=== PATIENT | male | born 1955 | race Hispanic/Latino ===

== ENCOUNTER 2016-06-11 06:50 | Emergency (ER) | payer OTHER ==
[2016-06-11] MEDS ORDERED: MORPHINE IV ONE (07:41)
[2016-06-11] MEDS ORDERED: NACL 0.9% 500 ML 500 ML IV ONE (07:41)
[2016-06-11 07:44] LABS: Basophils % (Auto) 0.5 % (0.0-1.8); Eosinophils % (Auto) 5.2 % (0.0-4.3); Hematocrit 36.3 % (35.5-45.6); Hemoglobin 12.3 gm/dl (11.8-15.2); Mean Corpuscular HGB Conc 34 % (32-34); Mean Corpuscular Hemoglobin 33 pg (28-32); Mean Corpuscular Volume 99 fl (84-94); Platelet Count 154 K/mm3 (140-440); Red Blood Count 3.69 M/mm3 (3.65-5.03); Red Cell Distribution Width 13.5 % (13.2-15.2); White Blood Count 6.9 K/mm3 (4.5-11.0)
--- NOTE | 2016-06-11 07:46 | Emergency Department Report ---
- General Chief Complaint: Upper Respiratory Infection Stated Complaint: FLU SX Time Seen by Provider: 06/11/16 07:36 Source: patient Mode of arrival: Ambulatory Limitations: No Limitations - History of Present Illness Initial Comments: 60-year-old male presents to the emergency department via EMS with multiple complaints. Patient reports headache, dizziness, sore throat, fever, cough, chest pain, nausea, and vomiting beginning yesterday. Cough has been productive of green sputum. Fever has been subjective. Review of the triage note shows that the patient has been complaining of these symptoms for 4 days. There are no other complaints. MD Complaint: fever, cough, sore throat -: Gradual, days(s) (2) Severity: moderate Quality: aching Consistency: constant Improves With: nothing Worsens With: nothing Associated Symptoms: fever, headache, sore throat, cough, chest pain, nausea, vomiting Treatments Prior to Arrival: none - Related Data Home Medications Medication Instructions Recorded Confirmed Last Taken ALBUTEROL Inhaler [ProAir HFA 2.5 mg IH PRN PRN 06/11/16 06/11/16 Unknown Inhaler] Amitriptyline [Elavil] 75 mg PO DAILY 06/11/16 06/11/16 Unknown Aspirin [Adult Low Dose Aspirin EC] 81 mg PO DAILY 06/11/16 06/11/16 Unknown AtorvaSTATin [Lipitor] 20 mg PO QHS 06/11/16 06/11/16 Unknown Cyanocobalamin (Vitamin B-12) 500 mg PO DAILY 06/11/16 06/11/16 Unknown [B-12] DULoxetine 60 mg PO DAILY 06/11/16 06/11/16 Unknown Gabapentin [Neurontin] 300 mg PO TID 06/11/16 06/11/16 Unknown Lisinopril [Zestril TAB] 10 mg PO DAILY 06/11/16 06/11/16 Unknown Metoprolol [Lopressor TAB] 50 mg PO DAILY 06/11/16 06/11/16 Unknown Multivitamin Tab [Multiple Vitamin 1 tab PO DAILY 06/11/16 06/11/16 Unknown TAB (Theragran)] Naproxen [Naproxen TAB] 500 mg PO BID 06/11/16 06/11/16 Unknown Pantoprazole [Protonix TAB] 40 mg PO DAILY 06/11/16 06/11/16 Unknown Pantoprazole [Protonix TAB] 40 mg PO DAILY 06/11/16 06/11/16 Unknown Propranolol [Inderal] 10 mg PO TID 06/11/16 06/11/16 Unknown Ranitidine HCl [Zantac 150 MG TAB] 150 mg PO BID 06/11/16 06/11/16 Unknown Tizanidine HCl [tiZANidine] 4 mg PO PRN 06/11/16 06/11/16 Unknown guaiFENesin [Tab Tussin] 400 mg PO DAILY 06/11/16 06/11/16 Unknown methOCARBAMOL 500 mg PO TID 06/11/16 06/11/16 Unknown traMADol [Ultram 50 MG tab] 50 mg PO Q6H 06/11/16 06/11/16 Unknown traZODone [Desyrel] 100 mg PO QHS 06/11/16 06/11/16 Unknown Previous Rx's Medication Instructions Recorded Last Taken Type Benzonatate [Tessalon Perles] 100 mg PO Q8HR PRN #20 capsule 06/11/16 Unknown Rx Allergies Allergy/AdvReac Type Severity Reaction Status Date / Time No Known Allergies Allergy Unverified 06/11/16 07:19 ED Review of Systems ROS: Stated complaint: FLU SX Other details as noted in HPI Comment: All other systems reviewed and negative Constitutional: fever ENT: throat pain Respiratory: cough Cardiovascular: chest pain, syncope (lightheadedness, no loss of consciousness) Gastrointestinal: nausea, vomiting ED Past Medical Hx - Past Medical History Previous Medical History?: Yes Hx Hypertension: Yes Hx Heart Attack/AMI: Yes Additional medical history: Degenerative disc disease - Surgical History Past Surgical History?: Yes Additional Surgical History: Multiple back surgeries secondary to degenerative disc disease - Family History Family history: no significant - Social History Smoking Status: Current Every Day Smoker (1/2 PPD) Substance Use Type: None - Medications Home Medications: Home Medications Medication Instructions Recorded Confirmed Last Taken Type ALBUTEROL Inhaler [ProAir HFA 2.5 mg IH PRN PRN 06/11/16 06/11/16 Unknown History Inhaler] Amitriptyline [Elavil] 75 mg PO DAILY 06/11/16 06/11/16 Unknown History Aspirin [Adult Low Dose Aspirin EC] 81 mg PO DAILY 06/11/16 06/11/16 Unknown History AtorvaSTATin [Lipitor] 20 mg PO QHS 06/11/16 06/11/16 Unknown History Benzonatate [Tessalon Perles] 100 mg PO Q8HR PRN #20 capsule 06/11/16 Unknown Rx Cyanocobalamin (Vitamin B-12) 500 mg PO DAILY 06/11/16 06/11/16 Unknown History [B-12] DULoxetine 60 mg PO DAILY 06/11/16 06/11/16 Unknown History Gabapentin [Neurontin] 300 mg PO TID 06/11/16 06/11/16 Unknown History Lisinopril [Zestril TAB] 10 mg PO DAILY 06/11/16 06/11/16 Unknown History Metoprolol [Lopressor TAB] 50 mg PO DAILY 06/11/16 06/11/16 Unknown History Multivitamin Tab [Multiple Vitamin 1 tab PO DAILY 06/11/16 06/11/16 Unknown History TAB (Theragran)] Naproxen [Naproxen TAB] 500 mg PO BID 06/11/16 06/11/16 Unknown History Pantoprazole [Protonix TAB] 40 mg PO DAILY 06/11/16 06/11/16 Unknown History Pantoprazole [Protonix TAB] 40 mg PO DAILY 06/11/16 06/11/16 Unknown History Propranolol [Inderal] 10 mg PO TID 06/11/16 06/11/16 Unknown History Ranitidine HCl [Zantac 150 MG TAB] 150 mg PO BID 06/11/16 06/11/16 Unknown History Tizanidine HCl [tiZANidine] 4 mg PO PRN 06/11/16 06/11/16 Unknown History guaiFENesin [Tab Tussin] 400 mg PO DAILY 06/11/16 06/11/16 Unknown History methOCARBAMOL 500 mg PO TID 06/11/16 06/11/16 Unknown History traMADol [Ultram 50 MG tab] 50 mg PO Q6H 06/11/16 06/11/16 Unknown History traZODone [Desyrel] 100 mg PO QHS 06/11/16 06/11/16 Unknown History ED Physical Exam - General Limitations: No Limitations General appearance: alert, in no apparent distress - Head Head exam: Present: atraumatic, normocephalic - Eye Eye exam: Present: normal appearance, PERRL, EOMI - ENT ENT exam: Present: normal exam, normal orophraynx, mucous membranes moist - Neck Neck exam: Present: normal inspection, full ROM. Absent: tenderness - Respiratory Respiratory exam: Present: normal lung sounds bilaterally. Absent: respiratory distress - Cardiovascular Cardiovascular Exam: Present: normal rhythm, bradycardia, normal heart sounds - GI/Abdominal GI/Abdominal exam: Present: soft, normal bowel sounds. Absent: distended, tenderness - Extremities Exam Extremities exam: Present: normal inspection, full ROM. Absent: tenderness - Back Exam Back exam: Present: normal inspection, full ROM. Absent: tenderness - Neurological Exam Neurological exam: Present: alert, oriented X3. Absent: motor sensory deficit - Skin Skin exam: Present: warm, dry, intact ED Course Vital Signs 06/11/16 06/11/16 06/11/16 07:19 08:00 08:15 Temperature 98.0 F 98.5 F Pulse Rate 53 L 63 Respiratory 20 20 Rate Blood Pressure 91/58 Blood Pressure 102/69 [Left] O2 Sat by Pulse 96 99 99 Oximetry 06/11/16 06/11/16 09:04 10:05 Temperature 98.3 F 98.2 F Pulse Rate 75 84 Respiratory 22 20 Rate Blood Pressure Blood Pressure 109/73 127/80 [Left] O2 Sat by Pulse 98 97 Oximetry ED Medical Decision Making - Lab Data Result diagrams: 06/11/16 07:32 06/11/16 07:32 - EKG Data -: EKG Interpreted by Me EKG shows normal: sinus rhythm, axis, intervals, QRS complexes, ST-T waves Rate: normal - EKG Data When compared to previous EKG there are: previous EKG unavailable Interpretation: normal EKG - Radiology Data Radiology results: image reviewed interpreted by me: Chest x-ray reveals no acute cardiopulmonary abnormalities. Spinal hardware is noted. - Medical Decision Making Lab and imaging results reviewed and discussed with the patient. Patient will be discharged home at this time to follow up with his primary care physician. - Differential Diagnosis URI, pneumonia, influenza Critical care attestation.: If time is entered above; I have spent that time in minutes in the direct care of this critically ill patient, excluding procedure time. ED Disposition Clinical Impression: Upper respiratory infection Qualifiers: URI type: unspecified viral URI Qualified Code(s): J06.9 - Acute upper respiratory infection, unspecified; B97.89 - Other viral agents as the cause of diseases classified elsewhere Disposition: DISCHARGED TO HOME OR SELFCARE Is pt being admited?: No Condition: Stable Instructions: Upper Respiratory Infection (ED) Prescriptions: Benzonatate [Tessalon Perles] 100 mg PO Q8HR PRN #20 capsule PRN Reason: Cough Referrals: PRIMARY CARE, [Primary Care Provider] - 3-5 Days Time of Disposition: 10:16
[2016-06-11 08:04] LABS: Anion Gap 18 mmol/L; Blood Urea Nitrogen 22 mg/dL (9-20); Calcium 8.3 mg/dL (8.4-10.2); Carbon Dioxide 23 mmol/L (22-30); Chloride 102.6 mmol/L (98-107); Glucose 94 mg/dL (75-100); Potassium 4.9 mmol/L (3.6-5.0); Sodium 139 mmol/L (137-145)
--- NOTE | 2016-06-11 08:41 | XRay Report ---
Portable chest: The aorta is somewhat tortuous. The heart is probably normal in size. There is no vascular congestion the lungs are clear. No significant change is identified compared to November 2008 other than the interval presence of stabilizing thoracolumbar hardware. Impression: No acute cardiopulmonary findings.
[2016-06-11 10:07] VITALS: BP 127/80
== END 2016-06-11 11:36 | disposition home or self-care (01) ==
LOC: ED 06:50
DX: J06.9 Acute upper respiratory infection, unspecified (principal); B97.89 Other viral agents as the cause of diseases classified elsewhere; R55 Syncope and collapse; R11.2 Nausea with vomiting, unspecified; I10 Essential (primary) hypertension; I25.2 Old myocardial infarction; F17.200 Nicotine dependence, unspecified, uncomplicated; Z79.82 Long term (current) use of aspirin
CPT/HCPCS: 36415; 71010; 80048; 85025; 87400; 93005; 93010; 96374; 99284; J2270; J7040

== ENCOUNTER 2016-06-13 07:26 | Emergency (ER) | payer OTHER ==
[2016-06-13 07:50] VITALS: BP 123/86
[2016-06-13 09:01] LABS: Basophils % (Auto) 0.4 % (0.0-1.8); Eosinophils % (Auto) 5.4 % (0.0-4.3); Hematocrit 39.5 % (35.5-45.6); Hemoglobin 13.1 gm/dl (11.8-15.2); Mean Corpuscular HGB Conc 33 % (32-34); Mean Corpuscular Hemoglobin 33 pg (28-32); Mean Corpuscular Volume 100 fl (84-94); Platelet Count 147 K/mm3 (140-440); Red Blood Count 3.94 M/mm3 (3.65-5.03); Red Cell Distribution Width 13.5 % (13.2-15.2); White Blood Count 5.9 K/mm3 (4.5-11.0)
[2016-06-13 09:18] LABS: Blood Urea Nitrogen 14 mg/dL (9-20); Calcium 8.9 mg/dL (8.4-10.2); Carbon Dioxide 25 mmol/L (22-30); Glucose 88 mg/dL (75-100)
[2016-06-13 09:19] LABS: Anion Gap 19 mmol/L; Chloride 100.5 mmol/L (98-107); Sodium 139 mmol/L (137-145)
--- NOTE | 2016-06-13 09:21 | XRay Report ---
ROUTINE CHEST, TWO VIEWS: PA and lateral views demonstrate the heart and mediastinal contour to be of normal size and shape. The lungs are clear and fully expanded and the soft tissues and bony structures are normal. No change compared to June 11, 2016. Of note are thoracolumbar pedicle screws. IMPRESSION: No cardiopulmonary abnormalities.
[2016-06-13] MEDS ORDERED: TORADOL IV ONE (21:41)
[2016-06-13] MEDS ORDERED: MAGNESIUM SULFATE 2GM/50ML 50 ML IV ONE (21:41)
[2016-06-13] MEDS ORDERED: PROVENTIL IH ONE (21:41)
[2016-06-13] MEDS ORDERED: ATROVENT IH ONE (21:41)
--- NOTE | 2016-06-13 21:42 | Emergency Department Report ---
ED General Adult HPI - General Chief complaint: Chest Pain Stated complaint: CHEST PAIN /COUGH 2X DAYS Time Seen by Provider: 06/13/16 21:31 Source: patient Mode of arrival: Ambulatory Limitations: No Limitations - History of Present Illness Initial comments: this is a 60 y/o male previously unknown to me.pmd is at the [facility] pmh: htn, djd, ?copd, "heart attack." patient comes to the ER complaining of cough, congestion headache, facial pain, facial fullness, body aches, cough, green mucous production. symptoms present for 3-4 days. they have no exacerbating or relieving factors. he was soon in the ER a few days ago for similar symptoms, and presumptively diagnosed with bronchitis/viral syndrome. he was d/c-ed with rashard mulligan. as per discussion with emergency medicine department staff at the [facility], patient had been admitted to [facility] for tachycardia arrhythmia, was found to have SVT, had a troponin leak, had an echocardiogram that demonstrated an EF of 61%. Patient's reports his symptoms have no exacerbating or relieving factors. The chest pain as central, does not ready to the back, arms or neck. There is no vomiting, there is no diaphoresis. There is no leg pain. There is no leg swelling. No recent trips greater than 4 hours. No recent hospital admissions. As per verbal report from the [facility], patient had 3 CT imaging of the chest in the past year, negative for pulmonary animals, positive for findings consistent with COPD. -: Gradual Location: head, face, chest, left, right, upper extremity, lower extremity Quality: aching Consistency: intermittent Improves with: rest Worsens with: movement Associated Symptoms: chest pain, cough, loss of appetite, shortness of breath Treatments Prior to Arrival: cold therapy - Related Data Home Medications Medication Instructions Recorded Confirmed Last Taken ALBUTEROL Inhaler [ProAir HFA 2.5 mg IH PRN PRN 06/11/16 06/11/16 Unknown Inhaler] Amitriptyline [Elavil] 75 mg PO DAILY 06/11/16 06/11/16 Unknown Aspirin [Adult Low Dose Aspirin EC] 81 mg PO DAILY 06/11/16 06/11/16 Unknown AtorvaSTATin [Lipitor] 20 mg PO QHS 06/11/16 06/11/16 Unknown Cyanocobalamin (Vitamin B-12) 500 mg PO DAILY 06/11/16 06/11/16 Unknown [B-12] DULoxetine 60 mg PO DAILY 06/11/16 06/11/16 Unknown Gabapentin [Neurontin] 300 mg PO TID 06/11/16 06/11/16 Unknown Lisinopril [Zestril TAB] 10 mg PO DAILY 06/11/16 06/11/16 Unknown Metoprolol [Lopressor TAB] 50 mg PO DAILY 06/11/16 06/11/16 Unknown Multivitamin Tab [Multiple Vitamin 1 tab PO DAILY 06/11/16 06/11/16 Unknown TAB (Theragran)] Naproxen [Naproxen TAB] 500 mg PO BID 06/11/16 06/11/16 Unknown Pantoprazole [Protonix TAB] 40 mg PO DAILY 06/11/16 06/11/16 Unknown Pantoprazole [Protonix TAB] 40 mg PO DAILY 06/11/16 06/11/16 Unknown Propranolol [Inderal] 10 mg PO TID 06/11/16 06/11/16 Unknown Ranitidine HCl [Zantac 150 MG TAB] 150 mg PO BID 06/11/16 06/11/16 Unknown Tizanidine HCl [tiZANidine] 4 mg PO PRN 06/11/16 06/11/16 Unknown guaiFENesin [Tab Tussin] 400 mg PO DAILY 06/11/16 06/11/16 Unknown methOCARBAMOL 500 mg PO TID 06/11/16 06/11/16 Unknown traMADol [Ultram 50 MG tab] 50 mg PO Q6H 06/11/16 06/11/16 Unknown traZODone [Desyrel] 100 mg PO QHS 06/11/16 06/11/16 Unknown Previous Rx's Medication Instructions Recorded Last Taken Type Benzonatate [Tessalon Perles] 100 mg PO Q8HR PRN #20 capsule 06/11/16 Unknown Rx Albuterol Sulfate [Proair 90 mcg IH Q4HR PRN #2 aer.pow.ba 06/13/16 Unknown Rx Respiclick] Benzonatate [Tessalon Perles] 100 mg PO Q8HR PRN #30 capsule 06/13/16 Unknown Rx Fluticasone [Flonase] 1 spray NS QDAY #1 bottle 06/13/16 Unknown Rx Ipratropium [Atrovent NEB] 0.5 mg IH Q4HR #2 ml 06/13/16 Unknown Rx Ketorolac [Toradol] 10 mg PO Q6H PRN #20 tablet 06/13/16 Unknown Rx predniSONE [Deltasone] 40 mg PO QDAY #8 tab 06/13/16 Unknown Rx Allergies Allergy/AdvReac Type Severity Reaction Status Date / Time No Known Allergies Allergy Unverified 06/11/16 07:19 ED Review of Systems ROS: Stated complaint: CHEST PAIN /COUGH 2X DAYS Other details as noted in HPI Constitutional: malaise Eyes: denies: vision change ENT: denies: epistaxis Respiratory: cough, shortness of breath, wheezing Cardiovascular: chest pain Gastrointestinal: denies: vomiting Genitourinary: as per HPI Musculoskeletal: arthralgia, myalgia Skin: denies: lesions Neurological: weakness ED Past Medical Hx - Past Medical History Hx Hypertension: Yes Hx Heart Attack/AMI: Yes Additional medical history: Degenerative disc disease - Surgical History Additional Surgical History: Multiple back surgeries secondary to degenerative disc disease - Social History Smoking Status: Current Every Day Smoker Substance Use Type: Alcohol - Medications Home Medications: Home Medications Medication Instructions Recorded Confirmed Last Taken Type ALBUTEROL Inhaler [ProAir HFA 2.5 mg IH PRN PRN 06/11/16 06/11/16 Unknown History Inhaler] Amitriptyline [Elavil] 75 mg PO DAILY 06/11/16 06/11/16 Unknown History Aspirin [Adult Low Dose Aspirin EC] 81 mg PO DAILY 06/11/16 06/11/16 Unknown History AtorvaSTATin [Lipitor] 20 mg PO QHS 06/11/16 06/11/16 Unknown History Benzonatate [Tessalon Perles] 100 mg PO Q8HR PRN #20 capsule 06/11/16 Unknown Rx Cyanocobalamin (Vitamin B-12) 500 mg PO DAILY 06/11/16 06/11/16 Unknown History [B-12] DULoxetine 60 mg PO DAILY 06/11/16 06/11/16 Unknown History Gabapentin [Neurontin] 300 mg PO TID 06/11/16 06/11/16 Unknown History Lisinopril [Zestril TAB] 10 mg PO DAILY 06/11/16 06/11/16 Unknown History Metoprolol [Lopressor TAB] 50 mg PO DAILY 06/11/16 06/11/16 Unknown History Multivitamin Tab [Multiple Vitamin 1 tab PO DAILY 06/11/16 06/11/16 Unknown History TAB (Theragran)] Naproxen [Naproxen TAB] 500 mg PO BID 06/11/16 06/11/16 Unknown History Pantoprazole [Protonix TAB] 40 mg PO DAILY 06/11/16 06/11/16 Unknown History Pantoprazole [Protonix TAB] 40 mg PO DAILY 06/11/16 06/11/16 Unknown History Propranolol [Inderal] 10 mg PO TID 06/11/16 06/11/16 Unknown History Ranitidine HCl [Zantac 150 MG TAB] 150 mg PO BID 06/11/16 06/11/16 Unknown History Tizanidine HCl [tiZANidine] 4 mg PO PRN 06/11/16 06/11/16 Unknown History guaiFENesin [Tab Tussin] 400 mg PO DAILY 06/11/16 06/11/16 Unknown History methOCARBAMOL 500 mg PO TID 06/11/16 06/11/16 Unknown History traMADol [Ultram 50 MG tab] 50 mg PO Q6H 06/11/16 06/11/16 Unknown History traZODone [Desyrel] 100 mg PO QHS 06/11/16 06/11/16 Unknown History Albuterol Sulfate [Proair 90 mcg IH Q4HR PRN #2 aer.[email or web address] 06/13/16 Unknown Rx Respiclick] Benzonatate [Tessalon Perles] 100 mg PO Q8HR PRN #30 capsule 06/13/16 Unknown Rx Fluticasone [Flonase] 1 spray NS QDAY #1 bottle 06/13/16 Unknown Rx Ipratropium [Atrovent NEB] 0.5 mg IH Q4HR #2 ml 06/13/16 Unknown Rx Ketorolac [Toradol] 10 mg PO Q6H PRN #20 tablet 06/13/16 Unknown Rx predniSONE [Deltasone] 40 mg PO QDAY #8 tab 06/13/16 Unknown Rx ED Physical Exam - General Limitations: No Limitations General appearance: alert, in no apparent distress - Head Head exam: Present: atraumatic, normocephalic - Eye Eye exam: Present: normal appearance - ENT ENT exam: Present: normal exam, normal orophraynx, mucous membranes moist - Neck Neck exam: Present: normal inspection - Respiratory Respiratory exam: Present: wheezes, rhonchi, chest wall tenderness. Absent: respiratory distress - Cardiovascular Cardiovascular Exam: Present: regular rate, normal rhythm, normal heart sounds. Absent: bradycardia, tachycardia, irregular rhythm, systolic murmur, diastolic murmur, rubs, gallop - GI/Abdominal GI/Abdominal exam: Present: soft, normal bowel sounds. Absent: distended, tenderness, guarding, rebound, rigid, pulsatile mass - Rectal Rectal exam: Present: deferred - Extremities Exam Extremities exam: Present: normal inspection, full ROM, normal capillary refill. Absent: tenderness, pedal edema, joint swelling, calf tenderness - Back Exam Back exam: Present: normal inspection, full ROM. Absent: tenderness, CVA tenderness (R), CVA tenderness (L), muscle spasm, paraspinal tenderness, vertebral tenderness - Neurological Exam Neurological exam: Present: alert, oriented X3, normal gait, other (Extraocular movements intact. Tongue midline. No facial droop. Facial sensation intact to light touch in the V1, V2, V3 distribution bilaterally. 5 and 5 strength in 4 extremities.. Sensation is intact to light touch in 4 extremities.). Absent : motor sensory deficit - Psychiatric Psychiatric exam: Present: normal affect, normal mood - Skin Skin exam: Present: warm, dry, intact, normal color. Absent: rash ED Course Vital Signs 06/13/16 06/13/16 06/13/16 07:44 21:56 22:19 Temperature 98.6 F Pulse Rate 75 Pulse Rate [ 83 Anterior] Respiratory 20 20 Rate Respiratory 15 Rate [Anterior] Blood Pressure 123/86 O2 Sat by Pulse 100 Oximetry - Reevaluation(s) Reevaluation #1: 06/13/16 22:36 Differential diagnosis: Bronchitis, bronchiectasis, pneumonia, acute coronary syndrome Assessment and plan: 60-year-old male with a few days of body aches, facial fullness, facial discomfort, cough, wheezing, shortness of breath and mucus production. Troponin is negative multiple times. No pulmonary embolus or DVT risk factors, low risk by well's criteria, low risk by JAIMIE score, low risk by heart score. His EKG today is essentially unchanged from prior EKG. Contrary to what the patient has informed the triage nurse, he was not formally diagnosed with a heart attack, but rather a troponin leak secondary to SVT. He was given albuterol, Atrovent, steroids, magnesium, and Toradol. He felt improved. He is able to ambulate without desaturation. He will be discharged with albuterol, Atrovent, steroids, Tessalon Perles, Flonase, pain medication. He is instructed to follow up with outpatient primary care, pulmonology, and/or cardiology. Return precautions are extensively reviewed. Reevaluation #2: 06/15/16 05:07 Patient walked out of the emergency department without difficulty, got dressed without difficulty without desaturation. ED Medical Decision Making - Lab Data Result diagrams: 06/13/16 08:23 06/13/16 08:23 Vital Signs 06/13/16 06/13/16 06/13/16 07:44 21:56 22:19 Temperature 98.6 F Pulse Rate 75 Pulse Rate [ 83 Anterior] Respiratory 20 20 Rate Respiratory 15 Rate [Anterior] Blood Pressure 123/86 O2 Sat by Pulse 100 Oximetry Lab Results 06/13/16 06/13/16 06/13/16 Range/Units 08:23 08:23 10:50 WBC 5.9 (4.5-11.0) K/mm3 RBC 3.94 (3.65-5.03) M/mm3 Hgb 13.1 (11.8-15.2) gm/dl Hct 39.5 (35.5-45.6) % MCV 100 H (84-94) fl MCH 33 H (28-32) pg MCHC 33 (32-34) % RDW 13.5 (13.2-15.2) % Plt Count 147 (140-440) K/mm3 Lymph % (Auto) 11.8 L (13.4-35.0) % Hood % (Auto) 8.5 H (0.0-7.3) % Eos % (Auto) 5.4 H (0.0-4.3) % Baso % (Auto) 0.4 (0.0-1.8) % Lymph # 0.7 L (1.2-5.4) K/mm3 Hood # 0.5 (0.0-0.8) K/mm3 Eos # 0.3 (0.0-0.4) K/mm3 Baso # 0.0 (0.0-0.1) K/mm3 Seg Neutrophils % 73.9 H (40.0-70.0) % Seg Neutrophils # 4.4 (1.8-7.7) K/mm3 Sodium 139 (137-145) mmol/L Potassium 5.0 (3.6-5.0) mmol/L Chloride 100.5 (98-107) mmol/L Carbon Dioxide 25 (22-30) mmol/L Anion Gap 19 mmol/L BUN 14 (9-20) mg/dL Creatinine 0.8 (0.8-1.5) mg/dL Estimated GFR > 60 ml/min BUN/Creatinine Ratio 17.50 % Glucose 88 (75-100) mg/dL Calcium 8.9 (8.4-10.2) mg/dL Troponin T < 0.010 < 0.010 (0.00-0.029) ng/mL 06/13/16 Range/Units 14:21 WBC (4.5-11.0) K/mm3 RBC (3.65-5.03) M/mm3 Hgb (11.8-15.2) gm/dl Hct (35.5-45.6) % MCV (84-94) fl MCH (28-32) pg MCHC (32-34) % RDW (13.2-15.2) % Plt Count (140-440) K/mm3 Lymph % (Auto) (13.4-35.0) % Hood % (Auto) (0.0-7.3) % Eos % (Auto) (0.0-4.3) % Baso % (Auto) (0.0-1.8) % Lymph # (1.2-5.4) K/mm3 Hood # (0.0-0.8) K/mm3 Eos # (0.0-0.4) K/mm3 Baso # (0.0-0.1) K/mm3 Seg Neutrophils % (40.0-70.0) % Seg Neutrophils # (1.8-7.7) K/mm3 Sodium (137-145) mmol/L Potassium (3.6-5.0) mmol/L Chloride (98-107) mmol/L Carbon Dioxide (22-30) mmol/L Anion Gap mmol/L BUN (9-20) mg/dL Creatinine (0.8-1.5) mg/dL Estimated GFR ml/min BUN/Creatinine Ratio % Glucose (75-100) mg/dL Calcium (8.4-10.2) mg/dL Troponin T < 0.010 (0.00-0.029) ng/mL - EKG Data 06/13/16 22:38 Normal sinus, premature ventricular complexes, normal axis, prolonged QTC at 451 ms, not morphologically consistent with STEMI, essentially unchanged from prior EKG from 06/11/2016 - Radiology Data Radiology results: report reviewed, image reviewed Chest x-ray negative for acute disease/pathology. Critical care attestation.: If time is entered above; I have spent that time in minutes in the direct care of this critically ill patient, excluding procedure time. ED Disposition Clinical Impression: Upper respiratory infection Disposition: DISCHARGED TO HOME OR SELFCARE Is pt being admited?: No Does the pt Need Aspirin: No Condition: Good Instructions: Acute Bronchitis (ED) Additional Instructions: Laboratory studies, chest x-ray were unremarkable. Symptoms most likely coming from cough/cold/bronchitis, which is typically not dangerous or life- threatening. Symptoms may persist for weeks. Take the breathing medication as directed. Take the nasal medication and pain medication as directed. If you smoke, discontinue tobacco and smoking consumption. Follow-up with either primary care, cardiology or pulmonology within the next week. Dr. Sosa is a local primary care doctor. Dr. Valenzuela is a local pulmonology specialist. Dr. Blas is local e marketing specialist. For your clarification, it seems that you did not have a heart attack later on this year. He had an arrhythmia called supraventricular tachycardia, which causes a leak of nonspecific heart blood test enzyme. He should follow up with a social service manager for this as recommended. Return to the ER right away with new pain, worsened pain, migration of pain, fevers or chills, nausea or vomiting, inability to tolerate liquid feeds. Prescriptions: Ipratropium [Atrovent NEB] 0.5 mg IH Q4HR #2 ml predniSONE [Deltasone] 40 mg PO QDAY #8 tab Fluticasone [Flonase] 1 spray NS QDAY #1 bottle Albuterol Sulfate [Proair Respiclick] 90 mcg IH Q4HR PRN #2 aer.[email or web address] PRN Reason: Wheezing Benzonatate [Tessalon Perles] 100 mg PO Q8HR PRN #30 capsule PRN Reason: Cough Ketorolac [Toradol] 10 mg PO Q6H PRN #20 tablet PRN Reason: Pain Referrals: PRIMARY CARE, [Primary Care Provider] - 3-5 Days DESTINI SOSA MD [Staff Physician] - 3-5 Days ABEL BLAS MD [Staff Physician] - 3-5 Days BRANT WILL MD [Staff Physician] - 3-5 Days
[2016-06-13] MEDS ORDERED: TYLENOL ONE (22:54)
[2016-06-13] MEDS ORDERED: TYLENOL PO ONE (23:15)
== END 2016-06-13 23:15 | disposition home or self-care (01) ==
LOC: ED 07:26
DX: R06.9 Unspecified abnormalities of breathing (principal); I10 Essential (primary) hypertension; I25.2 Old myocardial infarction; F17.200 Nicotine dependence, unspecified, uncomplicated
CPT/HCPCS: 36415; 71020; 80048; 84484; 85025; 93005; 93010; 94640; 96365; 96375; 99285; J1885; J2930; J3475

== ENCOUNTER 2017-02-01 11:54 | Emergency (ER) | payer OTHER ==
[2017-02-01 12:33] VITALS: BP 133/94
== END 2017-02-01 15:08 | disposition left against medical advice (07) ==
LOC: ED 11:54
DX: K08.89 Other specified disorders of teeth and supporting structures (principal); I25.2 Old myocardial infarction; I10 Essential (primary) hypertension; F17.200 Nicotine dependence, unspecified, uncomplicated; Z88.8 Allergy status to other drugs, medicaments and biological substances; Z53.21 Procedure and treatment not carried out due to patient leaving prior to being seen by health care provider

== ENCOUNTER 2017-02-04 09:42 | Emergency (ER) | payer OTHER ==
[2017-02-04 09:53] VITALS: BP 146/92
--- NOTE | 2017-02-04 10:30 | Emergency Department Report ---
ED ENT HPI - General Chief complaint: Dental/Oral Stated complaint: TOOTHACHE Time Seen by Provider: 02/04/17 10:24 Source: patient Mode of arrival: Ambulatory Limitations: No Limitations - History of Present Illness Initial comments: PT states he has a toothache because his filling fell out on Saturday. PT rates his pain 01/17. PT states he took Motrin but he ran out. PT states he has also tried taking Tylenol for his pain. PT states he has no prescription pain medication. MD complaint: tooth pain -: Gradual, days(s) Severity: severe Severity scale (0 -10): 8 Quality: sharp Consistency: constant Improves with: NSAID, other medication Worsens with: eating Context- Dental: history of dental caries Associated Symptoms: gum swelling, toothache. denies: fever, pain with swallowing, sore throat - Related Data Home Medications Medication Instructions Recorded Confirmed Last Taken ALBUTEROL Inhaler [ProAir HFA 2.5 mg IH PRN PRN 06/11/16 06/11/16 Unknown Inhaler] Amitriptyline [Elavil] 75 mg PO DAILY 06/11/16 06/11/16 Unknown Aspirin [Adult Low Dose Aspirin EC] 81 mg PO DAILY 06/11/16 06/11/16 Unknown AtorvaSTATin [Lipitor] 20 mg PO QHS 06/11/16 06/11/16 Unknown Cyanocobalamin (Vitamin B-12) 500 mg PO DAILY 06/11/16 06/11/16 Unknown [B-12] DULoxetine 60 mg PO DAILY 06/11/16 06/11/16 Unknown Gabapentin [Neurontin] 300 mg PO TID 06/11/16 06/11/16 Unknown Lisinopril [Zestril TAB] 10 mg PO DAILY 06/11/16 06/11/16 Unknown Metoprolol [Lopressor TAB] 50 mg PO DAILY 06/11/16 06/11/16 Unknown Multivitamin Tab [Multiple Vitamin 1 tab PO DAILY 06/11/16 06/11/16 Unknown TAB (Theragran)] Pantoprazole [Protonix TAB] 40 mg PO DAILY 06/11/16 06/11/16 Unknown Pantoprazole [Protonix TAB] 40 mg PO DAILY 06/11/16 06/11/16 Unknown Propranolol [Inderal] 10 mg PO TID 06/11/16 06/11/16 Unknown Ranitidine HCl [Zantac 150 MG TAB] 150 mg PO BID 06/11/16 06/11/16 Unknown Tizanidine HCl [tiZANidine] 4 mg PO PRN 06/11/16 06/11/16 Unknown guaiFENesin [Tab Tussin] 400 mg PO DAILY 06/11/16 06/11/16 Unknown methOCARBAMOL 500 mg PO TID 06/11/16 06/11/16 Unknown traZODone [Desyrel] 100 mg PO QHS 06/11/16 06/11/16 Unknown Previous Rx's Medication Instructions Recorded Last Taken Type Benzonatate [Tessalon Perles] 100 mg PO Q8HR PRN #20 capsule 06/11/16 Unknown Rx Albuterol Sulfate [Proair 90 mcg IH Q4HR PRN #2 aer.pow.ba 06/13/16 Unknown Rx Respiclick] Benzonatate [Tessalon Perles] 100 mg PO Q8HR PRN #30 capsule 06/13/16 Unknown Rx Fluticasone [Flonase] 1 spray NS QDAY #1 bottle 06/13/16 Unknown Rx Ipratropium [Atrovent NEB] 0.5 mg IH Q4HR #2 ml 06/13/16 Unknown Rx Amoxicillin 500 mg PO BID #20 capsule 02/04/17 Unknown Rx Allergies Allergy/AdvReac Type Severity Reaction Status Date / Time ketorolac tromethamine Allergy Rash Verified 02/01/17 12:29 [From Toradol] ED Dental HPI - General Chief complaint: Dental/Oral Stated complaint: TOOTHACHE Time Seen by Provider: 02/04/17 10:24 Source: patient Mode of arrival: Ambulatory Limitations: No Limitations - Related Data Home Medications Medication Instructions Recorded Confirmed Last Taken ALBUTEROL Inhaler [ProAir HFA 2.5 mg IH PRN PRN 06/11/16 06/11/16 Unknown Inhaler] Amitriptyline [Elavil] 75 mg PO DAILY 06/11/16 06/11/16 Unknown Aspirin [Adult Low Dose Aspirin EC] 81 mg PO DAILY 06/11/16 06/11/16 Unknown AtorvaSTATin [Lipitor] 20 mg PO QHS 06/11/16 06/11/16 Unknown Cyanocobalamin (Vitamin B-12) 500 mg PO DAILY 06/11/16 06/11/16 Unknown [B-12] DULoxetine 60 mg PO DAILY 06/11/16 06/11/16 Unknown Gabapentin [Neurontin] 300 mg PO TID 06/11/16 06/11/16 Unknown Lisinopril [Zestril TAB] 10 mg PO DAILY 06/11/16 06/11/16 Unknown Metoprolol [Lopressor TAB] 50 mg PO DAILY 06/11/16 06/11/16 Unknown Multivitamin Tab [Multiple Vitamin 1 tab PO DAILY 06/11/16 06/11/16 Unknown TAB (Theragran)] Pantoprazole [Protonix TAB] 40 mg PO DAILY 06/11/16 06/11/16 Unknown Pantoprazole [Protonix TAB] 40 mg PO DAILY 06/11/16 06/11/16 Unknown Propranolol [Inderal] 10 mg PO TID 06/11/16 06/11/16 Unknown Ranitidine HCl [Zantac 150 MG TAB] 150 mg PO BID 06/11/16 06/11/16 Unknown Tizanidine HCl [tiZANidine] 4 mg PO PRN 06/11/16 06/11/16 Unknown guaiFENesin [Tab Tussin] 400 mg PO DAILY 06/11/16 06/11/16 Unknown methOCARBAMOL 500 mg PO TID 06/11/16 06/11/16 Unknown traZODone [Desyrel] 100 mg PO QHS 06/11/16 06/11/16 Unknown Previous Rx's Medication Instructions Recorded Last Taken Type Benzonatate [Tessalon Perles] 100 mg PO Q8HR PRN #20 capsule 06/11/16 Unknown Rx Albuterol Sulfate [Proair 90 mcg IH Q4HR PRN #2 aer.pow.ba 06/13/16 Unknown Rx Respiclick] Benzonatate [Tessalon Perles] 100 mg PO Q8HR PRN #30 capsule 06/13/16 Unknown Rx Fluticasone [Flonase] 1 spray NS QDAY #1 bottle 06/13/16 Unknown Rx Ipratropium [Atrovent NEB] 0.5 mg IH Q4HR #2 ml 06/13/16 Unknown Rx Amoxicillin 500 mg PO BID #20 capsule 02/04/17 Unknown Rx Allergies Allergy/AdvReac Type Severity Reaction Status Date / Time ketorolac tromethamine Allergy Rash Verified 02/01/17 12:29 [From Toradol] ED Review of Systems ROS: Stated complaint: TOOTHACHE Other details as noted in HPI Comment: All other systems reviewed and negative Constitutional: denies: chills, fever, malaise ENT: dental pain. denies: throat pain Gastrointestinal: nausea. denies: vomiting ED Past Medical Hx - Past Medical History Previous Medical History?: Yes Hx Hypertension: Yes Hx Heart Attack/AMI: Yes (palpitations) Additional medical history: Degenerative disc disease - Surgical History Past Surgical History?: Yes Additional Surgical History: Multiple back surgeries secondary to degenerative disc disease - Social History Smoking Status: Former Smoker Substance Use Type: Prescribed - Medications Home Medications: Home Medications Medication Instructions Recorded Confirmed Last Taken Type ALBUTEROL Inhaler [ProAir HFA 2.5 mg IH PRN PRN 06/11/16 06/11/16 Unknown History Inhaler] Amitriptyline [Elavil] 75 mg PO DAILY 06/11/16 06/11/16 Unknown History Aspirin [Adult Low Dose Aspirin EC] 81 mg PO DAILY 06/11/16 06/11/16 Unknown History AtorvaSTATin [Lipitor] 20 mg PO QHS 06/11/16 06/11/16 Unknown History Benzonatate [Tessalon Perles] 100 mg PO Q8HR PRN #20 capsule 06/11/16 Unknown Rx Cyanocobalamin (Vitamin B-12) 500 mg PO DAILY 06/11/16 06/11/16 Unknown History [B-12] DULoxetine 60 mg PO DAILY 06/11/16 06/11/16 Unknown History Gabapentin [Neurontin] 300 mg PO TID 06/11/16 06/11/16 Unknown History Lisinopril [Zestril TAB] 10 mg PO DAILY 06/11/16 06/11/16 Unknown History Metoprolol [Lopressor TAB] 50 mg PO DAILY 06/11/16 06/11/16 Unknown History Multivitamin Tab [Multiple Vitamin 1 tab PO DAILY 06/11/16 06/11/16 Unknown History TAB (Theragran)] Pantoprazole [Protonix TAB] 40 mg PO DAILY 06/11/16 06/11/16 Unknown History Pantoprazole [Protonix TAB] 40 mg PO DAILY 06/11/16 06/11/16 Unknown History Propranolol [Inderal] 10 mg PO TID 06/11/16 06/11/16 Unknown History Ranitidine HCl [Zantac 150 MG TAB] 150 mg PO BID 06/11/16 06/11/16 Unknown History Tizanidine HCl [tiZANidine] 4 mg PO PRN 06/11/16 06/11/16 Unknown History guaiFENesin [Tab Tussin] 400 mg PO DAILY 06/11/16 06/11/16 Unknown History methOCARBAMOL 500 mg PO TID 06/11/16 06/11/16 Unknown History traZODone [Desyrel] 100 mg PO QHS 06/11/16 06/11/16 Unknown History Albuterol Sulfate [Proair 90 mcg IH Q4HR PRN #2 aer.pow.ba 06/13/16 Unknown Rx Respiclick] Benzonatate [Tessalon Perles] 100 mg PO Q8HR PRN #30 capsule 06/13/16 Unknown Rx Fluticasone [Flonase] 1 spray NS QDAY #1 bottle 06/13/16 Unknown Rx Ipratropium [Atrovent NEB] 0.5 mg IH Q4HR #2 ml 06/13/16 Unknown Rx Amoxicillin 500 mg PO BID #20 capsule 02/04/17 Unknown Rx ED Physical Exam - General Limitations: No Limitations General appearance: alert, in no apparent distress - Head Head exam: Present: atraumatic, normocephalic, normal inspection - Eye Eye exam: Present: normal appearance, PERRL, EOMI - ENT ENT exam: Present: normal orophraynx, mucous membranes moist, normal external ear exam - Expanded ENT Exam Expanded Mouth exam: Present: normal external inspection. Absent: drooling, trismus, muffled voice Teeth exam: Present: dental caries, dental tenderness #. Absent: gingival enlargement 1 - Dental Tenderness (severe decay) Throat exam: Positive: normal inspection - Neck Neck exam: Present: normal inspection, full ROM. Absent: tenderness, lymphadenopathy - Respiratory Respiratory exam: Present: normal lung sounds bilaterally. Absent: respiratory distress - Cardiovascular Cardiovascular Exam: Present: regular rate, normal rhythm, normal heart sounds - GI/Abdominal GI/Abdominal exam: Present: soft, tenderness - Extremities Exam Extremities exam: Present: normal inspection, full ROM - Back Exam Back exam: Present: normal inspection, full ROM - Neurological Exam Neurological exam: Present: alert, oriented X3, normal gait - Psychiatric Psychiatric exam: Present: normal affect, normal mood - Skin Skin exam: Present: warm, dry, intact, normal color. Absent: rash ED Course Vital Signs 02/04/17 09:50 Temperature 97.7 F Pulse Rate 72 Respiratory 18 Rate Blood Pressure 146/92 O2 Sat by Pulse 99 Oximetry - Reevaluation(s) Reevaluation #1: 02/04/17 10:33 PT aware of dx and need for follow up with Dentist. PT verbalizes understanding. Reevaluation #2: 02/04/17 11:15 Reviewed pt in [facility] database. PT filled 20 tablets of Tylenol #3 on 02-01-17. PT was prescribed a 5 day course and he is already out. PT aware RX for narcotic pain medication will not be given. PT verbalizes understanding. Reevaluation #3: 02/04/17 Prior to DC pt was again asking for RX for narcotic pain medication. PT showing drug seeking behavior. - Pulse Oximetry Interpretation Digit-Finger Initial Pulse Oximetry Readin Actions Taken: none ED Medical Decision Making - Differential Diagnosis toothache, dental decay, abscess Critical Care Time: No Critical care attestation.: If time is entered above; I have spent that time in minutes in the direct care of this critically ill patient, excluding procedure time. ED Disposition Clinical Impression: Toothache, Dental decay, Drug-seeking behavior Disposition: DC-01 TO HOME OR SELFCARE Is pt being admited?: No Does the pt Need Aspirin: No Condition: Stable Instructions: Dental Caries (ED), Toothache (ED) Additional Instructions: Good oral hygiene Follow up with Dentist Follow up with PCP for pain medication Prescriptions: Amoxicillin 500 mg PO BID #20 capsule Referrals: JEN VILLA MD [Staff Physician] - 3-[address] [facility] [Outside] - 3-5 Days [facility] [Outside] - 3-5 Days [facility] [Outside] - 3-5 Days Time of Disposition: 11:41
[2017-02-04] MEDS ORDERED: NORCO 5/325 PO ONE (11:14)
[2017-02-04] MEDS ORDERED: TRIMOX PO ONE (11:14)
== END 2017-02-04 12:00 | disposition home or self-care (01) ==
LOC: ED 09:42
DX: K02.9 Dental caries, unspecified (principal); K08.89 Other specified disorders of teeth and supporting structures; Z76.5 Malingerer [conscious simulation]; I10 Essential (primary) hypertension; Z87.891 Personal history of nicotine dependence; Z79.82 Long term (current) use of aspirin; Z79.01 Long term (current) use of anticoagulants; Z88.8 Allergy status to other drugs, medicaments and biological substances
CPT/HCPCS: 99282

== ENCOUNTER 2019-05-21 19:18 | Emergency (ER) | payer MEDICAID, OTHER ==
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
[2019-05-21 20:27] LABS: Basophils % (Auto) 0.7 % (0.0-1.8); Eosinophils # (Auto) 0.3 K/mm3 (0.0-0.4); Eosinophils % (Auto) 4.6 % (0.0-4.3); Hematocrit 46.6 % (35.5-45.6); Hemoglobin 16.4 gm/dl (11.8-15.2); Lymphocytes # (Auto) 1.4 K/mm3 (1.2-5.4); Lymphocytes % (Auto) 22.7 % (13.4-35.0); Mean Corpuscular HGB Conc 35 % (32-34); Mean Corpuscular Volume 99 fl (84-94); Monocytes # (Auto) 0.4 K/mm3 (0.0-0.8); Monocytes % (Auto) 6.7 % (0.0-7.3); Platelet Count 192 K/mm3 (140-440); Red Cell Distribution Width 12.6 % (13.2-15.2)
[2019-05-21 20:46] LABS: BUN/Creatinine Ratio 18; Blood Urea Nitrogen 16 mg/dL (9-20); Calcium 9.2 mg/dL (8.4-10.2); Hemolysis Index 27
[2019-05-21] MEDS ORDERED: ACETAMINOPHEN 500 MG TAB PO ONE (20:57)
[2019-05-21 21:03] LABS: Bilirubin,Urine NEG (Negative); Blood,Urine SM (Negative); Color,Urine Straw (Yellow); Mucus,Urine FEW /HPF; Protein,Urine <15 mg/dL mg/dL (Negative); Urobilinogen,Urine < 2.0 mg/dL (<2.0); WBC,Urine < 1.0 /HPF (0.0-6.0)
[2019-05-21 21:15] LABS: Amphetamine Screen,Urine PRESUMPTIVE NEGATIVE; Benzodiazepines Screen,Urine PRESUMPTIVE NEGATIVE; Cannabinoid Screen,Urine PRESUMPTIVE NEGATIVE; Cocaine Screen,Urine PRESUMPTIVE NEGATIVE; Methadone Screen,Urine PRESUMPTIVE NEGATIVE; Opiate Screen,Urine PRESUMPTIVE NEGATIVE
[2019-05-22 07:36] VITALS: BP 106/74
== END 2019-05-22 12:25 | disposition other institution (70) ==
LOC: ED 19:18 → EEVIPCON 19:18 → ED 05-22 12:25
DX: F32.9 Major depressive disorder, single episode, unspecified (principal); R45.851 Suicidal ideations; I10 Essential (primary) hypertension; I21.9 Acute myocardial infarction, unspecified; M19.90 Unspecified osteoarthritis, unspecified site; Z98.890 Other specified postprocedural states; Z79.2 Long term (current) use of antibiotics; Z79.899 Other long term (current) drug therapy; Z88.8 Allergy status to other drugs, medicaments and biological substances
CPT/HCPCS: 36415; 80048; 80307; 80320; 81001; 84484; 85025; 93005; 93010; G0480

== ENCOUNTER 2019-05-22 09:48 | Inpatient (IN) | payer MEDICAID ==
[2019-05-22] MEDS ORDERED: ALBUTEROL 8.5 GM INHALATION IH PRN (10:42)
--- NOTE | 2019-05-22 10:53 | Consultation ---
History of Present Illness - Reason for Consult Consult date: 05/22/19 Reason for consult: Mental health management Requesting physician: STEPHANIE LIZ Medications and Allergies Allergies Allergy/AdvReac Type Severity Reaction Status Date / Time ketorolac tromethamine Allergy Rash Verified 02/01/17 12:29 [From Toradol] Home Medications Medication Instructions Recorded Confirmed Last Taken Type ALBUTEROL Inhaler (OR & NICU) 2.5 mg IH PRN PRN 06/11/16 05/22/19 Unknown History [ProAir HFA Inhaler] Amitriptyline [Elavil] 75 mg PO DAILY 06/11/16 05/22/19 Unknown History Aspirin [Adult Low Dose Aspirin EC] 81 mg PO DAILY 06/11/16 05/22/19 Unknown History AtorvaSTATin [Lipitor] 20 mg PO QHS 06/11/16 05/22/19 Unknown History Cyanocobalamin (Vitamin B-12) 500 mg PO DAILY 06/11/16 05/22/19 Unknown History [B-12] DULoxetine 60 mg PO DAILY 06/11/16 05/22/19 Unknown History Gabapentin 300 mg PO TID 06/11/16 05/22/19 Unknown History Lisinopril [Zestril TAB] 10 mg PO DAILY 06/11/16 05/22/19 Unknown History Metoprolol [Lopressor TAB] 50 mg PO DAILY 06/11/16 05/22/19 Unknown History Multivitamin Tab [Multiple Vitamin 1 tab PO DAILY 06/11/16 05/22/19 Unknown History TAB (Theragran)] Pantoprazole [Protonix TAB] 40 mg PO DAILY 06/11/16 05/22/19 Unknown History Propranolol [Inderal] 10 mg PO TID 06/11/16 05/22/19 Unknown History Tizanidine HCl [tiZANidine] 4 mg PO PRN 06/11/16 05/22/19 Unknown History methOCARBAMOL 500 mg PO TID 06/11/16 05/22/19 Unknown History raNITIdine HCl [Zantac] 150 mg PO BID 06/11/16 05/22/19 Unknown History traZODone [Desyrel] 100 mg PO QHS 06/11/16 05/22/19 Unknown History Fluticasone [Flonase] 1 spray NS QDAY #1 bottle 06/13/16 05/22/19 Unknown Rx Ipratropium [Atrovent NEB] 0.5 mg IH Q4HR #2 ml 06/13/16 05/22/19 Unknown Rx Amoxicillin 500 mg PO BID #20 capsule 02/04/17 05/22/19 Unknown Rx Active Meds: Active Medications Albuterol (Proair) puff IH PRN PRN PRN Reason: Wheezing Amoxicillin (Trimox) 500 mg PO BID CHLOÉ Atorvastatin Calcium (Lipitor) 20 mg PO QHS CHLOÉ Lisinopril (Zestril) 10 mg PO DAILY CHLOÉ Tizanidine HCl (Zanaflex) 4 mg PO PRN CHLOÉ Results All other labs normal.
[2019-05-22] MEDS ORDERED: tiZANidine TAB 4 MG TAB PO SCH (11:00)
[2019-05-22] MEDS ORDERED: METHOCARBAMOL 500 MG PO SCH (14:00)
[2019-05-22] MEDS ORDERED: ALBUTEROL 2.5 MG/3 ML NEBU IH PRN (14:07)
[2019-05-22 15:00] LABS: Alanine Aminotransferase 8 units/L (7-56); Albumin 4.6 g/dL (3.9-5); BUN/Creatinine Ratio 22; Blood Urea Nitrogen 20 mg/dL (9-20); Calcium 9.8 mg/dL (8.4-10.2); Chol/HDL Ratio 3.29 %; HDL Cholesterol 67 mg/dL (40-59); Hemolysis Index 70; LDL Cholesterol,Direct 136 mg/dL (50-130)
[2019-05-22] MEDS: GABAPENTIN 300 MG CAP PO SCH ×2 (15:06→21:42)
[2019-05-22] MEDS: PROPRANOLOL 10 MG TAB PO SCH ×2 (16:15→21:51)
[2019-05-22] MEDS ORDERED: chlordiazePOXIDE 25 MG CAP PO PRN (18:17)
[2019-05-22] MEDS: AMOXICILLIN 500 MG CAP PO SCH (21:43)
[2019-05-22] MEDS: traZODone 100 MG TAB PO SCH (21:44)
--- NOTE | 2019-05-23 07:56 | Progress Note ---
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 Nursing notes patient denies SI "at this time" and no HI. No AV/H. Complies with medication. In my interview with the patient this morning the patient is still in bed. He states he could not sleep last night and was up til 3 am. He says his mood is okay and he has a good appetite. He denies SI/HI and hallucinations of any kind. Review of Symptoms: Constitutional: Negative for weight loss ENT: Negative for stridor Respiratory: Negative for cough or hemoptysis All other systems reviewed and are negative MSE Appearance: Patient in bed, wearing appropriate clothing. Good hygiene Behavior: calm and cooperative. Mood: "okay" Affect: Congruent with stated mood Thought Process: Goal directed Speech: Normal rate. Thought Content Harmfulness Denies SI/HI Hallucinations: patient denies Delusions: none elicited Consciousness: alert Cognition/Memory: normal. Insight/Judgment: Limited. Treatment Plan Due to the psychiatric conditions and treatment listed in the Assessment and Plan - the patient requires continued hospitalization. Will continue inpatient treatment to allow for medication adjustment and monitoring. Will continue q15 min safety checks. Will encourage the use of environmental modifications and non-pharmacologic approaches for the management of behavioral and psychological symptoms. Medication adjustment made today: --- Will continue current psych medications Monitor for medication side effects. The patient will continue on medications for physical illnesses, and Hospitalist will closely monitor these Continue intensive physical and occupational therapies. Monitor patient's mood, sleep, appetite, and behavior closely. Encourage patient to participate in individual and group therapeutic sessions on the lassiter. Will provide a safe and therapeutic environment for patient. Estimated length of stay --- days Medications and Allergies Allergies Allergy/AdvReac Type Severity Reaction Status Date / Time ketorolac tromethamine Allergy Rash Verified 02/01/17 12:29 [From Toradol] Home Medications Medication Instructions Recorded Confirmed Last Taken Type ALBUTEROL Inhaler (OR & NICU) 2.5 mg IH PRN PRN 06/11/16 05/22/19 Unknown History [ProAir HFA Inhaler] Amitriptyline [Elavil] 75 mg PO DAILY 06/11/16 05/22/19 Unknown History Aspirin [Adult Low Dose Aspirin EC] 81 mg PO DAILY 06/11/16 05/22/19 Unknown History AtorvaSTATin [Lipitor] 20 mg PO QHS 06/11/16 05/22/19 Unknown History Cyanocobalamin (Vitamin B-12) 500 mg PO DAILY 06/11/16 05/22/19 Unknown History [B-12] DULoxetine 60 mg PO DAILY 06/11/16 05/22/19 Unknown History Gabapentin 300 mg PO TID 06/11/16 05/22/19 Unknown History Lisinopril [Zestril TAB] 10 mg PO DAILY 06/11/16 05/22/19 Unknown History Metoprolol [Lopressor TAB] 50 mg PO DAILY 06/11/16 05/22/19 Unknown History Multivitamin Tab [Multiple Vitamin 1 tab PO DAILY 06/11/16 05/22/19 Unknown History TAB (Theragran)] Pantoprazole [Protonix TAB] 40 mg PO DAILY 06/11/16 05/22/19 Unknown History Propranolol [Inderal] 10 mg PO TID 06/11/16 05/22/19 Unknown History Tizanidine HCl [tiZANidine] 4 mg PO PRN 06/11/16 05/22/19 Unknown History methOCARBAMOL 500 mg PO TID 06/11/16 05/22/19 Unknown History raNITIdine HCl [Zantac] 150 mg PO BID 06/11/16 05/22/19 Unknown History traZODone [Desyrel] 100 mg PO QHS 06/11/16 05/22/19 Unknown History Fluticasone [Flonase] 1 spray NS QDAY #1 bottle 06/13/16 05/22/19 Unknown Rx Ipratropium [Atrovent NEB] 0.5 mg IH Q4HR #2 ml 06/13/16 05/22/19 Unknown Rx Amoxicillin 500 mg PO BID #20 capsule 02/04/17 05/22/19 Unknown Rx Active Meds: Active Medications Albuterol (Proventil) 2.5 mg IH Q4HRT PRN PRN Reason: Shortness Of Breath Amitriptyline HCl (Elavil) 75 mg PO DAILY [place] Amoxicillin (Trimox) 500 mg PO BID [facility] Last Admin: 05/22/19 21:43 Dose: 500 mg Documented by: Aripiprazole (Aripiprazole) 5 mg PO QDAY [facility] Aspirin (Halfprin Ec) 81 mg PO DAILY [facility] Atorvastatin Calcium (Lipitor) 20 mg PO QHS [facility] Last Admin: 05/22/19 21:43 Dose: 20 mg Documented by: Chlordiazepoxide HCl (Librium) 50 mg PO Q1H PRN PRN Reason: CIWA-Ar 8-15 Chlordiazepoxide HCl (Librium) 100 mg PO Q1H PRN PRN Reason: CIWA-Ar 16-25 Cyanocobalamin (Vitamin B-12) 500 mcg PO QDAY [facility] Duloxetine HCl (Cymbalta) 60 mg PO QDAY [facility] Fluticasone Propionate (Flonase) 50 mcg NS QDAY [facility] Gabapentin (Gabapentin) 300 mg PO TID [facility] Last Admin: 05/22/19 21:42 Dose: 300 mg Documented by: Ipratropium [place] (Atrovent) 0.5 mg IH Q4HRT [facility] Lisinopril (Zestril) 10 mg PO DAILY [facility] Methocarbamol (Robaxin) 500 mg PO TID [facility] Last Admin: 05/22/19 21:43 Dose: 500 mg Documented by: Metoprolol Tartrate (Metoprolol) 50 mg PO DAILY [facility] Nicotine (Habitrol) 21 mg TD QDAY [facility] Pantoprazole Sodium (Protonix) 40 mg PO DAILY [facility] Propranolol HCl (Inderal) 10 mg PO TID [facility] Last Admin: 05/22/19 21:51 Dose: 10 mg Documented by: Tizanidine HCl (Zanaflex) 4 mg PO PRN [facility] Trazodone HCl (Desyrel) 100 mg PO QHS [facility] Last Admin: 05/22/19 21:44 Dose: 100 mg Documented by: Results - Results Labs/Vitals: Laboratory Last Values Sodium 135 mmol/L (137-145) L 05/22/19 14:08 Potassium 5.4 mmol/L (3.6-5.0) H D 05/22/19 14:08 Chloride 96.2 mmol/L (98-107) L 05/22/19 14:08 Carbon Dioxide 22 mmol/L (22-30) 05/22/19 14:08 Anion Gap 22 mmol/L 05/22/19 14:08 BUN 20 mg/dL (9-20) 05/22/19 14:08 Creatinine 0.9 mg/dL (0.8-1.5) 05/22/19 14:08 Estimated GFR > 60 ml/min 05/22/19 14:08 BUN/Creatinine Ratio 22 % 05/22/19 14:08 Glucose 116 mg/dL (75-100) H 05/22/19 14:08 POC Glucose 181 (70-105) H 05/22/19 19:38 Hemoglobin A1c 5.1 % (4-6) 05/22/19 14:08 Calcium 9.8 mg/dL (8.4-10.2) 05/22/19 14:08 Total Bilirubin 0.30 mg/dL (0.1-1.2) 05/22/19 14:08 AST 16 units/L (5-40) 05/22/19 14:08 ALT 8 units/L (7-56) 05/22/19 14:08 Alkaline Phosphatase 105 units/L (35-129) 05/22/19 14:08 Total Protein 8.4 g/dL (6.3-8.2) H 05/22/19 14:08 Albumin 4.6 g/dL (3.9-5) 05/22/19 14:08 Albumin/Globulin Ratio 1.2 % 05/22/19 14:08 Triglycerides 223 mg/dL (2-149) H 05/22/19 14:08 Cholesterol 221 mg/dL (50-199) H 05/22/19 14:08 LDL Cholesterol Direct 136 mg/dL (50-130) H 05/22/19 14:08 HDL Cholesterol 67 mg/dL (40-59) H 05/22/19 14:08 Cholesterol/HDL Ratio 3.29 % 05/22/19 14:08 TSH 1.340 mlU/mL (0.270-4.200) 05/22/19 14:08 Last Vital Signs Temp 98.2 F 05/22/19 22:00 Pulse 75 05/22/19 22:00 Resp 18 05/22/19 22:00 BP 111/76 05/22/19 22:00 Pulse Ox 96 05/22/19 22:00
[2019-05-23] MEDS: AMITRIPTYLINE 25 MG TAB PO SCH (09:30)
[2019-05-23] MEDS: ARIPiprazole 5 MG TAB PO SCH (09:30)
[2019-05-23] MEDS: CYANOCOBALAMIN (VIT B-12) 1000 MCG TAB PO SCH (09:30)
[2019-05-23] MEDS: GABAPENTIN 300 MG CAP PO SCH ×3 (09:31→21:37)
[2019-05-23] MEDS: PROPRANOLOL 10 MG TAB PO SCH ×3 (09:31→21:37)
[2019-05-23] MEDS ORDERED: DULOXETINE 60 MG PO SCH (10:00)
[2019-05-23] MEDS ORDERED: CYANOCOBALAMIN 500 MG PO SCH (10:00)
[2019-05-23] MEDS: ASPIRIN EC 81 MG TAB PO SCH (10:28)
[2019-05-23] MEDS: METOPROLOL TARTRATE 50 MG TAB PO SCH (10:28)
[2019-05-23] MEDS: DULoxetine 30 MG CAP PO SCH (10:28)
[2019-05-23] MEDS: PANTOPRAZOLE 40 MG TAB PO SCH (10:29)
[2019-05-23] MEDS: NICOTINE 21 MG/24 HR PATCH TD SCH (10:29)
[2019-05-23] MEDS: FLUTICASONE PROPIONATE NASAL SPRAY 16 GM NS SCH (10:29)
[2019-05-23] MEDS: LISINOPRIL 10 MG TAB PO SCH (10:29)
[2019-05-23] MEDS: IPRATROPIUM 0.02% NEBU 2.5 ML IH SCH ×6 (12:04→19:01)
[2019-05-23] MEDS: AMOXICILLIN 500 MG CAP PO SCH ×2 (12:39→21:36)
[2019-05-23] MEDS: chlordiazePOXIDE 25 MG CAP PO PRN (16:29)
--- NOTE | 2019-05-23 17:55 | Consultation ---
History of Present Illness - Reason for Consult Consult date: 05/23/19 Medical management Requesting physician: STEPHANIE LIZ - History of Present Illness 63-year-old male patient with significant past medical history of hypertension palpitation degenerative disc disease depression was admitted to inpatient psych Unit with depression and suicidal ideation. Hospitalist services were consultation for medical management. Patient has history of hypertension on multiple antihypertensives ,dyslipidemia, peripheral neuropathy was admitted through emergency room to psych facility With severe depression and suicidal ideation, she denies any chest pain or shortness of breath, denies headache or dizziness Denies nausea vomiting or abdominal pain At the time of my evaluation patient is alert and awake comfortable Past History Past Medical History: COPD, hypertension, hyperlipidemia, other (degenerative disc disease) Past Surgical History: Other (multiple back surgeries) Social history: lives with family (retirement), smoking, alcohol abuse. denies: prescription drug abuse Family history: hypertension Medications and Allergies Allergies Allergy/AdvReac Type Severity Reaction Status Date / Time ketorolac tromethamine Allergy Rash Verified 02/01/17 12:29 [From Toradol] Home Medications Medication Instructions Recorded Confirmed Last Taken Type ALBUTEROL Inhaler (OR & NICU) 2.5 mg IH PRN PRN 06/11/16 05/22/19 Unknown History [ProAir HFA Inhaler] Amitriptyline [Elavil] 75 mg PO DAILY 06/11/16 05/22/19 Unknown History Aspirin [Adult Low Dose Aspirin EC] 81 mg PO DAILY 06/11/16 05/22/19 Unknown History AtorvaSTATin [Lipitor] 20 mg PO QHS 06/11/16 05/22/19 Unknown History Cyanocobalamin (Vitamin B-12) 500 mg PO DAILY 06/11/16 05/22/19 Unknown History [B-12] DULoxetine 60 mg PO DAILY 06/11/16 05/22/19 Unknown History Gabapentin 300 mg PO TID 06/11/16 05/22/19 Unknown History Lisinopril [Zestril TAB] 10 mg PO DAILY 06/11/16 05/22/19 Unknown History Metoprolol [Lopressor TAB] 50 mg PO DAILY 06/11/16 05/22/19 Unknown History Multivitamin Tab [Multiple Vitamin 1 tab PO DAILY 06/11/16 05/22/19 Unknown History TAB (Theragran)] Pantoprazole [Protonix TAB] 40 mg PO DAILY 06/11/16 05/22/19 Unknown History Propranolol [Inderal] 10 mg PO TID 06/11/16 05/22/19 Unknown History Tizanidine HCl [tiZANidine] 4 mg PO PRN 06/11/16 05/22/19 Unknown History methOCARBAMOL 500 mg PO TID 06/11/16 05/22/19 Unknown History raNITIdine HCl [Zantac] 150 mg PO BID 06/11/16 05/22/19 Unknown History traZODone [Desyrel] 100 mg PO QHS 06/11/16 05/22/19 Unknown History Fluticasone [Flonase] 1 spray NS QDAY #1 bottle 06/13/16 05/22/19 Unknown Rx Ipratropium [Atrovent NEB] 0.5 mg IH Q4HR #2 ml 06/13/16 05/22/19 Unknown Rx Amoxicillin 500 mg PO BID #20 capsule 02/04/17 05/22/19 Unknown Rx Active Meds: Active Medications Albuterol (Proventil) 2.5 mg IH Q4HRT PRN PRN Reason: Shortness Of Breath Amitriptyline HCl (Elavil) 75 mg PO DAILY [facility] Last Admin: 05/23/19 09:30 Dose: 75 mg Documented by: Amoxicillin (Trimox) 500 mg PO BID [facility] Last Admin: 05/23/19 12:39 Dose: 500 mg Documented by: Aripiprazole (Aripiprazole) 5 mg PO QDAY [facility] Last Admin: 05/23/19 09:30 Dose: 5 mg Documented by: Aspirin (Halfprin Ec) 81 mg PO DAILY [facility] Last Admin: 05/23/19 10:28 Dose: 81 mg Documented by: Atorvastatin Calcium (Lipitor) 20 mg PO QHS [facility] Last Admin: 05/22/19 21:43 Dose: 20 mg Documented by: Chlordiazepoxide HCl (Librium) 50 mg PO Q1H PRN PRN Reason: CIWA-Ar 8-15 Last Admin: 05/23/19 16:29 Dose: 50 mg Documented by: Chlordiazepoxide HCl (Librium) 100 mg PO Q1H PRN PRN Reason: CIWA-Ar 16-25 Cyanocobalamin (Vitamin B-12) 500 mcg PO QDAY [facility] Last Admin: 05/23/19 09:30 Dose: 500 mcg Documented by: Duloxetine HCl (Cymbalta) 60 mg PO QDAY [facility] Last Admin: 05/23/19 10:28 Dose: 60 mg Documented by: Fluticasone Propionate (Flonase) 50 mcg NS QDAY [facility] Last Admin: 05/23/19 10:29 Dose: Not Given Documented by: Gabapentin (Gabapentin) 300 mg PO TID [facility] Last Admin: 05/23/19 14:13 Dose: 300 mg Documented by: Ipratropium [place] (Atrovent) 0.5 mg IH Q4HRT [facility] Last Admin: 05/23/19 16:06 Dose: Not Given Documented by: Lisinopril (Zestril) 10 mg PO DAILY [facility] Last Admin: 05/23/19 10:29 Dose: 10 mg Documented by: Methocarbamol (Robaxin) 500 mg PO TID [facility] Last Admin: 05/23/19 14:13 Dose: 500 mg Documented by: Metoprolol Tartrate (Metoprolol) 50 mg PO DAILY [facility] Last Admin: 05/23/19 10:28 Dose: 50 mg Documented by: Nicotine (Habitrol) 21 mg TD QDAY [facility] Last Admin: 05/23/19 10:29 Dose: 21 mg Documented by: Pantoprazole Sodium (Protonix) 40 mg PO DAILY [facility] Last Admin: 05/23/19 10:29 Dose: 40 mg Documented by: Propranolol HCl (Inderal) 10 mg PO TID [facility] Last Admin: 05/23/19 14:13 Dose: 10 mg Documented by: Tizanidine HCl (Zanaflex) 4 mg PO PRN [facility] Trazodone HCl (Desyrel) 100 mg PO QHS [facility] Last Admin: 05/22/19 21:44 Dose: 100 mg Documented by: Review of Systems Constitutional: no weight loss, no weight gain, no anorexia, no fatigue Ears, nose, mouth and throat: no nasal congestion, no nasal discharge Cardiovascular: no chest pain, no orthopnea Respiratory: no cough with sputum, no shortness of breath Gastrointestinal: no abdominal pain, no nausea, no vomiting Genitourinary Male: no dysuria, no hematuria Musculoskeletal: no myalgias, no arthritis Integumentary: no rash, no lesions Neurological: no seizures, no syncope Psychiatric: suicidal ideation, depression Endocrine: no cold intolerance, no heat intolerance Hematologic/Lymphatic: no easy bruising, no easy bleeding Allergic/Immunologic: no urticaria, no allergic rhinitis Exam - Constitutional Vitals: Temp Pulse Resp BP Pulse Ox 98.3 F 81 18 113/74 96 05/23/19 08:29 05/23/19 14:13 05/23/19 08:29 05/23/19 14:13 05/23/19 16:12 General appearance: Present: no acute distress, well-nourished - EENT Eyes: Present: PERRL, EOM intact - Neck Neck: Present: supple, normal ROM - Respiratory Respiratory effort: normal Respiratory: bilateral: diminished, negative: rales, rhonchi, wheezing - Cardiovascular Rhythm: regular Heart Sounds: Present: S1 & S2 - Extremities Extremities: no ischemia, No edema - Abdominal General gastrointestinal: Present: soft, non-tender, non-distended, normal bowel sounds - Integumentary Integumentary: Present: clear, warm - Musculoskeletal Musculoskeletal: strength equal bilaterally, generalized weakness - Psychiatric Psychiatric: cooperative, depressed - Neurologic Neurologic: moves all extremities Results - Labs CBC & Chem 7: 05/22/19 14:08 Labs: Abnormal lab results 05/22/19 Range/Units 19:38 POC Glucose 181 H (70-105) Assessment and Plan Depression with suicidal ideation; Suicidal watch, management per psych --Hypertension; moderate control Resume home antihypertensives and when necessary medications --Dyslipidemia; continue lipid lowering medication --Peripheral neuropathy; continue gabapentin --History of palpitations; on metoprolol --Degenerative disc disease; muscle relaxers Pain medications supportive care --Ongoing tobacco use; smoking cessation counseling Nicotine patch as needed --DVT prophylaxis; SCDs while resting --Full CODE STATUS Closely monitor and adjust the management as needed Thank you for this consultation We'll follow the patient along with you as needed
[2019-05-23] MEDS: traZODone 100 MG TAB PO SCH (21:38)
[2019-05-24] MEDS: chlordiazePOXIDE 25 MG CAP PO PRN (02:24)
--- NOTE | 2019-05-24 08:56 | Progress Note ---
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 Nursing notes patient c/o 7/10 headache and 8/10 anxiety. patient has hx of alcohol use 2 days ago. [facility] protocol- 13. In my interview with the patient this morning the patient is still in bed. He says his mood is "okay." The patient states he slept well last night, but still having some aggression and irritability. He says he doesn't know what's causing it. Mr. Ivy say he had suicidal ideations last night about going out in traff ic. He says it's "hard for him to talk about it." He says he fears going home because he's "afraid he might hurt himself." Mr. Ivy denies hallucinations of any kind. He says his appetite is well. Review of Symptoms: Constitutional: Negative for weight loss ENT: Negative for stridor Respiratory: Negative for cough or hemoptysis All other systems reviewed and are negative MSE Appearance: Patient in bed alseep. Easily arousable. Behavior: Slight irritable Mood: "okay" Affect: Congruent with stated mood Thought Process: Goal directed Speech: Normal rate. Thought Content Harmfulness SI last night, "fear of going home because he might harm himself" Hallucinations: patient denies Delusions: none elicited Consciousness: alert Cognition/Memory: normal. Insight/Judgment: Limited. Treatment Plan Due to the psychiatric conditions and treatment listed in the Assessment and Plan - the patient requires continued hospitalization. Will continue inpatient treatment to allow for medication adjustment and monitoring. Will continue q15 min safety checks. Will encourage the use of environmental modifications and non-pharmacologic approaches for the management of behavioral and psychological symptoms. Medication adjustment made today: Increased abilify to help with treatment- resistant depression Will continue current psych medications Monitor for medication side effects. The patient will continue on medications for physical illnesses, and Hospitalist will closely monitor these Continue intensive physical and occupational therapies. Monitor patient's mood, sleep, appetite, and behavior closely. Encourage patient to participate in individual and group therapeutic sessions on the lassiter. Will provide a safe and therapeutic environment for patient. Estimated length of stay 4 to 5 days Medications and Allergies Allergies Allergy/AdvReac Type Severity Reaction Status Date / Time ketorolac tromethamine Allergy Rash Verified 02/01/17 12:29 [From Toradol] Home Medications Medication Instructions Recorded Confirmed Last Taken Type ALBUTEROL Inhaler (OR & NICU) 2.5 mg IH PRN PRN 06/11/16 05/22/19 Unknown History [ProAir HFA Inhaler] Amitriptyline [Elavil] 75 mg PO DAILY 06/11/16 05/22/19 Unknown History Aspirin [Adult Low Dose Aspirin EC] 81 mg PO DAILY 06/11/16 05/22/19 Unknown History AtorvaSTATin [Lipitor] 20 mg PO QHS 06/11/16 05/22/19 Unknown History Cyanocobalamin (Vitamin B-12) 500 mg PO DAILY 06/11/16 05/22/19 Unknown History [B-12] DULoxetine 60 mg PO DAILY 06/11/16 05/22/19 Unknown History Gabapentin 300 mg PO TID 06/11/16 05/22/19 Unknown History Lisinopril [Zestril TAB] 10 mg PO DAILY 06/11/16 05/22/19 Unknown History Metoprolol [Lopressor TAB] 50 mg PO DAILY 06/11/16 05/22/19 Unknown History Multivitamin Tab [Multiple Vitamin 1 tab PO DAILY 06/11/16 05/22/19 Unknown History TAB (Theragran)] Pantoprazole [Protonix TAB] 40 mg PO DAILY 06/11/16 05/22/19 Unknown History Propranolol [Inderal] 10 mg PO TID 06/11/16 05/22/19 Unknown History Tizanidine HCl [tiZANidine] 4 mg PO PRN 06/11/16 05/22/19 Unknown History methOCARBAMOL 500 mg PO TID 06/11/16 05/22/19 Unknown History raNITIdine HCl [Zantac] 150 mg PO BID 06/11/16 05/22/19 Unknown History traZODone [Desyrel] 100 mg PO QHS 06/11/16 05/22/19 Unknown History Fluticasone [Flonase] 1 spray NS QDAY #1 bottle 06/13/16 05/22/19 Unknown Rx Ipratropium [Atrovent NEB] 0.5 mg IH Q4HR #2 ml 06/13/16 05/22/19 Unknown Rx Amoxicillin 500 mg PO BID #20 capsule 02/04/17 05/22/19 Unknown Rx Active Meds: Active Medications Albuterol (Proventil) 2.5 mg IH Q4HRT PRN PRN Reason: Shortness Of Breath Amitriptyline HCl (Elavil) 75 mg PO DAILY [facility] Last Admin: 05/23/19 09:30 Dose: 75 mg Documented by: Amoxicillin (Trimox) 500 mg PO BID [facility] Last Admin: 05/23/19 21:36 Dose: 500 mg Documented by: Aripiprazole (Aripiprazole) 5 mg PO QDAY [facility] Last Admin: 05/23/19 09:30 Dose: 5 mg Documented by: Aspirin (Halfprin Ec) 81 mg PO DAILY [facility] Last Admin: 05/23/19 10:28 Dose: 81 mg Documented by: Atorvastatin Calcium (Lipitor) 20 mg PO QHS [facility] Last Admin: 05/23/19 21:36 Dose: 20 mg Documented by: Chlordiazepoxide HCl (Librium) 50 mg PO Q1H PRN PRN Reason: CIWA-[place] 8-15 Last Admin: 05/24/19 02:24 Dose: 50 mg Documented by: Chlordiazepoxide HCl (Librium) 100 mg PO Q1H PRN PRN Reason: [place] 16-25 Cyanocobalamin (Vitamin B-12) 500 mcg PO QDAY [facility] Last Admin: 05/23/19 09:30 Dose: 500 mcg Documented by: Duloxetine HCl (Cymbalta) 60 mg PO QDAY [facility] Last Admin: 05/23/19 10:28 Dose: 60 mg Documented by: Fluticasone Propionate (Flonase) 50 mcg NS QDAY [facility] Last Admin: 05/23/19 10:29 Dose: Not Given Documented by: Gabapentin (Gabapentin) 300 mg PO TID [facility] Last Admin: 05/23/19 21:37 Dose: 300 mg Documented by: Lisinopril (Zestril) 10 mg PO DAILY [facility] Last Admin: 05/23/19 10:29 Dose: 10 mg Documented by: Methocarbamol (Robaxin) 500 mg PO TID [facility] Last Admin: 05/23/19 21:36 Dose: 500 mg Documented by: Metoprolol Tartrate (Metoprolol) 50 mg PO DAILY [facility] Last Admin: 05/23/19 10:28 Dose: 50 mg Documented by: Nicotine (Habitrol) 21 mg TD QDAY [facility] Last Admin: 05/23/19 10:29 Dose: 21 mg Documented by: Pantoprazole Sodium (Protonix) 40 mg PO DAILY [facility] Last Admin: 05/23/19 10:29 Dose: 40 mg Documented by: Propranolol HCl (Inderal) 10 mg PO TID [facility] Last Admin: 05/23/19 21:37 Dose: 10 mg Documented by: Tizanidine HCl (Zanaflex) 4 mg PO PRN [facility] Trazodone HCl (Desyrel) 100 mg PO QHS [facility] Last Admin: 05/23/19 21:38 Dose: 100 mg Documented by: Results - Results Labs/Vitals: Laboratory Last Values Sodium 135 mmol/L (137-145) L 05/22/19 14:08 Potassium 5.4 mmol/L (3.6-5.0) H D 05/22/19 14:08 Chloride 96.2 mmol/L (98-107) L 05/22/19 14:08 Carbon Dioxide 22 mmol/L (22-30) 05/22/19 14:08 Anion Gap 22 mmol/L 05/22/19 14:08 BUN 20 mg/dL (9-20) 05/22/19 14:08 Creatinine 0.9 mg/dL (0.8-1.5) 05/22/19 14:08 Estimated GFR > 60 ml/min 05/22/19 14:08 BUN/Creatinine Ratio 22 % 05/22/19 14:08 Glucose 116 mg/dL (75-100) H 05/22/19 14:08 POC Glucose 181 (70-105) H 05/22/19 19:38 Hemoglobin A1c 5.1 % (4-6) 05/22/19 14:08 Calcium 9.8 mg/dL (8.4-10.2) 05/22/19 14:08 Total Bilirubin 0.30 mg/dL (0.1-1.2) 05/22/19 14:08 AST 16 units/L (5-40) 05/22/19 14:08 ALT 8 units/L (7-56) 05/22/19 14:08 Alkaline Phosphatase 105 units/L (35-129) 05/22/19 14:08 Total Protein 8.4 g/dL (6.3-8.2) H 05/22/19 14:08 Albumin 4.6 g/dL (3.9-5) 05/22/19 14:08 Albumin/Globulin Ratio 1.2 % 05/22/19 14:08 Triglycerides 223 mg/dL (2-149) H 05/22/19 14:08 Cholesterol 221 mg/dL (50-199) H 05/22/19 14:08 LDL Cholesterol Direct 136 mg/dL (50-130) H 05/22/19 14:08 HDL Cholesterol 67 mg/dL (40-59) H 05/22/19 14:08 Cholesterol/HDL Ratio 3.29 % 05/22/19 14:08 TSH 1.340 mlU/mL (0.270-4.200) 05/22/19 14:08 Last Vital Signs Temp 98.0 F 05/23/19 19:28 Pulse 56 L 05/23/19 19:28 Resp 18 05/23/19 19:28 BP 100/64 05/23/19 19:28 Pulse Ox 97 05/23/19 19:28
--- NOTE | 2019-05-24 09:18 | History and Physical Report ---
<NOEL MORRISON - Last Filed: 05/24/19 09:45> GP History & Physical - History of Present Illness Date of admission: 05/22/19 Date of Examination: 05/22/19 Reason for Admission: Danger to self, Severe anxiety/depression Chief Complaint: [place] like he wanted to go into traffic History of Present Illness: - History of Present Illness NURSE NOTE: 1215 a 63 year caucacian male admitted to [facility], A/O X4, came on a w/c, but ambulatory, skin intact, old scar on his spine. Rt. great toe nail about to fall off and the left chapped. No contra band found on pt Pt. said he said felt suicidal and was going to go into traffic, that is why he came to hospital. He said he stills feel a little suicidal. In my interview with the patient this morning, the patient is complaining about not sleeping. He says his mood is not good right now. Mr. Rodriges says he doesn't feel like living much and wants to run into traffic. He says he fears going home and "wanders if he has a home to go to." He says he drinks a 6 pack a day, last drink being Saturday. Mr. Rodriges says he feels "slight withdrawals. I've had a slight headache and been shaky." He denies hallucinations of any kind. He says his appetite is good. PAST PSYCHIATRIC HISTORY: Diagnoses: Major Depression w/o psychotic features Suicide attempts or Self-harm behavior: Strong thoughts, but denies attempts Prior psychiatric hospitalizations: States hospitalized twice for SI Substance Abuse history: Smokes and ETOH abuse. States 6 pk a day. Previous psychiatric medications tried: states several Outpatient treatment: sees a psychiatrist MEDICAL HISTORY: HTN, Palpitations Allergies: Ketorolac Family Psychiatric History None reported or documented SOCIAL HISTORY Marital Status: Single Living Arrangements: "two roommates" Employment Status: Disabled Access to guns/weapons: None Education: Associates Tobacco: Yes Alcohol: 6 pack a day History of Abuse: ETOH, 6 pack daily Legal History: Denies REVIEW OF SYSTEMS Constitutional: Negative for weight loss ENT: Negative for stridor Respiratory: Negative for cough or hemoptysis All other systems reviewed and are negative Legal Status: Voluntary MSE Orientation: A/O x 3 Affect: Depressed Mood: congruent with affect Thought content: Patient c/o SI, states he wants to run in traffic 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 Patient will be enrolled in individual and group therapeutic sessions and encouraged to attend. Patient will be provided with a safe and structured environment. Patient's physical health needs will be addressed by the Hospitalist. Hospitalist Consulted Labs including CBC, CMP, Lipid profile and Hemoglobin A1C ordered Social Assessment will be completed and the Dough Panner will work with patient and family to ensure a suitable and safe disposition Medication adjustment will be made as clinically indicated The patient agreed on the treatment plan, understood the risk, benefit, alternative treatment, potential consequence of no treatment, and gave informed consent. Reaction to Hospitalization: States twice for psychiatric problems Legal Status: Voluntary Reaction to Hospitalization: Accepting Medications and Allergies Allergies Allergy/AdvReac Type Severity Reaction Status Date / Time ketorolac tromethamine Allergy Rash Verified 02/01/17 12:29 [From Toradol] Home Medications Medication Instructions Recorded Confirmed Last Taken Type ALBUTEROL Inhaler (OR & NICU) 2.5 mg IH PRN PRN 06/11/16 05/22/19 Unknown History [ProAir HFA Inhaler] Amitriptyline [Elavil] 75 mg PO DAILY 06/11/16 05/22/19 Unknown History Aspirin [Adult Low Dose Aspirin EC] 81 mg PO DAILY 06/11/16 05/22/19 Unknown History AtorvaSTATin [Lipitor] 20 mg PO QHS 06/11/16 05/22/19 Unknown History Cyanocobalamin (Vitamin B-12) 500 mg PO DAILY 06/11/16 05/22/19 Unknown History [B-12] DULoxetine 60 mg PO DAILY 06/11/16 05/22/19 Unknown History Gabapentin 300 mg PO TID 06/11/16 05/22/19 Unknown History Lisinopril [Zestril TAB] 10 mg PO DAILY 06/11/16 05/22/19 Unknown History Metoprolol [Lopressor TAB] 50 mg PO DAILY 06/11/16 05/22/19 Unknown History Multivitamin Tab [Multiple Vitamin 1 tab PO DAILY 06/11/16 05/22/19 Unknown History TAB (Theragran)] Pantoprazole [Protonix TAB] 40 mg PO DAILY 06/11/16 05/22/19 Unknown History Propranolol [Inderal] 10 mg PO TID 06/11/16 05/22/19 Unknown History Tizanidine HCl [tiZANidine] 4 mg PO PRN 06/11/16 05/22/19 Unknown History methOCARBAMOL 500 mg PO TID 06/11/16 05/22/19 Unknown History raNITIdine HCl [Zantac] 150 mg PO BID 06/11/16 05/22/19 Unknown History traZODone [Desyrel] 100 mg PO QHS 06/11/16 05/22/19 Unknown History Fluticasone [Flonase] 1 spray NS QDAY #1 bottle 06/13/16 05/22/19 Unknown Rx Ipratropium [Atrovent NEB] 0.5 mg IH Q4HR #2 ml 06/13/16 05/22/19 Unknown Rx Amoxicillin 500 mg PO BID #20 capsule 02/04/17 05/22/19 Unknown Rx Active Meds: Active Medications Albuterol (Proventil) 2.5 mg IH Q4HRT PRN PRN Reason: Shortness Of Breath Amitriptyline HCl (Elavil) 75 mg PO DAILY [facility] Last Admin: 05/23/19 09:30 Dose: 75 mg Documented by: Amoxicillin (Trimox) 500 mg PO BID [facility] Last Admin: 05/23/19 21:36 Dose: 500 mg Documented by: Aripiprazole (Aripiprazole) 10 mg PO QDAY [facility] Aspirin (Halfprin Ec) 81 mg PO DAILY [facility] Last Admin: 05/23/19 10:28 Dose: 81 mg Documented by: Atorvastatin Calcium (Lipitor) 20 mg PO QHS [facility] Last Admin: 05/23/19 21:36 Dose: 20 mg Documented by: Chlordiazepoxide HCl (Librium) 50 mg PO Q1H PRN PRN Reason: [facility]-Dayne 8-15 Last Admin: 05/24/19 02:24 Dose: 50 mg Documented by: Chlordiazepoxide HCl (Librium) 100 mg PO Q1H PRN PRN Reason: CIWA-Dayne 16-25 Cyanocobalamin (Vitamin B-12) 500 mcg PO QDAY [facility] Last Admin: 05/23/19 09:30 Dose: 500 mcg Documented by: Duloxetine HCl (Cymbalta) 60 mg PO QDAY [facility] Last Admin: 05/23/19 10:28 Dose: 60 mg Documented by: Fluticasone Propionate (Flonase) 50 mcg NS QDAY [facility] Last Admin: 05/23/19 10:29 Dose: Not Given Documented by: Gabapentin (Gabapentin) 300 mg PO TID [facility] Last Admin: 05/23/19 21:37 Dose: 300 mg Documented by: Lisinopril (Zestril) 10 mg PO DAILY [facility] Last Admin: 05/23/19 10:29 Dose: 10 mg Documented by: Methocarbamol (Robaxin) 500 mg PO TID [facility] Last Admin: 05/23/19 21:36 Dose: 500 mg Documented by: Metoprolol Tartrate (Metoprolol) 50 mg PO DAILY [facility] Last Admin: 05/23/19 10:28 Dose: 50 mg Documented by: Nicotine (Habitrol) 21 mg TD QDAY [facility] Last Admin: 05/23/19 10:29 Dose: 21 mg Documented by: Pantoprazole Sodium (Protonix) 40 mg PO DAILY [facility] Last Admin: 05/23/19 10:29 Dose: 40 mg Documented by: Propranolol HCl (Inderal) 10 mg PO TID [facility] Last Admin: 05/23/19 21:37 Dose: 10 mg Documented by: Tizanidine HCl (Zanaflex) 4 mg PO PRN [facility] Trazodone HCl (Desyrel) 100 mg PO QHS [facility] Last Admin: 05/23/19 21:38 Dose: 100 mg Documented by: Results - Results Labs/Vitals: Laboratory Last Values Sodium 135 mmol/L (137-145) L 05/22/19 14:08 Potassium 5.4 mmol/L (3.6-5.0) H D 05/22/19 14:08 Chloride 96.2 mmol/L (98-107) L 05/22/19 14:08 Carbon Dioxide 22 mmol/L (22-30) 05/22/19 14:08 Anion Gap 22 mmol/L 05/22/19 14:08 BUN 20 mg/dL (9-20) 05/22/19 14:08 Creatinine 0.9 mg/dL (0.8-1.5) 05/22/19 14:08 Estimated GFR > 60 ml/min 05/22/19 14:08 BUN/Creatinine Ratio 22 % 05/22/19 14:08 Glucose 116 mg/dL (75-100) H 05/22/19 14:08 POC Glucose 181 (70-105) H 05/22/19 19:38 Hemoglobin A1c 5.1 % (4-6) 05/22/19 14:08 Calcium 9.8 mg/dL (8.4-10.2) 05/22/19 14:08 Total Bilirubin 0.30 mg/dL (0.1-1.2) 05/22/19 14:08 AST 16 units/L (5-40) 05/22/19 14:08 ALT 8 units/L (7-56) 05/22/19 14:08 Alkaline Phosphatase 105 units/L (35-129) 05/22/19 14:08 Total Protein 8.4 g/dL (6.3-8.2) H 05/22/19 14:08 Albumin 4.6 g/dL (3.9-5) 05/22/19 14:08 Albumin/Globulin Ratio 1.2 % 05/22/19 14:08 Triglycerides 223 mg/dL (2-149) H 05/22/19 14:08 Cholesterol 221 mg/dL (50-199) H 05/22/19 14:08 LDL Cholesterol Direct 136 mg/dL (50-130) H 05/22/19 14:08 HDL Cholesterol 67 mg/dL (40-59) H 05/22/19 14:08 Cholesterol/HDL Ratio 3.29 % 05/22/19 14:08 TSH 1.340 mlU/mL (0.270-4.200) 05/22/19 14:08 Last Vital Signs Temp 98.0 F 05/23/19 19:28 Pulse 56 L 05/23/19 19:28 Resp 18 05/23/19 19:28 BP 100/64 05/23/19 19:28 Pulse Ox 97 05/23/19 19:28 Physical Examination - Constitutional Vitals: Vital Signs Temp Pulse Resp BP Pulse Ox 98.0 F 56 L 18 100/64 97 05/23/19 19:28 05/23/19 19:28 05/23/19 19:28 05/23/19 19:28 05/23/19 19:28 Temperature -Last 24 Hours Temperature 98.0 F Mental Status Exam - Vital signs Last Vital Signs Temp 98.0 F 05/23/19 19:28 Pulse 56 L 05/23/19 19:28 Resp 18 05/23/19 19:28 BP 100/64 05/23/19 19:28 Pulse Ox 97 05/23/19 19:28 Physician Certification - Certification Statement Physician Certification Statement: This is an acknowledgement statement that RISHI RODRIGES is a 63 year old M who requires inpatient psychiatric admission for treatment which could reasonably be expected to improve the patient's condition for Estimated period of time patient will need to remain in the hospital: [ ] Plan for post-hospital care: [ ] <STEPHANIE LIZ - Last Filed: 05/24/19 14:25> Medications and Allergies Active Meds: Active Medications Albuterol (Proventil) 2.5 mg IH Q4HRT PRN PRN Reason: Shortness Of Breath Amitriptyline HCl (Elavil) 75 mg PO DAILY [facility] Last Admin: 05/24/19 10:22 Dose: 75 mg Documented by: Amoxicillin (Trimox) 500 mg PO BID [facility] Last Admin: 05/24/19 10:22 Dose: 500 mg Documented by: Aripiprazole (Aripiprazole) 10 mg PO QDAY [facility] Last Admin: 05/24/19 11:20 Dose: 10 mg Documented by: Aspirin (Halfprin Ec) 81 mg PO DAILY [facility] Last Admin: 05/24/19 10:21 Dose: 81 mg Documented by: Atorvastatin Calcium (Lipitor) 20 mg PO QHS [facility] Last Admin: 05/23/19 21:36 Dose: 20 mg Documented by: Chlordiazepoxide HCl (Librium) 50 mg PO Q1H PRN PRN Reason: CIWA-Ar 8-15 Last Admin: 05/24/19 02:24 Dose: 50 mg Documented by: Chlordiazepoxide HCl (Librium) 100 mg PO Q1H PRN PRN Reason: CIWA-Ar 16-25 Cyanocobalamin (Vitamin B-12) 500 mcg PO QDAY [facility] Last Admin: 05/24/19 10:20 Dose: 500 mcg Documented by: Duloxetine HCl (Cymbalta) 60 mg PO QDAY [facility] Last Admin: 05/24/19 10:18 Dose: 60 mg Documented by: Fluticasone Propionate (Flonase) 50 mcg NS QDAY [facility] Last Admin: 05/24/19 11:21 Dose: Not Given Documented by: Gabapentin (Gabapentin) 300 mg PO TID [facility] Last Admin: 05/24/19 10:19 Dose: 300 mg Documented by: Lisinopril (Zestril) 10 mg PO DAILY [facility] Last Admin: 05/24/19 10:19 Dose: 10 mg Documented by: Methocarbamol (Robaxin) 500 mg PO TID [facility] Last Admin: 05/24/19 10:21 Dose: 500 mg Documented by: Metoprolol Tartrate (Metoprolol) 50 mg PO DAILY [facility] Last Admin: 05/24/19 10:20 Dose: 50 mg Documented by: Nicotine (Habitrol) 21 mg TD QDAY [facility] Last Admin: 05/24/19 10:19 Dose: 21 mg Documented by: Pantoprazole Sodium (Protonix) 40 mg PO DAILY [facility] Last Admin: 05/24/19 10:20 Dose: 40 mg Documented by: Propranolol HCl (Inderal) 10 mg PO TID [facility] Last Admin: 05/24/19 10:18 Dose: 10 mg Documented by: Tizanidine HCl (Zanaflex) 4 mg PO PRN [facility] Trazodone HCl (Desyrel) 100 mg PO QHS [facility] Last Admin: 05/23/19 21:38 Dose: 100 mg Documented by: Results - Results Labs/Vitals: Laboratory Last Values Sodium 135 mmol/L (137-145) L 05/22/19 14:08 Potassium 5.4 mmol/L (3.6-5.0) H D 05/22/19 14:08 Chloride 96.2 mmol/L (98-107) L 05/22/19 14:08 Carbon Dioxide 22 mmol/L (22-30) 05/22/19 14:08 Anion Gap 22 mmol/L 05/22/19 14:08 BUN 20 mg/dL (9-20) 05/22/19 14:08 Creatinine 0.9 mg/dL (0.8-1.5) 05/22/19 14:08 Estimated GFR > 60 ml/min 05/22/19 14:08 BUN/Creatinine Ratio 22 % 05/22/19 14:08 Glucose 116 mg/dL (75-100) H 05/22/19 14:08 POC Glucose 181 (70-105) H 05/22/19 19:38 Hemoglobin A1c 5.1 % (4-6) 05/22/19 14:08 Calcium 9.8 mg/dL (8.4-10.2) 05/22/19 14:08 Total Bilirubin 0.30 mg/dL (0.1-1.2) 05/22/19 14:08 AST 16 units/L (5-40) 05/22/19 14:08 ALT 8 units/L (7-56) 05/22/19 14:08 Alkaline Phosphatase 105 units/L (35-129) 05/22/19 14:08 Total Protein 8.4 g/dL (6.3-8.2) H 05/22/19 14:08 Albumin 4.6 g/dL (3.9-5) 05/22/19 14:08 Albumin/Globulin Ratio 1.2 % 05/22/19 14:08 Triglycerides 223 mg/dL (2-149) H 05/22/19 14:08 Cholesterol 221 mg/dL (50-199) H 05/22/19 14:08 LDL Cholesterol Direct 136 mg/dL (50-130) H 05/22/19 14:08 HDL Cholesterol 67 mg/dL (40-59) H 05/22/19 14:08 Cholesterol/HDL Ratio 3.29 % 05/22/19 14:08 TSH 1.340 mlU/mL (0.270-4.200) 05/22/19 14:08 Last Vital Signs Temp 98.0 F 05/23/19 19:28 Pulse 56 L 05/24/19 10:20 Resp 18 05/23/19 19:28 BP 113/74 05/24/19 10:20 Pulse Ox 95 05/24/19 09:08 Physical Examination - Constitutional Vitals: Vital Signs Temp Pulse Resp BP Pulse Ox 98.0 F 56 L 18 113/74 95 05/23/19 19:28 05/24/19 10:20 05/23/19 19:28 05/24/19 10:20 05/24/19 09:08 Temperature -Last 24 Hours Temperature 98.0 F Mental Status Exam - Vital signs Last Vital Signs Temp 98.0 F 05/23/19 19:28 Pulse 56 L 05/24/19 10:20 Resp 18 05/23/19 19:28 BP 113/74 05/24/19 10:20 Pulse Ox 95 05/24/19 09:08 Physician Certification - Certification Statement Physician Certification Statement: This is an acknowledgement statement that RISHI RODRIGES is a 63 year old M who requires inpatient psychiatric admission for treatment which could reasonably be expected to improve the patient's condition for Estimated period of time patient will need to remain in the hospital: [ ] Plan for post-hospital care: [ ]
[2019-05-24] MEDS: PROPRANOLOL 10 MG TAB PO SCH ×3 (10:18→22:22)
[2019-05-24] MEDS: DULoxetine 30 MG CAP PO SCH (10:18)
[2019-05-24] MEDS: GABAPENTIN 300 MG CAP PO SCH ×3 (10:19→21:22)
[2019-05-24] MEDS: NICOTINE 21 MG/24 HR PATCH TD SCH (10:19)
[2019-05-24] MEDS: LISINOPRIL 10 MG TAB PO SCH (10:19)
[2019-05-24] MEDS: CYANOCOBALAMIN (VIT B-12) 1000 MCG TAB PO SCH (10:20)
[2019-05-24] MEDS: PANTOPRAZOLE 40 MG TAB PO SCH (10:20)
[2019-05-24] MEDS: METOPROLOL TARTRATE 50 MG TAB PO SCH (10:20)
[2019-05-24] MEDS: ASPIRIN EC 81 MG TAB PO SCH (10:21)
[2019-05-24] MEDS: AMOXICILLIN 500 MG CAP PO SCH ×2 (10:22→21:22)
[2019-05-24] MEDS: AMITRIPTYLINE 25 MG TAB PO SCH (10:22)
[2019-05-24] MEDS: ARIPiprazole 5 MG TAB PO SCH (10:29)
[2019-05-24] MEDS: ARIPiprazole 10 MG TAB PO SCH (11:20)
[2019-05-24] MEDS: FLUTICASONE PROPIONATE NASAL SPRAY 16 GM NS SCH (11:21)
[2019-05-24] MEDS: traZODone 100 MG TAB PO SCH (21:22)
[2019-05-25] MEDS: CYANOCOBALAMIN (VIT B-12) 1000 MCG TAB PO SCH (10:01)
[2019-05-25] MEDS: AMOXICILLIN 500 MG CAP PO SCH ×2 (10:02→21:37)
[2019-05-25] MEDS: METOPROLOL TARTRATE 50 MG TAB PO SCH (10:02)
[2019-05-25] MEDS: AMITRIPTYLINE 25 MG TAB PO SCH (10:03)
[2019-05-25] MEDS: PROPRANOLOL 10 MG TAB PO SCH ×3 (10:03→19:53)
[2019-05-25] MEDS: ASPIRIN EC 81 MG TAB PO SCH (10:04)
[2019-05-25] MEDS: NICOTINE 21 MG/24 HR PATCH TD SCH (10:04)
[2019-05-25] MEDS: GABAPENTIN 300 MG CAP PO SCH ×3 (10:04→19:52)
[2019-05-25] MEDS: PANTOPRAZOLE 40 MG TAB PO SCH (10:05)
[2019-05-25] MEDS: ARIPiprazole 10 MG TAB PO SCH (10:05)
[2019-05-25] MEDS: DULoxetine 30 MG CAP PO SCH (10:05)
[2019-05-25] MEDS: LISINOPRIL 10 MG TAB PO SCH (10:05)
[2019-05-25] MEDS: FLUTICASONE PROPIONATE NASAL SPRAY 16 GM NS SCH (10:06)
--- NOTE | 2019-05-25 10:25 | Progress Note ---
Subjective Date of service: 05/25/19 Principal diagnosis: Major Depression severe w/o psychotic features Subjective Comment: .Subjective Date of service: 05/23/19 Principal diagnosis: Major Depression severe w/o psychotic features Subjective Comment: Medical records reviewed and patient's progress was discussed with unit staff. Nursing staff states patient is alert and oriented x 4. Patient is calm and cooperative In my interview with the patient this morning the patient is still in bed. He appears to be resting well. Arouses easily. He says his night was good and he slept well. Mr. Ivy says he had suicidal thoughts yesterday but not last night or today. He says he is irritable and anxious because he "doesn't know if he'll have a home to go to." He denies halluciantions of any kind. Review of Symptoms: Constitutional: Negative for weight loss ENT: Negative for stridor Respiratory: Negative for cough or hemoptysis All other systems reviewed and are negative MSE Appearance: Patient in bed alseep. Easily arousable. Behavior: cooperative Mood: "irritable and anxious" Affect: Congruent with stated mood Thought Process: Goal directed Speech: Normal rate. Thought Content Harmfulness Denies SI/HI, but states he's worried about not having a place to go Hallucinations: patient denies Delusions: none elicited Consciousness: alert Cognition/Memory: normal. Insight/Judgment: Limited. Treatment Plan Due to the psychiatric conditions and treatment listed in the Assessment and Plan - the patient requires continued hospitalization. Will continue inpatient treatment to allow for medication adjustment and monitoring. Will continue q15 min safety checks. Will encourage the use of environmental modifications and non-pharmacologic approaches for the management of behavioral and psychological symptoms. Medication adjustment made today: No changes to medication regiment Will continue current psych medications Monitor for medication side effects. The patient will continue on medications for physical illnesses, and Hospitalist will closely monitor these Continue intensive physical and occupational therapies. Monitor patient's mood, sleep, appetite, and behavior closely. Encourage patient to participate in individual and group therapeutic sessions on the lassiter. Will provide a safe and therapeutic environment for patient. Estimated length of stay 4 to 5 days Medications and Allergies Allergies Allergy/AdvReac Type Severity Reaction Status Date / Time ketorolac tromethamine Allergy Rash Verified 02/01/17 12:29 [From Toradol] Home Medications Medication Instructions Recorded Confirmed Last Taken Type ALBUTEROL Inhaler (OR & NICU) 2.5 mg IH PRN PRN 06/11/16 05/22/19 Unknown History [ProAir HFA Inhaler] Amitriptyline [Elavil] 75 mg PO DAILY 06/11/16 05/22/19 Unknown History Aspirin [Adult Low Dose Aspirin EC] 81 mg PO DAILY 06/11/16 05/22/19 Unknown History AtorvaSTATin [Lipitor] 20 mg PO QHS 06/11/16 05/22/19 Unknown History Cyanocobalamin (Vitamin B-12) 500 mg PO DAILY 06/11/16 05/22/19 Unknown History [B-12] DULoxetine 60 mg PO DAILY 06/11/16 05/22/19 Unknown History Gabapentin 300 mg PO TID 06/11/16 05/22/19 Unknown History Lisinopril [Zestril TAB] 10 mg PO DAILY 06/11/16 05/22/19 Unknown History Metoprolol [Lopressor TAB] 50 mg PO DAILY 06/11/16 05/22/19 Unknown History Multivitamin Tab [Multiple Vitamin 1 tab PO DAILY 06/11/16 05/22/19 Unknown History TAB (Theragran)] Pantoprazole [Protonix TAB] 40 mg PO DAILY 06/11/16 05/22/19 Unknown History Propranolol [Inderal] 10 mg PO TID 06/11/16 05/22/19 Unknown History Tizanidine HCl [tiZANidine] 4 mg PO PRN 06/11/16 05/22/19 Unknown History methOCARBAMOL 500 mg PO TID 06/11/16 05/22/19 Unknown History raNITIdine HCl [Zantac] 150 mg PO BID 06/11/16 05/22/19 Unknown History traZODone [Desyrel] 100 mg PO QHS 06/11/16 05/22/19 Unknown History Fluticasone [Flonase] 1 spray NS QDAY #1 bottle 06/13/16 05/22/19 Unknown Rx Ipratropium [Atrovent NEB] 0.5 mg IH Q4HR #2 ml 06/13/16 05/22/19 Unknown Rx Amoxicillin 500 mg PO BID #20 capsule 02/04/17 05/22/19 Unknown Rx Active Meds: Active Medications Albuterol (Proventil) 2.5 mg IH Q4HRT PRN PRN Reason: Shortness Of Breath Amitriptyline HCl (Elavil) 75 mg PO DAILY [facility] Last Admin: 05/25/19 10:03 Dose: 75 mg Documented by: Amoxicillin (Trimox) 500 mg PO BID [facility] Stop: 05/26/19 23:59 Last Admin: 05/25/19 10:02 Dose: 500 mg Documented by: Aripiprazole (Aripiprazole) 10 mg PO QDAY [facility] Last Admin: 05/25/19 10:05 Dose: 10 mg Documented by: Aspirin (Halfprin Ec) 81 mg PO DAILY [facility] Last Admin: 05/25/19 10:04 Dose: 81 mg Documented by: Atorvastatin Calcium (Lipitor) 20 mg PO QHS [facility] Last Admin: 05/24/19 21:22 Dose: 20 mg Documented by: Chlordiazepoxide HCl (Librium) 50 mg PO Q1H PRN PRN Reason: CINY-Tn 8-15 Last Admin: 05/24/19 02:24 Dose: 50 mg Documented by: Chlordiazepoxide HCl (Librium) 100 mg PO Q1H PRN PRN Reason: [facility] 16-25 Cyanocobalamin (Vitamin B-12) 500 mcg PO QDAY [facility] Last Admin: 05/25/19 10:01 Dose: 500 mcg Documented by: Duloxetine HCl (Cymbalta) 60 mg PO QDAY [facility] Last Admin: 05/25/19 10:05 Dose: 60 mg Documented by: Fluticasone Propionate (Flonase) 50 mcg NS QDAY [facility] Last Admin: 05/25/19 10:06 Dose: 50 mcg Documented by: Gabapentin (Gabapentin) 300 mg PO TID [facility] Last Admin: 05/25/19 10:04 Dose: 300 mg Documented by: Lisinopril (Zestril) 10 mg PO DAILY [facility] Last Admin: 05/25/19 10:05 Dose: Not Given Documented by: Methocarbamol (Robaxin) 500 mg PO TID [facility] Last Admin: 05/25/19 10:04 Dose: 500 mg Documented by: Metoprolol Tartrate (Metoprolol) 50 mg PO DAILY [facility] Last Admin: 05/25/19 10:02 Dose: Not Given Documented by: Nicotine (Habitrol) 21 mg TD QDAY [facility] Last Admin: 05/25/19 10:04 Dose: 21 mg Documented by: Pantoprazole Sodium (Protonix) 40 mg PO DAILY [facility] Last Admin: 05/25/19 10:05 Dose: 40 mg Documented by: Propranolol HCl (Inderal) 10 mg PO TID [facility] Last Admin: 05/25/19 10:03 Dose: 10 mg Documented by: Tizanidine HCl (Zanaflex) 4 mg PO PRN [facility] Trazodone HCl (Desyrel) 100 mg PO QHS [facility] Last Admin: 05/24/19 21:22 Dose: 100 mg Documented by: Results - Results Labs/Vitals: Laboratory Last Values Sodium 135 mmol/L (137-145) L 05/22/19 14:08 Potassium 5.4 mmol/L (3.6-5.0) H D 05/22/19 14:08 Chloride 96.2 mmol/L (98-107) L 05/22/19 14:08 Carbon Dioxide 22 mmol/L (22-30) 05/22/19 14:08 Anion Gap 22 mmol/L 05/22/19 14:08 BUN 20 mg/dL (9-20) 05/22/19 14:08 Creatinine 0.9 mg/dL (0.8-1.5) 05/22/19 14:08 Estimated GFR > 60 ml/min 05/22/19 14:08 BUN/Creatinine Ratio 22 % 05/22/19 14:08 Glucose 116 mg/dL (75-100) H 05/22/19 14:08 POC Glucose 181 (70-105) H 05/22/19 19:38 Hemoglobin A1c 5.1 % (4-6) 05/22/19 14:08 Calcium 9.8 mg/dL (8.4-10.2) 05/22/19 14:08 Total Bilirubin 0.30 mg/dL (0.1-1.2) 05/22/19 14:08 AST 16 units/L (5-40) 05/22/19 14:08 ALT 8 units/L (7-56) 05/22/19 14:08 Alkaline Phosphatase 105 units/L (35-129) 05/22/19 14:08 Total Protein 8.4 g/dL (6.3-8.2) H 05/22/19 14:08 Albumin 4.6 g/dL (3.9-5) 05/22/19 14:08 Albumin/Globulin Ratio 1.2 % 05/22/19 14:08 Triglycerides 223 mg/dL (2-149) H 05/22/19 14:08 Cholesterol 221 mg/dL (50-199) H 05/22/19 14:08 LDL Cholesterol Direct 136 mg/dL (50-130) H 05/22/19 14:08 HDL Cholesterol 67 mg/dL (40-59) H 05/22/19 14:08 Cholesterol/HDL Ratio 3.29 % 05/22/19 14:08 TSH 1.340 mlU/mL (0.270-4.200) 05/22/19 14:08 Last Vital Signs Temp 97.6 F 05/24/19 22:00 Pulse 67 05/25/19 10:05 Resp 18 05/24/19 22:00 BP 95/73 05/25/19 10:05 Pulse Ox 97 05/24/19 22:00
[2019-05-25 11:30] LABS: Creatine Kinase MB 1.1 ng/mL (0.0-4.0)
[2019-05-25] MEDS: chlordiazePOXIDE 25 MG CAP PO PRN (15:32)
[2019-05-25] MEDS: traZODone 100 MG TAB PO SCH (21:37)
[2019-05-26] MEDS: PROPRANOLOL 10 MG TAB PO SCH ×3 (08:50→21:20)
[2019-05-26] MEDS: GABAPENTIN 300 MG CAP PO SCH ×3 (08:51→21:18)
--- NOTE | 2019-05-26 08:54 | Progress Note ---
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 Nursing staff states patient was medication compliant this shift. He interacted little with others. Patient hesitates when asked if he has thoughts of self harm. He admits he still occasionally has thoughts. Patient is encouraged to take "one day at a time" while he is healing. He admits to worrying about his life and what he will do when he leaves the hospital. cooperative In my interview with the patient this morning the patient is still in bed. He is awake and expresses worry when asked how was he doing. "I don't know. I have a lot of problems." He says he is "depressed and anxious." The patient is still concerned that he might not have a place to go. "I might be homeless. I don't know if they'll take me back at the are home." He says people there have been steeling from him. Mr. Ivy says he doesn't think he's suicidal, but says "I think about and fear that I'll get back out there and start drinking and take my life." He denies hallucinations of any kind. He says his appetite is good. Review of Symptoms: Constitutional: Negative for weight loss ENT: Negative for stridor Respiratory: Negative for cough or hemoptysis All other systems reviewed and are negative MSE Appearance: Patient in in bed. Appears down. Behavior: cooperative Mood: "depressed and anxious" Affect: Congruent with stated mood Thought Process: Goal directed Speech: Normal rate. Thought Content Harmfulness: "I think about and fear that I'll get back out there and start drinking and take my life." Hallucinations: patient denies Delusions: none elicited Consciousness: alert Cognition/Memory: normal. Insight/Judgment: Limited. Assessment: Major Depression w/o Psychotic Features Treatment Plan Due to the psychiatric conditions and treatment listed in the Assessment and Plan - the patient requires continued hospitalization. Will continue inpatient treatment to allow for medication adjustment and monitoring. Will continue q15 min safety checks. Will encourage the use of environmental modifications and non-pharmacologic approaches for the management of behavioral and psychological symptoms. Medication adjustment made today: Increased Amitryptiline 100mg po daily for persistent depression Start Buspar 5mg po BID for anxiety control Start Vistaril 25mg po q 6 hours for acute anxiety Will continue current psych medications Monitor for medication side effects. The patient will continue on medications for physical illnesses, and Hospitalist will closely monitor these Continue intensive physical and occupational therapies. Monitor patient's mood, sleep, appetite, and behavior closely. Encourage patient to participate in individual and group therapeutic sessions on the lassiter. Will provide a safe and therapeutic environment for patient. Estimated length of stay 1 day (The patient will be discharged to personal intermediate tomorrow) Medications and Allergies Allergies Allergy/AdvReac Type Severity Reaction Status Date / Time ketorolac tromethamine Allergy Rash Verified 02/01/17 12:29 [From Toradol] Home Medications Medication Instructions Recorded Confirmed Last Taken Type ALBUTEROL Inhaler (OR & NICU) 2.5 mg IH PRN PRN 06/11/16 05/22/19 Unknown History [ProAir HFA Inhaler] Amitriptyline [Elavil] 75 mg PO DAILY 06/11/16 05/22/19 Unknown History Aspirin [Adult Low Dose Aspirin EC] 81 mg PO DAILY 06/11/16 05/22/19 Unknown History AtorvaSTATin [Lipitor] 20 mg PO QHS 06/11/16 05/22/19 Unknown History Cyanocobalamin (Vitamin B-12) 500 mg PO DAILY 06/11/16 05/22/19 Unknown History [B-12] DULoxetine 60 mg PO DAILY 06/11/16 05/22/19 Unknown History Gabapentin 300 mg PO TID 06/11/16 05/22/19 Unknown History Lisinopril [Zestril TAB] 10 mg PO DAILY 06/11/16 05/22/19 Unknown History Metoprolol [Lopressor TAB] 50 mg PO DAILY 06/11/16 05/22/19 Unknown History Multivitamin Tab [Multiple Vitamin 1 tab PO DAILY 06/11/16 05/22/19 Unknown History TAB (Theragran)] Pantoprazole [Protonix TAB] 40 mg PO DAILY 06/11/16 05/22/19 Unknown History Propranolol [Inderal] 10 mg PO TID 06/11/16 05/22/19 Unknown History Tizanidine HCl [tiZANidine] 4 mg PO PRN 06/11/16 05/22/19 Unknown History methOCARBAMOL 500 mg PO TID 06/11/16 05/22/19 Unknown History raNITIdine HCl [Zantac] 150 mg PO BID 06/11/16 05/22/19 Unknown History traZODone [Desyrel] 100 mg PO QHS 06/11/16 05/22/19 Unknown History Fluticasone [Flonase] 1 spray NS QDAY #1 bottle 06/13/16 05/22/19 Unknown Rx Ipratropium [Atrovent NEB] 0.5 mg IH Q4HR #2 ml 06/13/16 05/22/19 Unknown Rx Amoxicillin 500 mg PO BID #20 capsule 02/04/17 05/22/19 Unknown Rx Active Meds: Active Medications Albuterol (Proventil) 2.5 mg IH Q4HRT PRN PRN Reason: Shortness Of Breath Amitriptyline HCl (Elavil) 75 mg PO DAILY [facility] Last Admin: 05/25/19 10:03 Dose: 75 mg Documented by: Amoxicillin (Trimox) 500 mg PO BID [facility] Stop: 05/26/19 23:59 Last Admin: 05/25/19 21:37 Dose: 500 mg Documented by: Aripiprazole (Aripiprazole) 10 mg PO QDAY [facility] Last Admin: 05/25/19 10:05 Dose: 10 mg Documented by: Aspirin (Halfprin Ec) 81 mg PO DAILY [facility] Last Admin: 05/25/19 10:04 Dose: 81 mg Documented by: Atorvastatin Calcium (Lipitor) 20 mg PO QHS [facility] Last Admin: 05/25/19 21:37 Dose: 20 mg Documented by: Chlordiazepoxide HCl (Librium) 50 mg PO Q1H PRN PRN Reason: CIWA-Ar 8-15 Last Admin: 05/25/19 15:32 Dose: 50 mg Documented by: Chlordiazepoxide HCl (Librium) 100 mg PO Q1H PRN PRN Reason: MALINDAWA-Ar 16-25 Cyanocobalamin (Vitamin B-12) 500 mcg PO QDAY [facility] Last Admin: 05/25/19 10:01 Dose: 500 mcg Documented by: Duloxetine HCl (Cymbalta) 60 mg PO QDAY [facility] Last Admin: 05/25/19 10:05 Dose: 60 mg Documented by: Fluticasone Propionate (Flonase) 50 mcg NS QDAY [facility] Last Admin: 05/25/19 10:06 Dose: Not Given Documented by: Gabapentin (Gabapentin) 300 mg PO TID [facility] Last Admin: 05/26/19 08:51 Dose: 300 mg Documented by: Lisinopril (Zestril) 10 mg PO DAILY [facility] Last Admin: 05/25/19 10:05 Dose: Not Given Documented by: Methocarbamol (Robaxin) 500 mg PO TID [facility] Last Admin: 05/26/19 08:51 Dose: 500 mg Documented by: Metoprolol Tartrate (Metoprolol) 50 mg PO DAILY [facility] Last Admin: 05/25/19 10:02 Dose: Not Given Documented by: Nicotine (Habitrol) 21 mg TD QDAY [facility] Last Admin: 05/25/19 10:04 Dose: 21 mg Documented by: Pantoprazole Sodium (Protonix) 40 mg PO DAILY [facility] Last Admin: 05/25/19 10:05 Dose: 40 mg Documented by: Propranolol HCl (Inderal) 10 mg PO TID [facility] Last Admin: 05/26/19 08:50 Dose: 10 mg Documented by: Tizanidine HCl (Zanaflex) 4 mg PO PRN [facility] Trazodone HCl (Desyrel) 100 mg PO QHS [facility] Last Admin: 05/25/19 21:37 Dose: 100 mg Documented by: Results - Results Labs/Vitals: Laboratory Last Values Sodium 135 mmol/L (137-145) L 05/22/19 14:08 Potassium 5.4 mmol/L (3.6-5.0) H D 05/22/19 14:08 Chloride 96.2 mmol/L (98-107) L 05/22/19 14:08 Carbon Dioxide 22 mmol/L (22-30) 05/22/19 14:08 Anion Gap 22 mmol/L 05/22/19 14:08 BUN 20 mg/dL (9-20) 05/22/19 14:08 Creatinine 0.9 mg/dL (0.8-1.5) 05/22/19 14:08 Estimated GFR > 60 ml/min 05/22/19 14:08 BUN/Creatinine Ratio 22 % 05/22/19 14:08 Glucose 116 mg/dL (75-100) H 05/22/19 14:08 POC Glucose 181 (70-105) H 05/22/19 19:38 Hemoglobin A1c 5.1 % (4-6) 05/22/19 14:08 Calcium 9.8 mg/dL (8.4-10.2) 05/22/19 14:08 Total Bilirubin 0.30 mg/dL (0.1-1.2) 05/22/19 14:08 AST 16 units/L (5-40) 05/22/19 14:08 ALT 8 units/L (7-56) 05/22/19 14:08 Alkaline Phosphatase 105 units/L (35-129) 05/22/19 14:08 Total Creatine Kinase 28 units/L (55-170) L 05/25/19 10:59 CK-MB (CK-2) 1.1 ng/mL (0.0-4.0) 05/25/19 10:59 CK-MB (CK-2) Rel Index 3.9 (0-4) 05/25/19 10:59 Troponin T < 0.010 ng/mL (0.00-0.029) 05/25/19 10:59 Total Protein 8.4 g/dL (6.3-8.2) H 05/22/19 14:08 Albumin 4.6 g/dL (3.9-5) 05/22/19 14:08 Albumin/Globulin Ratio 1.2 % 05/22/19 14:08 Triglycerides 223 mg/dL (2-149) H 05/22/19 14:08 Cholesterol 221 mg/dL (50-199) H 05/22/19 14:08 LDL Cholesterol Direct 136 mg/dL (50-130) H 05/22/19 14:08 HDL Cholesterol 67 mg/dL (40-59) H 05/22/19 14:08 Cholesterol/HDL Ratio 3.29 % 05/22/19 14:08 TSH 1.340 mlU/mL (0.270-4.200) 05/22/19 14:08 Last Vital Signs Temp 98.2 F 05/25/19 23:13 Pulse 65 05/25/19 23:13 Resp 20 05/25/19 23:13 BP 113/75 05/26/19 08:50 Pulse Ox 96 05/25/19 23:13
[2019-05-26] MEDS: CYANOCOBALAMIN (VIT B-12) 1000 MCG TAB PO SCH (09:22)
[2019-05-26] MEDS: DULoxetine 30 MG CAP PO SCH (09:22)
[2019-05-26] MEDS: METOPROLOL TARTRATE 50 MG TAB PO SCH (09:22)
[2019-05-26] MEDS: ASPIRIN EC 81 MG TAB PO SCH (09:24)
[2019-05-26] MEDS: LISINOPRIL 10 MG TAB PO SCH (09:24)
[2019-05-26] MEDS: PANTOPRAZOLE 40 MG TAB PO SCH (09:24)
[2019-05-26] MEDS: ARIPiprazole 10 MG TAB PO SCH (09:24)
[2019-05-26] MEDS: NICOTINE 21 MG/24 HR PATCH TD SCH (09:24)
[2019-05-26] MEDS: AMOXICILLIN 500 MG CAP PO SCH ×2 (09:24→21:19)
[2019-05-26] MEDS: FLUTICASONE PROPIONATE NASAL SPRAY 16 GM NS SCH (09:25)
[2019-05-26] MEDS: AMITRIPTYLINE 25 MG TAB PO SCH ×2 (09:25→09:34)
[2019-05-26] MEDS ORDERED: busPIRone 10 MG TAB PO SCH (10:00)
[2019-05-26] MEDS: busPIRone 5 MG TAB PO SCH ×2 (12:01→21:21)
[2019-05-26] MEDS: hydrOXYzine PAMOATE 25 MG CAP PO PRN ×2 (16:40→23:26)
[2019-05-26] MEDS: traZODone 100 MG TAB PO SCH (21:19)
[2019-05-26 21:23] VITALS: BP 98/68
[2019-05-26] MEDS ORDERED: AMITRIPTYLINE 25 MG TAB PO SCH (22:00)
--- NOTE | 2019-05-27 09:05 | Discharge Summary ---
Providers - Providers Date of Admission: 05/22/19 13:43 Date of discharge: 05/27/19 Attending physician: STEPHANIE LIZ MD 05/22/19 10:26 Consult to Physician [CONS] Routine Comment: Consulting Provider: MARGOTH RAMIREZ Physician Instructions: Reason For Exam: Medical management 05/26/19 12:11 Consult to Dietitian/Nutrition [CONS] Routine Physician Instructions: Reason For Exam: Pt. still hungry after each meal. Reason for Consult: Diet education Primary care physician: SPECIAL ED ASSISTANT Hospitalization Reason for admission: Severe depression w/SI Admitting Diagnosis: F33.2 - MAJOR DEPRESSV DISORDER, RECURRENT SEVERE W/O PSYCH FEATURES Condition: Stable Hospital course: The patient was provided inpatient psychiatric treatment with safe and supportive environment, group/individual therapy, psychiatric medication, medication adjustment, adverse effect monitor, medical evaluation, medical treatment, social service assessment, social support meeting, placement assessment and psycho-education. The patients mood, cognition, behavior, motivation, compliance to treatment and appreciation on family/social support are improved and stabilized. At the time of discharge, the patient had no suicidal ideas, no homicidal ideas, no aggressive thoughts, no endangering behavior and no debilitating adverse effects. The patient agreed on the treatment plan, understood the risk, benefit, alternative treatment, potential consequence of no treatment, and gave informed consent. Disposition: DC-01 TO HOME OR SELFCARE Time spent for discharge: 40 minutes Allergies/Adverse Reactions: Allergies ketorolac tromethamine [From Toradol] Allergy (Verified 02/01/17 12:29) Rash Vital Signs: Last Vital Signs Temp 97.5 F L 05/26/19 19:36 Pulse 64 05/26/19 21:20 Resp 20 05/26/19 19:36 BP 98/68 05/26/19 21:20 Pulse Ox 95 05/26/19 19:36 Last Lab: Laboratory Last Values Sodium 135 mmol/L (137-145) L 05/22/19 14:08 Potassium 5.4 mmol/L (3.6-5.0) H D 05/22/19 14:08 Chloride 96.2 mmol/L (98-107) L 05/22/19 14:08 Carbon Dioxide 22 mmol/L (22-30) 05/22/19 14:08 Anion Gap 22 mmol/L 05/22/19 14:08 BUN 20 mg/dL (9-20) 05/22/19 14:08 Creatinine 0.9 mg/dL (0.8-1.5) 05/22/19 14:08 Estimated GFR > 60 ml/min 05/22/19 14:08 BUN/Creatinine Ratio 22 % 05/22/19 14:08 Glucose 116 mg/dL (75-100) H 05/22/19 14:08 POC Glucose 181 (70-105) H 05/22/19 19:38 Hemoglobin A1c 5.1 % (4-6) 05/22/19 14:08 Calcium 9.8 mg/dL (8.4-10.2) 05/22/19 14:08 Total Bilirubin 0.30 mg/dL (0.1-1.2) 05/22/19 14:08 AST 16 units/L (5-40) 05/22/19 14:08 ALT 8 units/L (7-56) 05/22/19 14:08 Alkaline Phosphatase 105 units/L (35-129) 05/22/19 14:08 Total Creatine Kinase 28 units/L (55-170) L 05/25/19 10:59 CK-MB (CK-2) 1.1 ng/mL (0.0-4.0) 05/25/19 10:59 CK-MB (CK-2) Rel Index 3.9 (0-4) 05/25/19 10:59 Troponin T < 0.010 ng/mL (0.00-0.029) 05/25/19 10:59 Total Protein 8.4 g/dL (6.3-8.2) H 05/22/19 14:08 Albumin 4.6 g/dL (3.9-5) 05/22/19 14:08 Albumin/Globulin Ratio 1.2 % 05/22/19 14:08 Triglycerides 223 mg/dL (2-149) H 05/22/19 14:08 Cholesterol 221 mg/dL (50-199) H 05/22/19 14:08 LDL Cholesterol Direct 136 mg/dL (50-130) H 05/22/19 14:08 HDL Cholesterol 67 mg/dL (40-59) H 05/22/19 14:08 Cholesterol/HDL Ratio 3.29 % 05/22/19 14:08 TSH 1.340 mlU/mL (0.270-4.200) 05/22/19 14:08 Core Measure Documentation - Palliative Care Palliative Care/ Comfort Measures: Not Applicable - Core Measures Any of the following diagnoses?: none Exam - Constitutional Vitals: Temp Pulse Resp BP Pulse Ox 97.5 F L 64 20 98/68 95 05/26/19 19:36 05/26/19 21:20 05/26/19 19:36 05/26/19 21:20 05/26/19 19:36 General appearance: Present: no acute distress, well-nourished - EENT Eyes: Present: PERRL, EOM intact ENT: hearing intact, clear oral mucosa - Neck Neck: Present: supple, normal ROM - Respiratory Respiratory effort: normal Plan Activity: advance as tolerated Weight Bearing Status: Weight Bear as Tolerated Care Plan Goals: Maintain good and stable mental health Plan of Treatment: The patient should be compliant with medications, not to use drugs and not to drink alcohol. The patient understands that if suicidal ideas, homicidal ideas, or any endangering thoughts arise, the patient should immediately seek for emergent assistance including but not limited to crisis hot line and emergency room. Follow up with outpatient Psychiatrist and PCP within 7 - 14 days of discharge. Health Concerns: HTN, Dyslipidemia, DJD, Depression Assessment: In my interview with patient this morning he is lying in bed awake. Calm and cooperative. Mr. Ivy says his night went well. He denies any delusions or hallucinations. He understands that he will be discharged today back to his personal half-way. He says he "wants to go home but hope he will not start back drinking." He verbalizes understanding of plan and medical regimen. Follow up with: PRIMARY CARE,MD [Primary Care Provider] - 7 Days Prescriptions: ARIPiprazole [Abilify TAB] 10 mg PO QDAY #30 tablet busPIRone [Buspar] 5 mg PO BID #60 tablet DULoxetine 60 mg PO DAILY #30 Nicotine [Habitrol] 21 mg TD QDAY #30 patch
[2019-05-27] MEDS: NICOTINE 21 MG/24 HR PATCH TD SCH (11:31)
[2019-05-27] MEDS: busPIRone 5 MG TAB PO SCH (11:32)
[2019-05-27] MEDS: ASPIRIN EC 81 MG TAB PO SCH (11:32)
[2019-05-27] MEDS: DULoxetine 30 MG CAP PO SCH (11:32)
[2019-05-27] MEDS: ARIPiprazole 10 MG TAB PO SCH (11:32)
[2019-05-27] MEDS: PANTOPRAZOLE 40 MG TAB PO SCH (11:32)
[2019-05-27] MEDS: CYANOCOBALAMIN (VIT B-12) 1000 MCG TAB PO SCH (11:34)
[2019-05-27] MEDS: LISINOPRIL 10 MG TAB PO SCH (11:36)
[2019-05-27] MEDS: PROPRANOLOL 10 MG TAB PO SCH (11:37)
[2019-05-27] MEDS: GABAPENTIN 300 MG CAP PO SCH (11:38)
[2019-05-27] MEDS: FLUTICASONE PROPIONATE NASAL SPRAY 16 GM NS SCH (11:39)
[2019-05-27] MEDS: METOPROLOL TARTRATE 50 MG TAB PO SCH (11:47)
== END 2019-05-27 13:15 | disposition home or self-care (01) | DRG 881 ==
LOC: 3A 09:48 → UNDOADMIN 09:48 → 5A 13:43
PROVIDERS: ADMIT Psychiatry & Neurology Psychiatry; ATTEND Psychiatry & Neurology Psychiatry
DX: F32.9 Major depressive disorder, single episode, unspecified (principal); I10 Essential (primary) hypertension; G62.9 Polyneuropathy, unspecified; J44.9 Chronic obstructive pulmonary disease, unspecified; E78.5 Hyperlipidemia, unspecified; F17.200 Nicotine dependence, unspecified, uncomplicated; F10.10 Alcohol abuse, uncomplicated; Y90.9 Presence of alcohol in blood, level not specified; Z88.6 Allergy status to analgesic agent; Z79.51 Long term (current) use of inhaled steroids; Z79.82 Long term (current) use of aspirin; Z82.49 Family history of ischemic heart disease and other diseases of the circulatory system
CPT/HCPCS: 36415; 80048; 80053; 80061; 80307; 80320; 81001; 82550; 82553; 82962; 83036; 84443; 84484; 85025; 93005; 93010; G0378; A9270-GY; G0480; Q0177

== ENCOUNTER 2019-05-31 21:55 | Inpatient (IN) | payer MEDICAID ==
--- NOTE | 2019-05-31 23:05 | XRay Report ---
CHEST 1 VIEW INDICATION: MAIN: CP FOR 1 HOUR. COMPARISON: 06/13/2016 FINDINGS: SUPPORT DEVICES: None. HEART / MEDIASTINUM: No significant abnormality. LUNGS / PLEURA: Bronchovascular markings are prominent both bases. No pneumothorax. ADDITIONAL FINDINGS: IMPRESSION: 1. Interval development prominent bronchovascular markings both bases Signer Name: Bebo Claros MD Signed: 05/31/2019 11:01 PM Workstation Name: [id number]
[2019-05-31 23:11] LABS: Basophils % (Auto) 0.7 % (0.0-1.8); Eosinophils # (Auto) 0.3 K/mm3 (0.0-0.4); Eosinophils % (Auto) 6.7 % (0.0-4.3); Hematocrit 40.3 % (35.5-45.6); Hemoglobin 13.7 gm/dl (11.8-15.2); Lymphocytes # (Auto) 1.1 K/mm3 (1.2-5.4); Lymphocytes % (Auto) 27.2 % (13.4-35.0); Mean Corpuscular HGB Conc 34 % (32-34); Mean Corpuscular Volume 100 fl (84-94); Monocytes # (Auto) 0.4 K/mm3 (0.0-0.8); Monocytes % (Auto) 8.9 % (0.0-7.3); Platelet Count 148 K/mm3 (140-440); Red Blood Count 4.04 M/mm3 (3.65-5.03); Red Cell Distribution Width 12.5 % (13.2-15.2)
[2019-05-31] MEDS ORDERED: MORPHINE 4 MG/1 ML INJ IV ONE (23:30)
[2019-05-31] MEDS ORDERED: ASPIRIN 81 MG TAB CHEW PO ONE (23:30)
[2019-05-31 23:33] LABS: BUN/Creatinine Ratio 24; Blood Urea Nitrogen 22 mg/dL (9-20); Calcium 8.9 mg/dL (8.4-10.2); Hemolysis Index 12
--- NOTE | 2019-05-31 23:35 | Emergency Department Report ---
ED Chest Pain HPI - General Chief Complaint: Chest Pain Stated Complaint: CHEST PAIN Time Seen by Provider: 05/31/19 22:05 Source: patient, EMS Mode of arrival: Stretcher Limitations: No Limitations - History of Present Illness Initial Comments: 63-year-old male presents to the emergency department via EMS for more appropriate psychiatric facility with complaint of some midsternal to left-sided chest pain that started about 1.5 hours prior to arrival. He has some occasional shortness of breath. He denies any fever, nausea, vomiting or rob phoresis. He did not take anything for her symptoms prior to presentation. The patient is currently a 1013 and there secondary to some psychiatric issues. He has a past medical history of hypertension, hyperlipidemia and orthopedic back surgery history. He is a tobacco smoker but denies any illicit drug use. Severity scale (0 -10): 6 - Related Data Home Medications Medication Instructions Recorded Confirmed Last Taken ALBUTEROL Inhaler (OR & NICU) 2.5 mg IH PRN PRN 06/11/16 05/22/19 Unknown [ProAir HFA Inhaler] Amitriptyline [Elavil] 75 mg PO DAILY 06/11/16 05/22/19 Unknown Aspirin [Adult Low Dose Aspirin EC] 81 mg PO DAILY 06/11/16 05/22/19 Unknown AtorvaSTATin [Lipitor] 20 mg PO QHS 06/11/16 05/22/19 Unknown Cyanocobalamin (Vitamin B-12) 500 mg PO DAILY 06/11/16 05/22/19 Unknown [B-12] Gabapentin 300 mg PO TID 06/11/16 05/22/19 Unknown Metoprolol [Lopressor TAB] 50 mg PO DAILY 06/11/16 05/22/19 Unknown Multivitamin Tab [Multiple Vitamin 1 tab PO DAILY 06/11/16 05/22/19 Unknown TAB (Theragran)] Pantoprazole [Protonix TAB] 40 mg PO DAILY 06/11/16 05/22/19 Unknown Propranolol [Inderal] 10 mg PO TID 06/11/16 05/22/19 Unknown Tizanidine HCl [tiZANidine] 4 mg PO PRN 06/11/16 05/22/19 Unknown lisinopriL [Zestril TAB] 10 mg PO DAILY 06/11/16 05/22/19 Unknown methOCARBAMOL 500 mg PO TID 06/11/16 05/22/19 Unknown raNITIdine HCl [Zantac] 150 mg PO BID 06/11/16 05/22/19 Unknown traZODone [Desyrel] 100 mg PO QHS 06/11/16 05/22/19 Unknown Previous Rx's Medication Instructions Recorded Last Taken Type Fluticasone [Flonase] 1 spray NS QDAY #1 bottle 06/13/16 Unknown Rx Ipratropium [Atrovent NEB] 0.5 mg IH Q4HR #2 ml 06/13/16 Unknown Rx ARIPiprazole [Abilify TAB] 10 mg PO QDAY #30 tablet 05/27/19 Unknown Rx DULoxetine 60 mg PO DAILY #30 05/27/19 Unknown Rx Nicotine [Habitrol] 21 mg TD QDAY #30 patch 05/27/19 Unknown Rx busPIRone [Buspar] 5 mg PO BID #60 tablet 05/27/19 Unknown Rx Allergies Allergy/AdvReac Type Severity Reaction Status Date / Time ketorolac tromethamine Allergy Rash Verified 02/01/17 12:29 [From Toradol] Heart Score - HEART Score History: Slightly suspicious EKG: Normal Age: 45-65 Risk factors: > 3 risk factors or hx of atherosclerotic disease Troponin: < normal limit HEART Score: 3 - Critical Actions Critical Actions: 0-3 pts:0.9-1.7%risk of adverse cardiac event.Candidate for discharge ED Review of Systems ROS: Stated complaint: CHEST PAIN Other details as noted in HPI Comment: All other systems reviewed and negative Constitutional: denies: chills, fever Eyes: denies: eye pain, vision change ENT: denies: ear pain, throat pain Respiratory: shortness of breath. denies: cough Cardiovascular: chest pain. denies: palpitations Gastrointestinal: denies: abdominal pain, vomiting Genitourinary: denies: dysuria, discharge Musculoskeletal: denies: joint swelling, arthralgia Skin: denies: rash, lesions Neurological: denies: headache, weakness ED Past Medical Hx - Past Medical History Hx Hypertension: Yes Hx Heart Attack/AMI: Yes (palpitations) Hx Renal Disease: No Hx Arthritis: No Hx Seizures: No Hx Dementia: No Additional medical history: Degenerative disc disease - Surgical History Hx Cholecystectomy: No Additional Surgical History: Multiple back surgeries secondary to degenerative disc disease - Social History Smoking Status: Current Some Day Smoker Substance Use Type: Alcohol, Marijuana - Medications Home Medications: Home Medications Medication Instructions Recorded Confirmed Last Taken Type ALBUTEROL Inhaler (OR & NICU) 2.5 mg IH PRN PRN 06/11/16 05/22/19 Unknown History [ProAir HFA Inhaler] Amitriptyline [Elavil] 75 mg PO DAILY 06/11/16 05/22/19 Unknown History Aspirin [Adult Low Dose Aspirin EC] 81 mg PO DAILY 06/11/16 05/22/19 Unknown History AtorvaSTATin [Lipitor] 20 mg PO QHS 06/11/16 05/22/19 Unknown History Cyanocobalamin (Vitamin B-12) 500 mg PO DAILY 06/11/16 05/22/19 Unknown History [B-12] Gabapentin 300 mg PO TID 06/11/16 05/22/19 Unknown History Metoprolol [Lopressor TAB] 50 mg PO DAILY 06/11/16 05/22/19 Unknown History Multivitamin Tab [Multiple Vitamin 1 tab PO DAILY 06/11/16 05/22/19 Unknown History TAB (Theragran)] Pantoprazole [Protonix TAB] 40 mg PO DAILY 06/11/16 05/22/19 Unknown History Propranolol [Inderal] 10 mg PO TID 06/11/16 05/22/19 Unknown History Tizanidine HCl [tiZANidine] 4 mg PO PRN 06/11/16 05/22/19 Unknown History lisinopriL [Zestril TAB] 10 mg PO DAILY 06/11/16 05/22/19 Unknown History methOCARBAMOL 500 mg PO TID 06/11/16 05/22/19 Unknown History raNITIdine HCl [Zantac] 150 mg PO BID 06/11/16 05/22/19 Unknown History traZODone [Desyrel] 100 mg PO QHS 06/11/16 05/22/19 Unknown History Fluticasone [Flonase] 1 spray NS QDAY #1 bottle 06/13/16 05/22/19 Unknown Rx Ipratropium [Atrovent NEB] 0.5 mg IH Q4HR #2 ml 06/13/16 05/22/19 Unknown Rx ARIPiprazole [Abilify TAB] 10 mg PO QDAY #30 tablet 05/27/19 Unknown Rx DULoxetine 60 mg PO DAILY #30 05/27/19 Unknown Rx Nicotine [Habitrol] 21 mg TD QDAY #30 patch 05/27/19 Unknown Rx busPIRone [Buspar] 5 mg PO BID #60 tablet 05/27/19 Unknown Rx ED Physical Exam - General Limitations: No Limitations - Other Other exam information: GENERAL: The patient is well-developed well-nourished. HEENT: Normocephalic. Atraumatic. Patient has moist mucous membranes. EYES: Extraocular motions are intact. NECK: Supple. Trachea is midline. CHEST/LUNGS: Clear to auscultation. There is no respiratory distress noted. Chest pain is not reproducible to palpation. HEART/CARDIOVASCULAR: Regular. There is no tachycardia. There is no obvious murmur. ABDOMEN: Abdomen is soft, nontender. Patient has normal bowel sounds. There is no abdominal distention. SKIN: Skin is warm and dry. NEURO: The patient is awake, alert, and oriented. The patient is cooperative. The patient has no focal neurologic deficits. The patient has normal speech. MUSCULOSKELETAL: There is no tenderness or deformity. There is no evidence of acute injury. ED Course Vital Signs 05/31/19 05/31/19 05/31/19 22:00 22:04 22:16 Temperature 97.6 F Pulse Rate 57 L 57 L 60 Respiratory 14 14 14 Rate Blood Pressure 123/75 140/81 Blood Pressure 123/75 [Left] O2 Sat by Pulse 98 Oximetry 05/31/19 05/31/19 05/31/19 22:30 22:46 23:00 Temperature Pulse Rate 59 L 60 64 Respiratory 14 16 18 Rate Blood Pressure 129/85 139/78 136/69 Blood Pressure [Left] O2 Sat by Pulse 100 100 Oximetry 05/31/19 05/31/19 06/01/19 23:15 23:30 00:02 Temperature Pulse Rate 55 L 64 Respiratory 17 14 23 Rate Blood Pressure 140/78 121/76 Blood Pressure [Left] O2 Sat by Pulse 100 100 100 Oximetry 06/01/19 06/01/19 06/01/19 00:16 00:30 00:46 Temperature Pulse Rate 63 54 L Respiratory 14 15 Rate Blood Pressure 121/82 132/73 137/82 Blood Pressure [Left] O2 Sat by Pulse 92 98 Oximetry JAIMIE score - Jaimie Score Age > 65: (0) No Aspirin use within the Past 7 Days: (0) No 3 or more CAD Risk Factors: (1) Yes 2 or more Angina events in past 24 hrs: (1) Yes Known CAD with more than 50% Stenosis: (0) No Elevated Cardiac Markers: (0) No ST Deviation Greater than 0.5mm: (0) No JAIMIE Score: 2 ED Medical Decision Making - Lab Data Result diagrams: 05/31/19 22:51 05/31/19 22:51 - EKG Data -: EKG Interpreted by Me EKG shows normal: sinus rhythm (sinus arrhythmia), axis, intervals, QRS complexes, ST-T waves Rate: bradycardia (59 bpm) - EKG Data When compared to previous EKG there are: previous EKG unavailable Interpretation: normal EKG (sinus arrhythmia) - Radiology Data Radiology results: report reviewed, image reviewed interpreted by me: Chest x-ray does not show any pleural effusions, pneumonia, pneumothorax, focal consolidation, or any other acute processes. CT angiography of the chest does not show any pulmonary embolism, dissection or any acute processes. - Medical Decision Making This patient presents with some midsternal to left-sided chest pain that started about 1-2 hours prior to arrival while at his psychiatric facility. EKG shows sinus arrhythmia without any morphology consistent with ST elevation myocardial infarction. Chest x-ray does not show any acute process. Patient's labs have been mostly unremarkable including a negative troponin but he did have a slightly elevated equivocal d-dimer level. For this reason CT angiography of the chest was completed that does not show any pulmonary embolism or any other acute process. Patient was given a dose of pain medication. He had already received aspirin in route. He has a moderate heart score. I am unable to offer close outpatient follow-up since he is returning to his psychiatric facility. Also the patient continues to have some chest discomfort. For these reasons the patient will be admitted to the hospital for further evaluation and treatment was accepted for admission by the hospitalist Dr. Ballard. - Differential Diagnosis MT, PE, GERD, costochondritis, pneumonia Critical Care Time: No Critical care attestation.: If time is entered above; I have spent that time in minutes in the direct care of this critically ill patient, excluding procedure time. ED Disposition Clinical Impression: Acute chest pain, Chest pain, rule out acute myocardial infarction Disposition: OP ADMIT IP TO THIS HOSP Is pt being admited?: Yes Condition: Fair Time of Disposition: 01:54
--- NOTE | 2019-06-01 00:41 | Cat Scan Report ---
CTA CHEST WITH IV CONTRAST INDICATION / CLINICAL INFORMATION: CP, elevated dimer. TECHNIQUE: Axial CT images were obtained through the chest after injection of 100 cc Omnipaque 350 milligrams pe rcent IV contrast. 3 plane MIP and/or 3D reconstructions were produced. All CT scans at this location are performed using CT dose reduction for ALARA by means of automated exposure control. COMPARISON: None available. FINDINGS: PULMONARY ARTERIES: No pulmonary emboli. THORACIC AORTA: No significant abnormality. HEART: No significant abnormality. Moderate coronary artery calcifications present. CORONARY ARTERIES: No significant calcification. PLEURA: No pleural effusion. No pneumothorax. LYMPH NODES: No significant adenopathy. LUNGS: No acute air space or interstitial disease. Mild chronic pulmonary changes are present predomi nantly both bases ADDITIONAL FINDINGS: None. UPPER ABDOMEN: No acute findings. SKELETAL STRUCTURES: Degenerative changes thoracic spine with surgical changes lower thoracic upper l umbar spine IMPRESSION: 1. No CT evidence for pulmonary embolism. 2. No acute findings. Please see comments Signer Name: Bebo Claros MD Signed: 06/01/2019 12:36 AM Workstation Name: [id number]
[2019-06-01] MEDS ORDERED: ACETAMINOPHEN 325 MG TAB PO PRN (02:37)
[2019-06-01] MEDS ORDERED: ONDANSETRON 4 MG/2 ML INJ IV PRN (02:37)
[2019-06-01] MEDS ORDERED: SODIUM POLYSTYRENE 15 GM/60 ML ORAL LIQD PO ONE (02:40)
--- NOTE | 2019-06-01 03:02 | History and Physical Report ---
History of Present Illness Date of admission: 06/01/19 01:18 History of present illness: 63-year-old man with a history of hypertension, hyperlipidemia, CAD, depression comes to the emergency room with complaints of chest pain. Chest pain is in the left substernal area which he describes as a toothache, intermittent for 20 to 30 seconds, radiating to the left shoulder, intensity 5/10. Admits to nausea, shortness of breath denies nausea diaphoresis and palpitation, Patient is had a stress test 1 year ago that was negative. Currently at [facility] for suicide ideation, patient is still suicidal Review Of Systems: Constitutional: no weight loss Ears, eyes, nose, mouth and throat: no nasal congestion, no nasal discharge, no sinus pressure, blurry vision, diplopia Neck: No neck pain or rigidity. Cardiovascular: no chest pain, orthopnea, palpitations Gastrointestinal: abdominal pain, hematochezia Genitourinary : no dysuria, frequency , hematuria Musculoskeletal: no muscle ache Integumentary: no rash, no pruritis Neurological: no parathesias, focal weakness Endocrine: no cold or heat intolerance, no polyuria or polydipsia Hematologic/Lymphatic: no easy bruising, no easy bleeding, no gland swelling Allergic/Immunologic: no urticaria, no angioedema. PAST MEDICAL HISTORY:hypertension, hyperlipidemia, depression, CAD PAST SURGICAL HISTORY: Multiple back surgeries SOCIAL HISTORY: no tobacco , no alcohol or drugs FAMILY HISTORY: hypertension Medications and Allergies Allergies Allergy/AdvReac Type Severity Reaction Status Date / Time ketorolac tromethamine Allergy Rash Verified 02/01/17 12:29 [From Toradol] Home Medications Medication Instructions Recorded Confirmed Last Taken Type Gabapentin 300 mg PO TID 06/11/16 06/01/19 Unknown History Metoprolol [Lopressor TAB] 25 mg PO DAILY 06/11/16 06/01/19 Unknown History Multivitamin Tab [Multiple Vitamin 1 tab PO DAILY 06/11/16 06/01/19 Unknown Hist ory TAB (Theragran)] lisinopriL [Zestril TAB] 10 mg PO DAILY 06/11/16 06/01/19 Unknown History Clorazepate Dipotassium [Tranxene 7.5 mg PO TID 06/01/19 06/01/19 05/31/19 21:00 History T-Tab] Clorazepate Dipotassium [Tranxene] 3.75 mg PO BID 06/01/19 06/01/19 05/31/19 21:00 History Clorazepate Dipotassium [Tranxene] 3.75 mg PO TID 06/01/19 06/01/19 05/31/19 21:00 History QUEtiapine [SEROquel] 25 mg PO QHS 06/01/19 06/01/19 Unknown History Active Meds: Active Medications Acetaminophen (Tylenol) 650 mg PO Q4H PRN PRN Reason: Pain MILD(1-3)/Fever >100.5/ROSAS Enoxaparin Sodium (Enoxaparin) 40 mg SUB-Q QDAY@1000 CHLOÉ Ondansetron HCl (Zofran) 4 mg IV Q8H PRN PRN Reason: Nausea And Vomiting Oxycodone/Acetaminophen (Percocet 5/325) 1 tab PO Q6H PRN PRN Reason: Pain, Moderate (4-6) Sodium Chloride (Sodium Chloride Flush Syringe 10 Ml) 10 ml IV BID CHLOÉ Sodium Chloride (Sodium Chloride Flush Syringe 10 Ml) 10 ml IV PRN PRN PRN Reason: LINE FLUSH Exam - Physical Exam Narrative exam: Gen. appearance: Patient lying in bed, no apparent distress HEENT: Normocephalic, atraumatic, pupils equally round and reactive to light, extraocular movement intact, and no sclericterus,. No JVD or thyromegaly or nodule,neck supple, no carotid bruit ,mucous membranes moist, no exudate or erythema Heart: S1, S2, regular rate and rhythm Lungs: Clear to auscultation bilaterally, breathing comfortable Abdomen: Positive bowel sounds, nontender, nondistended, no organomegaly Extremity: No edema, cyanosis, clubbing Skin: No rash, nodules, warm, dry Neuro: Oriented 3, cranial nerves II-12 intact, speech is fluent, motor and sensory intact - Constitutional Vitals: Temp Pulse Resp BP Pulse Ox 97.8 F 54 L 15 137/82 98 05/31/19 22:00 06/01/19 00:30 06/01/19 00:30 06/01/19 00:46 06/01/19 00:46 Results - Labs CBC & Chem 7: 05/31/19 22:51 05/31/19 22:51 Labs: Abnormal lab results 05/31/19 05/31/19 05/31/19 Range/Units 22:51 22:51 22:51 WBC 4.2 L (4.5-11.0) K/mm3 MCV 100 H (84-94) fl MCH 34 H (28-32) pg RDW 12.5 L (13.2-15.2) % Bollinger % (Auto) 8.9 H (0.0-7.3) % Eos % (Auto) 6.7 H (0.0-4.3) % Lymph # 1.1 L (1.2-5.4) K/mm3 D-Dimer 261.57 H (0-234) ng/mlDDU Potassium 5.1 H (3.6-5.0) mmol/L BUN 22 H (9-20) mg/dL Assessment and Plan Assessment Chest pain/Coronary artery disease Check cardiac enzymes, consult cardiology Recent stress test done Suicide ideation/depression Continue with 1013, outpatient medications Hypertension Continue Lopressor, hold CONCHITA inhibitor secondary to hyperkalemia Mild hyperkalemia, give Kayexalate, monitor potassium level DVT prophylaxis
[2019-06-01] MEDS ORDERED: SODIUM POLYSTYRENE 15 GM/60 ML ORAL LIQD ONE (03:24)
[2019-06-01] MEDS: oxyCODONE /ACETAMINOPHEN 5-325MG TAB PO PRN ×3 (03:26→17:39)
[2019-06-01] MEDS ORDERED: oxyCODONE /ACETAMINOPHEN 5-325MG TAB ONE (03:27)
[2019-06-01 07:27] LABS: Basophils % (Auto) 0.6 % (0.0-1.8); Eosinophils # (Auto) 0.3 K/mm3 (0.0-0.4); Eosinophils % (Auto) 6.3 % (0.0-4.3); Hemoglobin 13.6 gm/dl (11.8-15.2); Lymphocytes # (Auto) 1.3 K/mm3 (1.2-5.4); Mean Corpuscular HGB Conc 35 % (32-34); Mean Corpuscular Volume 98 fl (84-94); Monocytes # (Auto) 0.4 K/mm3 (0.0-0.8); Monocytes % (Auto) 8.7 % (0.0-7.3); Platelet Count 146 K/mm3 (140-440); Red Blood Count 3.97 M/mm3 (3.65-5.03); Red Cell Distribution Width 12.1 % (13.2-15.2)
[2019-06-01 07:37] LABS: Creatine Kinase MB 1.5 ng/mL (0.0-4.0)
[2019-06-01 07:39] LABS: BUN/Creatinine Ratio 24; Blood Urea Nitrogen 19 mg/dL (9-20); Calcium 8.8 mg/dL (8.4-10.2); Hemolysis Index 7
[2019-06-01] MEDS ORDERED: CLORAZEPATE DIPOTASSIUM 7.5 MG PO SCH (08:00)
[2019-06-01] MEDS: ENOXAPARIN 40 MG/0.4 ML INJ SUB-Q SCH (09:20)
[2019-06-01] MEDS: GABAPENTIN 300 MG CAP PO SCH ×3 (09:21→20:23)
[2019-06-01] MEDS: MULTIVITAMINS ,THERAPEUTIC TAB PO SCH (09:23)
[2019-06-01] MEDS: CLORAZEPATE DIPOTASSIUM 3.75 MG TAB PO SCH ×3 (09:24→20:22)
[2019-06-01] MEDS ORDERED: METOPROLOL TARTRATE 25 MG TAB PO SCH ×2 (10:00→22:00)
[2019-06-01] MEDS ORDERED: ENOXAPARIN 30 MG/0.3 ML INJ SUB-Q SCH (10:00)
--- NOTE | 2019-06-01 11:08 | Consultation ---
History of Present Illness Consult date: 06/01/19 Requesting physician: JOHNNY MCINTOSH Consult reason: chest pain History of present illness: Mr. Ivy is a 63 y/o male with a medical history significant for hypertension, angina, chronic back pain s/p multiple surgeries, testicular cancer, depression and anxiety who presented from [place] with chest pain. 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 He reports that the pain began yesterday, and he describes it as intermittent, left-sided and radiating to his left shoulder. He rated it as 7/10 at its worst. He also endorses some accompanying SOB. Troponins negative x4 and CTA NAF. EKG shows sinus bradycardia. An echocardiogram in 2016 found an EF of 55 percent, mild diastolic dysfunction, mildly dilated LA, RA & RV, mild MR. A cardiac catheterization in 2015 revealed clean coronaries and a PET scan in July 2018 was negative. Past History Past Medical History: CAD, hypertension, other (chronic back pain, depression, anxiety ) Medications and Allergies Allergies Allergy/AdvReac Type Severity Reaction Status Date / Time ketorolac tromethamine Allergy Rash Verified 02/01/17 12:29 [From Toradol] Home Medications Medication Instructions Recorded Confirmed Last Taken Type Gabapentin 300 mg PO TID 06/11/16 06/01/19 Unknown History Metoprolol [Lopressor TAB] 25 mg PO DAILY 06/11/16 06/01/19 Unknown History Multivitamin Tab [Multiple Vitamin 1 tab PO DAILY 06/11/16 06/01/19 Unknown History TAB (Theragran)] lisinopriL [Zestril TAB] 10 mg PO DAILY 06/11/16 06/01/19 Unknown History Clorazepate Dipotassium [Tranxene 7.5 mg PO TID 06/01/19 06/01/19 05/31/19 21:00 History T-Tab] Clorazepate Dipotassium [Tranxene] 3.75 mg PO BID 06/01/19 06/01/19 05/31/19 21:00 History Clorazepate Dipotassium [Tranxene] 3.75 mg PO TID 06/01/19 06/01/19 05/31/19 21:00 History QUEtiapine [SEROquel] 25 mg PO QHS 06/01/19 06/01/19 Unknown History Active Meds: Active Medications Acetaminophen (Tylenol) 650 mg PO Q4H PRN PRN Reason: Pain MILD(1-3)/Fever >100.5/ROSAS Clorazepate Dipotassium (Tranxene) 3.75 mg PO BID COUNTS INCLUDE 234 BEDS AT THE [facility] Stop: 06/03/19 22:01 Clorazepate Dipotassium (Tranxene) 3.75 mg PO TID COUNTS INCLUDE 234 BEDS AT THE [facility] Stop: 06/02/19 20:01 Clorazepate Dipotassium (Tranxene) 7.5 mg PO TID COUNTS INCLUDE 234 BEDS AT THE [facility] Stop: 06/01/19 20:01 Last Admin: 06/01/19 09:24 Dose: 7.5 mg Documented by: Enoxaparin Sodium (Enoxaparin) 40 mg SUB-Q QDAY@1000 COUNTS INCLUDE 234 BEDS AT THE [facility] Last Admin: 06/01/19 09:20 Dose: 40 mg Documented by: Gabapentin (Gabapentin) 300 mg PO TID COUNTS INCLUDE 234 BEDS AT THE [facility] Last Admin: 06/01/19 09:21 Dose: 300 mg Documented by: Metoprolol Tartrate (Metoprolol) 25 mg PO DAILY COUNTS INCLUDE 234 BEDS AT THE [facility] Last Admin: 06/01/19 09:23 Dose: 25 mg Documented by: Multivitamins (Theragran Tab) 1 each PO DAILY COUNTS INCLUDE 234 BEDS AT THE [facility] Last Admin: 06/01/19 09:23 Dose: 1 each Documented by: Ondansetron HCl (Zofran) 4 mg IV Q8H PRN PRN Reason: Nausea And Vomiting Oxycodone/Acetaminophen (Percocet 5/325) 1 tab PO Q6H PRN PRN Reason: Pain, Moderate (4-6) Last Admin: 06/01/19 09:21 Dose: 1 tab Documented by: Quetiapine Fumarate (Seroquel) 25 mg PO QHS COUNTS INCLUDE 234 BEDS AT THE [facility] Sodium Chloride (Sodium Chloride Flush Syringe 10 Ml) 10 ml IV BID COUNTS INCLUDE 234 BEDS AT THE [facility] Last Admin: 06/01/19 09:25 Dose: 10 ml Documented by: Sodium Chloride (Sodium Chloride Flush Syringe 10 Ml) 10 ml IV PRN PRN PRN Reason: LINE FLUSH Review of Systems All systems: negative Cardiovascular: chest pain Physical Examination Vital Signs Temp Pulse Resp BP Pulse Ox 97.8 F 58 L 12 123/75 98 05/31/19 22:00 05/31/19 22:00 05/31/19 22:00 05/31/19 22:00 05/31/19 22:00 General appearance: no acute distress HEENT: Positive: PERRL Neck: Positive: neck supple Cardiac: Positive: Reg Rate and Rhythm Lungs: Positive: Normal Exam Neuro: Positive: Grossly Intact Abdomen: Positive: Unremarkable Male genitourinary: Positive: deferred Skin: Positive: Clear Musculoskeletal: Normal Range of Motion Extremities: Present: normal Results 06/01/19 06:53 06/01/19 06:53 Cardiac Enzymes 06/01/19 Range/Units 06:53 CK-MB (CK-2) 1.5 (0.0-4.0) ng/mL CBC 05/31/19 06/01/19 Range/Units 22:51 06:53 WBC 4.2 L 4.1 L (4.5-11.0) K/mm3 RBC 4.04 3.97 (3.65-5.03) M/mm3 Hgb 13.7 13.6 (11.8-15.2) gm/dl Hct 40.3 39.0 (35.5-45.6) % Plt Count 148 146 (140-440) K/mm3 Lymph # 1.1 L 1.3 (1.2-5.4) K/mm3 [place] # 0.4 0.4 (0.0-0.8) K/mm3 Eos # 0.3 0.3 (0.0-0.4) K/mm3 Baso # 0.0 0.0 (0.0-0.1) K/mm3 Comprehensive Metabolic Panel 05/31/19 06/01/19 Range/Units 22:51 06:53 Sodium 137 140 (137-145) mmol/L Potassium 5.1 H 4.3 (3.6-5.0) mmol/L Chloride 105.5 105.1 (98-107) mmol/L Carbon Dioxide 23 21 L (22-30) mmol/L BUN 22 H 19 (9-20) mg/dL Creatinine 0.9 0.8 (0.8-1.5) mg/dL Glucose 79 81 (75-100) mg/dL Calcium 8.9 8.8 (8.4-10.2) mg/dL - Imaging and Cardiology Echo: pending Cardiac cath: report reviewed (2016: clean coronaries) EKG: report reviewed (Sinus bradycardia) EKG interpretations - Telemetry EKG Rhythm: Sinus Bradycardia Assessment and Plan Mr. Ivy is a 63 y/o male who presented to [facility] with chest pain. CT ruled out. Will obtain echocardiogram and optimize antianginal regimen. Will initiate statin; no aspirin d/t possible allergy. Will decrease beta bonilla dose d/t mild bradycardia. Further recommendations pending hospital course. The patient has been seen in conjunction with Dr. Camacho, who agrees with the assessment and plan. - Patient Problems (1) Chronic back pain Current Visit: Yes Status: Acute (2) Anxiety Current Visit: Yes Status: Chronic (3) Chest pain Current Visit: No Status: Acute (4) Depression Current Visit: No Status: Chronic (5) Suicidal ideations Current Visit: No Status: Acute (6) Angina at rest Current Visit: Yes Status: Chronic (7) Testicular cancer Current Visit: Yes Status: Acute (8) Sinus bradycardia Current Visit: Yes Status: Acute
--- NOTE | 2019-06-01 12:53 | Progress Note ---
Assessment and Plan Assessment and plan: Patient is a 63-year-old man from [place] via 1012 with a history of hypertension, hyperlipidemia, CAD and depression who presents to [facility] ED with chest pains. * CTA chest negative for PE +CAD Chest pain/Coronary artery disease Check cardiac enzymes, consult cardiology Recent stress test done Suicide ideation/depression Continue with 1012, outpatient medications consult Mental health Hypertension Continue Lopressor, hold CONCHITA inhibitor secondary to hyperkalemia Mild hyperkalemia, given Kayexalate, monitor potassium level, repeat levels DVT prophylaxis; sq lovenox Disposition: admitted today under obs, possible d/c tomorrow once cleared by Cardiology. ECHO ordered prolonged inpatient services 33 minutes History Interval history: Patient was seen and examined. Follow-up on current diagnosis of chest pains still present, left side. Overnight uneventful. Patient denies any shortness breath, nausea/vomiting or severe headaches. Imaging, nursing note, chart, labs and old chart reviewed. Discussed with patient. Still with SI Hospitalist Physical - Physical exam Narrative exam: Gen: WDWN, NAD, Awake, Alert, Orientated HEENT: NCAT, EOMI, PERRL, OP Clear Neck: supple, no adenopathy, no thyromegaly, no JVD CVS/Heart: RRR, normal S1S2, pulses present bilaterally Chest/Lungs: CTA B, Symmetrical chest expansion, good air entry bilaterally GI/Abdomen: soft, NTND, good bowel sounds, no guarding or rebound /Bladder: no suprapubic tenderness, no CVA or paraspinal tenderness Extermity/Skin: no c/c/e, no obvious rash MSK: FROM x 4 Neuro: CN 2-12 grossly intact, no new focal deficits Psych: depressed - Constitutional Vitals: Temp Pulse Resp BP Pulse Ox 98.1 F 75 18 134/90 96 06/01/19 08:20 06/01/19 09:23 06/01/19 08:20 06/01/19 08:20 06/01/19 09:57 General appearance: Present: no acute distress Results - Labs CBC & Chem 7: 06/01/19 06:53 06/01/19 06:53 Labs: Laboratory Last Values WBC 4.1 K/mm3 (4.5-11.0) L 06/01/19 06:53 RBC 3.97 M/mm3 (3.65-5.03) 06/01/19 06:53 Hgb 13.6 gm/dl (11.8-15.2) 06/01/19 06:53 Hct 39.0 % (35.5-45.6) 06/01/19 06:53 MCV 98 fl (84-94) H 06/01/19 06:53 MCH 34 pg (28-32) H 06/01/19 06:53 MCHC 35 % (32-34) H 06/01/19 06:53 RDW 12.1 % (13.2-15.2) L 06/01/19 06:53 Plt Count 146 K/mm3 (140-440) 06/01/19 06:53 Lymph % (Auto) 31.0 % (13.4-35.0) 06/01/19 06:53 Borden % (Auto) 8.7 % (0.0-7.3) H 06/01/19 06:53 Eos % (Auto) 6.3 % (0.0-4.3) H 06/01/19 06:53 Baso % (Auto) 0.6 % (0.0-1.8) 06/01/19 06:53 Lymph # 1.3 K/mm3 (1.2-5.4) 06/01/19 06:53 Borden # 0.4 K/mm3 (0.0-0.8) 06/01/19 06:53 Eos # 0.3 K/mm3 (0.0-0.4) 06/01/19 06:53 Baso # 0.0 K/mm3 (0.0-0.1) 06/01/19 06:53 Seg Neutrophils % 53.4 % (40.0-70.0) 06/01/19 06:53 Seg Neutrophils # 2.2 K/mm3 (1.8-7.7) 06/01/19 06:53 D-Dimer 261.57 ng/mlDDU (0-234) H 05/31/19 22:51 Sodium 140 mmol/L (137-145) 06/01/19 06:53 Potassium 4.3 mmol/L (3.6-5.0) 06/01/19 06:53 Chloride 105.1 mmol/L (98-107) 06/01/19 06:53 Carbon Dioxide 21 mmol/L (22-30) L 06/01/19 06:53 Anion Gap 18 mmol/L 06/01/19 06:53 BUN 19 mg/dL (9-20) 06/01/19 06:53 Creatinine 0.8 mg/dL (0.8-1.5) 06/01/19 06:53 Estimated GFR > 60 ml/min 06/01/19 06:53 BUN/Creatinine Ratio 24 % 06/01/19 06:53 Glucose 81 mg/dL (75-100) 06/01/19 06:53 Calcium 8.8 mg/dL (8.4-10.2) 06/01/19 06:53 Total Creatine Kinase 54 units/L (55-170) L 06/01/19 06:53 CK-MB (CK-2) 1.5 ng/mL (0.0-4.0) 06/01/19 06:53 CK-MB (CK-2) Rel Index 2.7 (0-4) 06/01/19 06:53 Troponin T < 0.010 ng/mL (0.00-0.029) 06/01/19 06:53 Active Medications - Current Medications Current Medications: Generic Name Dose Route Start Last Admin Trade Name Freq PRN Reason Stop Dose Admin Acetaminophen 650 mg 06/01/19 02:37 Tylenol PO Q4H PRN Pain MILD(1-3)/Fever >100.5/ROSAS Atorvastatin Calcium 80 mg 06/01/19 22:00 Lipitor PO QHS CHLOÉ Clorazepate Dipotassium 3.75 mg 06/03/19 10:00 Tranxene PO 06/03/19 22:01 BID CHLOÉ Clorazepate Dipotassium 3.75 mg 06/02/19 08:00 Tranxene PO 06/02/19 20:01 TID CHLOÉ Clorazepate Dipotassium 7.5 mg 06/01/19 08:00 06/01/19 09:24 Tranxene PO 06/01/19 20:01 7.5 mg TID CHLOÉ Administration Enoxaparin Sodium 40 mg 06/01/19 10:00 06/01/19 09:20 Enoxaparin SUB-Q 40 mg QDAY@1000 CHLOÉ Administration Gabapentin 300 mg 06/01/19 08:00 06/01/19 09:21 Gabapentin PO 300 mg TID CHLOÉ Administration Isosorbide Mononitrate 30 mg 06/01/19 13:00 Imdur PO QDAY CHLOÉ Metoprolol Tartrate 12.5 mg 06/01/19 22:00 Metoprolol PO BID [facility] Multivitamins 1 each 06/01/19 10:00 06/01/19 09:23 Theragran Tab PO 1 each DAILY CHLOÉ Administration Ondansetron HCl 4 mg 06/01/19 02:37 Zofran IV Q8H PRN Nausea And Vomiting Oxycodone/Acetaminophen 1 tab 06/01/19 02:37 06/01/19 09:21 Percocet 5/325 PO 1 tab Q6H PRN Administration Pain, Moderate (4-6) Quetiapine Fumarate 25 mg 06/01/19 22:00 Seroquel PO QHS CHLOÉ Sodium Chloride 10 ml 06/01/19 10:00 06/01/19 09:25 Sodium Chloride Flush Syringe 10 Ml IV 10 ml BID CHLOÉ Administration Sodium Chloride 10 ml 06/01/19 02:37 Sodium Chloride Flush Syringe 10 Ml IV PRN PRN LINE FLUSH
[2019-06-01] MEDS: NICOTINE 21 MG/24 HR PATCH TD SCH (17:40)
[2019-06-01] MEDS: QUEtiapine 25 MG TAB PO SCH (22:44)
[2019-06-02] MEDS: oxyCODONE /ACETAMINOPHEN 5-325MG TAB PO PRN ×4 (00:36→21:37)
[2019-06-02] MEDS ORDERED: REGADENOSON 0.4 MG/5 ML INJ IV NR ×2 (07:02→11:00)
[2019-06-02] MEDS ORDERED: REGADENOSON 0.4 MG/5 ML INJ IV ONE (07:48)
[2019-06-02] MEDS: GABAPENTIN 300 MG CAP PO SCH ×3 (08:19→21:39)
[2019-06-02] MEDS: CLORAZEPATE DIPOTASSIUM 3.75 MG TAB PO SCH ×3 (08:20→21:50)
[2019-06-02] MEDS: NICOTINE 21 MG/24 HR PATCH TD SCH (12:18)
[2019-06-02] MEDS: ENOXAPARIN 40 MG/0.4 ML INJ SUB-Q SCH (12:22)
[2019-06-02] MEDS: MULTIVITAMINS ,THERAPEUTIC TAB PO SCH (12:22)
--- NOTE | 2019-06-02 13:44 | Progress Note ---
Assessment and Plan Stress test negative, cath in 2016 also negative. He has chronic angina at rest. Attempted to utilize Imdur, but BPs were borderline, so will discontinue. Will initiate Ranexa. Will resume home lisinopril tomorrow and monitor blood pressures. The patient has been seen in conjunction with Dr. Decker, who agrees with the assessment and plan. - Patient Problems (1) Chronic back pain Current Visit: Yes Status: Acute (2) Anxiety Current Visit: Yes Status: Chronic (3) Chest pain Current Visit: No Status: Acute (4) Depression Current Visit: No Status: Chronic (5) Suicidal ideations Current Visit: No Status: Acute (6) Angina at rest Current Visit: Yes Status: Chronic (7) Testicular cancer Current Visit: Yes Status: Acute (8) Sinus bradycardia Current Visit: Yes Status: Acute Subjective Date of service: 06/02/19 Interval history: Patient is s/p Lexiscan stress test, which was negative for ischemia/infarct. He still c/o chest pain, but has no other complaints. SB on telemetry with rates in the 40s and 50s. Echo reviewed: EF 35 to 40 percent, moderately dilated RV, borderline pulmonary hypertension. Objective Last Vital Signs Temp 97.5 F L 06/02/19 04:19 Pulse 71 06/02/19 12:22 Resp 20 06/02/19 04:19 BP 106/70 06/02/19 11:07 Pulse Ox 94 06/02/19 01:12 - Physical Examination General: No Apparent Distress HEENT: Positive: PERRL Neck: Positive: neck supple Cardiac: Positive: Regular Rhythm Lungs: Positive: Normal Exam Neuro: Positive: Grossly Intact Abdomen: Positive: Unremarkable /Rectal: Other (deferred) Skin: Positive: Clear Musculoskeletal: Normal Range of Motion Extremities: Present: normal - Imaging and Cardiology EKG: report reviewed (Sinus bradycardia) Echo: report reviewed (05/2019: EF 35 to 40 percent, moderately dilated RV, borderline pulmonary hypertension.) Cardiac cath: report reviewed (2016: clean coronaries)
[2019-06-02] MEDS: QUEtiapine 25 MG TAB PO SCH (21:37)
[2019-06-02] MEDS: RANOLAZINE ER 500 MG TAB 12HR PO SCH (21:50)
[2019-06-03] MEDS: oxyCODONE /ACETAMINOPHEN 5-325MG TAB PO PRN ×3 (04:08→16:47)
[2019-06-03 08:46] LABS: Basophils % (Auto) 0.4 % (0.0-1.8); Eosinophils # (Auto) 0.2 K/mm3 (0.0-0.4); Hematocrit 40.5 % (35.5-45.6); Hemoglobin 14.1 gm/dl (11.8-15.2); Lymphocytes % (Auto) 28.2 % (13.4-35.0); Mean Corpuscular HGB Conc 35 % (32-34); Mean Corpuscular Volume 98 fl (84-94); Monocytes # (Auto) 0.3 K/mm3 (0.0-0.8); Monocytes % (Auto) 7.7 % (0.0-7.3); Platelet Count 151 K/mm3 (140-440); Red Blood Count 4.15 M/mm3 (3.65-5.03); Red Cell Distribution Width 12.6 % (13.2-15.2)
[2019-06-03 09:11] LABS: Alanine Aminotransferase 6 units/L (7-56); BUN/Creatinine Ratio 16; Blood Urea Nitrogen 13 mg/dL (9-20); Hemolysis Index 23
[2019-06-03] MEDS: ENOXAPARIN 40 MG/0.4 ML INJ SUB-Q SCH ×2 (10:04→10:10)
[2019-06-03] MEDS: LISINOPRIL 10 MG TAB PO SCH (10:04)
[2019-06-03] MEDS: NICOTINE 21 MG/24 HR PATCH TD SCH (10:05)
[2019-06-03] MEDS: GABAPENTIN 300 MG CAP PO SCH ×3 (10:05→21:14)
[2019-06-03] MEDS: MULTIVITAMINS ,THERAPEUTIC TAB PO SCH (10:06)
[2019-06-03] MEDS: RANOLAZINE ER 500 MG TAB 12HR PO SCH ×2 (11:09→21:14)
[2019-06-03] MEDS: CLORAZEPATE DIPOTASSIUM 3.75 MG TAB PO SCH ×2 (11:09→23:18)
--- NOTE | 2019-06-03 14:10 | Progress Note ---
Assessment and Plan Patient is a 63-year-old man from [place] via 1012 with a history of hypertension, hyperlipidemia, CAD and depression who presents to [facility] ED with chest pains. * CTA chest negative for PE +CAD Chest pain/Coronary artery disease ischemic injury ruled out Recent stress test done Suicide ideation/depression Continue with 1012, outpatient medications consult Mental health Hypertension Continue Lopressor, hold CONCHITA inhibitor secondary to hyperkalemia Mild hyperkalemia, Resolved DVT prophyaxis on Heparin and Gi prophylaxis Subjective Date of service: 06/02/19 Principal diagnosis: Suicidal andChest pain Interval history: 63-year-old man with a history of hypertension, hyperlipidemia, CAD, depression comes to the emergency room with complaints of chest pain. Chest pain is in the left substernal area which he describes as a toothache, intermittent for 20 to 30 seconds, radiating to the left shoulder, intensity 5/10. Admits to nausea, shortness of breath denies nausea diaphoresis and palpitation, Patient is had a stress test 1 year ago that was negative. Currently at [place] for suicide ideation, patient is still suicidal Objective - Constitutional Vitals: Vital Signs - 12hr 06/03/19 06/03/19 06/03/19 04:08 05:12 08:18 Temperature 97.6 F Pulse Rate 66 Respiratory 18 17 Rate Blood Pressure 130/55 O2 Sat by Pulse 94 94 Oximetry 06/03/19 06/03/19 10:04 11:31 Temperature 98.0 F Pulse Rate 87 58 L Respiratory 18 Rate Blood Pressure 120/70 137/85 O2 Sat by Pulse 95 Oximetry General appearance: Present: no acute distress, well-nourished - EENT Eyes: PERRL, EOM intact ENT: hearing intact, clear oral mucosa Ears: bilateral: normal - Neck Neck: supple, normal ROM - Respiratory Respiratory effort: normal Respiratory: bilateral: CTA - Breasts Breasts: normal - Cardiovascular Heart rate: 78 Rhythm: regular Heart Sounds: Present: S1 & S2. Absent: gallop, rub Extremities: pulses intact, No edema, normal color, Full ROM - Gastrointestinal General gastrointestinal: Present: soft, non-tender, non-distended, normal bowel sounds - Genitourinary Male genitourinary: normal - Integumentary Integumentary: clear, warm, dry - Musculoskeletal Musculoskeletal: 1, strength equal bilaterally - Neurologic Neurologic: moves all extremities - Psychiatric Psychiatric: memory intact, appropriate mood/affect, intact judgment & insight - Labs CBC & Chem 7: 06/03/19 07:19 06/03/19 07:19 Labs: Abnormal lab results 06/03/19 06/03/19 Range/Units 07:19 07:19 WBC 3.5 L (4.5-11.0) K/mm3 MCV 98 H (84-94) fl MCH 34 H (28-32) pg MCHC 35 H (32-34) % RDW 12.6 L (13.2-15.2) % Bond % (Auto) 7.7 H (0.0-7.3) % Eos % (Auto) 6.0 H (0.0-4.3) % Lymph # 1.0 L (1.2-5.4) K/mm3 ALT 6 L (7-56) units/L
--- NOTE | 2019-06-03 14:12 | Progress Note ---
Assessment and Plan Patient is a 63-year-old man from [place] via 1012 with a history of hypertension, hyperlipidemia, CAD and depression who presents to [facility] ED with chest pains. * CTA chest negative for PE +CAD Chest pain/Coronary artery disease ischemic injury ruled out Recent stress test done Suicide ideation/depression Continue with 1012, outpatient medications consult Mental health Hypertension Continue Lopressor, hold CONCHITA inhibitor secondary to hyperkalemia Mild hyperkalemia, Resolved DVT prophyaxis on Heparin and Gi prophylaxis Will discharge if cleared by MH Subjective Date of service: 06/03/19 Principal diagnosis: Suicidal andChest pain Interval history: 63-year-old man with a history of hypertension, hyperlipidemia, CAD, depression comes to the emergency room with complaints of chest pain. Chest pain is in the left substernal area which he describes as a toothache, intermittent for 20 to 30 seconds, radiating to the left shoulder, intensity 5/10. Admits to nausea, shortness of breath denies nausea diaphoresis and palpitation, Patient is had a stress test 1 year ago that was negative. Currently at [place] for suicide ideation, patient is still suicidal Objective - Constitutional Vitals: Vital Signs - 12hr 06/03/19 06/03/19 06/03/19 04:08 05:12 08:18 Temperature 97.6 F Pulse Rate 66 Respiratory 18 17 Rate Blood Pressure 130/55 O2 Sat by Pulse 94 94 Oximetry 06/03/19 06/03/19 10:04 11:31 Temperature 98.0 F Pulse Rate 87 58 L Respiratory 18 Rate Blood Pressure 120/70 137/85 O2 Sat by Pulse 95 Oximetry - Labs CBC & Chem 7: 06/03/19 07:19 06/03/19 07:19 Labs: Abnormal lab results 06/03/19 06/03/19 Range/Units 07:19 07:19 WBC 3.5 L (4.5-11.0) K/mm3 MCV 98 H (84-94) fl MCH 34 H (28-32) pg MCHC 35 H (32-34) % RDW 12.6 L (13.2-15.2) % Green % (Auto) 7.7 H (0.0-7.3) % Eos % (Auto) 6.0 H (0.0-4.3) % Lymph # 1.0 L (1.2-5.4) K/mm3 ALT 6 L (7-56) units/L
--- NOTE | 2019-06-03 14:15 | Progress Note ---
Assessment and Plan Stress test negative, cath in 2016 also negative. He has chronic angina at rest. Attempted to utilize Imdur, but BPs were borderline, so will discontinue. Will initiate Ranexa. Will resume lisinopril and monitor blood pressures. patient continues to have very atypical chest pains,continue medical therapy.d/c plans as per hospitalist. Subjective Date of service: 06/03/19 Principal diagnosis: Suicidal andChest pain Interval history: Continues to have intermittent chest pain,B.P is labile,telemetry showing S.R. Objective Vital Signs Temp Pulse Resp BP Pulse Ox 06/03/19 11:31 98.0 F 58 L 18 137/85 95 06/03/19 10:04 87 120/70 06/03/19 08:18 94 06/03/19 05:12 97.6 F 66 17 130/55 94 06/03/19 04:08 18 06/02/19 22:34 97.9 F 61 18 118/71 93 06/02/19 19:00 67 06/02/19 17:31 97.5 F L 67 18 107/54 94 - Physical Examination General: No Apparent Distress HEENT: Positive: PERRL Neck: Positive: neck supple, trachea midline Lungs: Positive: clear to auscultation Neuro: Positive: Grossly Intact Abdomen: Positive: Unremarkable /Rectal: Other (deferred) Skin: Positive: Clear Musculoskeletal: Normal Range of Motion Extremities: Present: normal - Labs and Meds Cardiac Enzymes 06/03/19 Range/Units 07:19 AST 12 (5-40) units/L CBC 06/03/19 Range/Units 07:19 WBC 3.5 L (4.5-11.0) K/mm3 RBC 4.15 (3.65-5.03) M/mm3 Hgb 14.1 (11.8-15.2) gm/dl Hct 40.5 (35.5-45.6) % Plt Count 151 (140-440) K/mm3 Lymph # 1.0 L (1.2-5.4) K/mm3 Lamb # 0.3 (0.0-0.8) K/mm3 Eos # 0.2 (0.0-0.4) K/mm3 Baso # 0.0 (0.0-0.1) K/mm3 Comprehensive Metabolic Panel 06/03/19 Range/Units 07:19 Sodium 138 (137-145) mmol/L Potassium 4.2 (3.6-5.0) mmol/L Chloride 102.2 (98-107) mmol/L Carbon Dioxide 23 (22-30) mmol/L BUN 13 (9-20) mg/dL Creatinine 0.8 (0.8-1.5) mg/dL Glucose 92 (75-100) mg/dL Calcium 9.0 (8.4-10.2) mg/dL AST 12 (5-40) units/L ALT 6 L (7-56) units/L Alkaline Phosphatase 79 (35-129) units/L Total Protein 7.2 (6.3-8.2) g/dL Albumin 4.0 (3.9-5) g/dL - Imaging and Cardiology EKG: report reviewed (Sinus bradycardia) Echo: report reviewed (05/2019: EF 35 to 40 percent, moderately dilated RV, borderline pulmonary hypertension.) Cardiac cath: report reviewed (2016: clean coronaries)
[2019-06-03] MEDS: LORazepam 2 MG/ML VIAL IV PRN (14:48)
[2019-06-03] MEDS: QUEtiapine 25 MG TAB PO SCH (21:14)
[2019-06-04] MEDS: oxyCODONE /ACETAMINOPHEN 5-325MG TAB PO PRN ×3 (04:42→17:45)
[2019-06-04] MEDS: GABAPENTIN 300 MG CAP PO SCH ×3 (07:53→23:07)
[2019-06-04] MEDS: ENOXAPARIN 40 MG/0.4 ML INJ SUB-Q SCH (09:45)
[2019-06-04] MEDS: NICOTINE 21 MG/24 HR PATCH TD SCH (09:46)
[2019-06-04] MEDS: LISINOPRIL 10 MG TAB PO SCH (09:46)
[2019-06-04] MEDS: MULTIVITAMINS ,THERAPEUTIC TAB PO SCH (09:46)
[2019-06-04] MEDS: RANOLAZINE ER 500 MG TAB 12HR PO SCH ×2 (10:36→23:07)
--- NOTE | 2019-06-04 11:07 | Progress Note ---
Assessment and Plan Chest pain Currently resolved. AMI ruled out. Chest CTA negative for PE. S/p lexiscan MPI stress test on 06/02/2019 which was negative, EF 51%. LHC in 2016 showed normal coronaries. Echo done 06/01/2019 showed EF 35-40%, mod LVH, impaired relaxation, trace AR, MR and TR, RVSP 37mmHg, mild dilatation of the ascending aorta. Optimize anti-ischemic regimen. Attempted to utilize Imdur, but BPs were borderline and thus Imdur discontinued. Cont ASA, lipitor, lisinopril, Ranexa. Resume home lopressor at low dosage with hold parameters and monitor BPs. Can consider LHC if chest pain persists despite optimal medical therapy - this could be accomplished as OP if necessary. Suicidal ideation Currently on 1013 hold. Pt is from [place]. Psych team is following. HTN Stable. Chronic back pain s/p multiple surgeries The patient has been seen in conjunction with Dr. Velasquez who agrees with the assessment and plan of care. Subjective Date of service: 06/04/19 Principal diagnosis: Suicidal andChest pain Interval history: pt resting in bed, no current complaints. sitter at bedside. Objective Last Vital Signs Temp 97.7 F 06/04/19 04:59 Pulse 64 06/04/19 04:59 Resp 18 06/04/19 04:59 BP 114/70 06/04/19 04:59 Pulse Ox 91 06/04/19 04:59 - Physical Examination General: No Apparent Distress HEENT: Positive: PERRL Neck: Positive: neck supple, trachea midline Cardiac: Positive: Reg Rate and Rhythm, S1/S2 Lungs: Positive: Decreased Breath Sounds Neuro: Positive: Grossly Intact Abdomen: Positive: Unremarkable /Rectal: Other (deferred) Skin: Positive: Clear Musculoskeletal: Normal Range of Motion Extremities: Present: normal - Imaging and Cardiology EKG: report reviewed (Sinus bradycardia) Echo: report reviewed (05/2019: EF 35 to 40 percent, moderately dilated RV, borderline pulmonary hypertension.) Cardiac cath: report reviewed (2016: clean coronaries)
--- NOTE | 2019-06-04 12:12 | Consultation ---
History of Present Illness - Reason for Consult Consult date: 06/04/19 Reason for consult: Psych eval Requesting physician: JACE ROJAS - Chief Complaint Chief complaint: I still have chest pain, I want Xanax - History of Present Psychiatric Illness The patient is a 63yo male with history of hypertension, hyperlipidemia, CAD, MDD and Alcohol use disorder. He was admitted via the ED with c/o chest pains. Psychiatry consult requested to evaluate patient and recommend disposition as he had reported SI. Patient is known to the Psychiatry Service here. He was and inpatient and was just discharged on 05/27/19 with prescription of the following medications: ARIPiprazole [Abilify TAB] 10 mg PO QDAY #30 tablet busPIRone [Buspar] 5 mg PO BID #60 tablet DULoxetine 60 mg PO DAILY #30 Nicotine [Habitrol] 21 mg TD QDAY #30 patch Today, patient reports feeling some chest discomfort and requests to be p rescribed Xanax because "that's the only medicine that helps me". He denies SI/HI/AVH. Social and past histories have not changed since his last psych eval: PAST PSYCHIATRIC HISTORY: Diagnoses: Major Depression w/o psychotic features Suicide attempts or Self-harm behavior: Strong thoughts, but denies attempts Prior psychiatric hospitalizations: States hospitalized twice for SI Substance Abuse history: Smokes and ETOH abuse. States 6 pk a day. Previous psychiatric medications tried: states several Outpatient treatment: sees a psychiatrist MEDICAL HISTORY: HTN, Palpitations Allergies: Ketorolac Family Psychiatric History None reported or documented SOCIAL HISTORY Marital Status: Single Living Arrangements: "two roommates" Employment Status: Disabled Access to guns/weapons: None Education: Associates Tobacco: Yes Alcohol: 6 pack a day History of Abuse: ETOH, 6 pack daily Legal History: Denies REVIEW OF SYSTEMS Constitutional: Negative for weight loss ENT: Negative for stridor Respiratory: Negative for cough or hemoptysis All other systems reviewed and are negative Legal Status: Voluntary MSE Orientation: A/O x 3 Affect: ok Mood: congruent with affect Thought content: Normal. 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 Medications and Allergies Allergies Allergy/AdvReac Type Severity Reaction Status Date / Time ketorolac tromethamine Allergy Rash Verified 02/01/17 12:29 [From Toradol] Home Medications Medication Instructions Recorded Confirmed Last Taken Type Gabapentin 300 mg PO TID 06/11/16 06/01/19 Unknown History Metoprolol [Lopressor TAB] 25 mg PO DAILY 06/11/16 06/01/19 Unknown History Multivitamin Tab [Multiple Vitamin 1 tab PO DAILY 06/11/16 06/01/19 Unknown History TAB (Theragran)] lisinopriL [Zestril TAB] 10 mg PO DAILY 06/11/16 06/01/19 Unknown History Clorazepate Dipotassium [Tranxene 7.5 mg PO TID 06/01/19 06/01/19 05/31/19 21:00 History T-Tab] Clorazepate Dipotassium [Tranxene] 3.75 mg PO BID 06/01/19 06/01/19 05/31/19 21:00 History Clorazepate Dipotassium [Tranxene] 3.75 mg PO TID 06/01/19 06/01/19 05/31/19 21:00 History QUEtiapine [SEROquel] 25 mg PO QHS 06/01/19 06/01/19 Unknown History Active Meds: Active Medications Acetaminophen (Tylenol) 650 mg PO Q4H PRN PRN Reason: Pain MILD(1-3)/Fever >100.5/ROSAS Last Admin: 06/02/19 04:50 Dose: 650 mg Documented by: Aspirin (Baby Aspirin) 81 mg PO QDAY [facility] Atorvastatin Calcium (Lipitor) 80 mg PO QHS [facility] Last Admin: 06/03/19 21:13 Dose: 80 mg Documented by: Enoxaparin Sodium (Enoxaparin) 40 mg SUB-Q QDAY@1000 [facility] Last Admin: 06/04/19 09:45 Dose: 40 mg Documented by: Gabapentin (Gabapentin) 300 mg PO TID [facility] Last Admin: 06/04/19 07:53 Dose: 300 mg Documented by: Lisinopril (Zestril) 10 mg PO QDAY [facility] Last Admin: 06/04/19 09:46 Dose: 10 mg Documented by: Lorazepam (Ativan) 1 mg IV Q4H PRN PRN Reason: Anxiety Last Admin: 06/03/19 14:48 Dose: 1 mg Documented by: Metoprolol Tartrate (Metoprolol) 12.5 mg PO BID [facility] Multivitamins (Theragran Tab) 1 each PO DAILY [facility] Last Admin: 06/04/19 09:46 Dose: 1 each Documented by: Nicotine (Habitrol) 21 mg TD QDAY [facility] Last Admin: 06/04/19 09:46 Dose: 21 mg Documented by: Ondansetron HCl (Zofran) 4 mg IV Q8H PRN PRN Reason: Nausea And Vomiting Oxycodone/Acetaminophen (Percocet 5/325) 1 tab PO Q6H PRN PRN Reason: Pain, Moderate (4-6) Last Admin: 06/04/19 10:39 Dose: 1 tab Documented by: Quetiapine Fumarate (Seroquel) 25 mg PO QHS [facility] Last Admin: 06/03/19 21:14 Dose: 25 mg Documented by: Ranolazine (Ranexa Er) 500 mg PO BID [facility] Last Admin: 06/04/19 10:36 Dose: 500 mg Documented by: Sodium Chloride (Sodium Chloride Flush Syringe 10 Ml) 10 ml IV BID [facility] Last Admin: 06/04/19 09:49 Dose: 10 ml Documented by: Sodium Chloride (Sodium Chloride Flush Syringe 10 Ml) 10 ml IV PRN PRN PRN Reason: LINE FLUSH Mental Status Exam - Vital signs Last Vital Signs Temp 97.7 F 06/04/19 04:59 Pulse 64 06/04/19 04:59 Resp 18 06/04/19 04:59 BP 114/70 06/04/19 04:59 Pulse Ox 91 06/04/19 04:59 Results Result Diagrams: 06/03/19 07:19 06/03/19 07:19 All other labs normal.
--- NOTE | 2019-06-04 17:27 | Discharge Summary ---
Providers - Providers Date of Admission: 06/02/19 11:15 Date of discharge: 06/04/19 Attending physician: JACE ROJAS 06/01/19 02:37 Consult to Physician [CONS] Routine Comment: Consulting Provider: BRANDY JURADO Physician Instructions: Reason For Exam: cp Primary care physician: [facility] Hospitalization Condition: Fair Hospital course: The patient is a 63yo male with history of hypertension, hyperlipidemia, CAD, MDD and Alcohol use disorder. He was admitted via the ED with c/o chest pains. Psychiatry consult requested to evaluate patient and recommend disposition as he had reported SI. Patient is known to the Psychiatry Service here. He was and inpatient and was just discharged on 05/27/19 with prescription of the following medications: ARIPiprazole [Abilify TAB] 10 mg PO QDAY #30 tablet busPIRone [Buspar] 5 mg PO BID #60 tablet DULoxetine 60 mg PO DAILY #30 Nicotine [Habitrol] 21 mg TD QDAY #30 patch Today, patient reports feeling some chest discomfort and requests to be prescribed Xanax because "that's the only medicine that helps me". He denies SI/HI/AVH. Social and past histories have not changed since his last psych eval: PAST PSYCHIATRIC HISTORY: Diagnoses: Major Depression w/o psychotic features Suicide attempts or Self-harm behavior: Strong thoughts, but denies attempts Prior psychiatric hospitalizations: States hospitalized twice for SI Substance Abuse history: Smokes and ETOH abuse. States 6 pk a day. Previous psychiatric medications tried: states several Outpatient treatment: sees a psychiatrist MEDICAL HISTORY: HTN, Palpitations Allergies: Ketorolac Family Psychiatric History None reported or documented SOCIAL HISTORY Marital Status: Single Living Arrangements: "two roommates" Employment Status: Disabled Access to guns/weapons: None Education: Associates Tobacco: Yes Alcohol: 6 pack a day History of Abuse: ETOH, 6 pack daily Legal History: Denies REVIEW OF SYSTEMS Constitutional: Negative for weight loss ENT: Negative for stridor Respiratory: Negative for cough or hemoptysis All other systems reviewed and are negative Legal Status: Voluntary MSE Orientation: A/O x 3 Affect: ok Mood: congruent with affect Thought content: Normal. 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 Patient to be discharged on ARIPiprazole [Abilify TAB] 10 mg PO QDAY #30 tablet busPIRone [Buspar] 5 mg PO BID #60 tablet DULoxetine 60 mg PO DAILY #30 Nicotine [Habitrol] 21 mg TD QDAY #30 patch Disposition: TO HOME OR SELFCARE Core Measure Documentation - Palliative Care Palliative Care/ Comfort Measures: Not Applicable - Core Measures Any of the following diagnoses?: none Exam - Constitutional Vitals: Temp Pulse Resp BP Pulse Ox 97.7 F 64 18 114/70 91 06/04/19 04:59 06/04/19 04:59 06/04/19 04:59 06/04/19 04:59 06/04/19 04:59 General appearance: Present: no acute distress, well-nourished - EENT Eyes: Present: PERRL ENT: hearing intact, clear oral mucosa - Neck Neck: Present: supple, normal ROM - Respiratory Respiratory effort: normal Respiratory: bilateral: CTA - Cardiovascular Heart rate: 78 Rhythm: regular Heart Sounds: Present: S1 & S2. Absent: rub, click - Extremities Extremities: pulses symmetrical, No edema Peripheral Pulses: within normal limits - Abdominal General gastrointestinal: Present: soft, non-tender, non-distended, normal bowel sounds Male genitourinary: Present: normal - Integumentary Integumentary: Present: clear, warm, dry - Musculoskeletal Musculoskeletal: gait normal, strength equal bilaterally - Psychiatric Psychiatric: appropriate mood/affect, intact judgment & insight - Neurologic Neurologic: CNII-XII intact, moves all extremities Plan Activity: no restrictions Diet: regular Follow up with: [facility] [Primary Care Provider] - 3-5 Days
[2019-06-04] MEDS: LORazepam 2 MG/ML VIAL IV PRN (23:05)
[2019-06-04] MEDS: METOPROLOL TARTRATE 25 MG TAB PO SCH (23:07)
[2019-06-04] MEDS: QUEtiapine 25 MG TAB PO SCH (23:07)
[2019-06-05] MEDS: oxyCODONE /ACETAMINOPHEN 5-325MG TAB PO PRN ×2 (03:29→10:46)
[2019-06-05] MEDS: GABAPENTIN 300 MG CAP PO SCH ×2 (07:49→13:42)
[2019-06-05] MEDS: MULTIVITAMINS ,THERAPEUTIC TAB PO SCH (09:14)
[2019-06-05] MEDS: RANOLAZINE ER 500 MG TAB 12HR PO SCH (09:14)
[2019-06-05] MEDS: ENOXAPARIN 40 MG/0.4 ML INJ SUB-Q SCH (09:15)
[2019-06-05] MEDS: METOPROLOL TARTRATE 25 MG TAB PO SCH (09:15)
[2019-06-05] MEDS: NICOTINE 21 MG/24 HR PATCH TD SCH (09:15)
[2019-06-05] MEDS: LISINOPRIL 10 MG TAB PO SCH (09:16)
[2019-06-05] MEDS ORDERED: ASPIRIN 81 MG TAB CHEW PO SCH (10:00)
--- NOTE | 2019-06-05 11:13 | Progress Note ---
Assessment and Plan Chest pain Currently resolved. AMI ruled out. Chest CTA negative for PE. S/p lexiscan MPI stress test on 06/02/2019 which was negative, EF 51%. LHC in 2016 showed normal coronaries. Echo done 06/01/2019 showed EF 35-40%, mod LVH, impaired relaxation, trace AR, MR and TR, RVSP 37mmHg, mild dilatation of the ascending aorta. Optimize anti-ischemic regimen. Attempted to utilize Imdur, but BPs were borderline and thus Imdur discontinued. Cont ASA, lipitor, lisinopril, Ranexa. Resume home lopressor at low dosage with hold parameters and monitor BPs. Can consider LHC if chest pain persists despite optimal medical therapy as OP if necessary. Suicidal ideation Pt is from [place]. Psych team is following. HTN Stable. Chronic back pain s/p multiple surgeries Currently stable cardiac status. No current cardiac complaints. Pt may discharge from cardiology standpoint. Recommend follow up in our office with Dr. Decker within 1-2 weeks of discharge ([phone]). The patient has been seen in conjunction with Dr. Velasquez who agrees with the assessment and plan of care. Subjective Date of service: 06/05/19 Principal diagnosis: Suicidal andChest pain Interval history: pt resting in bed, no current complaints. Objective Last Vital Signs Temp 97.7 F 06/05/19 04:23 Pulse 55 L 06/05/19 04:23 Resp 16 06/05/19 04:23 BP 105/53 06/05/19 04:23 Pulse Ox 93 06/05/19 04:23 - Physical Examination General: No Apparent Distress HEENT: Positive: PERRL Neck: Positive: neck supple, trachea midline Cardiac: Positive: Reg Rate and Rhythm, S1/S2 Lungs: Positive: Decreased Breath Sounds Neuro: Positive: Grossly Intact Abdomen: Positive: Unremarkable /Rectal: Other (deferred) Skin: Positive: Clear Musculoskeletal: Normal Range of Motion Extremities: Present: normal - Imaging and Cardiology EKG: report reviewed (Sinus bradycardia) Echo: report reviewed (05/2019: EF 35 to 40 percent, moderately dilated RV, borderline pulmonary hypertension.) Cardiac cath: report reviewed (2016: clean coronaries)
--- NOTE | 2019-06-05 14:59 | Progress Note ---
Assessment and Plan Patient is a 63-year-old man from [place] [address] with a history of hypertension, hyperlipidemia, CAD and depression who presents to [facility] ED with chest pains. * CTA chest negative for PE +CAD Chest pain/Coronary artery disease ischemic injury ruled out Recent stress test done Cardiology follow-up appreciated No need for stress test Suicide ideation/depression 1013 rescinded Hypertension Continue Lopressor, Mild hyperkalemia, Resolved DVT prophyaxis on Heparin and Gi prophylaxis Placement issues Patient discharged Subjective Date of service: 06/04/19 Principal diagnosis: Suicidal andChest pain Interval history: 63-year-old man with a history of hypertension, hyperlipidemia, CAD, depression comes to the emergency room with complaints of chest pain. Chest pain is in the left substernal area which he describes as a toothache, intermittent for 20 to 30 seconds, radiating to the left shoulder, intensity 5/10. Admits to nausea, shortness of breath denies nausea diaphoresis and palpitation, Patient is had a stress test 1 year ago that was negative. Patient not suicidal now Stable for discharge Patient states that he does not have a place to go Objective - Constitutional Vitals: Vital Signs - 12hr 06/05/19 06/05/19 03:29 04:23 Temperature 97.7 F Pulse Rate 55 L Respiratory 20 16 Rate Blood Pressure 105/53 O2 Sat by Pulse 93 Oximetry General appearance: Present: no acute distress, well-nourished - EENT Eyes: PERRL, EOM intact ENT: hearing intact, clear oral mucosa Ears: bilateral: normal - Neck Neck: supple, normal ROM - Respiratory Respiratory effort: normal Respiratory: bilateral: CTA - Breasts Breasts: normal - Cardiovascular Heart rate: 78 Rhythm: regular Heart Sounds: Present: S1 & S2. Absent: gallop, rub Extremities: no ischemia, pulses intact, No edema, normal color, Full ROM - Gastrointestinal General gastrointestinal: Present: soft, non-tender, non-distended, normal bowel sounds - Genitourinary Male genitourinary: deferred, normal - Integumentary Integumentary: clear, warm, dry - Musculoskeletal Musculoskeletal: 1, strength equal bilaterally - Neurologic Neurologic: moves all extremities - Psychiatric Psychiatric: memory intact, appropriate mood/affect, intact judgment & insight - Labs CBC & Chem 7: 06/03/19 07:19 06/03/19 07:19
[2019-06-05 15:33] VITALS: BP 129/84
[2019-06-05] MEDS ORDERED: PANTOPRAZOLE 40 MG TAB PO SCH (16:00)
--- NOTE | 2019-06-05 16:09 | Discharge Summary ---
Providers - Providers Date of Admission: 06/02/19 11:15 Date of discharge: 06/05/19 Attending physician: JACE ROJAS 06/01/19 02:37 Consult to Physician [CONS] Routine Comment: Consulting Provider: BRANDY JURADO Physician Instructions: Reason For Exam: cp Primary care physician: [facility] Hospitalization Condition: Fair Hospital course: The patient is a 63yo male with history of hypertension, hyperlipidemia, CAD, MDD and Alcohol use disorder. He was admitted via the ED with c/o chest pains. Psychiatry consult requested to evaluate patient and recommend disposition as he had reported SI. Patient is known to the Psychiatry Service here. He was and inpatient and was just discharged on 05/27/19 with prescription of the following medications: ARIPiprazole [Abilify TAB] 10 mg PO QDAY #30 tablet busPIRone [Buspar] 5 mg PO BID #60 tablet DULoxetine 60 mg PO DAILY #30 Nicotine [Habitrol] 21 mg TD QDAY #30 patch Today, patient reports feeling some chest discomfort and requests to be prescribed Xanax because "that's the only medicine that helps me". He denies SI/HI/AVH. Social and past histories have not changed since his last psych eval: PAST PSYCHIATRIC HISTORY: Diagnoses: Major Depression w/o psychotic features Suicide attempts or Self-harm behavior: Strong thoughts, but denies attempts Prior psychiatric hospitalizations: States hospitalized twice for SI Substance Abuse history: Smokes and ETOH abuse. States 6 pk a day. Previous psychiatric medications tried: states several Outpatient treatment: sees a psychiatrist MEDICAL HISTORY: HTN, Palpitations Allergies: Ketorolac Family Psychiatric History None reported or documented SOCIAL HISTORY Marital Status: Single Living Arrangements: "two roommates" Employment Status: Disabled Access to guns/weapons: None Education: Associates Tobacco: Yes Alcohol: 6 pack a day History of Abuse: ETOH, 6 pack daily Legal History: Denies REVIEW OF SYSTEMS Constitutional: Negative for weight loss ENT: Negative for stridor Respiratory: Negative for cough or hemoptysis All other systems reviewed and are negative Legal Status: Voluntary MSE Orientation: A/O x 3 Affect: ok Mood: congruent with affect Thought content: Normal. 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 Patient to be discharged on ARIPiprazole [Abilify TAB] 10 mg PO QDAY #30 tablet busPIRone [Buspar] 5 mg PO BID #60 tablet DULoxetine 60 mg PO DAILY #30 Nicotine [Habitrol] 21 mg TD QDAY #30 patch Disposition: DC-01 TO HOME OR SELFCARE Core Measure Documentation - Palliative Care Palliative Care/ Comfort Measures: Not Applicable - Core Measures Any of the following diagnoses?: none Disposition: DC-01 TO HOME OR SELFCARE Core Measure Documentation - Palliative Care Palliative Care/ Comfort Measures: Not Applicable - Core Measures Any of the following diagnoses?: none Exam - Constitutional Vitals: Temp Pulse Resp BP Pulse Ox 98.0 F 59 L 22 129/84 93 06/05/19 12:03 06/05/19 12:03 06/05/19 12:03 06/05/19 12:03 06/05/19 12:03 General appearance: Present: no acute distress, well-nourished - EENT Eyes: Present: PERRL ENT: hearing intact, clear oral mucosa - Neck Neck: Present: supple, normal ROM - Respiratory Respiratory effort: normal Respiratory: bilateral: CTA - Cardiovascular Heart rate: 77 Heart Sounds: Present: S1 & S2. Absent: rub, click - Extremities Extremities: no ischemia, pulses intact, pulses symmetrical, No edema Peripheral Pulses: within normal limits - Abdominal General gastrointestinal: Present: soft, non-tender, non-distended, normal bowel sounds Male genitourinary: Present: normal - Integumentary Integumentary: Present: clear, warm, dry - Musculoskeletal Musculoskeletal: gait normal, strength equal bilaterally - Psychiatric Psychiatric: appropriate mood/affect, intact judgment & insight - Neurologic Neurologic: CNII-XII intact, moves all extremities - Allied Health Allied health notes reviewed: nursing, case management Plan Activity: no restrictions Diet: regular Follow up with: [facility] [Primary Care Provider] - 3-5 Days Prescriptions: ARIPiprazole [Abilify] 10 mg PO QDAY #30 tablet busPIRone [Buspar] 5 mg PO BID #60 tab DULoxetine [Cymbalta] 60 mg PO QDAY #30 capsule Metoprolol [Lopressor TAB] 25 mg PO DAILY 30 Days #30 Nicotine Polacrilex [Nicorelief] 4 mg BC BID 30 Days #60 gum lisinopriL [Zestril TAB] 10 mg PO DAILY #30
== END 2019-06-05 15:00 | disposition home or self-care (01) | DRG 392 ==
LOC: ED 21:55 → INTOOBSV 06-01 01:18 → 4A 06-01 01:18 → OBSVTOIN 06-02 11:15 → 3A 06-02 20:21
PROVIDERS: ADMIT Internal Medicine; ATTEND Internal Medicine
DX: K21.9 Gastro-esophageal reflux disease without esophagitis (principal); E87.5 Hyperkalemia; I10 Essential (primary) hypertension; I25.10 Atherosclerotic heart disease of native coronary artery without angina pectoris; F32.9 Major depressive disorder, single episode, unspecified; R45.851 Suicidal ideations; G89.29 Other chronic pain; M54.9 Dorsalgia, unspecified; F41.9 Anxiety disorder, unspecified; R00.1 Bradycardia, unspecified; F12.90 Cannabis use, unspecified, uncomplicated; C62.90 Malignant neoplasm of unspecified testis, unspecified whether descended or undescended; Z82.49 Family history of ischemic heart disease and other diseases of the circulatory system; Z72.89 Other problems related to lifestyle; Z79.899 Other long term (current) drug therapy
CPT/HCPCS: 36415; 71045; 71275; 78452; 80048; 80053; 80307; 80320; 81001; 82550; 82553; 84132; 84484; 85025; 85379; 93005; 93010; 93017; 93306; G0378; A9270-GY; A9502; G0480; J1650; J2060; J2270; J2785; J7030; Q9967

== ENCOUNTER 2019-07-08 15:37 | Emergency (ER) | payer MEDICAID ==
--- NOTE | 2019-07-08 15:55 | Event Note ---
ED Screening Note ED Screening Note: Mr. Ivy is a 63 male who presents with suicidal ideation. Almost walked into traffic today. Also has chest pain. "My life's terrible. I do not want to live anymore." This initial assessment/diagnostic orders/clinical plan/treatment(s) is/are subject to change based on patients health status, clinical progression and re- assessment by fellow clinical providers in the ED. Further treatment and workup at subsequent clinical providers discretion. Patient/guardian urged not to elope from the ED as their condition may be serious if not clinically assessed and managed. Initial orders include: EKG labs MH consult
[2019-07-08 16:10] LABS: Basophils % (Auto) 0.5 % (0.0-1.8); Eosinophils # (Auto) 0.2 K/mm3 (0.0-0.4); Eosinophils % (Auto) 4.3 % (0.0-4.3); Hematocrit 42.8 % (35.5-45.6); Lymphocytes # (Auto) 0.8 K/mm3 (1.2-5.4); Lymphocytes % (Auto) 18.8 % (13.4-35.0); Mean Corpuscular HGB Conc 35 % (32-34); Mean Corpuscular Volume 97 fl (84-94); Monocytes # (Auto) 0.3 K/mm3 (0.0-0.8); Monocytes % (Auto) 6.1 % (0.0-7.3); Platelet Count 181 K/mm3 (140-440); Red Blood Count 4.43 M/mm3 (3.65-5.03); Red Cell Distribution Width 12.7 % (13.2-15.2)
[2019-07-08 16:35] LABS: Alanine Aminotransferase 5 units/L (7-56); Albumin 4.1 g/dL (3.9-5); BUN/Creatinine Ratio 10; Blood Urea Nitrogen 9 mg/dL (9-20); Calcium 9.7 mg/dL (8.4-10.2); Hemolysis Index 8
[2019-07-08 16:40] LABS: Bilirubin,Urine NEG (Negative); Blood,Urine MOD (Negative); Color,Urine Yellow (Yellow); Mucus,Urine FEW /HPF; Protein,Urine <15 mg/dL mg/dL (Negative); Urobilinogen,Urine < 2.0 mg/dL (<2.0)
[2019-07-08 16:46] LABS: Amphetamine Screen,Urine PRESUMPTIVE NEGATIVE; Benzodiazepines Screen,Urine PRESUMPTIVE NEGATIVE; Cannabinoid Screen,Urine PRESUMPTIVE NEGATIVE; Cocaine Screen,Urine PRESUMPTIVE NEGATIVE; Methadone Screen,Urine PRESUMPTIVE NEGATIVE; Opiate Screen,Urine PRESUMPTIVE NEGATIVE
--- NOTE | 2019-07-08 17:11 | XRay Report ---
CHEST 1 VIEW INDICATION / CLINICAL INFORMATION: Chest Pain. COMPARISON: 06/08/2019 FINDINGS: SUPPORT DEVICES: None. HEART / MEDIASTINUM: No significant abnormality. LUNGS / PLEURA: No significant pulmonary or pleural abnormality. No pneumothorax. ADDITIONAL FINDINGS: No significant additional findings. IMPRESSION: No acute pulmonary or pleural abnormality. No change from prior examination dated 06/08/2019 Signer Name: Antwon Cobos MD [facility] Signed: 07/08/2019 5:07 PM Workstation Name: [id number]
[2019-07-08] MEDS ORDERED: MORPHINE 4 MG/1 ML INJ IV ONE (17:17)
[2019-07-08] MEDS ORDERED: ONDANSETRON 4 MG/2 ML INJ IV ONE (17:17)
--- NOTE | 2019-07-08 18:34 | Emergency Department Report ---
ED General Adult HPI - General Chief complaint: Chest Pain Stated complaint: CHEST PAIN, THOUGHTS OF HURTING MYSELF Time Seen by Provider: 07/08/19 16:56 Source: patient Mode of arrival: Ambulatory Limitations: No Limitations - History of Present Illness Initial comments: The patient presents to the emergency department with a chief complaint of left-sided chest pain that started 6 hours prior to arrival. Patient denies radiation of his chest pain and states it feels like tightness in his chest. Patient states she is also depressed and suicidal. States he would step into oncoming traffic as his plan. Patient denies abdominal pain, headache, sh ortness of breath. -: Sudden Location: chest Radiation: non-radiation Severity scale (0 -10): 6 Quality: aching, other (tightness) Consistency: constant Improves with: none Worsens with: none Associated Symptoms: denies other symptoms Treatments Prior to Arrival: none - Related Data Home Medications Medication Instructions Recorded Confirmed Last Taken Gabapentin 300 mg PO TID 06/11/16 07/08/19 Unknown Multivitamin Tab [Multiple Vitamin 1 tab PO DAILY 06/11/16 07/08/19 Unknown TAB (Theragran)] QUEtiapine [SEROquel] 25 mg PO QHS 06/01/19 07/08/19 Unknown Previous Rx's Medication Instructions Recorded Last Taken Type ARIPiprazole [Abilify] 10 mg PO QDAY #30 tablet 06/04/19 Unknown Rx DULoxetine [Cymbalta] 60 mg PO QDAY #30 capsule 06/04/19 Unknown Rx Metoprolol [Lopressor TAB] 25 mg PO DAILY 30 Days #30 06/04/19 Unknown Rx busPIRone [Buspar] 5 mg PO BID #60 tab 06/04/19 Unknown Rx lisinopriL [Zestril TAB] 10 mg PO DAILY #30 06/04/19 Unknown Rx Allergies Allergy/AdvReac Type Severity Reaction Status Date / Time ketorolac tromethamine Allergy Rash Verified 02/01/17 12:29 [From Toradol] ED Review of Systems ROS: Stated complaint: CHEST PAIN, THOUGHTS OF HURTING MYSELF Other details as noted in HPI Comment: All other systems reviewed and negative Constitutional: denies: chills, fever Eyes: denies: eye pain, eye discharge, vision change ENT: denies: ear pain, throat pain Respiratory: denies: cough, shortness of breath, wheezing Cardiovascular: chest pain. denies: palpitations Endocrine: no symptoms reported Gastrointestinal: denies: abdominal pain, nausea, diarrhea Genitourinary: denies: urgency, dysuria Musculoskeletal: denies: back pain, joint swelling, arthralgia Skin: denies: rash, lesions Neurological: denies: headache, weakness, paresthesias Psychiatric: suicidal thoughts. denies: anxiety, depression Hematological/Lymphatic: denies: easy bleeding, easy bruising ED Past Medical Hx - Past Medical History Previous Medical History?: Yes Hx Hypertension: Yes Hx Heart Attack/AMI: Yes (palpitations) Hx Renal Disease: No Hx Arthritis: No Hx Seizures: No Hx Dementia: No Additional medical history: Degenerative disc disease - Surgical History Past Surgical History?: Yes Hx Cholecystectomy: No Additional Surgical History: Multiple back surgeries secondary to degenerative disc disease - Social History Smoking Status: Current Every Day Smoker Substance Use Type: Alcohol - Medications Home Medications: Home Medications Medication Instructions Recorded Confirmed Last Taken Type Gabapentin 300 mg PO TID 06/11/16 07/08/19 Unknown History Multivitamin Tab [Multiple Vitamin 1 tab PO DAILY 06/11/16 07/08/19 Unknown History TAB (Theragran)] QUEtiapine [SEROquel] 25 mg PO QHS 06/01/19 07/08/19 Unknown History ARIPiprazole [Abilify] 10 mg PO QDAY #30 tablet 06/04/19 07/08/19 Unknown Rx DULoxetine [Cymbalta] 60 mg PO QDAY #30 capsule 06/04/19 07/08/19 Unknown Rx Metoprolol [Lopressor TAB] 25 mg PO DAILY 30 Days #30 06/04/19 07/08/19 Unknown Rx busPIRone [Buspar] 5 mg PO BID #60 tab 06/04/19 07/08/19 Unknown Rx lisinopriL [Zestril TAB] 10 mg PO DAILY #30 06/04/19 07/08/19 Unknown Rx ED Physical Exam - General Limitations: No Limitations General appearance: alert, in no apparent distress - Head Head exam: Present: atraumatic, normocephalic - Eye Eye exam: Present: normal appearance, PERRL, EOMI - ENT ENT exam: Present: mucous membranes moist - Neck Neck exam: Present: normal inspection - Respiratory Respiratory exam: Present: normal lung sounds bilaterally. Absent: respiratory distress - Cardiovascular Cardiovascular Exam: Present: regular rate, normal rhythm. Absent: systolic murmur, diastolic murmur, rubs, gallop - GI/Abdominal GI/Abdominal exam: Present: soft, normal bowel sounds. Absent: distended, tenderness - Rectal Rectal exam: Present: deferred - Extremities Exam Extremities exam: Present: normal inspection - Back Exam Back exam: Present: normal inspection - Neurological Exam Neurological exam: Present: alert, oriented X3, CN II-XII intact. Absent: motor sensory deficit - Psychiatric Psychiatric exam: Present: normal affect, normal mood - Skin Skin exam: Present: warm, dry, intact, normal color. Absent: rash ED Course Vital Signs 07/08/19 07/08/19 07/08/19 15:52 16:20 16:24 Temperature 97.7 F Pulse Rate 83 76 78 Respiratory 18 16 15 Rate Blood Pressure 159/99 Blood Pressure 138/82 [Left] O2 Sat by Pulse 98 99 Oximetry 07/08/19 07/08/19 07/08/19 16:30 16:46 17:00 Temperature Pulse Rate 70 79 80 Respiratory 14 21 21 Rate Blood Pressure 138/82 135/87 138/83 Blood Pressure [Left] O2 Sat by Pulse 99 98 95 Oximetry 07/08/19 07/08/19 07/08/19 17:17 17:30 17:46 Temperature Pulse Rate 65 57 L Respiratory 11 L Rate Blood Pressure 135/98 135/98 135/98 Blood Pressure [Left] O2 Sat by Pulse 99 99 95 Oximetry 07/08/19 07/08/19 07/08/19 18:00 18:19 19:01 Temperature Pulse Rate 57 L 82 Respiratory 11 L 16 18 Rate Blood Pressure 142/83 Blood Pressure [Left] O2 Sat by Pulse 94 96 Oximetry 07/08/19 07/08/19 07/08/19 19:20 20:00 22:00 Temperature 98.3 F Pulse Rate 66 58 L 64 Respiratory 19 15 16 Rate Blood Pressure 119/84 140/89 Blood Pressure 119/84 [Left] O2 Sat by Pulse 97 97 95 Oximetry ED Medical Decision Making - Lab Data Result diagrams: 07/08/19 15:57 07/08/19 15:57 Lab Results 07/08/19 07/08/19 07/08/19 Range/Units 15:57 15:57 15:57 WBC 4.3 L (4.5-11.0) K/mm3 RBC 4.43 (3.65-5.03) M/mm3 Hgb 15.0 (11.8-15.2) gm/dl Hct 42.8 (35.5-45.6) % MCV 97 H (84-94) fl MCH 34 H (28-32) pg MCHC 35 H (32-34) % RDW 12.7 L (13.2-15.2) % Plt Count 181 (140-440) K/mm3 Lymph % (Auto) 18.8 (13.4-35.0) % [place] % (Auto) 6.1 (0.0-7.3) % Eos % (Auto) 4.3 (0.0-4.3) % Baso % (Auto) 0.5 (0.0-1.8) % Lymph # 0.8 L (1.2-5.4) K/mm3 [place] # 0.3 (0.0-0.8) K/mm3 Eos # 0.2 (0.0-0.4) K/mm3 Baso # 0.0 (0.0-0.1) K/mm3 Seg Neutrophils % 70.3 H (40.0-70.0) % Seg Neutrophils # 3.0 (1.8-7.7) K/mm3 Sodium 142 (137-145) mmol/L Potassium 3.9 (3.6-5.0) mmol/L Chloride 105.5 (98-107) mmol/L Carbon Dioxide 20 L (22-30) mmol/L Anion Gap 20 mmol/L BUN 9 (9-20) mg/dL Creatinine 0.9 (0.8-1.5) mg/dL Estimated GFR > 60 ml/min BUN/Creatinine Ratio 10 % Glucose 128 H (75-100) mg/dL Calcium 9.7 (8.4-10.2) mg/dL Total Bilirubin 0.30 (0.1-1.2) mg/dL AST 10 (5-40) units/L ALT 5 L (7-56) units/L Alkaline Phosphatase 82 (35-129) units/L Troponin T < 0.010 (0.00-0.029) ng/mL Total Protein 7.6 (6.3-8.2) g/dL Albumin 4.1 (3.9-5) g/dL Albumin/Globulin Ratio 1.2 % Urine Color (Yellow) Urine Turbidity (Clear) Urine pH (5.0-7.0) Ur Specific [place] (1.003-1.030) Urine Protein (Negative) mg/dL Urine Glucose (UA) (Negative) mg/dL Urine Ketones (Negative) mg/dL Urine Blood (Negative) Urine Nitrite (Negative) Urine Bilirubin (Negative) Urine Urobilinogen (<2.0) mg/dL Ur Leukocyte Esterase (Negative) Urine WBC (Auto) (0.0-6.0) /HPF Urine RBC (Auto) (0.0-6.0) /HPF Urine Mucus /HPF Salicylates < 0.3 L (2.8-20.0) mg/dL Urine Opiates Screen Urine Methadone Screen Acetaminophen (10.0-30.0) ug/mL Ur Barbiturates Screen Ur Phencyclidine Scrn Ur Amphetamines Screen U Benzodiazepines Scrn Urine Cocaine Screen U Marijuana (THC) Screen Drugs of Abuse Note Plasma/Serum Alcohol (0-0.07) % 07/08/19 07/08/19 07/08/19 Range/Units 15:57 15:57 16:20 WBC (4.5-11.0) K/mm3 RBC (3.65-5.03) M/mm3 Hgb (11.8-15.2) gm/dl Hct (35.5-45.6) % MCV (84-94) fl MCH (28-32) pg MCHC (32-34) % RDW (13.2-15.2) % Plt Count (140-440) K/mm3 Lymph % (Auto) (13.4-35.0) % [place] % (Auto) (0.0-7.3) % Eos % (Auto) (0.0-4.3) % Baso % (Auto) (0.0-1.8) % Lymph # (1.2-5.4) K/mm3 [place] # (0.0-0.8) K/mm3 Eos # (0.0-0.4) K/mm3 Baso # (0.0-0.1) K/mm3 Seg Neutrophils % (40.0-70.0) % Seg Neutrophils # (1.8-7.7) K/mm3 Sodium (137-145) mmol/L Potassium (3.6-5.0) mmol/L Chloride (98-107) mmol/L Carbon Dioxide (22-30) mmol/L Anion Gap mmol/L BUN (9-20) mg/dL Creatinine (0.8-1.5) mg/dL Estimated GFR ml/min BUN/Creatinine Ratio % Glucose (75-100) mg/dL Calcium (8.4-10.2) mg/dL Total Bilirubin (0.1-1.2) mg/dL AST (5-40) units/L ALT (7-56) units/L Alkaline Phosphatase (35-129) units/L Troponin T (0.00-0.029) ng/mL Total Protein (6.3-8.2) g/dL Albumin (3.9-5) g/dL Albumin/Globulin Ratio % Urine Color Yellow (Yellow) Urine Turbidity Clear (Clear) Urine pH 5.0 (5.0-7.0) Ur Specific [place] 1.015 (1.003-1.030) Urine Protein <15 mg/dl (Negative) mg/dL Urine Glucose (UA) Neg (Negative) mg/dL Urine Ketones Neg (Negative) mg/dL Urine Blood Mod (Negative) Urine Nitrite Neg (Negative) Urine Bilirubin Neg (Negative) Urine Urobilinogen < 2.0 (<2.0) mg/dL Ur Leukocyte Esterase Neg (Negative) Urine WBC (Auto) 3.0 (0.0-6.0) /HPF Urine RBC (Auto) 4.0 (0.0-6.0) /HPF Urine Mucus Few /HPF Salicylates (2.8-20.0) mg/dL Urine Opiates Screen Urine Methadone Screen Acetaminophen < 5.0 L (10.0-30.0) ug/mL Ur Barbiturates Screen Ur Phencyclidine Scrn Ur Amphetamines Screen U Benzodiazepines Scrn Urine Cocaine Screen U Marijuana (THC) Screen Drugs of Abuse Note Plasma/Serum Alcohol < 0.01 (0-0.07) % 07/08/19 Range/Units 16:20 WBC (4.5-11.0) K/mm3 RBC (3.65-5.03) M/mm3 Hgb (11.8-15.2) gm/dl Hct (35.5-45.6) % MCV (84-94) fl MCH (28-32) pg MCHC (32-34) % RDW (13.2-15.2) % Plt Count (140-440) K/mm3 Lymph % (Auto) (13.4-35.0) % [place] % (Auto) (0.0-7.3) % Eos % (Auto) (0.0-4.3) % Baso % (Auto) (0.0-1.8) % Lymph # (1.2-5.4) K/mm3 [place] # (0.0-0.8) K/mm3 Eos # (0.0-0.4) K/mm3 Baso # (0.0-0.1) K/mm3 Seg Neutrophils % (40.0-70.0) % Seg Neutrophils # (1.8-7.7) K/mm3 Sodium (137-145) mmol/L Potassium (3.6-5.0) mmol/L Chloride (98-107) mmol/L Carbon Dioxide (22-30) mmol/L Anion Gap mmol/L BUN (9-20) mg/dL Creatinine (0.8-1.5) mg/dL Estimated GFR ml/min BUN/Creatinine Ratio % Glucose (75-100) mg/dL Calcium (8.4-10.2) mg/dL Total Bilirubin (0.1-1.2) mg/dL AST (5-40) units/L ALT (7-56) units/L Alkaline Phosphatase (35-129) units/L Troponin T (0.00-0.029) ng/mL Total Protein (6.3-8.2) g/dL Albumin (3.9-5) g/dL Albumin/Globulin Ratio % Urine Color (Yellow) Urine Turbidity (Clear) Urine pH (5.0-7.0) Ur Specific [place] (1.003-1.030) Urine Protein (Negative) mg/dL Urine Glucose (UA) (Negative) mg/dL Urine Ketones (Negative) mg/dL Urine Blood (Negative) Urine Nitrite (Negative) Urine Bilirubin (Negative) Urine Urobilinogen (<2.0) mg/dL Ur Leukocyte Esterase (Negative) Urine WBC (Auto) (0.0-6.0) /HPF Urine RBC (Auto) (0.0-6.0) /HPF Urine Mucus /HPF Salicylates (2.8-20.0) mg/dL Urine Opiates Screen Presumptive negative Urine Methadone Screen Presumptive negative Acetaminophen (10.0-30.0) ug/mL Ur Barbiturates Screen Presumptive negative Ur Phencyclidine Scrn Presumptive negative Ur Amphetamines Screen Presumptive negative U Benzodiazepines Scrn Presumptive negative Urine Cocaine Screen Presumptive negative U Marijuana (THC) Screen Presumptive negative Drugs of Abuse Note Disclamer Plasma/Serum Alcohol (0-0.07) % - EKG Data -: EKG Interpreted by Me EKG shows normal: sinus rhythm Rate: normal - Radiology Data Radiology results: report reviewed - Medical Decision Making 1013 applied Medically cleared Patient had 3 negative troponins while in the ED this along with the patient's chest pain is been stated to start 6 hours prior to his arrival likely rules out a cardiac event Patient awaiting mental health evaluation Critical care attestation.: If time is entered above; I have spent that time in minutes in the direct care of this critically ill patient, excluding procedure time. ED Disposition Clinical Impression: Suicidal ideation, Chest pain, non-cardiac Disposition: [id number] PSY HOSP/PSY UNIT Is pt being admited?: No Does the pt Need Aspirin: No Condition: Stable Instructions: Chest Pain (ED)
[2019-07-08] MEDS ORDERED: ACETAMINOPHEN 325 MG TAB ONE (23:05)
[2019-07-08] MEDS ORDERED: ACETAMINOPHEN 325 MG TAB PO ONE (23:06)
[2019-07-09 08:05] VITALS: BP 130/65
[2019-07-09] MEDS ORDERED: ACETAMINOPHEN 500 MG TAB ONE ×2 (12:36→16:27)
[2019-07-09] MEDS ORDERED: ACETAMINOPHEN 500 MG TAB PO ONE ×2 (12:48→16:15)
--- NOTE | 2019-07-09 13:24 | Consultation ---
History of Present Illness - Reason for Consult Consult date: 07/09/19 Reason for consult: suicidal ideation - Chief Complaint Chief complaint: Suicide with plan to walk in traffic - History of Present Psychiatric Illness Yang Ivy is a 63y/o male patient who says he came to the ER for "chest pain." The patient is a known patient to me from previous visits. He is a/o x 3. He makes good eye contact. He is calm and cooperative. He c/o suicidal ideation with a plan to walk in front of a car. He says he "tried to do it before I came here but the cars were just swerving and hitting their brakes." He says he "hears voices sometimes." He then says, "well, I hear myself talking sometimes. The patient also says "my anxiety is high and I'm still having the chest pain." He also says "I feel desperate and on the edge." He says "I haven't did any drugs in awhile. It's been like two months." he says he was on crack. He says if he's discharged he is "going to walk into traffic again." He then says, "I know I've said it before. But there's a first time for everything. I'll do it." PAST PSYCHIATRIC HISTORY: Diagnoses: bipolar, anxiety Suicide attempts or Self-harm behavior: a few times Prior psychiatric hospitalizations: yes Substance Abuse history: crack Previous psychiatric medications tried: abilify, and seroquel Outpatient treatment: Yes PAST MEDICAL HISTORY: none reported Family Psychiatric History None reported or documented SOCIAL HISTORY Marital Status: Single Living Arrangements: longterm Employment Status: Disabled Access to guns/weapons: Denies Education: Associates History of Abuse: Denies Legal History: Denies REVIEW OF SYSTEMS Constitutional: Negative for weight loss ENT: Negative for stridor Respiratory: Negative for cough or hemoptysis All other systems reviewed and are negative MSE Appearance: Dressed appropriately. Behavior: Calm and cooperative Mood: "anxious, on edge" Affect: Congruent Thought Process: Goal directed Speech: Normal tone and pace Thought Content Suicidal: Yes Homicidal: Denies Hallucinations: Auditory Delusions: None elicited Consciousness: Alert Cognition/Memory: Limited Insight/Judgment: Limited Assessment: Bipolar Disorder, Current Episode Dressed, with Psychotic Features Plan Continue 1013 Restart home medications Sitter: Defer to primary Medical: Per primary Disposition: The patient meets the requirement for acute inpatient psychiatric treatment. He may transfer to an appropriate facility once medically stable. Will continue to follows or status changes. Please call with any questions or concerns. Thank you for this consult. Medications and Allergies Allergies Allergy/AdvReac Type Severity Reaction Status Date / Time ketorolac tromethamine Allergy Rash Verified 02/01/17 12:29 [From Toradol] Home Medications Medication Instructions Recorded Confirmed Last Taken Type Gabapentin 300 mg PO TID 06/11/16 07/08/19 Unknown History Multivitamin Tab [Multiple Vitamin 1 tab PO DAILY 06/11/16 07/08/19 Unknown History TAB (Theragran)] QUEtiapine [SEROquel] 25 mg PO QHS 06/01/19 07/08/19 Unknown History ARIPiprazole [Abilify] 10 mg PO QDAY #30 tablet 06/04/19 07/08/19 Unknown Rx DULoxetine [Cymbalta] 60 mg PO QDAY #30 capsule 06/04/19 07/08/19 Unknown Rx Metoprolol [Lopressor TAB] 25 mg PO DAILY 30 Days #30 06/04/19 07/08/19 Unknown Rx busPIRone [Buspar] 5 mg PO BID #60 tab 06/04/19 07/08/19 Unknown Rx lisinopriL [Zestril TAB] 10 mg PO DAILY #30 06/04/19 07/08/19 Unknown Rx Mental Status Exam - Vital signs Last Vital Signs Temp 97.8 F 07/09/19 08:05 Pulse 87 07/09/19 01:00 Resp 18 07/09/19 01:00 BP 130/65 07/09/19 08:00 Pulse Ox 98 07/09/19 08:00 Results Result Diagrams: 07/08/19 15:57 07/08/19 15:57 Abnormal lab results 07/08/19 07/08/19 07/08/19 Range/Units 15:57 15:57 15:57 WBC 4.3 L (4.5-11.0) K/mm3 MCV 97 H (84-94) fl MCH 34 H (28-32) pg MCHC 35 H (32-34) % RDW 12.7 L (13.2-15.2) % Lymph # 0.8 L (1.2-5.4) K/mm3 Seg Neutrophils % 70.3 H (40.0-70.0) % Carbon Dioxide 20 L (22-30) mmol/L Glucose 128 H (75-100) mg/dL ALT 5 L (7-56) units/L Salicylates < 0.3 L (2.8-20.0) mg/dL Acetaminophen (10.0-30.0) ug/mL 07/08/19 Range/Units 15:57 WBC (4.5-11.0) K/mm3 MCV (84-94) fl MCH (28-32) pg MCHC (32-34) % RDW (13.2-15.2) % Lymph # (1.2-5.4) K/mm3 Seg Neutrophils % (40.0-70.0) % Carbon Dioxide (22-30) mmol/L Glucose (75-100) mg/dL ALT (7-56) units/L Salicylates (2.8-20.0) mg/dL Acetaminophen < 5.0 L (10.0-30.0) ug/mL All other labs normal.
[2019-07-09] MEDS ORDERED: ZIPRASIDONE MESYLATE 20 MG VIAL IM PRN (13:25)
[2019-07-09] MEDS ORDERED: ARIPIPRAZOLE 10 MG PO SCH (13:30)
[2019-07-09] MEDS ORDERED: GABAPENTIN 300 MG CAP PO SCH (14:00)
[2019-07-09] MEDS ORDERED: ARIPiprazole 10 MG TAB PO SCH (14:00)
[2019-07-09] MEDS ORDERED: DULoxetine 30 MG CAP PO SCH (14:00)
[2019-07-09] MEDS ORDERED: busPIRone 5 MG TAB PO SCH (14:00)
[2019-07-09] MEDS ORDERED: QUEtiapine 25 MG TAB PO SCH (22:00)
== END 2019-07-09 16:45 ==
LOC: ED 15:37
DX: R07.89 Other chest pain (principal); I10 Essential (primary) hypertension; I25.2 Old myocardial infarction; F31.9 Bipolar disorder, unspecified; F17.200 Nicotine dependence, unspecified, uncomplicated; Z79.899 Other long term (current) drug therapy; Z88.8 Allergy status to other drugs, medicaments and biological substances
CPT/HCPCS: 36415; 71045; 80053; 80307; 81001; 84484; 85025; 93005; 93010; 96374; 96375; 99285; J2270; J2405; 80320; G0480

== ENCOUNTER 2019-08-11 19:40 | Emergency (ER) | payer MEDICAID ==
[2019-08-11] MEDS ORDERED: NITROGLYCERIN 2% OINT 1 GM TP ONE (19:46)
[2019-08-11] MEDS ORDERED: ONDANSETRON 4 MG/2 ML INJ IV ONE (19:46)
[2019-08-11] MEDS ORDERED: MORPHINE 4 MG/1 ML INJ IV ONE (19:46)
--- NOTE | 2019-08-11 20:37 | XRay Report ---
CHEST 1 VIEW 08/11/2019 7:55 PM INDICATION / CLINICAL INFORMATION: chest pain. COMPARISON: Chest x-ray 07/08/2019 FINDINGS: SUPPORT DEVICES: None. HEART / MEDIASTINUM: No significant abnormality. LUNGS / PLEURA: No significant pulmonary or pleural abnormality. No pneumothorax. ADDITIONAL FINDINGS: No significant additional findings. IMPRESSION: 1. No acute findings. Signer Name: Mahendra Martini MD Signed: 08/11/2019 8:32 PM Workstation Name: [id number]
[2019-08-11 20:57] LABS: Basophils % (Auto) 0.7 % (0.0-1.8); Eosinophils # (Auto) 0.1 K/mm3 (0.0-0.4); Eosinophils % (Auto) 2.6 % (0.0-4.3); Hematocrit 42.9 % (35.5-45.6); Hemoglobin 14.5 gm/dl (11.8-15.2); Lymphocytes # (Auto) 0.9 K/mm3 (1.2-5.4); Lymphocytes % (Auto) 21.8 % (13.4-35.0); Mean Corpuscular HGB Conc 34 % (32-34); Mean Corpuscular Volume 97 fl (84-94); Monocytes # (Auto) 0.4 K/mm3 (0.0-0.8); Monocytes % (Auto) 8.6 % (0.0-7.3); Platelet Count 165 K/mm3 (140-440); Red Blood Count 4.41 M/mm3 (3.65-5.03); Red Cell Distribution Width 13.4 % (13.2-15.2)
[2019-08-11] MEDS ORDERED: MORPHINE 2 MG/1 ML INJ IV ONE (20:57)
[2019-08-11 21:09] LABS: INR 1.01 (0.87-1.13)
[2019-08-11 21:10] LABS: Partial Thromboplastin Time 29.9 Sec. (24.2-36.6)
[2019-08-11 21:15] LABS: BUN/Creatinine Ratio 14; Blood Urea Nitrogen 11 mg/dL (9-20); Calcium 9.5 mg/dL (8.4-10.2); Hemolysis Index 1
--- NOTE | 2019-08-11 22:47 | Emergency Department Report ---
<KIMBERLEY SUN III - Last Filed: 08/12/19 01:06> ED Chest Pain HPI - General Chief Complaint: Chest Pain Stated Complaint: CP Time Seen by Provider: 08/11/19 19:45 - Related Data Home Medications Medication Instructions Recorded Confirmed Last Taken Gabapentin 300 mg PO TID 06/11/16 08/13/19 Unknown Multivitamin Tab [Multiple Vitamin 1 tab PO DAILY 06/11/16 08/13/19 Unknown TAB (Theragran)] QUEtiapine [SEROquel] 25 mg PO QHS 06/01/19 08/13/19 Unknown Previous Rx's Medication Instructions Recorded Last Taken Type ARIPiprazole [Abilify] 10 mg PO QDAY #30 tablet 06/04/19 Unknown Rx DULoxetine [Cymbalta] 60 mg PO QDAY #30 capsule 06/04/19 Unknown Rx Metoprolol [Lopressor TAB] 25 mg PO DAILY 30 Days #30 06/04/19 Unknown Rx busPIRone [Buspar] 5 mg PO BID #60 tab 06/04/19 Unknown Rx lisinopriL [Zestril TAB] 10 mg PO DAILY #30 06/04/19 Unknown Rx ARIPiprazole [Abilify] 20 mg PO DAILY #30 tablet 08/13/19 Unknown Rx DULoxetine [Cymbalta] 60 mg PO QDAY #30 capsule 08/13/19 Unknown Rx Gabapentin 300 mg PO TID #90 cap 08/13/19 Unknown Rx QUEtiapine [SEROquel] 25 mg PO QHS #30 tablet 08/13/19 Unknown Rx busPIRone [Buspar] 5 mg PO BID #60 tab 08/13/19 Unknown Rx Allergies Allergy/AdvReac Type Severity Reaction Status Date / Time ketorolac tromethamine Allergy Rash Verified 02/01/17 12:29 [From Toradol] ED Past Medical Hx - Medications Home Medications: Home Medications Medication Instructions Recorded Confirmed Last Taken Type Gabapentin 300 mg PO TID 06/11/16 08/13/19 Unknown History Multivitamin Tab [Multiple Vitamin 1 tab PO DAILY 06/11/16 08/13/19 Unknown History TAB (Theragran)] QUEtiapine [SEROquel] 25 mg PO QHS 06/01/19 08/13/19 Unknown History ARIPiprazole [Abilify] 10 mg PO QDAY #30 tablet 06/04/19 08/13/19 Unknown Rx DULoxetine [Cymbalta] 60 mg PO QDAY #30 capsule 06/04/19 08/13/19 Unknown Rx Metoprolol [Lopressor TAB] 25 mg PO DAILY 30 Days #30 06/04/19 08/13/19 Unknown Rx busPIRone [Buspar] 5 mg PO BID #60 tab 06/04/19 08/13/19 Unknown Rx lisinopriL [Zestril TAB] 10 mg PO DAILY #30 06/04/19 08/13/19 Unknown Rx ARIPiprazole [Abilify] 20 mg PO DAILY #30 tablet 08/13/19 Unknown Rx DULoxetine [Cymbalta] 60 mg PO QDAY #30 capsule 08/13/19 Unknown Rx Gabapentin 300 mg PO TID #90 cap 08/13/19 Unknown Rx QUEtiapine [SEROquel] 25 mg PO QHS #30 tablet 08/13/19 Unknown Rx busPIRone [Buspar] 5 mg PO BID #60 tab 08/13/19 Unknown Rx ED Course - Reevaluation(s) Reevaluation #2: Patient was signed out to me from the previous physician, Dr. Moeller. Patient has a second troponin pending as well as a V/Q scan pending. 08/11/19 23:00 Reevaluation #3: Patient is V/Q scan is negative for PE. Patient second troponin is negative. Patient is stable and medically cleared. Patient will remain in the ER on ER hold and his final disposition will come from our mental health, psychiatry team. I discussed all results with patient. I discussed plan of care with patient. Patient agrees with plan of care. 08/12/19 01:07 ED Medical Decision Making - Lab Data Result diagrams: 08/11/19 20:20 08/11/19 20:20 - Radiology Data Ventilation/perfusion scan of the lungs INDICATION: Chest pain and elevated d-dimer TECHNIQUE: The patient was administered 10.1 mCi of xenon-133 for the ventilation portion of the study and 5 mCi of technetium 99 MAA for the perfusion phase FINDINGS: Both the ventilation and perfusion phases are normal with no evidence of pulmonary embolism or other abnormality. ED Disposition Clinical Impression: Suicidal ideations, Acute chest pain Disposition: - TO HOME OR SELFCARE Is pt being admited?: No Does the pt Need Aspirin: No Condition: Stable Instructions: Chest Pain (ED) Prescriptions: QUEtiapine [SEROquel] 25 mg PO QHS #30 tablet ARIPiprazole [Abilify] 20 mg PO DAILY #30 tablet busPIRone [Buspar] 5 mg PO BID #60 tab DULoxetine [Cymbalta] 60 mg PO QDAY #30 capsule Gabapentin 300 mg PO TID #90 cap Referrals: PRIMARY CARE, [Primary Care Provider] - 2-3 Days Time of Disposition: 01:08 <WALKER MOELLER - Last Filed: 08/16/19 21:50> ED Chest Pain HPI - General Source: EMS Mode of arrival: Stretcher Limitations: No Limitations - History of Present Illness Initial Comments: Patient is a 63-year-old male who is presenting with chest pain. Patient states he has a history of GA as well as COPD. Patient states approximately 3 hours prior to his arrival he started having chest pain. States is a heavy sensation shortness of breath. Patient states he has had some increased shortness of breath with a mild cough last several days but does not believe this is consistent with a COPD. Patient states chest pain feels close to how he felt when he had an GA. He denies fevers chills or productive cough nausea vomiting or diarrhea. After discussing his chest pain patient also states he has no desire to live anymore and is having thoughts of suicide. When asked does he have a plan the patient states he was thinking about jumping into traffic. Severity scale (0 -10): 3 Heart Score - HEART Score History: Moderately suspicious EKG: Normal Age: 45-65 Risk factors: > 3 risk factors or hx of atherosclerotic disease Troponin: < normal limit HEART Score: 4 ED Review of Systems ROS: Stated complaint: CP Other details as noted in HPI Comment: All other systems reviewed and negative ED Past Medical Hx - Past Medical History Hx Hypertension: Yes Hx Heart Attack/AMI: Yes (palpitations) Hx Renal Disease: No Hx Arthritis: No Hx Seizures: No Hx Psychiatric Treatment: Yes (Anxiety) Hx Dementia: No Additional medical history: Degenerative disc disease - Surgical History Past Surgical History?: Yes Hx Cholecystectomy: No Additional Surgical History: Multiple back surgeries secondary to degenerative disc disease - Social History Smoking Status: Current Every Day Smoker Substance Use Type: Alcohol ED Physical Exam - General Limitations: No Limitations General appearance: alert, in no apparent distress - Head Head exam: Present: atraumatic, normocephalic - Eye Eye exam: Present: normal appearance - ENT ENT exam: Present: mucous membranes moist - Neck Neck exam: Present: normal inspection - Respiratory Respiratory exam: Present: normal lung sounds bilaterally. Absent: respiratory distress, wheezes, rales, rhonchi - Cardiovascular Cardiovascular Exam: Present: regular rate, normal rhythm, normal heart sounds. Absent: systolic murmur, diastolic murmur, rubs, gallop - GI/Abdominal GI/Abdominal exam: Present: soft, normal bowel sounds. Absent: distended, tenderness, guarding, rebound - Rectal Rectal exam: Present: deferred - Extremities Exam Extremities exam: Present: normal inspection - Back Exam Back exam: Present: normal inspection - Neurological Exam Neurological exam: Present: alert, oriented X3 - Psychiatric Psychiatric exam: Present: normal affect, normal mood - Skin Skin exam: Present: warm, dry, intact, normal color. Absent: rash ED Course Vital Signs 08/11/19 08/11/19 08/11/19 19:44 20:07 21:36 Temperature 98.4 F Pulse Rate 79 64 60 Respiratory 17 16 Rate Blood Pressure 128/74 Blood Pressure 136/77 128/81 [Right] O2 Sat by Pulse 99 97 Oximetry 08/11/19 08/12/19 08/12/19 22:06 00:24 02:39 Temperature 97.8 F Pulse Rate 54 L 67 104 H Respiratory 17 19 Rate Blood Pressure Blood Pressure 136/77 132/86 [Right] O2 Sat by Pulse 97 96 Oximetry 08/12/19 08/12/19 08/12/19 08:00 16:00 20:00 Temperature 97.4 F L 98.5 F 98.6 F Pulse Rate 81 89 89 Respiratory 18 20 Rate Blood Pressure Blood Pressure 121/86 120/80 118/74 [Right] O2 Sat by Pulse 81 L 96 98 Oximetry 08/12/19 08/12/19 08/13/19 20:30 22:54 01:30 Temperature 98.3 F Pulse Rate 20 L Respiratory 18 18 18 Rate Blood Pressure Blood Pressure 112/81 [Right] O2 Sat by Pulse 99 97 Oximetry 08/13/19 08:00 Temperature 98.1 F Pulse Rate 74 Respiratory 20 Rate Blood Pressure Blood Pressure 111/80 [Right] O2 Sat by Pulse 98 Oximetry - Reevaluation(s) Reevaluation #1: 08/11/19 22:51 Patient had a stress test in May 2019 which was negative. His last cath was in 2015 and showed normal coronary arteries. Patient was been seen numerous times for his atypical chest pain. Of these second troponin is negative the patient will be cleared from a cardiology standpoint. JOEL score - Joel Score Age > 65: (0) No Aspirin use within the Past 7 Days: (0) No 3 or more CAD Risk Factors: (1) Yes 2 or more Angina events in past 24 hrs: (1) Yes Known CAD with more than 50% Stenosis: (0) No Elevated Cardiac Markers: (0) No ST Deviation Greater than 0.5mm: (0) No JOEL Score: 2 ED Medical Decision Making - Lab Data Result diagrams: 08/11/19 20:20 08/11/19 20:20 Lab Results 08/11/19 08/11/19 08/11/19 Range/Units 20:20 20:20 20:20 WBC 4.1 L (4.5-11.0) K/mm3 RBC 4.41 (3.65-5.03) M/mm3 Hgb 14.5 (11.8-15.2) gm/dl Hct 42.9 (35.5-45.6) % MCV 97 H (84-94) fl MCH 33 H (28-32) pg MCHC 34 (32-34) % RDW 13.4 (13.2-15.2) % Plt Count 165 (140-440) K/mm3 Lymph % (Auto) 21.8 (13.4-35.0) % [place] % (Auto) 8.6 H (0.0-7.3) % Eos % (Auto) 2.6 (0.0-4.3) % Baso % (Auto) 0.7 (0.0-1.8) % Lymph # 0.9 L (1.2-5.4) K/mm3 [place] # 0.4 (0.0-0.8) K/mm3 Eos # 0.1 (0.0-0.4) K/mm3 Baso # 0.0 (0.0-0.1) K/mm3 Seg Neutrophils % 66.3 (40.0-70.0) % Seg Neutrophils # 2.7 (1.8-7.7) K/mm3 PT 13.4 (12.2-14.9) Sec. INR 1.01 (0.87-1.13) APTT 29.9 (24.2-36.6) Sec. D-Dimer 338.35 H (0-234) ng/mlDDU Sodium 137 (137-145) mmol/L Potassium 4.4 (3.6-5.0) mmol/L Chloride 97.5 L (98-107) mmol/L Carbon Dioxide 19 L (22-30) mmol/L Anion Gap 25 mmol/L BUN 11 (9-20) mg/dL Creatinine 0.8 (0.8-1.5) mg/dL Estimated GFR > 60 ml/min BUN/Creatinine Ratio 14 % Glucose 88 (75-100) mg/dL Calcium 9.5 (8.4-10.2) mg/dL Troponin T < 0.010 (0.00-0.029) ng/mL Salicylates (2.8-20.0) mg/dL Acetaminophen (10.0-30.0) ug/mL Plasma/Serum Alcohol (0-0.07) % 08/11/19 08/11/19 08/11/19 Range/Units 20:20 20:20 20:20 WBC (4.5-11.0) K/mm3 RBC (3.65-5.03) M/mm3 Hgb (11.8-15.2) gm/dl Hct (35.5-45.6) % MCV (84-94) fl MCH (28-32) pg MCHC (32-34) % RDW (13.2-15.2) % Plt Count (140-440) K/mm3 Lymph % (Auto) (13.4-35.0) % [place] % (Auto) (0.0-7.3) % Eos % (Auto) (0.0-4.3) % Baso % (Auto) (0.0-1.8) % Lymph # (1.2-5.4) K/mm3 [place] # (0.0-0.8) K/mm3 Eos # (0.0-0.4) K/mm3 Baso # (0.0-0.1) K/mm3 Seg Neutrophils % (40.0-70.0) % Seg Neutrophils # (1.8-7.7) K/mm3 PT (12.2-14.9) Sec. INR (0.87-1.13) APTT (24.2-36.6) Sec. D-Dimer (0-234) ng/mlDDU Sodium (137-145) mmol/L Potassium (3.6-5.0) mmol/L Chloride (98-107) mmol/L Carbon Dioxide (22-30) mmol/L Anion Gap mmol/L BUN (9-20) mg/dL Creatinine (0.8-1.5) mg/dL Estimated GFR ml/min BUN/Creatinine Ratio % Glucose (75-100) mg/dL Calcium (8.4-10.2) mg/dL Troponin T (0.00-0.029) ng/mL Salicylates 1.6 L (2.8-20.0) mg/dL Acetaminophen < 5.0 L (10.0-30.0) ug/mL Plasma/Serum Alcohol < 0.01 (0-0.07) % - EKG Data -: EKG Interpreted by Id EKG shows normal: sinus rhythm, axis, intervals, QRS complexes, ST-T waves Rate: bradycardia (54 rate) - EKG Data Interpretation: normal EKG - Radiology Data CHEST 1 VIEW 08/11/2019 7:55 PM INDICATION / CLINICAL INFORMATION: chest pain. COMPARISON: Chest x-ray 07/08/2019 FINDINGS: SUPPORT DEVICES: None. HEART / MEDIASTINUM: No significant abnormality. LUNGS / PLEURA: No significant pulmonary or pleural abnormality. No pneumothorax. ADDITIONAL FINDINGS: No significant additional findings. IMPRESSION: 1. No acute findings. Signer Name: Mahendra Martini MD Signed: 08/11/2019 8:32 PM Workstation Name: [id number] Critical care attestation.: If time is entered above; I have spent that time in minutes in the direct care of this critically ill patient, excluding procedure time. ED Disposition Is pt being admited?: No Does the pt Need Aspirin: No
--- NOTE | 2019-08-12 00:42 | Nuclear Medicine Report ---
Ventilation/perfusion scan of the lungs INDICATION: Chest pain and elevated d-dimer TECHNIQUE: The patient was administered 10.1 mCi of xenon-133 for the ventilation portion of the stud y and 5 mCi of technetium 99 MAA for the perfusion phase FINDINGS: Both the ventilation and perfusion phases are normal with no evidence of pulmonary embolism or other abnormality. Signer Name: Maurice Holloway MD Signed: 08/12/2019 12:37 AM Workstation Name: [id number]
[2019-08-12 01:57] LABS: Amphetamine Screen,Urine PRESUMPTIVE NEGATIVE; Benzodiazepines Screen,Urine PRESUMPTIVE NEGATIVE; Cocaine Screen,Urine PRESUMPTIVE NEGATIVE; Methadone Screen,Urine PRESUMPTIVE NEGATIVE
[2019-08-12] MEDS ORDERED: ACETAMINOPHEN 500 MG TAB PO ONE ×2 (02:04→11:11)
[2019-08-12 02:09] LABS: Cannabinoid Screen,Urine PRESUMPTIVE POSITIVE; Opiate Screen,Urine PRESUMPTIVE POSITIVE
[2019-08-12] MEDS ORDERED: ACETAMINOPHEN 325 MG TAB ONE (21:47)
[2019-08-12] MEDS ORDERED: ACETAMINOPHEN 325 MG TAB PO ONE (21:51)
[2019-08-13 09:50] VITALS: BP 111/80
--- NOTE | 2019-08-13 12:50 | Consultation ---
History of Present Illness - Reason for Consult Consult date: 08/13/19 Reason for consult: suicidal ideation - History of Present Psychiatric Illness Yang Ivy is a 63y/o male patient who is known to me from previous visits. The patient is a/o x 3. He is calm and cooperative. He makes good eye contact. He is [place]. Mr. Ivy first tells me he didn't know why he came to the hospital. He then says he came to the hospital for "chest pain, then got depressed while h ere." He asks "how did I get here? Did I go into traffic?" The patient states "I don't remember if I walked out in traffic." He says he's "been out of his meds for a few weeks." He says he "ran out of them and the landlord is holding my money." The patient states he did "crack about a week ago." The patient states again, "I don't remember what happen. Did I go into traffic." When asked about suicidal ideation at present, Mr. Ivy replied, "I don't know. Where are you guys going to send me?" He then states, "I'm just tired of my shelter." The patient states "I really want to get to [place] where my family is but my brother's wives don't want me there." He says "they love me but they are scared of me because of the drugs." He says he "eats and sleeps good." The patient denies hallucinations of any kind. PAST PSYCHIATRIC HISTORY: Diagnoses: Depression and anxiety Suicide attempts or Self-harm behavior: I walk out in traffic a lot Prior psychiatric hospitalizations: yes Substance Abuse history: Crack, THC Previous psychiatric medications tried: Cymbala, abilify, seroquil Outpatient treatment: Yes PAST MEDICAL HISTORY: None reported Family Psychiatric History None reported or documented SOCIAL HISTORY Marital Status: Single Living Arrangements: [facility] Employment Status: Disabled Access to guns/weapons: Denies Education: high school History of Abuse: Crack ROS: Constitutional: Negative for weight loss ENT: Negative for stridor Respiratory: Negative for cough or hemoptysis All other systems reviewed and are negative MENTAL STATUS General Appearance: Dressed appropriately Behavior: calm and cooperative, good eye contact Mood: "depressed" Affect: Congruent Thought Process: Goal-directed Speech: Normal tone and pace Suicidal Ideation: "I don't know" Homicidal Ideation: Denies Hallucinations: Denies Delusions: None elicited Insight and Judgment: Fair Memory/Cognition: Fair Diagnoses: Major Depressive Disorder Plan Scripts given: Abilify 20mg po daily Buspar 5mg po BID Cymbalta 60mg po daily Gabapentin 300mg po TID Seroquel 25mg po qhs Medical: Per primary Sitter: Defer to primary Disposition: The patient does not meet the requirement for acute hospitalization at this time. He may discharge home once he is medically cleared. The patient's symptoms can be managed on an outpatient basis. The treatment plan has been discussed with Mr. Ivy, including benefits and side effects of medications. He verbalizes understanding and agreement of plan. He is to abstain from all illicit drugs and alcohol. The patient is to follow up with outpatient psychiatry or primary in 7 to 14 days. Will sign off. Please call with any questions or concerns. Thank you for this consult. Medications and Allergies Allergies Allergy/AdvReac Type Severity Reaction Status Date / Time ketorolac tromethamine Allergy Rash Verified 02/01/17 12:29 [From Toradol] Home Medications Medication Instructions Recorded Confirmed Last Taken Type Gabapentin 300 mg PO TID 06/11/16 08/13/19 Unknown History Multivitamin Tab [Multiple Vitamin 1 tab PO DAILY 06/11/16 08/13/19 Unknown History TAB (Theragran)] QUEtiapine [SEROquel] 25 mg PO QHS 06/01/19 08/13/19 Unknown History ARIPiprazole [Abilify] 10 mg PO QDAY #30 tablet 06/04/19 08/13/19 Unknown Rx DULoxetine [Cymbalta] 60 mg PO QDAY #30 capsule 06/04/19 08/13/19 Unknown Rx Metoprolol [Lopressor TAB] 25 mg PO DAILY 30 Days #30 06/04/19 08/13/19 Unknown Rx busPIRone [Buspar] 5 mg PO BID #60 tab 06/04/19 08/13/19 Unknown Rx lisinopriL [Zestril TAB] 10 mg PO DAILY #30 06/04/19 08/13/19 Unknown Rx ARIPiprazole [Abilify] 20 mg PO DAILY #30 tablet 08/13/19 Unknown Rx DULoxetine [Cymbalta] 60 mg PO QDAY #30 capsule 08/13/19 Unknown Rx Gabapentin 300 mg PO TID #90 cap 08/13/19 Unknown Rx QUEtiapine [SEROquel] 25 mg PO QHS #30 tablet 08/13/19 Unknown Rx busPIRone [Buspar] 5 mg PO BID #60 tab 08/13/19 Unknown Rx Mental Status Exam - Vital signs Last Vital Signs Temp 98.1 F 08/13/19 08:00 Pulse 74 08/13/19 08:00 Resp 20 08/13/19 08:00 BP 111/80 08/13/19 08:00 Pulse Ox 98 08/13/19 08:00 Results Result Diagrams: 08/11/19 20:20 08/11/19 20:20 All other labs normal.
== END 2019-08-13 15:40 | disposition home or self-care (01) ==
LOC: EEVIPCON 19:40 → ED 19:40
DX: R45.851 Suicidal ideations (principal); R07.89 Other chest pain; I25.2 Old myocardial infarction; J44.9 Chronic obstructive pulmonary disease, unspecified; F17.200 Nicotine dependence, unspecified, uncomplicated; F41.9 Anxiety disorder, unspecified; Z98.890 Other specified postprocedural states; Z88.6 Allergy status to analgesic agent; Z79.899 Other long term (current) drug therapy
CPT/HCPCS: 36415; 71045; 78582; 80048; 80307; 84484; 85025; 85379; 85610; 85730; 93005; 93010; 96374; 96375; 96376; 99285; A9540; A9558; J2270; J2405; 80320; G0480

== ENCOUNTER 2019-09-02 20:11 | Inpatient (IN) | payer MEDICAID ==
[2019-09-02] MEDS ORDERED: ASPIRIN 325 MG TAB PO ONE (20:32)
[2019-09-02] MEDS ORDERED: NITROGLYCERIN 2% OINT 1 GM TP ONE (20:47)
--- NOTE | 2019-09-02 20:47 | Emergency Department Report ---
HPI - General Chief Complaint: Chest Pain Time Seen by Provider: 09/02/19 20:32 - HPI HPI: [facility] The patient is a 63-year-old male present with a chief complaint of suicidal ideation and chest pain. The patient states he came to the emergency department" umbilical muscle." Patient admits to suicidal ideation which began yesterday. Patient states his plan was to walk into traffic but he has not yet made any attempts. Patient also states for the past 6 hours has had a headache and chest pain. Patient describes his chest pain is sharp in nature in termittent and radiating to the left shoulder. Patient admits to shortness of breath but denies nausea/vomiting or diaphoresis with this chest pain. The patient states he had an abnormal cardiac catheterization approximately 8 months ago but he does not recall the specifics of the results. The patient states a cardiac stent was not placed ED Past Medical Hx - Past Medical History Previous Medical History?: Yes Hx Hypertension: Yes Hx Heart Attack/AMI: Yes (palpitations) Hx Psychiatric Treatment: Yes (Anxiety) Additional medical history: Degenerative disc disease - Surgical History Past Surgical History?: Yes Additional Surgical History: Multiple back surgeries secondary to degenerative disc disease - Family History Family history: no significant - Social History Smoking Status: Current Every Day Smoker (1 pack/day) Substance Use Type: None (Denies illicit drug use), Alcohol (Daily) - Medications Home Medications: Home Medications Medication Instructions Recorded Confirmed Last Taken Type lisinopriL [Zestril TAB] 10 mg PO DAILY #30 06/04/19 09/02/19 Unknown Rx QUEtiapine [SEROquel] 25 mg PO QHS #30 tablet 08/13/19 09/02/19 Unknown Rx Gabapentin 300 mg PO BID 09/02/19 09/02/19 Unknown History Metoprolol [Lopressor TAB] 10 mg PO DAILY 09/02/19 09/02/19 Unknown History busPIRone [Buspar] 5 mg PO BID 09/02/19 09/02/19 Unknown History ED Review of Systems ROS: Stated complaint: SUICIDAL THOUGHTS/MH EVAL Other details as noted in HPI Constitutional: denies: diaphoresis Eyes: denies: eye pain ENT: denies: throat pain Respiratory: shortness of breath Cardiovascular: chest pain Endocrine: no symptoms reported Gastrointestinal: denies: nausea, vomiting Genitourinary: denies: dysuria Musculoskeletal: denies: back pain Neurological: denies: headache Physical Exam - Physical Exam Vital Signs: Vital Signs 09/02/19 20:26 Temperature 98.3 F Pulse Rate 63 Respiratory 16 Rate Blood Pressure 107/51 Blood Pressure 107/51 [Left] O2 Sat by Pulse 97 Oximetry Physical Exam: GENERAL: The patient is well-developed well-nourished male sitting in chair eating food not appearing to be in acute distress. [] HEENT: Normocephalic. Atraumatic. Extraocular motions are intact. Patient has moist mucous membranes. NECK: Supple. Trachea midline CHEST/LUNGS: Clear to auscultation. There is no respiratory distress noted. HEART/CARDIOVASCULAR: Regular. There is no tachycardia. There is no gallop rub or murmur. ABDOMEN: Abdomen is soft, nontender. Patient has normal bowel sounds. There is no abdominal distention. SKIN: There is no rash. There is no edema. There is no diaphoresis. NEURO: The patient is awake, alert, and oriented. The patient is cooperative. The patient has normal speech MUSCULOSKELETAL: There is no evidence of acute injury. ED Course Vital Signs 09/02/19 20:26 Temperature 98.3 F Pulse Rate 63 Respiratory 16 Rate Blood Pressure 107/51 Blood Pressure 107/51 [Left] O2 Sat by Pulse 97 Oximetry ED Medical Decision Making - Lab Data Result diagrams: 09/02/19 20:58 09/02/19 20:58 Laboratory Tests 09/02/19 09/02/19 20:58 20:58 WBC 5.2 RBC 4.16 Hgb 13.7 Hct 40.6 MCV 98 H MCH 33 H MCHC 34 RDW 13.2 Plt Count 200 Lymph % (Auto) 21.2 [place] % (Auto) 8.4 H Eos % (Auto) 4.0 Baso % (Auto) 0.4 Lymph # 1.1 L [place] # 0.4 Eos # 0.2 Baso # 0.0 Seg Neutrophils % 66.0 Seg Neutrophils # 3.4 Sodium 136 L Potassium 4.2 Chloride 99.4 Carbon Dioxide 16 L Anion Gap 25 BUN 19 Creatinine 1.0 Estimated GFR > 60 BUN/Creatinine Ratio 19 Glucose 114 H Calcium 9.2 Troponin T < 0.010 - EKG Data -: EKG Interpreted by Sd EKG shows normal: sinus rhythm Rate: normal - EKG Data When compared to previous EKG there are: previous EKG unavailable Interpretation: other (No ischemic changes seen. PAC) - Radiology Data Radiology results: image reviewed (Chest x-ray) interpreted by me: Chest x-ray-no focal traits, no pneumothorax [facility] [address] [place] [address] XRay Report Signed Patient: RISHI RODRIGES MR#: [id number] : 1955 Acct:[id number] Age/Sex: 63 / M ADM Date: 09/02/19 Loc: ED Attending Dr: Ordering Physician: GRADY TANG MD Date of Service: 09/02/19 Procedure(s): XR chest 1V ap Accession Number(s): [id number] cc: GRADY TANG MD Fluoro Time In Minutes: CHEST 1 VIEW INDICATION / CLINICAL INFORMATION: MAIN: Chest Pain; came from group c/o chest pain radiating to his left arm, pain score 7/10; SI/ hearing voices to hurt himself and run over the traffic started last night.. COMPARISON: Chest radiograph 08/11/2019 FINDINGS: SUPPORT DEVICES: None. HEART / MEDIASTINUM: No significant abnormality. LUNGS / PLEURA: No significant pulmonary or pleural abnormality. No pneumothorax. IMPRESSION: No acute finding. Signer Name: Thong Hernandez MD Signed: 09/02/2019 9:38 PM Workstation Name: [id number] Transcribed By: DMB Dictated By: Thong Hernandez MD [facility] ically Authenticated By: Thong Hernandez MD Signed Date/Time: 09/02/192137 DD/ 36 TD/TT: - Differential Diagnosis ACS, pericarditis, GERD Critical care attestation.: If time is entered above; I have spent that time in minutes in the direct care of this critically ill patient, excluding procedure time. ED Disposition Clinical Impression: Chest pain, Suicidal ideation Disposition: OP ADMIT IP TO THIS HOSP Is pt being admited?: Yes Does the pt Need Aspirin: Yes Condition: Fair Instructions: Chest Pain (ED) Time of Disposition: 21:59 (Hospitalist paged (Dr. Ballard))
[2019-09-02 21:19] LABS: Basophils % (Auto) 0.4 % (0.0-1.8); Eosinophils # (Auto) 0.2 K/mm3 (0.0-0.4); Hematocrit 40.6 % (35.5-45.6); Hemoglobin 13.7 gm/dl (11.8-15.2); Lymphocytes # (Auto) 1.1 K/mm3 (1.2-5.4); Lymphocytes % (Auto) 21.2 % (13.4-35.0); Mean Corpuscular HGB Conc 34 % (32-34); Mean Corpuscular Volume 98 fl (84-94); Monocytes # (Auto) 0.4 K/mm3 (0.0-0.8); Monocytes % (Auto) 8.4 % (0.0-7.3); Platelet Count 200 K/mm3 (140-440); Red Blood Count 4.16 M/mm3 (3.65-5.03); Red Cell Distribution Width 13.2 % (13.2-15.2)
[2019-09-02] MEDS ORDERED: fentaNYL 100 MCG/2 ML INJ IV ONE (21:22)
[2019-09-02] MEDS ORDERED: ONDANSETRON 4 MG/2 ML INJ IV ONE (21:22)
[2019-09-02 21:36] LABS: BUN/Creatinine Ratio 19; Blood Urea Nitrogen 19 mg/dL (9-20); Calcium 9.2 mg/dL (8.4-10.2); Hemolysis Index 6
--- NOTE | 2019-09-02 21:42 | XRay Report ---
CHEST 1 VIEW INDICATION / CLINICAL INFORMATION: MAIN: Chest Pain; came from group c/o chest pain radiating to his left arm, pain score 7/10; SI/ hear ing voices to hurt himself and run over the traffic started last night.. COMPARISON: Chest radiograph 08/11/2019 FINDINGS: SUPPORT DEVICES: None. HEART / MEDIASTINUM: No significant abnormality. LUNGS / PLEURA: No significant pulmonary or pleural abnormality. No pneumothorax. IMPRESSION: No acute finding. Signer Name: Thong Hernandez MD Signed: 09/02/2019 9:38 PM Workstation Name: [id number]
--- NOTE | 2019-09-02 22:54 | History and Physical Report ---
History of Present Illness History of present illness: 63-year-old man with a history of hypertension, hyperlipidemia, CAD, depression, bipolar comes to the emergency room with complaints of chest pain. Chest pain is in the left substernal area which he describes as sharp pain, intermittent for 5 minutes, radiating to the left shoulder, intensity 5/10. Admits to nausea, shortness of breath denies nausea diaphoresis and palpitation, Patient is had a stress test in 2019 that was negative, states he had a cardiac cath done at the [facility] which was abnormal, no stents placed. Admits to patient suicidal ideation, has a plan to walk out in traffic Review Of Systems: Constitutional: no weight loss Ears, eyes, nose, mouth and throat: no nasal congestion, no nasal discharge, no sinus pressure, blurry vision, diplopia Neck: No neck pain or rigidity. Cardiovascular: no chest pain, orthopnea, palpitations Gastrointestinal: abdominal pain, hematochezia Genitourinary : no dysuria, frequency , hematuria Musculoskeletal: no muscle ache Integumentary: no rash, no pruritis Neurological: no parathesias, focal weakness Endocrine: no cold or heat intolerance, no polyuria or polydipsia Hematologic/Lymphatic: no easy bruising, no easy bleeding, no gland swelling Allergic/Immunologic: no urticaria, no angioedema. PAST MEDICAL HISTORY:hypertension, hyperlipidemia, depression, CAD PAST SURGICAL HISTORY: Multiple back surgeries SOCIAL HISTORY: no tobacco , no alcohol or drugs FAMILY HISTORY: hypertension Medications and Allergies Allergies Allergy/AdvReac Type Severity Reaction Status Date / Time ketorolac tromethamine Allergy Rash Verified 02/01/17 12:29 [From Toradol] Home Medications Medication Instructions Recorded Confirmed Last Taken Type lisinopriL [Zestril TAB] 10 mg PO DAILY #30 06/04/19 09/02/19 Unknown Rx QUEtiapine [SEROquel] 25 mg PO QHS #30 tablet 08/13/19 09/02/19 Unknown Rx Buprenorphine HCl/Naloxone HCl 1 film SL QDAY 09/02/19 09/02/19 Unknown History [Suboxone 4 mg-1 mg SL Film] Gabapentin 300 mg PO BID 09/02/19 09/02/19 Unknown History Metoprolol [Lopressor TAB] 10 mg PO DAILY 09/02/19 09/02/19 Unknown History busPIRone [Buspar] 5 mg PO BID 09/02/19 09/02/19 Unknown History Exam - Physical Exam Narrative exam: Gen. appearance: Patient lying in bed, no apparent distress HEENT: Normocephalic, atraumatic, pupils equally round and reactive to light, extraocular movement intact, and no sclericterus,. No JVD or thyromegaly or nodule,neck supple, no carotid bruit ,mucous membranes moist, no exudate or erythema Heart: S1, S2, regular rate and rhythm Lungs: Clear bilaterally, breathing comfortable Abdomen: Positive bowel sounds, nontender, nondistended, no organomegaly Extremity: no edema, cyanosis, clubbing Skin: No rash, nodules, warm, dry Neuro: Cranial nerves II through XII intact speech is fluent, moves extremities, sensory intact - Constitutional Vitals: Temp Pulse Resp BP Pulse Ox 98.3 F 63 19 107/51 97 09/02/19 20:26 09/02/19 20:54 09/02/19 21:32 09/02/19 20:54 09/02/19 20:26 Results - Labs CBC & Chem 7: 09/03/19 04:53 09/03/19 04:53 Labs: Abnormal lab results 09/02/19 09/02/19 Range/Units 20:58 20:58 MCV 98 H (84-94) fl MCH 33 H (28-32) pg [place] % (Auto) 8.4 H (0.0-7.3) % Lymph # 1.1 L (1.2-5.4) K/mm3 Sodium 136 L (137-145) mmol/L Carbon Dioxide 16 L (22-30) mmol/L Glucose 114 H (75-100) mg/dL Assessment and Plan Assessment Chest pain/Coronary artery disease Check cardiac enzymes, consult cardiology stress test done in 2019-, stated he had a cath done 8 months ago at [facility] which was abnormal Suicide ideation/depression/bipolar Continue with 1013, consult psych, outpatient medications Hypertension Patient normotensive, start IV fluids DVT prophylaxis
[2019-09-03] MEDS ORDERED: ONDANSETRON 4 MG/2 ML INJ IV PRN (04:32)
[2019-09-03] MEDS ORDERED: ACETAMINOPHEN 325 MG TAB PO PRN (04:32)
[2019-09-03] MEDS: oxyCODONE /ACETAMINOPHEN 5-325MG TAB PO PRN ×4 (04:35→20:24)
[2019-09-03] MEDS ORDERED: SODIUM CHLORIDE 0.9% 1000 ML 1,000 ML ONE (04:54)
[2019-09-03] MEDS ORDERED: SODIUM CHLORIDE 0.9% 1000 ML 1,000 ML IV SCH (05:00)
[2019-09-03 05:02] LABS: Basophils % (Auto) 0.4 % (0.0-1.8); Eosinophils # (Auto) 0.2 K/mm3 (0.0-0.4); Eosinophils % (Auto) 5.6 % (0.0-4.3); Hematocrit 39.1 % (35.5-45.6); Hemoglobin 13.3 gm/dl (11.8-15.2); Lymphocytes # (Auto) 1.2 K/mm3 (1.2-5.4); Lymphocytes % (Auto) 29.6 % (13.4-35.0); Mean Corpuscular HGB Conc 34 % (32-34); Mean Corpuscular Volume 98 fl (84-94); Monocytes # (Auto) 0.4 K/mm3 (0.0-0.8); Monocytes % (Auto) 10.2 % (0.0-7.3); Platelet Count 166 K/mm3 (140-440); Red Blood Count 3.99 M/mm3 (3.65-5.03); Red Cell Distribution Width 13.3 % (13.2-15.2)
[2019-09-03 05:28] LABS: BUN/Creatinine Ratio 22; Blood Urea Nitrogen 22 mg/dL (9-20); Calcium 8.9 mg/dL (8.4-10.2); Hemolysis Index 7
[2019-09-03] MEDS ORDERED: MORPHINE 4 MG/1 ML INJ IV ONE (06:30)
[2019-09-03] MEDS ORDERED: MORPHINE 2 MG/1 ML INJ ONE (06:34)
[2019-09-03] MEDS ORDERED: ONDANSETRON 4 MG/2 ML INJ ONE (06:34)
--- NOTE | 2019-09-03 07:38 | Progress Note ---
Assessment and Plan Assessment and plan: Patient is a 63-year-old man with a history of hypertension, hyperlipidemia, CAD, depression, bipolar comes to the emergency room with complaints of chest pain. * pCXR Impression: No acute finding Chest pain/Coronary artery disease Check cardiac enzymes, consult cardiology stress test done in 2019-, stated he had a cath done 8 months ago at [facility] which was abnormal Suicide ideation/depression/bipolar Continue with 1013, consult psych, outpatient medications Hypertension Patient normotensive, start IV fluids DVT prophylaxis reviewed 09/03/19: d/w Cardiology, await Psych evaluation, patient says he still has SI, continue 1013 and precautions History Interval history: Patient was seen and examined. Follow-up on current diagnosis of CP, SI. Overnight uneventful as no events directly reported to me. Patient denies any shortness breath, nausea/vomiting or severe headaches. Imaging, nursing note, chart, labs and old chart reviewed. Discussed with patient. Hospitalist Physical - Physical exam Narrative exam: Gen: WDWN, NAD, Awake, Alert, Orientated HEENT: NCAT, EOMI, PERRL, OP Clear Neck: supple, no adenopathy, no thyromegaly, no JVD CVS/Heart: RRR, normal S1S2, pulses present bilaterally Chest/Lungs: CTA B, Symmetrical chest expansion, good air entry bilaterally GI/Abdomen: soft, NTND, good bowel sounds, no guarding or rebound /Bladder: no suprapubic tenderness, no CVA or paraspinal tenderness Extermity/Skin: no c/c/e, no obvious rash MSK: FROM x 4 Neuro: CN 2-12 grossly intact, no new focal deficits Psych: calm - Constitutional Vitals: Temp Pulse Resp BP Pulse Ox 97.8 F 62 16 132/79 99 09/03/19 07:26 09/03/19 07:26 09/03/19 07:26 09/03/19 07:26 09/03/19 07:26 JAIMIE score - Jaimie Score Age > 65: (0) No Aspirin use within the Past 7 Days: (0) No 3 or more CAD Risk Factors: (1) Yes 2 or more Angina events in past 24 hrs: (1) Yes Known CAD with more than 50% Stenosis: (0) No Elevated Cardiac Markers: (0) No ST Deviation Greater than 0.5mm: (0) No JAIMIE Score: 2 Results - Labs CBC & Chem 7: 09/03/19 04:53 09/03/19 04:53 Labs: Laboratory Last Values WBC 3.9 K/mm3 (4.5-11.0) L 09/03/19 04:53 RBC 3.99 M/mm3 (3.65-5.03) 09/03/19 04:53 Hgb 13.3 gm/dl (11.8-15.2) 09/03/19 04:53 Hct 39.1 % (35.5-45.6) 09/03/19 04:53 MCV 98 fl (84-94) H 09/03/19 04:53 MCH 33 pg (28-32) H 09/03/19 04:53 MCHC 34 % (32-34) 09/03/19 04:53 RDW 13.3 % (13.2-15.2) 09/03/19 04:53 Plt Count 166 K/mm3 (140-440) 09/03/19 04:53 Lymph % (Auto) 29.6 % (13.4-35.0) 09/03/19 04:53 [place] % (Auto) 10.2 % (0.0-7.3) H 09/03/19 04:53 Eos % (Auto) 5.6 % (0.0-4.3) H 09/03/19 04:53 Baso % (Auto) 0.4 % (0.0-1.8) 09/03/19 04:53 Lymph # 1.2 K/mm3 (1.2-5.4) 09/03/19 04:53 [place] # 0.4 K/mm3 (0.0-0.8) 09/03/19 04:53 Eos # 0.2 K/mm3 (0.0-0.4) 09/03/19 04:53 Baso # 0.0 K/mm3 (0.0-0.1) 09/03/19 04:53 Seg Neutrophils % 54.2 % (40.0-70.0) 09/03/19 04:53 Seg Neutrophils # 2.1 K/mm3 (1.8-7.7) 09/03/19 04:53 Sodium 138 mmol/L (137-145) 09/03/19 04:53 Potassium 4.5 mmol/L (3.6-5.0) 09/03/19 04:53 Chloride 101.1 mmol/L (98-107) 09/03/19 04:53 Carbon Dioxide 22 mmol/L (22-30) 09/03/19 04:53 Anion Gap 19 mmol/L 09/03/19 04:53 BUN 22 mg/dL (9-20) H 09/03/19 04:53 Creatinine 1.0 mg/dL (0.8-1.5) 09/03/19 04:53 Estimated GFR > 60 ml/min 09/03/19 04:53 BUN/Creatinine Ratio 22 % 09/03/19 04:53 Glucose 97 mg/dL (75-100) 09/03/19 04:53 Calcium 8.9 mg/dL (8.4-10.2) 09/03/19 04:53 Troponin T < 0.010 ng/mL (0.00-0.029) 09/03/19 04:53 [place]/IV: IV Catheter Type [Left INT / Saline Lock Antecubital] Active Medications - Current Medications Current Medications: Generic Name Dose Route Start Last Admin Trade Name Freq PRN Reason Stop Dose Admin Acetaminophen 650 mg 09/03/19 04:32 Tylenol PO Q4H PRN Pain MILD(1-3)/Fever >100.5/ROSAS Buspirone HCl 5 mg 09/03/19 10:00 Buspar PO BID [facility] Enoxaparin Sodium 40 mg 09/03/19 10:00 Enoxaparin SUB-Q QDAY [facility] Gabapentin 300 mg 09/03/19 10:00 Gabapentin PO BID [facility] Sodium Chloride 1,000 mls @ 150 mls/hr 09/03/19 05:00 09/03/19 05:00 Nacl 0.9% 1000 Ml IV 150 mls/hr DIRECT [facility] Administration Ondansetron HCl 4 mg 09/03/19 04:32 Zofran IV Q8H PRN Nausea And Vomiting Oxycodone/Acetaminophen 1 tab 09/03/19 04:28 09/03/19 04:35 Percocet 5/325 PO 1 tab Q4H PRN Administration Pain, Moderate (4-6) Quetiapine Fumarate 25 mg 09/03/19 22:00 Seroquel PO QHS [facility] Sodium Chloride 10 ml 09/03/19 10:00 Sodium Chloride Flush Syringe 10 Ml IV BID [facility]LO[facility] Sodium Chloride 10 ml 09/03/19 04:32 Sodium Chloride Flush Syringe 10 Ml IV PRN PRN LINE FLUSH
[2019-09-03] MEDS ORDERED: ACETAMINOPHEN 325 MG TAB ONE (08:46)
--- NOTE | 2019-09-03 09:42 | Consultation ---
History of Present Illness - Reason for Consult Consult date: 09/03/19 Reason for consult: SI - Chief Complaint Chief complaint: Depressed and suicidal - History of Present Psychiatric Illness The patient is a 63yo retired/disabled with history of bipolar disorder and Alcohol use disorder. He is admitted for CP. Psychiatry consulted for SI. In my interview with the patient, he reports feeling depressed and endorses feeling suicidal "because of life in general". He reports drinking "couple of beer" daily, experiences withdrawal symptoms (shakes and the sweats) but denies seizures or dts from withdrawing. 2 previous detox treatments, last one was 8 months ago. he denies abusing other substances. Patient eats and sleeps well. Patient denies panic attacks, recurrent nightmares or flashbacks. Patient denies symptoms suggestive of OCD or PTSD. Patient denies hallucinations, paranoia, thought interference and no features suggestive of hypomania or haydee. He completely denies homicidal thoughts. PAST PSYCHIATRIC HISTORY: Diagnoses: Bipolar disorder Suicide attempts or Self-harm behavior: yes Prior psychiatric hospitalizations: yes Substance Abuse history: Alcohol Previous psychiatric medications tried: Cymbalta Outpatient treatment: Yes, at the [facility] Family Psychiatric History None reported or documented SOCIAL HISTORY Marital Status: Living Arrangements: with 2 roommates Employment Status: disabled Access to guns/weapons: patient denies Education: college History of Abuse: patient denies Legal History: patient denies ROS: Constitutional: Negative for weight loss ENT: Negative for stridor Respiratory: Negative for cough or hemoptysis All other systems reviewed and are negative MENTAL STATUS General Appearance and Behavior: age appropriate, good eye contact, cooperative with questioning and polite Cooperation: Cooperative Psychomotor Behavior: within normal limits Mood: depressed Affect and affective range: Congruent with stated mood Thought Process: Fluent/Logical and Goal-directed Thought Content: Within reality Speech: Normal volume and Regular rate and rhythm Intellectual Functioning Average Suicidal Ideation: Yes Homicidal Ideation: Denies HI Impulse Control: intact Insight and Judgment: normal insight and judgment Memory: Normal Attention: Normal Orientation: alert and oriented - Psychiatric problem (1) Bipolar 1 disorder, depressed, severe Current Visit: Yes Status: Acute (2) Alcohol use disorder, severe, dependence Current Visit: Yes Status: Acute RECOMMENDATIONS MEDICATIONS: Will start Depakote 250mg tid for bipolar and possible alcohol withdrawal Risks, benefits and alternatives of medications discussed with the patient, questions answered and consent obtained from patient. PSYCHOTHERAPY: Supportive psychotherapy provided MEDICAL: Per primary team DELIRIUM PRECAUTIONS: n/a CAMPUS RECRUITING INTERNSHIP: Yes DISPOSITION: Acute inpatient psychiatric hospitalization when medically stable LEGAL STATUS: 1013 FOLLOW-UP: Will follow The patient agreed on the treatment plan, understood the risk, benefit, alternative treatment, potential consequence of no treatment, and gave informed consent. I have reviewed this treatment plan, including potential risks and benefits of medications, with the patient and/or family members and relevant hospital providers. Please contact with any questions and/or concerns. Medications and Allergies Allergies Allergy/AdvReac Type Severity Reaction Status Date / Time ketorolac tromethamine Allergy Rash Verified 02/01/17 12:29 [From Toradol] Home Medications Medication Instructions Recorded Confirmed Last Taken Type lisinopriL [Zestril TAB] 10 mg PO DAILY #30 06/04/19 09/02/19 Unknown Rx QUEtiapine [SEROquel] 25 mg PO QHS #30 tablet 08/13/19 09/02/19 Unknown Rx Buprenorphine HCl/Naloxone HCl 1 film SL QDAY 09/02/19 09/02/19 Unknown History [Suboxone 4 mg-1 mg SL Film] Gabapentin 300 mg PO BID 09/02/19 09/02/19 Unknown History Metoprolol [Lopressor TAB] 10 mg PO DAILY 09/02/19 09/02/19 Unknown History busPIRone [Buspar] 5 mg PO BID 09/02/19 09/02/19 Unknown History Active Meds: Active Medications Acetaminophen (Tylenol) 650 mg PO Q4H PRN PRN Reason: Pain MILD(1-3)/Fever >100.5/ROSAS Last Admin: 09/03/19 09:01 Dose: 650 mg Documented by: Buspirone HCl (Buspar) 5 mg PO BID [facility] Enoxaparin Sodium (Enoxaparin) 40 mg SUB-Q QDAY [facility] Gabapentin (Gabapentin) 300 mg PO BID [facility] Sodium Chloride (Nacl 0.9% 1000 Ml) 1,000 mls @ 150 mls/hr IV DIRECT [facility] Last Admin: 09/03/19 05:00 Dose: 150 mls/hr Documented by: Ondansetron HCl (Zofran) 4 mg IV Q8H PRN PRN Reason: Nausea And Vomiting Oxycodone/Acetaminophen (Percocet 5/325) 1 tab PO Q4H PRN PRN Reason: Pain, Moderate (4-6) Last Admin: 09/03/19 04:35 Dose: 1 tab Documented by: Quetiapine Fumarate (Seroquel) 25 mg PO QHS [facility] Sodium Chloride (Sodium Chloride Flush Syringe 10 Ml) 10 ml IV BID [facility]LO[facility] Sodium Chloride (Sodium Chloride Flush Syringe 10 Ml) 10 ml IV PRN PRN PRN Reason: LINE FLUSH Mental Status Exam - Vital signs Last Vital Signs Temp 97.8 F 09/03/19 07:26 Pulse 62 09/03/19 07:26 Resp 16 09/03/19 07:26 BP 132/79 09/03/19 07:26 Pulse Ox 99 09/03/19 07:26 Results Result Diagrams: 09/03/19 04:53 09/03/19 04:53 Abnormal lab results 09/02/19 09/02/19 09/03/19 Range/Units 20:58 20:58 04:53 WBC 3.9 L (4.5-11.0) K/mm3 MCV 98 H 98 H (84-94) fl MCH 33 H 33 H (28-32) pg [place] % (Auto) 8.4 H 10.2 H (0.0-7.3) % Eos % (Auto) 5.6 H (0.0-4.3) % Lymph # 1.1 L (1.2-5.4) K/mm3 Sodium 136 L (137-145) mmol/L Carbon Dioxide 16 L (22-30) mmol/L BUN (9-20) mg/dL Glucose 114 H (75-100) mg/dL 09/03/19 Range/Units 04:53 WBC (4.5-11.0) K/mm3 MCV (84-94) fl MCH (28-32) pg [place] % (Auto) (0.0-7.3) % Eos % (Auto) (0.0-4.3) % Lymph # (1.2-5.4) K/mm3 Sodium (137-145) mmol/L Carbon Dioxide (22-30) mmol/L BUN 22 H (9-20) mg/dL Glucose (75-100) mg/dL All other labs normal. Assessment and Plan - Psychiatric problem (1) Bipolar 1 disorder, depressed, severe Current Visit: Yes Status: Acute (2) Alcohol use disorder, severe, dependence Current Visit: Yes Status: Acute
[2019-09-03] MEDS ORDERED: METOPROLOL TARTRATE 50 MG TAB PO SCH (10:00)
[2019-09-03] MEDS ORDERED: LISINOPRIL 10 MG TAB PO SCH (10:00)
[2019-09-03] MEDS: busPIRone 5 MG TAB PO SCH ×2 (10:08→22:17)
[2019-09-03] MEDS: ENOXAPARIN 40 MG/0.4 ML INJ SUB-Q SCH (10:09)
[2019-09-03] MEDS: GABAPENTIN 300 MG CAP PO SCH ×2 (10:09→22:17)
--- NOTE | 2019-09-03 10:34 | Consultation ---
History of Present Illness Consult date: 09/03/19 Requesting physician: JOHNNY MCINTOSH Consult reason: chest pain History of present illness: The pt is a is a 63 YO male with a past medical history of hypertension, chronic back pain s/p multiple surgeries, testicular cancer, depression, anxiety, suicidal ideation, tobacco use. He has been seen by our practice on prior admissions. He presented with c/o suicidal ideation and chest pain. He states that his chest pain began yesterday while he was sitting at home. He describes the pain as a left sided soreness which radiates into his upper back. The pain is aggravated by coughing and deep inspiration. Pt denies any SOB, palpitations, n/v, diaphoresis, dizziness or syncope. Pt reports that he underwent LHC at [facility] 8 months ago and was told this test was normal. Lexiscan MPI stress test done on 06/02/2019 which was negative, EF 51%. LHC in 2016 showed normal coronaries. Echo done 06/01/2019 showed EF 35-40%, mod LVH, impaired relaxation, trace AR, MR and TR, RVSP 37mmHg, mild dilatation of the ascending aorta. Past History Past Medical History: other (as per HPI) Medications and Allergies Allergies Allergy/AdvReac Type Severity Reaction Status Date / Time ketorolac tromethamine Allergy Rash Verified 02/01/17 12:29 [From Toradol] Home Medications Medication Instructions Recorded Confirmed Last Taken Type lisinopriL [Zestril TAB] 10 mg PO DAILY #30 06/04/19 09/02/19 Unknown Rx QUEtiapine [SEROquel] 25 mg PO QHS #30 tablet 08/13/19 09/02/19 Unknown Rx Buprenorphine HCl/Naloxone HCl 1 film SL QDAY 09/02/19 09/02/19 Unknown History [Suboxone 4 mg-1 mg SL Film] Gabapentin 300 mg PO BID 09/02/19 09/02/19 Unknown History Metoprolol [Lopressor TAB] 10 mg PO DAILY 09/02/19 09/02/19 Unknown History busPIRone [Buspar] 5 mg PO BID 09/02/19 09/02/19 Unknown History Active Meds: Active Medications Acetaminophen (Tylenol) 650 mg PO Q4H PRN PRN Reason: Pain MILD(1-3)/Fever >100.5/ROSAS Last Admin: 09/03/19 09:01 Dose: 650 mg Documented by: Buspirone HCl (Buspar) 5 mg PO BID [facility] Last Admin: 09/03/19 10:08 Dose: 5 mg Documented by: Enoxaparin Sodium (Enoxaparin) 40 mg SUB-Q QDAY [facility] Last Admin: 09/03/19 10:09 Dose: 40 mg Documented by: Gabapentin (Gabapentin) 300 mg PO BID [facility] Last Admin: 09/03/19 10:09 Dose: 300 mg Documented by: Ondansetron HCl (Zofran) 4 mg IV Q8H PRN PRN Reason: Nausea And Vomiting Oxycodone/Acetaminophen (Percocet 5/325) 1 tab PO Q4H PRN PRN Reason: Pain, Moderate (4-6) Last Admin: 09/03/19 10:09 Dose: 1 tab Documented by: Quetiapine Fumarate (Seroquel) 25 mg PO QHS [facility] Sodium Chloride (Sodium Chloride Flush Syringe 10 Ml) 10 ml IV BID [facility] Last Admin: 09/03/19 10:09 Dose: 10 ml Documented by: Sodium Chloride (Sodium Chloride Flush Syringe 10 Ml) 10 ml IV PRN PRN PRN Reason: LINE FLUSH Review of Systems Constitutional: no weight loss, no weight gain, no fever, no chills, no sweats Ears, nose, mouth and throat: no ear pain, no nose pain, no sinus pressure, no sinus pain Cardiovascular: chest pain, no orthopnea, no palpitations, no rapid/irregular heart beat, no edema, no syncope, no lightheadedness, no shortness of breath, no dyspnea on exertion, no high blood pressure Respiratory: pain on inspiration, no shortness of breath, no dyspnea on exertion, no congestion, no wheezing Gastrointestinal: no abdominal pain, no nausea, no vomiting, no diarrhea, no constipation, no change in bowel habits Genitourinary Male: no dysuria, no hematuria, no flank pain, no discharge, no urinary frequency, no urinary hesitancy Musculoskeletal: no neck stiffness, no neck pain, no shooting arm pain, no arm numbness/tingling, no low back pain, no shooting leg pain Integumentary: no rash, no pruritis, no redness, no sores, no wounds Neurological: no head injury, no paralysis, no weakness, no parathesias, no numbness, no tingling, no seizures, no syncope Psychiatric: no anxiety Endocrine: no cold intolerance, no heat intolerance Hematologic/Lymphatic: no easy bruising, no easy bleeding Allergic/Immunologic: no urticaria Physical Examination Vital Signs Temp Pulse Resp BP Pulse Ox 98.3 F 63 16 107/51 97 09/02/19 20:26 09/02/19 20:26 09/02/19 20:26 09/02/19 20:26 09/02/19 20:26 General appearance: no acute distress HEENT: Positive: PERRL, Normocephaly, Mucus Membranes Moist Neck: Positive: neck supple, trachea midline Cardiac: Positive: Reg Rate and Rhythm, S1/S2 Lungs: Positive: Decreased Breath Sounds Neuro: Positive: Grossly Intact Abdomen: Negative: Tender Male genitourinary: Negative: tender Musculoskeletal: No Pain Extremities: Absent: edema Results 09/03/19 04:53 09/03/19 04:53 CBC 09/02/19 09/03/19 Range/Units 20:58 04:53 WBC 5.2 3.9 L (4.5-11.0) K/mm3 RBC 4.16 3.99 (3.65-5.03) M/mm3 Hgb 13.7 13.3 (11.8-15.2) gm/dl Hct 40.6 39.1 (35.5-45.6) % Plt Count 200 166 (140-440) K/mm3 Lymph # 1.1 L 1.2 (1.2-5.4) K/mm3 [place] # 0.4 0.4 (0.0-0.8) K/mm3 Eos # 0.2 0.2 (0.0-0.4) K/mm3 Baso # 0.0 0.0 (0.0-0.1) K/mm3 Comprehensive Metabolic Panel 09/02/19 09/03/19 Range/Units 20:58 04:53 Sodium 136 L 138 (137-145) mmol/L Potassium 4.2 4.5 (3.6-5.0) mmol/L Chloride 99.4 101.1 (98-107) mmol/L Carbon Dioxide 16 L 22 (22-30) mmol/L BUN 19 22 H (9-20) mg/dL Creatinine 1.0 1.0 (0.8-1.5) mg/dL Glucose 114 H 97 (75-100) mg/dL Calcium 9.2 8.9 (8.4-10.2) mg/dL - Imaging and Cardiology Echo: report reviewed (06/01/2019 showed EF 35-40%, mod LVH, impaired relaxation, trace AR, MR and TR, RVSP 37mmHg, mild dilatation of the ascending aorta. ) Cardiac cath: report reviewed (2016 showed normal coronaries. ) EKG: report reviewed, image reviewed EKG interpretations - Telemetry EKG Rhythm: Sinus Rhythm - EKG Sinus rhythms and dysrhythmias: sinus rhythm Assessment and Plan Chest pain appears atypical with pleuritic features. AMI ruled out. S/p lexiscan MPI stress test on 06/02/2019 which was negative, EF 51%. LHC in 2016 showed normal coronaries. Echo done 06/01/2019 showed EF 35-40%, mod LVH, impaired relaxation, trace AR, MR and TR, RVSP 37mmHg, mild dilatation of the ascending aorta. Pt reports that he underwent LHC at [facility] 8 months ago and was told this test was normal. Will attempt to obtain [place] cath report. No plans for additional cardiac w/u at this time. Management of psych issues per psych team. The patient has been seen in conjunction with Dr. Muhammad who agrees with the assessment and plan of care. - Patient Problems (1) Chest pain Current Visit: Yes Status: Acute (2) Suicidal ideations Current Visit: Yes Status: Acute (3) HTN (hypertension) Current Visit: Yes Status: Chronic (4) Tobacco use Current Visit: Yes Status: Chronic (5) History of testicular cancer Current Visit: Yes Status: Chronic
[2019-09-03] MEDS: THIAMINE 100 MG TAB PO SCH (13:00)
[2019-09-03] MEDS: DIVALPROEX DR 250 MG TAB PO SCH ×2 (14:22→20:25)
[2019-09-03] MEDS ORDERED: QUEtiapine 25 MG TAB PO SCH (22:00)
[2019-09-03] MEDS: QUEtiapine 25 MG TAB PO SCH (22:21)
[2019-09-04] MEDS: oxyCODONE /ACETAMINOPHEN 5-325MG TAB PO PRN ×4 (02:59→20:42)
[2019-09-04] MEDS: DIVALPROEX DR 250 MG TAB PO SCH ×3 (09:47→20:44)
[2019-09-04] MEDS: busPIRone 5 MG TAB PO SCH ×3 (09:47→22:24)
[2019-09-04] MEDS: ENOXAPARIN 40 MG/0.4 ML INJ SUB-Q SCH (09:48)
[2019-09-04] MEDS: GABAPENTIN 300 MG CAP PO SCH ×3 (09:48→22:24)
[2019-09-04] MEDS: THIAMINE 100 MG TAB PO SCH (09:48)
--- NOTE | 2019-09-04 10:03 | Progress Note ---
Assessment and Plan Chest pain appears atypical with pleuritic features. AMI ruled out. S/p lexiscan MPI stress test on 06/02/2019 which was negative, EF 51%. LHC in 2016 showed normal coronaries. Echo done 06/01/2019 showed EF 35-40%, mod LVH, impaired relaxation, trace AR, MR and TR, RVSP 37mmHg, mild dilatation of the ascending aorta. Pt reports that he underwent LHC at [facility] 8 months ago and was told this test was normal. [place] cath report has been requested. No plans for additional cardiac w/u at this time. Will follow as OP. Management of psych issues per psych team. Pt may discharge from cardiology standpoint. Recommend follow up in our office with Dr. Muhammad within 1 month ([phone]). The patient has been seen in conjunction with Dr. Muhammad who agrees with the assessment and plan of care. - Patient Problems (1) Chest pain Current Visit: Yes Status: Acute (2) Suicidal ideations Current Visit: Yes Status: Acute (3) HTN (hypertension) Current Visit: Yes Status: Chronic (4) Tobacco use Current Visit: Yes Status: Chronic (5) History of testicular cancer Current Visit: Yes Status: Chronic Subjective Date of service: 09/04/19 Principal diagnosis: cp; SI Interval history: pt resting in bed, had some intermittent reproducible chest pain overnight. in SR on tele. Objective Last Vital Signs Temp 97.7 F 09/04/19 07:13 Pulse 57 L 09/04/19 07:13 Resp 22 09/04/19 07:13 BP 108/66 09/04/19 07:13 Pulse Ox 97 09/04/19 07:13 - Physical Examination General: No Apparent Distress HEENT: Positive: PERRL, Normocephaly, Mucus Membranes Moist Neck: Positive: neck supple, trachea midline Cardiac: Positive: Reg Rate and Rhythm, S1/S2 Lungs: Positive: Decreased Breath Sounds Neuro: Positive: Grossly Intact Abdomen: Negative: Tender Musculoskeletal: No Pain Extremities: Absent: edema - Imaging and Cardiology EKG: report reviewed, image reviewed Echo: report reviewed (06/01/2019 showed EF 35-40%, mod LVH, impaired relaxation, trace AR, MR and TR, RVSP 37mmHg, mild dilatation of the ascending aorta. ) Cardiac cath: report reviewed (2015 showed normal coronaries. ) - Telemetry EKG Rhythm: Sinus Rhythm - EKG Sinus rhythms and dysrhythmias: sinus rhythm
--- NOTE | 2019-09-04 14:18 | Progress Note ---
Subjective - Reason for Consult Consult date: 09/04/19 Reason for consult: Psych follow up - Chief Complaint Chief complaint: Depressed and suicidal SUBJECTIVE The patient continues to report feeling depressed and suicidal. He did not sleep well last night ROS: Constitutional: Negative for weight loss ENT: Negative for stridor Respiratory: Negative for cough or hemoptysis All other systems reviewed and are negative MENTAL STATUS General Appearance and Behavior: age appropriate, good eye contact, cooperative with questioning and polite Cooperation: Cooperative Psychomotor Behavior: within normal limits Mood: depressed Affect and affective range: Congruent with stated mood Thought Process: Fluent/Logical and Goal-directed Thought Content: Within reality Speech: Normal volume and Regular rate and rhythm Intellectual Functioning Average Suicidal Ideation: Yes Homicidal Ideation: Denies HI Impulse Control: intact Insight and Judgment: normal insight and judgment Memory: Normal Attention: Normal Orientation: alert and oriented - Psychiatric problem (1) Bipolar 1 disorder, depressed, severe Current Visit: Yes Status: Acute (2) Alcohol use disorder, severe, dependence Current Visit: Yes Status: Acute RECOMMENDATIONS MEDICATIONS: Continue Depakote 250mg tid for bipolar and possible alcohol withdrawal Start Remeron 15mg qhs for insomnia, mood and appetite Risks, benefits and alternatives of medications discussed with the patient, questions answered and consent obtained from patient. 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 I have reviewed this treatment plan, including potential risks and benefits of medications, with the patient and/or family members and relevant hospital providers. Please contact with any questions and/or concerns. Mental Status Exam - Vital signs Last Vital Signs Temp 96.6 F L 09/04/19 12:01 Pulse 46 L 09/04/19 12:01 Resp 22 09/04/19 12:01 BP 118/75 09/04/19 12:01 Pulse Ox 96 09/04/19 12:01 Assessment and Plan - Patient Problems (1) Bipolar 1 disorder, depressed, severe Current Visit: Yes Status: Acute (2) Alcohol use disorder, severe, dependence Current Visit: Yes Status: Acute
--- NOTE | 2019-09-04 15:27 | Progress Note ---
Assessment and Plan Assessment and plan: Patient is a 63-year-old man with a history of hypertension, hyperlipidemia, CAD, depression, bipolar comes to the emergency room with complaints of chest pain. * pCXR Impression: No acute finding Chest pain/Coronary artery disease Check cardiac enzymes, consult cardiology stress test done in 2019-, stated he had a cath done [address] [place] which was abnormal Suicide ideation/depression/bipolar Continue with 1013, consult psych, outpatient medications Hypertension Patient normotensive, start IV fluids DVT prophylaxis reviewed 09/03/19: d/w Cardiology, await Psych evaluation, patient says he still has SI, continue 1013 and precautions 09/04/19: He still endorsed SI, awaiting Psych placement History Interval history: Patient was seen and examined. Follow-up on current diagnosis of CP, SI. Overnight uneventful as no events directly reported to me. Patient denies any shortness breath, nausea/vomiting or severe headaches. Imaging, nursing note, chart, labs and old chart reviewed. Discussed with patient. Hospitalist Physical - Physical exam Narrative exam: Gen: WDWN, NAD, Awake, Alert, Orientated HEENT: NCAT, EOMI, PERRL, OP Clear Neck: supple, no adenopathy, no thyromegaly, no JVD CVS/Heart: RRR, normal S1S2, pulses present bilaterally Chest/Lungs: CTA B, Symmetrical chest expansion, good air entry bilaterally GI/Abdomen: soft, NTND, good bowel sounds, no guarding or rebound /Bladder: no suprapubic tenderness, no CVA or paraspinal tenderness Extermity/Skin: no c/c/e, no obvious rash MSK: FROM x 4 Neuro: CN 2-12 grossly intact, no new focal deficits Psych: calm - Constitutional Vitals: Temp Pulse Resp BP Pulse Ox 96.6 F L 46 L 22 118/75 96 09/04/19 12:01 09/04/19 12:01 09/04/19 12:01 09/04/19 12:09/04/19 12:01 General appearance: Present: no acute distress JAIMIE score - Jaimie Score Age > 65: (0) No Aspirin use within the Past 7 Days: (0) No 3 or more CAD Risk Factors: (1) Yes 2 or more Angina events in past 24 hrs: (1) Yes Known CAD with more than 50% Stenosis: (0) No Elevated Cardiac Markers: (0) No ST Deviation Greater than 0.5mm: (0) No JAIMIE Score: 2 Results - Labs CBC & Chem 7: 09/03/19 04:53 09/03/19 04:53 Labs: Laboratory Last Values WBC 3.9 K/mm3 (4.5-11.0) L 09/03/19 04:53 RBC 3.99 M/mm3 (3.65-5.03) 09/03/19 04:53 Hgb 13.3 gm/dl (11.8-15.2) 09/03/19 04:53 Hct 39.1 % (35.5-45.6) 09/03/19 04:53 MCV 98 fl (84-94) H 09/03/19 04:53 MCH 33 pg (28-32) H 09/03/19 04:53 MCHC 34 % (32-34) 09/03/19 04:53 RDW 13.3 % (13.2-15.2) 09/03/19 04:53 Plt Count 166 K/mm3 (140-440) 09/03/19 04:53 Lymph % (Auto) 29.6 % (13.4-35.0) 09/03/19 04:53 [place] % (Auto) 10.2 % (0.0-7.3) H 09/03/19 04:53 Eos % (Auto) 5.6 % (0.0-4.3) H 09/03/19 04:53 Baso % (Auto) 0.4 % (0.0-1.8) 09/03/19 04:53 Lymph # 1.2 K/mm3 (1.2-5.4) 09/03/19 04:53 [place] # 0.4 K/mm3 (0.0-0.8) 09/03/19 04:53 Eos # 0.2 K/mm3 (0.0-0.4) 09/03/19 04:53 Baso # 0.0 K/mm3 (0.0-0.1) 09/03/19 04:53 Seg Neutrophils % 54.2 % (40.0-70.0) 09/03/19 04:53 Seg Neutrophils # 2.1 K/mm3 (1.8-7.7) 09/03/19 04:53 Sodium 138 mmol/L (137-145) 09/03/19 04:53 Potassium 4.5 mmol/L (3.6-5.0) 09/03/19 04:53 Chloride 101.1 mmol/L (98-107) 09/03/19 04:53 Carbon Dioxide 22 mmol/L (22-30) 09/03/19 04:53 Anion Gap 19 mmol/L 09/03/19 04:53 BUN 22 mg/dL (9-20) H 09/03/19 04:53 Creatinine 1.0 mg/dL (0.8-1.5) 09/03/19 04:53 Estimated GFR > 60 ml/min 09/03/19 04:53 BUN/Creatinine Ratio 22 % 09/03/19 04:53 Glucose 97 mg/dL (75-100) 09/03/19 04:53 Calcium 8.9 mg/dL (8.4-10.2) 09/03/19 04:53 Troponin T < 0.010 ng/mL (0.00-0.029) 09/03/19 04:53 Microbiology: Microbiology 09/03/19 11:00 Nares - Left MRSA Culture - Preliminary Carvajal/IV: Voiding Method Toilet IV Catheter Type [Left INT / Saline Lock Antecubital] Active Medications - Current Medications Current Medications: Generic Name Dose Route Start Last Admin Trade Name Freq PRN Reason Stop Dose Admin Acetaminophen 650 mg 09/03/19 04:32 09/03/19 09:01 Tylenol PO 650 mg Q4H PRN Administration Pain MILD(1-3)/Fever >100.5/ROSAS Buspirone HCl 5 mg 09/03/19 10:00 09/04/19 09:47 Buspar PO 5 mg BID CHLOÉ Administration Divalproex Sodium 250 mg 09/03/19 14:00 09/04/19 14:[address] PO 250 mg TID CHLOÉ Administration Enoxaparin Sodium 40 mg 09/03/19 10:00 09/04/19 09:48 Enoxaparin SUB-Q 40 mg QDAY CHLOÉ Administration Gabapentin 300 mg 09/03/19 10:00 09/04/19 09:48 Gabapentin PO 300 mg BID CHLOÉ Administration Mirtazapine 15 mg 09/04/19 22:00 Remeron PO QHS CHLOÉ Ondansetron HCl 4 mg 09/03/19 04:32 Zofran IV Q8H PRN Nausea And Vomiting Oxycodone/Acetaminophen 1 tab 09/03/19 04:28 09/04/19 14:43 Percocet 5/325 PO 1 tab Q4H PRN Administration Pain, Moderate (4-6) Quetiapine Fumarate 100 mg 09/03/19 22:00 09/03/19 22:21 Seroquel PO 100 mg QHS CHLOÉ Administration Sodium Chloride 10 ml 09/03/19 10:00 09/04/19 09:49 Sodium Chloride Flush Syringe 10 Ml IV 10 ml BID CHLOÉ Administration Sodium Chloride 10 ml 09/03/19 04:32 Sodium Chloride Flush Syringe 10 Ml IV PRN PRN LINE FLUSH Thiamine HCl 100 mg 09/03/19 13:00 09/04/19 09:48 Vitamin B-1 PO 100 mg QDAY CHLOÉ Administration
[2019-09-04] MEDS: QUEtiapine 25 MG TAB PO SCH ×2 (20:43→22:24)
[2019-09-04] MEDS: MIRTAZAPINE 15 MG TAB PO SCH ×2 (20:44→22:24)
[2019-09-05] MEDS: oxyCODONE /ACETAMINOPHEN 5-325MG TAB PO PRN ×3 (02:06→20:08)
[2019-09-05] MEDS: GABAPENTIN 300 MG CAP PO SCH ×2 (09:13→22:11)
[2019-09-05] MEDS: busPIRone 5 MG TAB PO SCH ×2 (09:13→22:11)
[2019-09-05] MEDS: DIVALPROEX DR 250 MG TAB PO SCH ×3 (09:14→20:08)
[2019-09-05] MEDS: ENOXAPARIN 40 MG/0.4 ML INJ SUB-Q SCH (09:14)
[2019-09-05] MEDS: THIAMINE 100 MG TAB PO SCH (09:14)
--- NOTE | 2019-09-05 11:03 | Progress Note ---
Subjective - Reason for Consult Consult date: 09/05/19 Reason for consult: Psych follow up - Chief Complaint Chief complaint: Depressed and suicidal SUBJECTIVE The patient continues to report feeling depressed and suicidal. ROS: Constitutional: Negative for weight loss ENT: Negative for stridor Respiratory: Negative for cough or hemoptysis All other systems reviewed and are negative MENTAL STATUS General Appearance and Behavior: age appropriate, good eye contact, cooperative with questioning and polite Cooperation: Cooperative Psychomotor Behavior: within normal limits Mood: depressed Affect and affective range: Congruent with stated mood Thought Process: Fluent/Logical and Goal-directed Thought Content: Within reality Speech: Normal volume and Regular rate and rhythm Intellectual Functioning Average Suicidal Ideation: Yes Homicidal Ideation: Denies HI Impulse Control: intact Insight and Judgment: normal insight and judgment Memory: Normal Attention: Normal Orientation: alert and oriented - Psychiatric problem (1) Bipolar 1 disorder, depressed, severe Current Visit: Yes Status: Acute (2) Alcohol use disorder, severe, dependence Current Visit: Yes Status: Acute RECOMMENDATIONS MEDICATIONS: Increase Depakote to 500mg tid for bipolar and possible alcohol withdrawal Continue Remeron 15mg qhs for insomnia, mood and appetite Risks, benefits and alternatives of medications discussed with the patient, questions answered and consent obtained from patient. 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 I have reviewed this treatment plan, including potential risks and benefits of medications, with the patient and/or family members and relevant hospital providers. Please contact with any questions and/or concerns. Mental Status Exam - Vital signs Last Vital Signs Temp 97.9 F 09/05/19 07:50 Pulse 56 L 09/05/19 07:50 Resp 18 09/05/19 07:50 BP 109/50 09/05/19 07:50 Pulse Ox 94 09/05/19 07:50 Assessment and Plan - Patient Problems (1) Bipolar 1 disorder, depressed, severe Current Visit: Yes Status: Acute (2) Alcohol use disorder, severe, dependence Current Visit: Yes Status: Acute
--- NOTE | 2019-09-05 11:27 | Progress Note ---
Assessment and Plan Assessment and plan: Patient is a 63-year-old man with a history of hypertension, hyperlipidemia, CAD, depression, bipolar comes to the emergency room with complaints of chest pain. * pCXR Impression: No acute finding Chest pain/Coronary artery disease Check cardiac enzymes, consult cardiology stress test done in 2019-, stated he had a cath done 8 months ago at [facility] which was abnormal Suicide ideation/depression/bipolar Continue with 1013, consult psych, outpatient medications Hypertension Patient normotensive, start IV fluids DVT prophylaxis reviewed 09/03/19: d/w Cardiology, await Psych evaluation, patient says he still has SI, continue 1013 and precautions 09/04/19: He still endorsed SI, awaiting Psych placement 09/05/19: still SI, increase depakote, await psych placement History Interval history: Patient was seen and examined. Follow-up on current diagnosis of CP, SI. Overnight uneventful as no events directly reported to me. Patient denies any shortness breath, nausea/vomiting or severe headaches. Imaging, nursing note, chart, labs and old chart reviewed. Discussed with patient. Hospitalist Physical - Physical exam Narrative exam: Gen: WDWN, NAD, Awake, Alert, Orientated HEENT: NCAT, EOMI, PERRL, OP Clear Neck: supple, no adenopathy, no thyromegaly, no JVD CVS/Heart: RRR, normal S1S2, pulses present bilaterally Chest/Lungs: CTA B, Symmetrical chest expansion, good air entry bilaterally GI/Abdomen: soft, NTND, good bowel sounds, no guarding or rebound /Bladder: no suprapubic tenderness, no CVA or paraspinal tenderness Extermity/Skin: no c/c/e, no obvious rash MSK: FROM x 4 Neuro: CN 2-12 grossly intact, no new focal deficits Psych: calm - Constitutional Vitals: Temp Pulse Resp BP Pulse Ox 97.9 F 56 L 18 109/50 94 09/05/19 07:50 09/05/19 07:50 09/05/19 07:50 09/05/19 07:50 09/05/19 07:50 General appearance: Present: no acute distress JAIMIE score - Jaimie Score Age > 65: (0) No Aspirin use within the Past 7 Days: (0) No 3 or more CAD Risk Factors: (1) Yes 2 or more Angina events in past 24 hrs: (1) Yes Known CAD with more than 50% Stenosis: (0) No Elevated Cardiac Markers: (0) No ST Deviation Greater than 0.5mm: (0) No JAIMIE Score: 2 Results - Labs CBC & Chem 7: 09/03/19 04:53 09/03/19 04:53 Labs: Laboratory Last Values WBC 3.9 K/mm3 (4.5-11.0) L 09/03/19 04:53 RBC 3.99 M/mm3 (3.65-5.03) 09/03/19 04:53 Hgb 13.3 gm/dl (11.8-15.2) 09/03/19 04:53 Hct 39.1 % (35.5-45.6) 09/03/19 04:53 MCV 98 fl (84-94) H 09/03/19 04:53 MCH 33 pg (28-32) H 09/03/19 04:53 MCHC 34 % (32-34) 09/03/19 04:53 RDW 13.3 % (13.2-15.2) 09/03/19 04:53 Plt Count 166 K/mm3 (140-440) 09/03/19 04:53 Lymph % (Auto) 29.6 % (13.4-35.0) 09/03/19 04:53 [place] % (Auto) 10.2 % (0.0-7.3) H 09/03/19 04:53 Eos % (Auto) 5.6 % (0.0-4.3) H 09/03/19 04:53 Baso % (Auto) 0.4 % (0.0-1.8) 09/03/19 04:53 Lymph # 1.2 K/mm3 (1.2-5.4) 09/03/19 04:53 [place] # 0.4 K/mm3 (0.0-0.8) 09/03/19 04:53 Eos # 0.2 K/mm3 (0.0-0.4) 09/03/19 04:53 Baso # 0.0 K/mm3 (0.0-0.1) 09/03/19 04:53 Seg Neutrophils % 54.2 % (40.0-70.0) 09/03/19 04:53 Seg Neutrophils # 2.1 K/mm3 (1.8-7.7) 09/03/19 04:53 Sodium 138 mmol/L (137-145) 09/03/19 04:53 Potassium 4.5 mmol/L (3.6-5.0) 09/03/19 04:53 Chloride 101.1 mmol/L (98-107) 09/03/19 04:53 Carbon Dioxide 22 mmol/L (22-30) 09/03/19 04:53 Anion Gap 19 mmol/L 09/03/19 04:53 BUN 22 mg/dL (9-20) H 09/03/19 04:53 Creatinine 1.0 mg/dL (0.8-1.5) 09/03/19 04:53 Estimated GFR > 60 ml/min 09/03/19 04:53 BUN/Creatinine Ratio 22 % 09/03/19 04:53 Glucose 97 mg/dL (75-100) 09/03/19 04:53 Calcium 8.9 mg/dL (8.4-10.2) 09/03/19 04:53 Troponin T < 0.010 ng/mL (0.00-0.029) 09/03/19 04:53 Microbiology: Microbiology 09/03/19 11:00 Nares - Left MRSA Culture - Preliminary Carvajal/IV: Voiding Method Toilet IV Catheter Type [Left INT / Saline Lock Antecubital] Active Medications - Current Medications Current Medications: Generic Name Dose Route Start Last Admin Trade Name Freq PRN Reason Stop Dose Admin Acetaminophen 650 mg 09/03/19 04:32 09/03/19 09:01 Tylenol PO 650 mg Q4H PRN Administration Pain MILD(1-3)/Fever >100.5/ROSAS Buspirone HCl 5 mg 09/03/19 10:00 09/05/19 09:13 Buspar PO 5 mg BID CHLOÉ Administration Divalproex Sodium 500 mg 09/05/19 11:[address] PO TID CHLOÉ Enoxaparin Sodium 40 mg 09/03/19 10:00 09/05/19 09:14 Enoxaparin SUB-Q 40 mg QDAY CHLOÉ Administration Gabapentin 300 mg 09/03/19 10:00 09/05/19 09:13 Gabapentin PO 300 mg BID CHLOÉ Administration Mirtazapine 15 mg 09/04/19 22:00 09/04/19 22:24 Remeron PO Not Given QHS CHLOÉ Ondansetron HCl 4 mg 09/03/19 04:32 Zofran IV Q8H PRN Nausea And Vomiting Oxycodone/Acetaminophen 1 tab 09/03/19 04:28 09/05/19 09:14 Percocet 5/325 PO 1 tab Q4H PRN Administration Pain, Moderate (4-6) Quetiapine Fumarate 100 mg 09/03/19 22:00 09/04/19 22:24 Seroquel PO Not Given QHS CHLOÉ Sodium Chloride 10 ml 09/03/19 10:00 09/04/19 22:25 Sodium Chloride Flush Syringe 10 Ml IV Not Given BID CHLOÉ Sodium Chloride 10 ml 09/03/19 04:32 Sodium Chloride Flush Syringe 10 Ml IV PRN PRN LINE FLUSH Thiamine HCl 100 mg 09/03/19 13:00 09/05/19 09:14 Vitamin B-1 PO 100 mg QDAY CHLOÉ Administration
[2019-09-05] MEDS: QUEtiapine 25 MG TAB PO SCH (22:10)
[2019-09-05] MEDS: MIRTAZAPINE 15 MG TAB PO SCH (22:11)
--- NOTE | 2019-09-06 09:19 | Progress Note ---
Subjective - Reason for Consult Consult date: 09/06/19 Reason for consult: Psych follow up - Chief Complaint Chief complaint: Depressed and suicidal SUBJECTIVE Patient reports no improvement. Still depressed and suicidal. ROS: Constitutional: Negative for weight loss ENT: Negative for stridor Respiratory: Negative for cough or hemoptysis All other systems reviewed and are negative MENTAL STATUS General Appearance and Behavior: age appropriate, good eye contact, cooperative with questioning and polite Cooperation: Cooperative Psychomotor Behavior: within normal limits Mood: depressed Affect and affective range: Congruent with stated mood Thought Process: Fluent/Logical and Goal-directed Thought Content: Within reality Speech: Normal volume and Regular rate and rhythm Intellectual Functioning Average Suicidal Ideation: Yes Homicidal Ideation: Denies HI Impulse Control: intact Insight and Judgment: normal insight and judgment Memory: Normal Attention: Normal Orientation: alert and oriented - Psychiatric problem (1) Bipolar 1 disorder, depressed, severe Current Visit: Yes Status: Acute (2) Alcohol use disorder, severe, dependence Current Visit: Yes Status: Acute RECOMMENDATIONS MEDICATIONS: Continue Depakote 500mg tid for bipolar Continue Remeron 15mg qhs for insomnia, mood and appetite Risks, benefits and alternatives of medications discussed with the patient, questions answered and consent obtained from patient. 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 I have reviewed this treatment plan, including potential risks and benefits of medications, with the patient and/or family members and relevant hospital providers. Please contact with any questions and/or concerns. Mental Status Exam - Vital signs Last Vital Signs Temp 97.5 F L 09/06/19 05:05 Pulse 72 09/06/19 05:05 Resp 16 09/06/19 05:05 BP 106/75 09/06/19 05:05 Pulse Ox 94 09/06/19 05:05 Assessment and Plan - Patient Problems (1) Bipolar 1 disorder, depressed, severe Current Visit: Yes Status: Acute (2) Alcohol use disorder, severe, dependence Current Visit: Yes Status: Acute
[2019-09-06] MEDS: busPIRone 5 MG TAB PO SCH ×2 (09:42→22:50)
[2019-09-06] MEDS: GABAPENTIN 300 MG CAP PO SCH ×2 (09:44→22:49)
[2019-09-06] MEDS: oxyCODONE /ACETAMINOPHEN 5-325MG TAB PO PRN ×3 (09:45→20:40)
[2019-09-06] MEDS: THIAMINE 100 MG TAB PO SCH (09:45)
[2019-09-06] MEDS: DIVALPROEX DR 250 MG TAB PO SCH ×3 (09:45→22:56)
[2019-09-06] MEDS: ENOXAPARIN 40 MG/0.4 ML INJ SUB-Q SCH (09:46)
--- NOTE | 2019-09-06 13:04 | Progress Note ---
Assessment and Plan Assessment and plan: Patient is a 63-year-old man with a history of hypertension, hyperlipidemia, CAD, depression, bipolar comes to the emergency room with complaints of chest pain. * pCXR Impression: No acute finding Chest pain/Coronary artery disease Check cardiac enzymes, consult cardiology stress test done in 2019-, stated he had a cath done 8 months ago at [facility] which was abnormal Suicide ideation/depression/bipolar Continue with 1013, consult psych, outpatient medications Hypertension Patient normotensive, start IV fluids DVT prophylaxis reviewed 09/03/19: d/w Cardiology, await Psych evaluation, patient says he still has SI, continue 1013 and precautions 09/04/19: He still endorsed SI, awaiting Psych placement 09/05/19: still SI, increase depakote, await psych placement : still with SI, wheezing today, start nebs, 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 History Interval history: Patient was seen and examined. Follow-up on current diagnosis of CP, SI. Overnight uneventful as no events directly reported to me. Patient denies any shortness breath, nausea/vomiting or severe headaches. Imaging, nursing note, chart, labs and old chart reviewed. Discussed with patient. Hospitalist Physical - Physical exam Narrative exam: Gen: WDWN, NAD, Awake, Alert, Orientated HEENT: NCAT, EOMI, PERRL, OP Clear Neck: supple, no adenopathy, no thyromegaly, no JVD CVS/Heart: Regular bradycardia, normal S1S2, pulses present bilaterally Chest/Lungs: exp wheezing, Symmetrical chest expansion, good air entry bilaterally, reproducible left chest wall tenderness GI/Abdomen: soft, NTND, good bowel sounds, no guarding or rebound /Bladder: no suprapubic tenderness, no CVA or paraspinal tenderness Extermity/Skin: no c/c/e, no obvious rash MSK: FROM x 4 Neuro: CN 2-12 grossly intact, no new focal deficits Psych: calm - Constitutional Vitals: Temp Pulse Resp BP Pulse Ox 97.7 F 52 L 20 99/66 96 09/06/19 12:55 09/06/19 12:55 09/06/19 12:55 09/06/19 12:55 09/06/19 12:55 General appearance: Present: no acute distress JAIMIE score - Jaimie Score Age > 65: (0) No Aspirin use within the Past 7 Days: (0) No 3 or more CAD Risk Factors: (1) Yes 2 or more Angina events in past 24 hrs: (1) Yes Known CAD with more than 50% Stenosis: (0) No Elevated Cardiac Markers: (0) No ST Deviation Greater than 0.5mm: (0) No JAIMIE Score: 2 Results - Labs CBC & Chem 7: 09/03/19 04:53 09/03/19 04:53 Labs: Laboratory Last Values WBC 3.9 K/mm3 (4.5-11.0) L 09/03/19 04:53 RBC 3.99 M/mm3 (3.65-5.03) 09/03/19 04:53 Hgb 13.3 gm/dl (11.8-15.2) 09/03/19 04:53 Hct 39.1 % (35.5-45.6) 09/03/19 04:53 MCV 98 fl (84-94) H 09/03/19 04:53 MCH 33 pg (28-32) H 09/03/19 04:53 MCHC 34 % (32-34) 09/03/19 04:53 RDW 13.3 % (13.2-15.2) 09/03/19 04:53 Plt Count 166 K/mm3 (140-440) 09/03/19 04:53 Lymph % (Auto) 29.6 % (13.4-35.0) 09/03/19 04:53 [place] % (Auto) 10.2 % (0.0-7.3) H 09/03/19 04:53 Eos % (Auto) 5.6 % (0.0-4.3) H 09/03/19 04:53 Baso % (Auto) 0.4 % (0.0-1.8) 09/03/19 04:53 Lymph # 1.2 K/mm3 (1.2-5.4) 09/03/19 04:53 [place] # 0.4 K/mm3 (0.0-0.8) 09/03/19 04:53 Eos # 0.2 K/mm3 (0.0-0.4) 09/03/19 04:53 Baso # 0.0 K/mm3 (0.0-0.1) 09/03/19 04:53 Seg Neutrophils % 54.2 % (40.0-70.0) 09/03/19 04:53 Seg Neutrophils # 2.1 K/mm3 (1.8-7.7) 09/03/19 04:53 Sodium 138 mmol/L (137-145) 09/03/19 04:53 Potassium 4.5 mmol/L (3.6-5.0) 09/03/19 04:53 Chloride 101.1 mmol/L (98-107) 09/03/19 04:53 Carbon Dioxide 22 mmol/L (22-30) 09/03/19 04:53 Anion Gap 19 mmol/L 09/03/19 04:53 BUN 22 mg/dL (9-20) H 09/03/19 04:53 Creatinine 1.0 mg/dL (0.8-1.5) 09/03/19 04:53 Estimated GFR > 60 ml/min 09/03/19 04:53 BUN/Creatinine Ratio 22 % 09/03/19 04:53 Glucose 97 mg/dL (75-100) 09/03/19 04:53 Calcium 8.9 mg/dL (8.4-10.2) 09/03/19 04:53 Troponin T < 0.010 ng/mL (0.00-0.029) 09/03/19 04:53 Microbiology: Microbiology 09/03/19 11:00 Nares - Left MRSA Culture - Final Carvajal/IV: Voiding Method Toilet IV Catheter Type [Left INT / Saline Lock Antecubital] Active Medications - Current Medications Current Medications: Generic Name Dose Route Start Last Admin Trade Name Govindq PRN Reason Stop Dose Admin Acetaminophen 650 mg 09/03/19 04:32 09/03/19 09:01 Tylenol PO 650 mg Q4H PRN Administration Pain MILD(1-3)/Fever >100.5/ROSAS Buspirone HCl 5 mg 09/03/19 10:00 09/06/19 09:42 Buspar PO 5 mg BID CHLOÉ Administration Divalproex Sodium 500 mg 09/05/19 11:03 09/06/19 09:[address] PO 500 mg TID CHLOÉ Administration Enoxaparin Sodium 40 mg 09/03/19 10:00 09/06/19 09:46 Enoxaparin SUB-Q 40 mg QDAY CHLOÉ Administration Gabapentin 300 mg 09/03/19 10:00 09/06/19 09:44 Gabapentin PO 300 mg BID CHLOÉ Administration Mirtazapine 15 mg 09/04/19 22:00 09/05/19 22:11 Remeron PO 15 mg QHS CHLOÉ Administration Ondansetron HCl 4 mg 09/03/19 04:32 Zofran IV Q8H PRN Nausea And Vomiting Oxycodone/Acetaminophen 1 tab 09/03/19 04:28 09/06/19 09:45 Percocet 5/325 PO 1 tab Q4H PRN Administration Pain, Moderate (4-6) Quetiapine Fumarate 100 mg 09/03/19 22:00 09/05/19 22:10 Seroquel PO 100 mg QHS CHLOÉ Administration Sodium Chloride 10 ml 09/03/19 10:00 09/06/19 09:48 Sodium Chloride Flush Syringe 10 Ml IV 10 ml BID CHLOÉ Administration Sodium Chloride 10 ml 09/03/19 04:32 Sodium Chloride Flush Syringe 10 Ml IV PRN PRN LINE FLUSH Thiamine HCl 100 mg 09/03/19 13:00 09/06/19 09:45 Vitamin B-1 PO 100 mg QDAY CHLOÉ Administration
[2019-09-06] MEDS: IPRATROPIUM/ALBUTEROL SULFATE 3 ML AMPUL.NEB IH SCH ×2 (14:45→19:26)
[2019-09-06] MEDS: NICOTINE 21 MG/24 HR PATCH TD SCH (22:48)
[2019-09-06] MEDS: QUEtiapine 25 MG TAB PO SCH (22:49)
[2019-09-06] MEDS: MIRTAZAPINE 15 MG TAB PO SCH (22:50)
[2019-09-07] MEDS: oxyCODONE /ACETAMINOPHEN 5-325MG TAB PO PRN ×3 (02:39→22:12)
[2019-09-07] MEDS: IPRATROPIUM/ALBUTEROL SULFATE 3 ML AMPUL.NEB IH SCH ×3 (09:01→19:30)
[2019-09-07] MEDS: DIVALPROEX DR 250 MG TAB PO SCH ×3 (10:11→22:18)
[2019-09-07] MEDS: ENOXAPARIN 40 MG/0.4 ML INJ SUB-Q SCH (10:11)
[2019-09-07] MEDS: THIAMINE 100 MG TAB PO SCH (10:11)
[2019-09-07] MEDS: busPIRone 5 MG TAB PO SCH ×2 (10:11→22:11)
[2019-09-07] MEDS: GABAPENTIN 300 MG CAP PO SCH ×2 (10:13→22:12)
--- NOTE | 2019-09-07 10:59 | Progress Note ---
Subjective - Reason for Consult Consult date: 09/07/19 Reason for consult: Psych follow up - Chief Complaint Chief complaint: Feeling better. SUBJECTIVE Patient reports some improvement in his mood. Still depressed and has passive suicidal thoughts. ROS: Constitutional: Negative for weight loss ENT: Negative for stridor Respiratory: Negative for cough or hemoptysis All other systems reviewed and are negative MENTAL STATUS General Appearance and Behavior: age appropriate, good eye contact, cooperative with questioning and polite Cooperation: Cooperative Psychomotor Behavior: within normal limits Mood: depressed Affect and affective range: Congruent with stated mood Thought Process: Fluent/Logical and Goal-directed Thought Content: Within reality Speech: Normal volume and Regular rate and rhythm Intellectual Functioning Average Suicidal Ideation: Passive Homicidal Ideation: Denies HI Impulse Control: intact Insight and Judgment: normal insight and judgment Memory: Normal Attention: Normal Orientation: alert and oriented - Psychiatric problem (1) Bipolar 1 disorder, depressed, severe Current Visit: Yes Status: Acute (2) Alcohol use disorder, severe, dependence Current Visit: Yes Status: Acute RECOMMENDATIONS MEDICATIONS: Continue Depakote 500mg tid for bipolar Continue Remeron 15mg qhs for insomnia, mood and appetite Risks, benefits and alternatives of medications discussed with the patient, questions answered and consent obtained from patient. PSYCHOTHERAPY: Supportive psychotherapy provided MEDICAL: Per primary team DELIRIUM PRECAUTIONS: n/a FIELD TECHNICAL SPECIALIST: Yes DISPOSITION: Acute inpatient psychiatric hospitalization when medically stable LEGAL STATUS: 1013 FOLLOW-UP: Will follow The patient agreed on the treatment plan, understood the risk, benefit, alternative treatment, potential consequence of no treatment, and gave informed consent. I have reviewed this treatment plan, including potential risks and benefits of medications, with the patient and/or family members and relevant hospital providers. Please contact with any questions and/or concerns. Mental Status Exam - Vital signs Last Vital Signs Temp 97.6 F 09/07/19 07:39 Pulse 68 09/07/19 09:02 Resp 18 09/07/19 09:02 BP 98/59 09/07/19 07:39 Pulse Ox 95 09/07/19 07:39 Assessment and Plan - Patient Problems (1) Bipolar 1 disorder, depressed, severe Current Visit: Yes Status: Acute (2) Alcohol use disorder, severe, dependence Current Visit: Yes Status: Acute
--- NOTE | 2019-09-07 12:29 | Progress Note ---
Assessment and Plan Assessment and plan: Patient is a 63-year-old man with a history of hypertension, hyperlipidemia, CAD, depression, bipolar comes to the emergency room with complaints of chest pain. * pCXR Impression: No acute finding Chest pain/Coronary artery disease Check cardiac enzymes, consult cardiology stress test done in 2019-, stated he had a cath done 8 months ago at [place] which was abnormal Suicide ideation/depression/bipolar Continue with 1013, consult psych, outpatient medications Hypertension Patient normotensive, start IV fluids DVT prophylaxis reviewed 09/03/19: d/w Cardiology, await Psych evaluation, patient says he still has SI, continue 1013 and precautions 09/04/19: He still endorsed SI, awaiting Psych placement 09/05/19: still SI, increase depakote, await psych placement 09/06/19: still with SI, wheezing today, start nebs, classification counselor on stop smoking. 09/07/19: Still with SI, Medical stable to go to inpatient psychiatry History Interval history: Patient was seen and examined. Follow-up on current diagnosis of CP, SI. Overnight uneventful as no events directly reported to me. Patient denies any shortness breath, nausea/vomiting or severe headaches. Imaging, nursing note, chart, labs and old chart reviewed. Discussed with patient. Hospitalist Physical - Physical exam Narrative exam: Gen: WDWN, NAD, Awake, Alert, Orientated HEENT: NCAT, EOMI, PERRL, OP Clear Neck: supple, no adenopathy, no thyromegaly, no JVD CVS/Heart: Regular bradycardia, normal S1S2, pulses present bilaterally Chest/Lungs: exp wheezing, Symmetrical chest expansion, good air entry bilaterally, reproducible left chest wall tenderness GI/Abdomen: soft, NTND, good bowel sounds, no guarding or rebound /Bladder: no suprapubic tenderness, no CVA or paraspinal tenderness Extermity/Skin: no c/c/e, no obvious rash MSK: FROM x 4 Neuro: CN 2-12 grossly intact, no new focal deficits Psych: calm - Constitutional Vitals: Temp Pulse Resp BP Pulse Ox 97.6 F 68 18 98/59 95 09/07/19 07:39 09/07/19 09:02 09/07/19 09:02 09/07/19 07:39 09/07/19 07:39 General appearance: Present: no acute distress JAIMIE score - Jaimie Score Age > 65: (0) No Aspirin use within the Past 7 Days: (0) No 3 or more CAD Risk Factors: (1) Yes 2 or more Angina events in past 24 hrs: (1) Yes Known CAD with more than 50% Stenosis: (0) No Elevated Cardiac Markers: (0) No ST Deviation Greater than 0.5mm: (0) No JAIMIE Score: 2 Results - Labs CBC & Chem 7: 09/03/19 04:53 09/03/19 04:53 Labs: Laboratory Last Values WBC 3.9 K/mm3 (4.5-11.0) L 09/03/19 04:53 RBC 3.99 M/mm3 (3.65-5.03) 09/03/19 04:53 Hgb 13.3 gm/dl (11.8-15.2) 09/03/19 04:53 Hct 39.1 % (35.5-45.6) 09/03/19 04:53 MCV 98 fl (84-94) H 09/03/19 04:53 MCH 33 pg (28-32) H 09/03/19 04:53 MCHC 34 % (32-34) 09/03/19 04:53 RDW 13.3 % (13.2-15.2) 09/03/19 04:53 Plt Count 166 K/mm3 (140-440) 09/03/19 04:53 Lymph % (Auto) 29.6 % (13.4-35.0) 09/03/19 04:53 [place] % (Auto) 10.2 % (0.0-7.3) H 09/03/19 04:53 Eos % (Auto) 5.6 % (0.0-4.3) H 09/03/19 04:53 Baso % (Auto) 0.4 % (0.0-1.8) 09/03/19 04:53 Lymph # 1.2 K/mm3 (1.2-5.4) 09/03/19 04:53 [place] # 0.4 K/mm3 (0.0-0.8) 09/03/19 04:53 Eos # 0.2 K/mm3 (0.0-0.4) 09/03/19 04:53 Baso # 0.0 K/mm3 (0.0-0.1) 09/03/19 04:53 Seg Neutrophils % 54.2 % (40.0-70.0) 09/03/19 04:53 Seg Neutrophils # 2.1 K/mm3 (1.8-7.7) 09/03/19 04:53 Sodium 138 mmol/L (137-145) 09/03/19 04:53 Potassium 4.5 mmol/L (3.6-5.0) 09/03/19 04:53 Chloride 101.1 mmol/L (98-107) 09/03/19 04:53 Carbon Dioxide 22 mmol/L (22-30) 09/03/19 04:53 Anion Gap 19 mmol/L 09/03/19 04:53 BUN 22 mg/dL (9-20) H 09/03/19 04:53 Creatinine 1.0 mg/dL (0.8-1.5) 09/03/19 04:53 Estimated GFR > 60 ml/min 09/03/19 04:53 BUN/Creatinine Ratio 22 % 09/03/19 04:53 Glucose 97 mg/dL (75-100) 09/03/19 04:53 Calcium 8.9 mg/dL (8.4-10.2) 09/03/19 04:53 Troponin T < 0.010 ng/mL (0.00-0.029) 09/03/19 04:53 [place]/IV: Voiding Method Toilet IV Catheter Type [Left INT / Saline Lock Antecubital] Active Medications - Current Medications Current Medications: Generic Name Dose Route Start Last Admin Trade Name Govindq PRN Reason Stop Dose Admin Acetaminophen 650 mg 09/03/19 04:32 09/03/19 09:01 Tylenol PO 650 mg Q4H PRN Administration Pain MILD(1-3)/Fever >100.5/ROSAS Albuterol/Ipratropium 1 ampul 09/06/19 14:00 09/07/19 09:01 Duoneb *Not For Prn Use* IH 1 ampul TIDRT CHLOÉ Administration Buspirone HCl 5 mg 09/03/19 10:00 09/07/19 10:11 Buspar PO 5 mg BID CHLOÉ Administration Divalproex Sodium 500 mg 09/05/19 11:03 09/07/19 10:[address] PO 500 mg TID CHLOÉ Administration Enoxaparin Sodium 40 mg 09/03/19 10:00 09/07/19 10:11 Enoxaparin SUB-Q 40 mg QDAY CHLOÉ Administration Gabapentin 300 mg 09/03/19 10:00 09/07/19 10:13 Gabapentin PO 300 mg BID CHLOÉ Administration Mirtazapine 15 mg 09/04/19 22:00 09/06/19 22:50 Remeron PO 15 mg QHS CHLOÉ Administration Nicotine 21 mg 09/06/19 22:03 09/06/19 22:48 Habitrol TD 21 mg QDAY@2200 CHLOÉ Administration Ondansetron HCl 4 mg 09/03/19 04:32 Zofran IV Q8H PRN Nausea And Vomiting Oxycodone/Acetaminophen 1 tab 09/03/19 04:28 09/07/19 02:39 Percocet 5/325 PO 1 tab Q4H PRN Administration Pain, Moderate (4-6) Quetiapine Fumarate 100 mg 09/03/19 22:00 09/06/19 22:49 Seroquel PO 100 mg QHS CHLOÉ Administration Sodium Chloride 10 ml 09/03/19 10:00 09/07/19 10:12 Sodium Chloride Flush Syringe 10 Ml IV 10 ml BID CHLOÉ Administration Sodium Chloride 10 ml 09/03/19 04:32 Sodium Chloride Flush Syringe 10 Ml IV PRN PRN LINE FLUSH Thiamine HCl 100 mg 09/03/19 13:00 09/07/19 10:11 Vitamin B-1 PO 100 mg QDAY CHLOÉ Administration
[2019-09-07] MEDS: QUEtiapine 25 MG TAB PO SCH (22:12)
[2019-09-07] MEDS: MIRTAZAPINE 15 MG TAB PO SCH (22:12)
[2019-09-07] MEDS: NICOTINE 21 MG/24 HR PATCH TD SCH (22:12)
[2019-09-08] MEDS: oxyCODONE /ACETAMINOPHEN 5-325MG TAB PO PRN ×3 (06:29→20:36)
--- NOTE | 2019-09-08 10:36 | Progress Note ---
Subjective - Reason for Consult Consult date: 09/08/19 Reason for consult: Psych follow up - Chief Complaint Chief complaint: I don't have a place to stay SUBJECTIVE Patient reports feeling anxious this morning because he worried about accommodation, states that he has nowhere to stay. Agrees to meet with [employer] to explore his options. He continues to express passive suicidal thoughts. He denies HI/AVH/Paranoia. He denies alcohol withdrawal symptoms and denies craving alcohol. He is compliant with medications and denies side effects. ROS: Constitutional: Negative for weight loss ENT: Negative for stridor Respiratory: Negative for cough or hemoptysis All other systems reviewed and are negative MENTAL STATUS General Appearance and Behavior: age appropriate, good eye contact, cooperative with questioning and polite Cooperation: Cooperative Psychomotor Behavior: within normal limits Mood: Anxious Affect and affective range: Congruent with stated mood Thought Process: Fluent/Logical and Goal-directed Thought Content: Within reality Speech: Normal volume and Regular rate and rhythm Intellectual Functioning Average Suicidal Ideation: Passive SI Homicidal Ideation: Denies HI Impulse Control: intact Insight and Judgment: normal insight and judgment Memory: Normal Attention: Normal Orientation: alert and oriented - Psychiatric problem (1) Bipolar 1 disorder, depressed, severe Current Visit: Yes Status: Acute (2) Alcohol use disorder, severe, dependence Current Visit: Yes Status: Acute RECOMMENDATIONS MEDICATIONS: Continue Depakote 500mg tid for bipolar Continue Remeron 15mg qhs for insomnia, mood and appetite Risks, benefits and alternatives of medications discussed with the patient, questions answered and consent obtained from patient. 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 Please contact with any questions and/or concerns. Mental Status Exam - Vital signs Last Vital Signs Temp 98.6 F 09/08/19 04:45 Pulse 71 09/08/19 04:45 Resp 20 09/08/19 06:29 BP 102/65 09/08/19 04:45 Pulse Ox 93 09/07/19 13:16 Assessment and Plan - Patient Problems (1) Bipolar 1 disorder, depressed, severe Current Visit: Yes Status: Acute (2) Alcohol use disorder, severe, dependence Current Visit: Yes Status: Acute
[2019-09-08] MEDS: IPRATROPIUM/ALBUTEROL SULFATE 3 ML AMPUL.NEB IH SCH ×3 (10:48→23:12)
[2019-09-08] MEDS: ENOXAPARIN 40 MG/0.4 ML INJ SUB-Q SCH (11:33)
[2019-09-08] MEDS: busPIRone 5 MG TAB PO SCH ×2 (11:33→22:03)
[2019-09-08] MEDS: THIAMINE 100 MG TAB PO SCH (11:34)
[2019-09-08] MEDS: GABAPENTIN 300 MG CAP PO SCH ×2 (11:35→22:03)
[2019-09-08] MEDS: DIVALPROEX DR 250 MG TAB PO SCH ×3 (11:53→20:36)
--- NOTE | 2019-09-08 15:04 | Progress Note ---
Assessment and Plan /Chest pain/Coronary artery disease negative cardiac enzymes, consulted cardiology stress test done in 2019 which was negative, Echo done 06/01/2019 showed EF 35- 40%, he had a cath done 8 months ago at [place] which was normal. Medical mx for now /Suicide ideation/depression/bipolar Continue with 1013, consulted psych Continue Depakote 500mg tid for bipolar Continue Remeron 15mg qhs for insomnia, mood and appetite /Hypertension Patient normotensive, /DVT prophylaxis reviewed 09/03/19: d/w Cardiology, await Psych evaluation, patient says he still has SI, continue 1013 and precautions 09/04/19: He still endorsed SI, awaiting Psych placement 09/05/19: still SI, increase depakote, await psych placement 09/06/19: still with SI, wheezing today, start nebs, counselor marriage and family on stop smoking. 09/07/19: Still with SI, Medical stable to go to inpatient psychiatry 09/08/19: Medically stable, need inpatient psych placement Brief History Patient is a 63-year-old man with a history of hypertension, hyperlipidemia, CAD, depression, bipolar comes to the emergency room with complaints of chest pain. pCXR Impression: No acute finding Hospitalist Physical GENERAL: well-developed and well-nourished elderly male lying on bed appeared to be in no discomfort. HEENT: Normocephalic. Atraumatic. No conjunctival congestion or icterus. Patient has moist mucous membranes. NECK: Supple. Trachea midline. CHEST/LUNGS: Clear to auscultated bilaterally, breathing nonlabored. No wheezes crackles or rhonchi. HEART/CARDIOVASCULAR: Regular in rate and rhythm. S1 and S2 positive. ABDOMEN: Abdomen is soft, nontender. Patient has normal bowel sounds. SKIN: There is no rash. Warm and dry. NEURO: No focal motor deficit. Follows command. MUSCULOSKELETAL: No joint effusion or tenderness. EXTRIMITY: No edema, no cyanosis or clubbing. PSYCH: Cooperative. Subjective Date of service: 09/08/19 Principal diagnosis: cp; SI Interval history: Patient seen and examined. Medical records and medication list reviewed. No acute event overnight noted by the RN. Sitter at the bedside Patient denies any chest pain or difficulty breathing. Patient is tolerating diet. Discussed plan of care at bedside with patient. Objective - Constitutional Vitals: Vital Signs - 12hr 09/08/19 09/08/19 04:45 06:29 Temperature 98.6 F Pulse Rate 71 Respiratory 20 Rate Blood Pressure 102/65 [Right] - Labs CBC & Chem 7: 09/03/19 04:53 09/03/19 04:53
[2019-09-08] MEDS: MIRTAZAPINE 15 MG TAB PO SCH (22:03)
[2019-09-08] MEDS: QUEtiapine 25 MG TAB PO SCH (22:03)
[2019-09-08] MEDS: NICOTINE 21 MG/24 HR PATCH TD SCH (22:03)
[2019-09-09] MEDS: oxyCODONE /ACETAMINOPHEN 5-325MG TAB PO PRN ×4 (03:50→17:05)
[2019-09-09 08:08] VITALS: BP 107/69
[2019-09-09] MEDS: DIVALPROEX DR 250 MG TAB PO SCH ×2 (09:00→13:05)
[2019-09-09] MEDS: IPRATROPIUM/ALBUTEROL SULFATE 3 ML AMPUL.NEB IH SCH ×2 (09:00→14:35)
[2019-09-09] MEDS: busPIRone 5 MG TAB PO SCH (09:04)
[2019-09-09] MEDS: GABAPENTIN 300 MG CAP PO SCH (09:04)
[2019-09-09] MEDS: ENOXAPARIN 40 MG/0.4 ML INJ SUB-Q SCH (09:05)
[2019-09-09] MEDS: THIAMINE 100 MG TAB PO SCH (09:06)
--- NOTE | 2019-09-09 09:54 | Progress Note ---
Subjective - Reason for Consult Consult date: 09/09/19 Reason for consult: Psych follow up - Chief Complaint Chief complaint: I still don't have a place to stay SUBJECTIVE Patient wants to stay in the hospital or be transferred to another facility because he is homeless. He is eating very well, sleeps through the night, does not appear in anyway to be depressed but continues to express suicidal thoughts. He denies HI/AVH/Paranoia. He denies alcohol withdrawal symptoms and denies craving alcohol. He is compliant with medications and denies side effects. ROS: Constitutional: Negative for weight loss ENT: Negative for stridor Respiratory: Negative for cough or hemoptysis All other systems reviewed and are negative MENTAL STATUS General Appearance and Behavior: age appropriate, good eye contact, cooperative with questioning and polite Cooperation: Cooperative Psychomotor Behavior: within normal limits Mood: Anxious Affect and affective range: Congruent with stated mood Thought Process: Fluent/Logical and Goal-directed Thought Content: Within reality Speech: Normal volume and Regular rate and rhythm Intellectual Functioning Average Suicidal Ideation: Passive SI Homicidal Ideation: Denies HI Impulse Control: intact Insight and Judgment: normal insight and judgment Memory: Normal Attention: Normal Orientation: alert and oriented - Psychiatric problem (1) Bipolar 1 disorder, depressed, severe Current Visit: Yes Status: Acute (2) Alcohol use disorder, severe, dependence Current Visit: Yes Status: Acute RECOMMENDATIONS MEDICATIONS: Continue Depakote 500mg tid for bipolar Continue Remeron 15mg qhs for insomnia, mood and appetite Risks, benefits and alternatives of medications discussed with the patient, questions answered and consent obtained from patient. 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 Patient was informed of this plan. In my professional opinion, patient has achieved the maximum benefits of inpatient treatment at this time. Continuing inpatient treatment is contraindicated as it will reinforce maladaptive behaviors. LEGAL STATUS: 1013 rescinded FOLLOW-UP: Will sign off. Please contact with any questions and/or concerns. Mental Status Exam - Vital signs Last Vital Signs Temp 97.0 F L 09/09/19 08:05 Pulse 58 L 09/09/19 08:05 Resp 20 09/09/19 08:05 BP 107/69 09/09/19 08:05 Pulse Ox 94 09/09/19 08:05 Assessment and Plan - Patient Problems (1) Bipolar 1 disorder, depressed, severe Current Visit: Yes Status: Acute (2) Alcohol use disorder, severe, dependence Current Visit: Yes Status: Acute
--- NOTE | 2019-09-09 14:59 | Discharge Summary ---
Providers - Providers Date of Admission: 09/02/19 22:53 Date of discharge: 09/09/19 Attending physician: YANCY HOLT 09/03/19 04:35 psychiatry consult [Consult to Mental Health] [CONS] Routine Reason For Exam: SI [facility] Condition: Fair Hospital course: Patient is a 63-year-old man with a history of hypertension, hyperlipidemia, CAD, depression, bipolar comes to the emergency room with complaints of chest pain. His cardiac enzymes were normal, EKG did not show any acute changes. Cardiology was consulted, prior record revealed he had a stress test done 2018 which was negative, echo done 2018 on May showed 35 to 40% ejection fraction. He had a cardiac cath 8 months ago at the [place] which is normal. Cardiology recommended medical management. While in the hospital patient stated for suicidal ideation and depression. Psych was consulted and patient was placed on 1013. He was placed on Depakote and Remeron. His clinical condition stabilized, rescinded 1013 and patient was discharged home in stable condition. pCXR Impression: No acute finding 09/03/19: d/w Cardiology, await Psych evaluation, patient says he still has SI, continue 1013 and precautions 09/04/19: He still endorsed SI, awaiting Psych placement 09/05/19: still SI, increase depakote, await psych placement 09/06/19: still with SI, wheezing today, start nebs, assistant corporation counsel on stop smoking. 09/07/19: Still with SI, Medical stable to go to inpatient psychiatry 09/08/19: Medically stable, need inpatient psych placement 09/09/19 rescinded 1013, patient being discharged in stable condition Discharge Diagnosis and mx: /Chest pain due to GERD negative cardiac enzymes, consulted cardiology stress test done in 2018 which was negative, Echo done 06/01/2019 showed EF 35- 40%, he had a cath done 8 months ago at [place] which was normal. Medical mx for now /Chf, chronic with systolic dysfunction, compensated - EF 35-40% /Suicide ideation/depression/bipolar placed on 1013, consulted psych Continue Depakote 500mg tid for bipolar Continue Remeron 15mg qhs for insomnia, mood and appetite /Hypertension Patient normotensive, /DVT prophylaxis reviewed Hospitalist Physical GENERAL: well-developed and well-nourished elderly male lying on bed appeared to be in no discomfort. HEENT: Normocephalic. Atraumatic. No conjunctival congestion or icterus. Patient has moist mucous membranes. NECK: Supple. Trachea midline. CHEST/LUNGS: Clear to auscultated bilaterally, breathing nonlabored. No wheezes crackles or rhonchi. HEART/CARDIOVASCULAR: Regular in rate and rhythm. S1 and S2 positive. ABDOMEN: Abdomen is soft, nontender. Patient has normal bowel sounds. SKIN: There is no rash. Warm and dry. NEURO: No focal motor deficit. Follows command. MUSCULOSKELETAL: No joint effusion or tenderness. EXTRIMITY: No edema, no cyanosis or clubbing. PSYCH: Cooperative. Disposition: DC-01 TO HOME OR SELFCARE Time spent for discharge: 34 minutes Core Measure Documentation - Palliative Care Palliative Care/ Comfort Measures: Not Applicable - Core Measures Any of the following diagnoses?: none - Heart Failure Discharge Requirements CONCHITA/ARB for LVSD if EF <40%: No Reason for no CONCHITA/ARB: Hypotension Beta bonilla at discharge: No Reason for no beta bonilla on DC: Bradycardia Exam - Constitutional Vitals: Temp Pulse Resp BP Pulse Ox 97.0 F L 58 L 20 107/69 94 09/09/19 08:05 09/09/19 08:05 09/09/19 08:05 09/09/19 08:05 09/09/19 08:05 Plan Activity: advance as tolerated Weight Bearing Status: Weight Bear as Tolerated Diet: low fat, low salt Special Instructions: restrict fluid intake to (1.2L per day), record daily weights, record daily BP diary Follow up with: [facility] MD ANDI [Primary Care Provider] - 7 Days BRANDY JURADO MD [Staff Physician] - 7 Days Prescriptions: Mirtazapine [Remeron 15mg TAB] 15 mg PO QHS #30 tablet QUEtiapine [SEROquel] 100 mg PO QHS #30 tablet Aspirin [Aspirin BABY CHEW TAB] 81 mg PO QDAY #30 tab.chew busPIRone [Buspar] 5 mg PO BID #[address] [Depakote Dr] 500 mg PO TID #90 tablet
== END 2019-09-09 19:45 | disposition home or self-care (01) | DRG 392 ==
LOC: ED 20:11 → 4A 22:53 → OBSVTOIN 22:53 → 4A 09-03 08:08
PROVIDERS: ADMIT Internal Medicine; ATTEND Internal Medicine
DX: K21.9 Gastro-esophageal reflux disease without esophagitis (principal); I25.10 Atherosclerotic heart disease of native coronary artery without angina pectoris; R45.851 Suicidal ideations; F10.288 Alcohol dependence with other alcohol-induced disorder; Y90.9 Presence of alcohol in blood, level not specified; F41.9 Anxiety disorder, unspecified; F17.210 Nicotine dependence, cigarettes, uncomplicated; M94.0 Chondrocostal junction syndrome [Tietze]; E78.5 Hyperlipidemia, unspecified; G89.29 Other chronic pain; I11.0 Hypertensive heart disease with heart failure; I50.22 Chronic systolic (congestive) heart failure; M54.9 Dorsalgia, unspecified; F31.4 Bipolar disorder, current episode depressed, severe, without psychotic features; Z72.89 Other problems related to lifestyle; I25.2 Old myocardial infarction; Z82.49 Family history of ischemic heart disease and other diseases of the circulatory system; Z88.6 Allergy status to analgesic agent; Z79.899 Other long term (current) drug therapy; Z59.0 Homelessness
CPT/HCPCS: 36415; 71045; 80048; 84484; 85025; 87116; 93005; 93010; 94640; 94760; G0378; J1650; J2270; J2405; J3010; J7030

== ENCOUNTER 2019-09-16 13:27 | Emergency (ER) | payer MEDICAID ==
[2019-09-16 13:42] VITALS: BP 115/79
[2019-09-16] MEDS ORDERED: chlordiazePOXIDE 25 MG CAP PO PRN (14:13)
[2019-09-16] MEDS ORDERED: LORazepam 2 MG TAB PO PRN (14:13)
--- NOTE | 2019-09-16 14:20 | Emergency Department Report ---
ED Psych HPI - General Chief Complaint: Psych Stated Complaint: SUICIDAL Time Seen by Provider: 09/16/19 14:02 Source: patient Mode of arrival: Ambulatory Limitations: No Limitations - History of Present Illness Initial Comments: Chief complaint: " We are in a bad place financially." Mr. Ivy is a 64-year-old male with history of bipolar disorder, degenerative disc disease, anxiety disorder, hypertension, tobacco use, alcohol dependence who presents with suicidal ideation. He plans to walk in front of traffic. He is accompanied by his roommate who is also here for evaluation. Mr. Ivy and roommate are currently now homeless. They are no longer able to remain at the transitional housing. Mr. Ivy desires "help". Denies homicidal ideation. Complaint: suicidal ideation -: Gradual, days(s) (Several days) Associated Psychiatric Symptoms: depression, suicidal ideation History of same: Yes Quality: constant Improves With: none Worsens With: none Context: recent alcohol abuse, not taking psychiatric, significant life stressor If Self Harm: admits thoughts of, has plan - Related Data Home Medications Medication Instructions Recorded Confirmed Last Taken Gabapentin 300 mg PO BID 09/02/19 09/02/19 Unknown Previous Rx's Medication Instructions Recorded Last Taken Type Divalproex Dr [Depakote Dr] 500 mg PO TID #90 tablet 09/09/19 Unknown Rx Mirtazapine [Remeron 15mg TAB] 15 mg PO QHS #30 tablet 09/09/19 Unknown Rx QUEtiapine [SEROquel] 100 mg PO QHS #30 tablet 09/09/19 Unknown Rx busPIRone [Buspar] 5 mg PO BID #60 09/09/19 Unknown Rx Aspirin [Aspirin BABY CHEW TAB] 81 mg PO QDAY #30 tab.chew 09/11/19 Unknown Rx Allergies Allergy/AdvReac Type Severity Reaction Status Date / Time ketorolac tromethamine Allergy Rash Verified 02/01/17 12:29 [From Toradol] ED Review of Systems ROS: Stated complaint: SUICIDAL Other details as noted in HPI Comment: All other systems reviewed and negative Constitutional: denies: fever, malaise Respiratory: denies: cough Cardiovascular: denies: chest pain ED Past Medical Hx - Past Medical History Previous Medical History?: Yes Hx Hypertension: Yes Hx Heart Attack/AMI: Yes (palpitations) Hx Renal Disease: No Hx Arthritis: No Hx Seizures: No Hx Psychiatric Treatment: Yes (Anxiety) Hx Dementia: No Additional medical history: Degenerative disc disease - Surgical History Past Surgical History?: Yes Hx Cholecystectomy: No Additional Surgical History: Multiple back surgeries secondary to degenerative disc disease - Social History Smoking Status: Current Every Day Smoker Substance Use Type: Cocaine, Other - Medications Home Medications: Home Medications Medication Instructions Recorded Confirmed Last Taken Type Gabapentin 300 mg PO BID 09/02/19 09/02/[address] [Depakote Dr] 500 mg PO TID #90 tablet 09/09/19 Unknown Rx Mirtazapine [Remeron 15mg TAB] 15 mg PO QHS #30 tablet 09/09/19 Unknown Rx QUEtiapine [SEROquel] 100 mg PO QHS #30 tablet 09/09/19 Unknown Rx busPIRone [Buspar] 5 mg PO BID #60 09/09/19 Unknown Rx Aspirin [Aspirin BABY CHEW TAB] 81 mg PO QDAY #30 tab.chew 09/11/19 Unknown Rx ED Physical Exam - General Limitations: No Limitations General appearance: alert, in no apparent distress - Head Head exam: Present: atraumatic, normocephalic - Eye Eye exam: Present: normal appearance - ENT ENT exam: Present: mucous membranes moist - Neck Neck exam: Present: normal inspection, full ROM - Respiratory Respiratory exam: Present: normal lung sounds bilaterally. Absent: respiratory distress, wheezes, rales, rhonchi - Cardiovascular Cardiovascular Exam: Present: regular rate, normal rhythm, normal heart sounds. Absent: systolic murmur, diastolic murmur, rubs, gallop - GI/Abdominal GI/Abdominal exam: Present: soft, normal bowel sounds. Absent: distended, tenderness, guarding, rebound - Rectal Rectal exam: Present: deferred - Extremities Exam Extremities exam: Present: normal inspection - Neurological Exam Neurological exam: Present: alert, oriented X3 - Psychiatric Psychiatric exam: Present: normal affect, normal mood - Skin Skin exam: Present: warm, dry, intact, normal color. Absent: rash ED Course Vital Signs 09/16/19 13:36 Temperature 98.9 F Pulse Rate 94 H Respiratory 18 Rate Blood Pressure 115/79 O2 Sat by Pulse 94 Oximetry ED Medical Decision Making - Lab Data Result diagrams: 09/16/19 13:45 09/16/19 13:45 - Medical Decision Making Mr. Ivy is a 64-year-old male with history of bipolar disorder, anxiety, alcohol dependence who presents with suicidal ideation. When asked about a plan to harm himself, he appeared to not have an inclination. After several moments he stated that he was going to walk in front of traffic. I suspect that due to new homelessness in the presence of his roommate, secondary gain is a consi deration. Consequently patient will be evaluated on a voluntary basis. I feel that he is low risk for self-harm. Awaiting treatment recommendations by mental health/psychiatric team. Mr. Ivy is medically clear for psychiatric care I suspect mild hyponatremia and metabolic acidosis due to volume contraction with history of alcohol use, Patient is eating well. without alcohol intake, sodium will normalize without intervention UDS positive for marijuana cocaine amphetamine. Urinalysis contaminated. I do not suspect UTI. Patient is asymptomatic I agree with mental health sr. director product management's treatment plan inclination. Mr. Benson does not require inpatient stabilization. He admits that he is homeless. "I have nowhere to go.". He became agitated when I discussed discharge. Dr. Gonzalez will evaluate patient. He will arrange discharge. Critical care attestation.: If time is entered above; I have spent that time in minutes in the direct care of this critically ill patient, excluding procedure time. ED Disposition Clinical Impression: Bipolar 1 disorder, depressed, severe, Alcohol use disorder, severe, dependence Disposition: DC-01 TO HOME OR SELFCARE Is pt being admited?: No Does the pt Need Aspirin: No Condition: Stable Referrals: [facility] Depart [Outside] - 3-5 Days
[2019-09-16 14:34] LABS: Benzodiazepines Screen,Urine PRESUMPTIVE NEGATIVE; Methadone Screen,Urine PRESUMPTIVE NEGATIVE; Opiate Screen,Urine PRESUMPTIVE NEGATIVE
[2019-09-16 14:35] LABS: BUN/Creatinine Ratio 13; Blood Urea Nitrogen 8 mg/dL (9-20); Calcium 9.1 mg/dL (8.4-10.2); Hemolysis Index 31
[2019-09-16 14:36] LABS: Bilirubin,Urine NEG (Negative); Blood,Urine MOD (Negative); Color,Urine Yellow (Yellow); Mucus,Urine FEW /HPF; Protein,Urine <15 mg/dL mg/dL (Negative); Urobilinogen,Urine < 2.0 mg/dL (<2.0)
[2019-09-16 14:51] LABS: Basophils % (Auto) 0.3 % (0.0-1.8); Eosinophils # (Auto) 0.3 K/mm3 (0.0-0.4); Eosinophils % (Auto) 3.9 % (0.0-4.3); Hematocrit 43.3 % (35.5-45.6); Hemoglobin 14.8 gm/dl (11.8-15.2); Lymphocytes # (Auto) 0.6 K/mm3 (1.2-5.4); Lymphocytes % (Auto) 8.2 % (13.4-35.0); Mean Corpuscular HGB Conc 34 % (32-34); Mean Corpuscular Volume 97 fl (84-94); Monocytes # (Auto) 0.5 K/mm3 (0.0-0.8); Monocytes % (Auto) 7.6 % (0.0-7.3); Platelet Count 207 K/mm3 (140-440); Red Blood Count 4.47 M/mm3 (3.65-5.03)
[2019-09-16 14:51] LABS: Alanine Aminotransferase 6 units/L (7-56); Albumin 4.6 g/dL (3.9-5)
[2019-09-16] MEDS ORDERED: SODIUM CHLORIDE 0.9% 1000 ML 1,000 ML IV ONE (14:55)
[2019-09-16 15:09] LABS: Bilirubin,Direct < 0.2 mg/dL (0-0.2)
[2019-09-16 15:11] LABS: Amphetamine Screen,Urine PRESUMPTIVE POSITIVE; Cannabinoid Screen,Urine PRESUMPTIVE POSITIVE; Cocaine Screen,Urine PRESUMPTIVE POSITIVE
== END 2019-09-16 16:15 | disposition home or self-care (01) ==
LOC: ED 13:27
DX: F31.9 Bipolar disorder, unspecified (principal); F10.20 Alcohol dependence, uncomplicated; R45.851 Suicidal ideations; I10 Essential (primary) hypertension; F17.200 Nicotine dependence, unspecified, uncomplicated; F14.10 Cocaine abuse, uncomplicated; Z88.8 Allergy status to other drugs, medicaments and biological substances
CPT/HCPCS: 36415; 80048; 80076; 80307; 80320; 81001; 85025; 87086; 99284; G0480

== ENCOUNTER 2020-04-19 15:40 | Emergency (ER) | payer MEDICAID ==
[2020-04-19] MEDS ORDERED: ASPIRIN 325 MG TAB PO ONE (16:10)
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
[2020-04-19 16:50] LABS: Bacteria,Urine 1+ /HPF (Negative); Bilirubin,Urine NEG (Negative); Blood,Urine NEG (Negative); Color,Urine Amber (Yellow); Hyaline Casts,Urine 4 /LPF; Mucus,Urine 2+ /HPF
--- NOTE | 2020-04-19 16:50 | XRay Report ---
CHEST 2 VIEWS INDICATION / CLINICAL INFORMATION: Chest Pain. COMPARISON: 09/02/19 FINDINGS: SUPPORT DEVICES: None. HEART / MEDIASTINUM: Heart is normal size. Thoracic aorta is mildly tortuous but unchanged. LUNGS / PLEURA: No significant pulmonary or pleural abnormality. No pneumothorax. ADDITIONAL FINDINGS: No significant additional findings. IMPRESSION: 1. No acute findings. No change. Signer Name: Prabhjot Lewis MD Signed: 04/19/2020 4:45 PM Workstation Name: [id number]
[2020-04-19] MEDS ORDERED: HYDROXYZINE HCL 50 MG PO PRN (17:00)
[2020-04-19] MEDS ORDERED: NON-FORMULARY EACH (Albuterol Sulfate [Proair Respiclick] 2 PUFF) INHALATION PRN (17:00)
[2020-04-19 17:02] LABS: Basophils % (Auto) 0.1 % (0.0-1.8); Eosinophils # (Auto) 0.2 K/mm3 (0.0-0.4); Eosinophils % (Auto) 2.3 % (0.0-4.3); Hematocrit 41.1 % (35.5-45.6); Hemoglobin 14.2 gm/dl (11.8-15.2); Lymphocytes # (Auto) 0.9 K/mm3 (1.2-5.4); Lymphocytes % (Auto) 13.4 % (13.4-35.0); Mean Corpuscular HGB Conc 35 % (32-34); Mean Corpuscular Volume 97 fl (84-94); Monocytes # (Auto) 0.5 K/mm3 (0.0-0.8); Monocytes % (Auto) 7.6 % (0.0-7.3); Platelet Count 232 K/mm3 (140-440); Red Blood Count 4.24 M/mm3 (3.65-5.03); Red Cell Distribution Width 13.9 % (13.2-15.2)
[2020-04-19 17:04] LABS: Amphetamine Screen,Urine Negative; Benzodiazepines Screen,Urine Negative; Cannabinoid Screen,Urine Negative; Methadone Screen,Urine Negative; Opiate Screen,Urine Negative
[2020-04-19] MEDS ORDERED: ALBUTEROL 2.5 MG/3 ML NEBU IH PRN (17:13)
[2020-04-19 17:18] LABS: BUN/Creatinine Ratio 18; Blood Urea Nitrogen 18 mg/dL (9-20); Calcium 9.4 mg/dL (8.4-10.2); Hemolysis Index 10
[2020-04-19 17:40] LABS: Cocaine Screen,Urine Positive
[2020-04-19] MEDS ORDERED: SODIUM CHLORIDE 0.9% 1000 ML 1,000 ML IV ONE (18:16)
[2020-04-19] MEDS ORDERED: diphenhydrAMINE 25 MG CAP PO ONE (20:53)
[2020-04-19] MEDS: NITROFURANTOIN MONOHYD/M-CRYST 100 MG CAP PO SCH (21:33)
[2020-04-19] MEDS: GABAPENTIN 300 MG CAP PO SCH (21:33)
[2020-04-20] MEDS ORDERED: DULoxetine 30 MG CAP PO SCH (10:00)
[2020-04-20] MEDS ORDERED: MULTIVITAMIN PO SCH (10:00)
[2020-04-20] MEDS: ASPIRIN 325 MG TAB PO SCH (10:11)
--- NOTE | 2020-04-20 10:11 | Consultation ---
History of Present Illness - Reason for Consult Consult date: 04/20/20 Reason for consult: SI - History of Present Psychiatric Illness Yang Ivy is a 64y/o male patient who is known to me from previous visits. He presents to the ER with complaints of SI. During my interview with the patient today, he states he is "depressed." He says he "feels suicidal and doesn't want to live." The patient says "I'm homeless and I don't know what to do." He denies hallucinations of any kind. He verbalizes using "cocaine and alcohol." He says he drinks about "4 beers a week." PAST PSYCHIATRIC HISTORY: Diagnoses: Bipolar disorder Suicide attempts or Self-harm behavior: yes Prior psychiatric hospitalizations: yes Substance Abuse history: Alcohol and cocaine Previous psychiatric medications tried: Cymbalta Outpatient treatment: Yes, at the [facility] PAST MEDICAL HISTORY: HTN Family Psychiatric History None reported or documented SOCIAL HISTORY Marital Status: Living Arrangements: Homeless Employment Status: disabled Access to guns/weapons: Denies Education: college History of Abuse: patient denies Legal History: patient denies ROS: Constitutional: Negative for weight loss ENT: Negative for stridor Respiratory: Negative for cough or hemoptysis All other systems reviewed and are negative MENTAL STATUS General Appearance and Behavior: age appropriate, good eye contact, cooperative with questioning and polite Cooperation: Cooperative Psychomotor Behavior: within normal limits Mood: depressed Affect and affective range: Congruent with stated mood Thought Process: Fluent/Logical and Goal-directed Thought Content: Within reality Speech: Normal volume and Regular rate and rhythm Intellectual Functioning Average Suicidal Ideation: Yes Homicidal Ideation: Denies Impulse Control: intact Insight and Judgment: normal insight and judgment Memory: Normal Attention: Normal Orientation: alert and oriented - Psychiatric problem (1) Bipolar 1 disorder, depressed, severe Current Visit: Yes Status: Acute (2) Cocaine Use Disorder Current Visit: Yes Status: Acute (3) Alcohol Abuse RECOMMENDATIONS MEDICATIONS: Abilify 5mg po daily CIWAY Risks, benefits and alternatives of medications discussed with the patient, questions answered and consent obtained from patient. PSYCHOTHERAPY: Supportive psychotherapy provided MEDICAL: Per primary team DOCUMENT PROCESSING SPECIALIST: Yes DISPOSITION: Recommend acute inpatient psychiatric treatment LEGAL STATUS: 1013 FOLLOW-UP: Will follow Medications and Allergies Allergies Allergy/AdvReac Type Severity Reaction Status Date / Time ketorolac tromethamine Allergy Rash Verified 02/01/17 12:29 [From Toradol] Home Medications Medication Instructions Recorded Confirmed Last Taken Type Gabapentin 300 mg PO BID 09/02/19 04/19/20 Unknown History Adult One Daily Multivit Tab 1 tab PO DAILY 04/19/20 04/19/20 Unknown History Albuterol Sulfate [Proair 2 puff INHALATION Q4HR PRN 04/19/20 04/19/20 Unknown History Respiclick] Cyanocobalamin [Vitamin B-12] 1,000 mcg PO DAILY 04/19/20 04/19/20 Unknown History DULoxetine [Cymbalta] 30 mg PO DAILY 04/19/20 04/19/20 Unknown History Hydroxyzine HCl [hydrOXYzine] 50 mg PO PRN 04/19/20 04/19/20 Unknown History Thiamine [Vitamin B-1] 100 mg PO QDAY 04/19/20 04/19/20 Unknown History lisinopriL [Zestril TAB] 10 mg PO QDAY 04/19/20 04/19/20 Unknown History methOCARBAMOL [Robaxin TAB] 750 mg PO BID PRN 04/19/20 04/19/20 Unknown History Active Meds: Active Medications Albuterol (Proventil) 2.5 mg IH Q4HRT PRN PRN Reason: Shortness Of Breath Aspirin (Aspirin) 325 mg PO QDAY [facility] Cyanocobalamin (Vitamin B-12) 1,000 mcg PO DAILY [facility] Duloxetine HCl (Cymbalta) 30 mg PO DAILY [facility] Gabapentin (Gabapentin) 300 mg PO BID [facility] Last Admin: 04/19/20 21:33 Dose: 300 mg Documented by: Hydroxyzine Pamoate (Vistaril) 50 mg PO Q6HR PRN PRN Reason: Anxiety Last Admin: 04/19/20 21:33 Dose: 50 mg Documented by: Lisinopril (Zestril) 10 mg PO QDAY [facility] Methocarbamol (Robaxin) 750 mg PO BID PRN PRN Reason: Muscle Spasm Last Admin: 04/19/20 17:11 Dose: 750 mg Documented by: Multivitamins (Theragran Tab) 1 each PO DAILY [facility] Nitrofurantoin Macrocrystals (Macrobid) 100 mg PO BID [facility] Stop: 04/24/20 10:01 Last Admin: 04/19/20 21:33 Dose: 100 mg Documented by: Thiamine HCl (Vitamin B-1) 100 mg PO QDAY [facility] Mental Status Exam - Vital signs Last Vital Signs Temp 98 F 04/20/20 01:02 Pulse 78 04/20/20 01:02 Resp 18 04/20/20 01:02 BP 120/70 04/20/20 01:02 Pulse Ox 99 04/20/20 01:02 Results Result Diagrams: 04/19/20 16:17 04/19/20 16:17 Abnormal lab results 04/19/20 04/19/20 04/19/20 Range/Units 16:17 16:17 16:17 MCV 97 H (84-94) fl MCH 34 H (28-32) pg MCHC 35 H (32-34) % [place] % (Auto) 7.6 H (0.0-7.3) % Lymph # (Auto) 0.9 L (1.2-5.4) K/mm3 Seg Neutrophils % 76.6 H (40.0-70.0) % Sodium 130 L (137-145) mmol/L Chloride 96.7 L (98-107) mmol/L Carbon Dioxide 17 L (22-30) mmol/L Urine WBC (Auto) (0.0-6.0) /HPF Salicylates < 0.3 L (2.8-20.0) mg/dL Acetaminophen (10.0-30.0) ug/mL 04/19/20 04/19/20 Range/Units 16:17 16:27 MCV (84-94) fl MCH (28-32) pg MCHC (32-34) % [place] % (Auto) (0.0-7.3) % Lymph # (Auto) (1.2-5.4) K/mm3 Seg Neutrophils % (40.0-70.0) % Sodium (137-145) mmol/L Chloride (98-107) mmol/L Carbon Dioxide (22-30) mmol/L Urine WBC (Auto) 12.0 H (0.0-6.0) /HPF Salicylates (2.8-20.0) mg/dL Acetaminophen 5.0 L (10.0-30.0) ug/mL All other labs normal.
[2020-04-20] MEDS: THIAMINE 100 MG TAB PO SCH (10:12)
[2020-04-20] MEDS: NITROFURANTOIN MONOHYD/M-CRYST 100 MG CAP PO SCH ×2 (10:12→22:21)
[2020-04-20] MEDS: LISINOPRIL 10 MG TAB PO SCH (10:12)
[2020-04-20] MEDS: GABAPENTIN 300 MG CAP PO SCH ×2 (10:13→22:21)
[2020-04-20] MEDS: MULTIVITAMINS ,THERAPEUTIC TAB PO SCH (10:13)
[2020-04-20] MEDS ORDERED: chlordiazePOXIDE 25 MG CAP PO PRN ×2 (10:16)
[2020-04-20] MEDS: ARIPiprazole 5 MG TAB PO SCH (11:25)
[2020-04-20] MEDS: CYANOCOBALAMIN (VIT B-12) 1000 MCG TAB PO SCH (11:25)
[2020-04-20] MEDS ORDERED: ACETAMINOPHEN 500 MG TAB PO ONE (14:09)
[2020-04-20] MEDS ORDERED: ACETAMINOPHEN 325 MG TAB ONE (15:14)
[2020-04-20] MEDS ORDERED: ACETAMINOPHEN 325 MG TAB PO ONE (15:22)
--- NOTE | 2020-04-21 09:36 | Progress Note ---
Subjective - Reason for Consult Consult date: 04/21/20 Reason for consult: SI/Depression/Substance abuse - Chief Complaint Chief complaint: During my interview with the patient today, he is lying down asleep. He easily arouses. The patient is a/o x 3. He states he's "not doing too good." The patient then says "I'm depressed." He says he "doesn't want to live and will go into traffic." Counseled the patient on drug and alcohol cessation. The patient states "I know, but I'm homeless." He denies hallucinations of any kind. ROS: Constitutional: Negative for weight loss ENT: Negative for stridor Respiratory: Negative for cough or hemoptysis All other systems reviewed and are negative MENTAL STATUS General Appearance and Behavior: age appropriate, good eye contact, cooperative with questioning and polite Cooperation: Cooperative Psychomotor Behavior: within normal limits Mood: depressed Affect and affective range: Congruent with stated mood Thought Process: Fluent/Logical and Goal-directed Thought Content: Within reality Speech: Normal volume and Regular rate and rhythm Intellectual Functioning Average Suicidal Ideation: Yes Homicidal Ideation: Denies Impulse Control: intact Insight and Judgment: normal insight and judgment Memory: Normal Attention: Normal Orientation: alert and oriented - Psychiatric problem (1) Bipolar 1 disorder, depressed, severe Current Visit: Yes Status: Acute (2) Cocaine Use Disorder Current Visit: Yes Status: Acute (3) Alcohol Abuse RECOMMENDATIONS MEDICATIONS: Increase Celexa 60mg po daily to help with resistant depression Start Depakkote DR 125mg po BID to improve Mood Risks, benefits and alternatives of medications discussed with the patient, questions answered and consent obtained from patient. PSYCHOTHERAPY: Supportive psychotherapy provided MEDICAL: Per primary team WASTE MANAGEMENT RECYCLING TECHNICIAN: Yes DISPOSITION: Recommend acute inpatient psychiatric treatment LEGAL STATUS: 1013 FOLLOW-UP: Will follow Mental Status Exam - Vital signs Last Vital Signs Temp 98.2 F 04/21/20 07:45 Pulse 67 04/21/20 07:45 Resp 20 04/21/20 07:45 BP 106/65 04/21/20 07:45 Pulse Ox 96 04/21/20 07:45
[2020-04-21] MEDS ORDERED: DIVALPROEX DR 125 MG TAB PO SCH (10:00)
[2020-04-21] MEDS ORDERED: DULoxetine 30 MG CAP PO SCH (10:00)
[2020-04-21] MEDS: CYANOCOBALAMIN (VIT B-12) 1000 MCG TAB PO SCH (10:13)
[2020-04-21] MEDS: NITROFURANTOIN MONOHYD/M-CRYST 100 MG CAP PO SCH (13:12)
[2020-04-21] MEDS: ASPIRIN 325 MG TAB PO SCH (13:12)
[2020-04-21] MEDS: LISINOPRIL 10 MG TAB PO SCH (13:13)
[2020-04-21] MEDS: GABAPENTIN 300 MG CAP PO SCH (13:13)
[2020-04-21] MEDS: MULTIVITAMINS ,THERAPEUTIC TAB PO SCH (13:13)
[2020-04-21] MEDS: ARIPiprazole 5 MG TAB PO SCH (13:20)
[2020-04-21] MEDS: THIAMINE 100 MG TAB PO SCH (13:26)
[2020-04-21 20:20] VITALS: BP 111/71
== END 2020-04-21 20:00 ==
LOC: EEVIPCON 15:40 → ED 15:40
DX: F31.9 Bipolar disorder, unspecified (principal); R07.89 Other chest pain; R45.851 Suicidal ideations; F14.10 Cocaine abuse, uncomplicated; N39.0 Urinary tract infection, site not specified; G89.29 Other chronic pain; M54.9 Dorsalgia, unspecified; F17.200 Nicotine dependence, unspecified, uncomplicated; F12.90 Cannabis use, unspecified, uncomplicated; I10 Essential (primary) hypertension; I25.2 Old myocardial infarction; F41.9 Anxiety disorder, unspecified; I48.91 Unspecified atrial fibrillation; Z88.8 Allergy status to other drugs, medicaments and biological substances; Z79.899 Other long term (current) drug therapy; Z98.890 Other specified postprocedural states; Z20.828 Contact with and (suspected) exposure to other viral communicable diseases
CPT/HCPCS: 36415; 71046; 80048; 80307; 81001; 82550; 84484; 85025; 85379; 87086; 93005; 96360; 99285; J7030; Q0177; U0003; 80320; G0480; J3246

== ENCOUNTER 2020-04-21 15:02 | Inpatient (IN) | payer MEDICAID ==
[2020-04-21] MEDS ORDERED: DIVALPROEX DR 125 MG TAB PO SCH (22:17)
[2020-04-21] MEDS: ACETAMINOPHEN 325 MG TAB PO PRN (22:52)
[2020-04-21] MEDS: GABAPENTIN 300 MG CAP PO SCH (22:52)
[2020-04-21] MEDS: traZODone 50 MG TAB PO SCH (22:53)
[2020-04-22 06:46] LABS: Chol/HDL Ratio 3.12 %
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
[2020-04-22] MEDS ORDERED: NON-FORMULARY EACH (Albuterol Sulfate [Proair Respiclick] 2 PUFF) INHALATION PRN (08:24)
[2020-04-22] MEDS ORDERED: ALBUTEROL 2.5 MG/3 ML NEBU IH PRN (09:00)
[2020-04-22] MEDS: DIVALPROEX DR 125 MG TAB PO SCH ×2 (10:19→21:01)
[2020-04-22] MEDS: CYANOCOBALAMIN (VIT B-12) 1000 MCG TAB PO SCH (10:21)
[2020-04-22] MEDS: THIAMINE 100 MG TAB PO SCH (10:22)
[2020-04-22] MEDS: DULoxetine 30 MG CAP PO SCH (10:22)
[2020-04-22] MEDS: LISINOPRIL 10 MG TAB PO SCH ×2 (10:22→12:04)
[2020-04-22] MEDS: GABAPENTIN 300 MG CAP PO SCH ×2 (10:22→21:01)
[2020-04-22] MEDS: ACETAMINOPHEN 325 MG TAB PO PRN (21:00)
[2020-04-22] MEDS: traZODone 50 MG TAB PO SCH (21:01)
[2020-04-23] MEDS: ALBUTEROL 2.5 MG/3 ML NEBU IH SCH ×6 (08:00→19:39)
--- NOTE | 2020-04-23 08:13 | Progress Note ---
Subjective Date of service: 04/23/20 Principal diagnosis: (1) Bipolar 1 disorder, depressed, severe Subjective Comment: Psych Nurse: pt spent the evening in activity room interacting and socializing with peers, pt is alert and orientedx3, calm and cooperative, able to make needs known, c/o of back pain 12/17 pain, tylenol 650mg po given at bedtime with scheduled night medication, good appetite, interacting well with peers, denies si/hi, denies a/v/h, pt resting with eyes closed, no distress noted, will continue to monitor 15mins for safety. Psych Progress Patient seen and examined, patient reports feeling a little bit uptight today, says he does not know why. Patient is currently requesting medication to help calm him down, patient states that he has drinking problem and has been drinking and using drugs for very long time and he thinks his body is now reacting to it. Patient endorses hearing voices telling him to get high and get drunk. Patient also endorses nicotine cravings, restlessness and agitation Reason for continuing inpatient psychiatric hospitalization: Auditory hallucinations, restlessness, agitation and disorganized thought process. ROS: Constitutional: Negative for weight loss ENT: Negative for stridor Respiratory: Negative for cough or hemoptysis All other systems reviewed and are negative MENTAL STATUS EXAMINATION General Appearance and Behavior: Age appropriate, good hygiene, wearing appropriate clothes,, good eye contact Cooperation: Participating/engaged, but Guarded Psychomotor Behavior: Psychomotor normal Mood: depressed Affect and affective range: irritable, labile Thought Process: illogical Thought Content: Auditory hallucinations, Speech: Normal rate, volume and rythm Intellectual Functioning: Average Suicidal Ideation: SI Homicidal Ideation: Denies HI Impulse Control: Impaired Insight and Judgment: Limited insight and judgment Memory: Normal Attention: Normal Orientation: Alert, - Psychiatric problem (1) Bipolar 1 disorder, depressed, severe Current Visit: Yes Status: Acute (2) Alcohol use disorder, severe, dependence Current Visit: Yes Status: Acute Treatment Plan Restart home medications, WA protocol activated Patient admitted for inpatient psychiatric evaluation, medication adjustment and close monitoring The patient's behavior, mood, sleep and appetite will be closely monitored. Patient enrolled in individual and group therapeutic sessions and encouraged to attend. Patient provided with a safe and structured environment. Patient's physical health needs will be addressed by the Hospitalist. Hospitalist Consulted Labs including CBC, CMP, Lipid profile and Hemoglobin A1C levels ordered for baseline reference Social Assessment will be completed and the Lung Puller will work with patient and family to ensure a suitable and safe disposition Medication adjustment will be made as clinically indicated Usual Wellness Judaism/Preservation: - Start Trazodone 50 mg po QHS & 50 mg po QHS PRN between 10 PM & 2 AM for insomnia - Start Melatonin 5 mg po QHS to promote circadian rhythm - Start [place]-3 for brain health, reduce impulsivity, and as adjunctive treatment for mood disorder, continue upon discharge given overall benefits. - Start B1 prophylaxis with 200 mg po for 5 days The patient agreed on the treatment plan, understood the risk, benefit, alternative treatment, potential consequence of no treatment, and gave informed consent. Initial Certification Inpatient psych services: I certify that the inpatient psychiatric services are required for treatment that could reasonably be expected to improve the patient's condition. Estimated days:6 Post hospital care: primary care provider, psychiatric provider Legal Status: Voluntary Reaction to Hospitalization: Accepting Assessment and Plan - Patient Problems (1) Alcohol use disorder, severe, dependence Current Visit: No Status: Acute (2) Bipolar 1 disorder, depressed, severe Current Visit: No Status: Acute Medications and Allergies Allergies Allergy/AdvReac Type Severity Reaction Status Date / Time ketorolac tromethamine Allergy Rash Verified 02/01/17 12:29 [From Toradol] Home Medications Medication Instructions Recorded Confirmed Last Taken Type Gabapentin 300 mg PO BID 09/02/19 04/21/20 Unknown History Adult One Daily Multivit Tab 1 tab PO DAILY 04/19/20 04/21/20 Unknown History Albuterol Sulfate [Proair 2 puff INHALATION Q4HR PRN 04/19/20 04/21/20 Unknown History Respiclick] Cyanocobalamin [Vitamin B-12] 1,000 mcg PO DAILY 04/19/20 04/21/20 Unknown History DULoxetine [Cymbalta] 30 mg PO DAILY 04/19/20 04/21/20 Unknown History Hydroxyzine HCl [hydrOXYzine] 50 mg PO PRN 04/19/20 04/21/20 Unknown History Thiamine [Vitamin B-1] 100 mg PO QDAY 04/19/20 04/21/20 Unknown History lisinopriL [Zestril TAB] 10 mg PO QDAY 04/19/20 04/21/20 Unknown History methOCARBAMOL [Robaxin TAB] 750 mg PO BID PRN 04/19/20 04/21/20 Unknown History Active Meds: Active Medications Acetaminophen (Tylenol) 650 mg PO Q6H PRN PRN Reason: Pain, Mild (1-3) Last Admin: 04/22/20 21:00 Dose: 650 mg Documented by: Albuterol (Proventil) 2.5 mg IH Q4HRT [facility] Albuterol (Proventil) 2.5 mg IH Q4HRT PRN PRN Reason: Shortness Of Breath Cyanocobalamin (Vitamin B-12) 1,000 mcg PO DAILY [facility] Last Admin: 04/22/20 10:21 Dose: 1,000 mcg Documented by: Divalproex Sodium (Depakote Dr) 250 mg PO BID [facility] Last Admin: 04/22/20 21:01 Dose: 250 mg Documented by: Duloxetine HCl (Cymbalta) 30 mg PO DAILY [facility] Last Admin: 04/22/20 10:22 Dose: 30 mg Documented by: Gabapentin (Gabapentin) 300 mg PO BID [facility] Last Admin: 04/22/20 21:01 Dose: 300 mg Documented by: Hydroxyzine Pamoate (Vistaril) 50 mg PO Q6H PRN PRN Reason: Anxiety Lisinopril (Zestril) 10 mg PO QDAY [facility] Last Admin: 04/22/20 12:04 Dose: Not Given Documented by: Methocarbamol (Robaxin) 750 mg PO BID PRN PRN Reason: Muscle Spasm Last Admin: 04/22/20 10:21 Dose: 750 mg Documented by: Thiamine HCl (Vitamin B-1) 100 mg PO QDAY [facility] Last Admin: 04/22/20 10:22 Dose: 100 mg Documented by: Trazodone HCl (Desyrel) 50 mg PO QHS [facility] Last Admin: 04/22/20 21:01 Dose: 50 mg Documented by: Results - Results Labs/Vitals: Laboratory Last Values POC Glucose 159 mg/dL (70-105) H 04/22/20 00:03 Hemoglobin A1c 5.4 % (4-6) 04/22/20 05:59 Triglycerides 141 mg/dL (2-149) 04/22/20 05:59 Cholesterol 175 mg/dL (50-199) 04/22/20 05:59 LDL Cholesterol Direct 104 mg/dL (50-130) 04/22/20 05:59 HDL Cholesterol 56 mg/dL (40-59) 04/22/20 05:59 Cholesterol/HDL Ratio 3.12 % 04/22/20 05:59 TSH 0.817 mlU/mL (0.270-4.200) 04/22/20 05:59 Last Vital Signs Temp 98.2 F 04/22/20 20:07 Pulse 78 04/22/20 22:13 Resp 16 04/22/20 20:07 BP 109/72 04/22/20 20:07 Pulse Ox 97 04/22/20 22:13
[2020-04-23] MEDS ORDERED: chlordiazePOXIDE 25 MG CAP PO PRN ×2 (09:10)
[2020-04-23] MEDS: THIAMINE 100 MG TAB PO SCH (10:19)
[2020-04-23] MEDS: DULoxetine 30 MG CAP PO SCH (10:19)
[2020-04-23] MEDS: DIVALPROEX DR 125 MG TAB PO SCH ×2 (10:20→21:15)
[2020-04-23] MEDS: CYANOCOBALAMIN (VIT B-12) 1000 MCG TAB PO SCH (10:20)
[2020-04-23] MEDS: GABAPENTIN 300 MG CAP PO SCH ×2 (10:20→21:15)
[2020-04-23] MEDS: NICOTINE 14 MG/24 HR PATCH TD SCH (10:20)
[2020-04-23] MEDS: LISINOPRIL 10 MG TAB PO SCH (10:20)
[2020-04-23] MEDS: ACETAMINOPHEN 325 MG TAB PO PRN ×2 (10:22→21:16)
--- NOTE | 2020-04-23 11:54 | Consultation ---
History of Present Illness - Reason for Consult Consult date: 04/23/20 Medical management Requesting physician: STEPHANIE LIZ - History of Present Illness 64 YO Male with Atrial Fib S/P Ablation , HTN, ETOH Dependence, Lumbar Disk Disease, Bipolar Disorder, COLE, Chronic Stable Angina admitted to [facility] for psychiatric stabilization. Patient seen and evaluated in the recreation room. Patient resting comfortably and denies any complaints. Patient denies fever, chills, chest pain, palpitation, productive cough, skin rash, recent ill contacts, or known exposure to COVID-19. Past History Past Medical History: atrial fib, hypertension, other (See HPI) Past Surgical History: Other (Cardiac ablation) Social history: single, alcohol abuse. denies: smoking, prescription drug abuse Family history: hypertension Medications and Allergies Allergies Allergy/AdvReac Type Severity Reaction Status Date / Time ketorolac tromethamine Allergy Rash Verified 02/01/17 12:29 [From Toradol] Home Medications Medication Instructions Recorded Confirmed Last Taken Type Albuterol Sulfate [Proair 2 puff INHALATION Q4HR PRN 04/19/20 04/21/20 Unknown History Respiclick] Hydroxyzine HCl [hydrOXYzine] 50 mg PO PRN 04/19/20 04/21/20 Unknown History lisinopriL [Zestril TAB] 10 mg PO QDAY 04/19/20 04/21/20 Unknown History methOCARBAMOL [Robaxin TAB] 750 mg PO BID PRN 04/19/20 04/21/20 Unknown History Cyanocobalamin [Vitamin B-12] 1,000 mcg PO DAILY #30 tab 04/25/20 Unknown Rx DULoxetine [Cymbalta] 30 mg PO DAILY #30 cap 04/25/[address] [Philip Fry] 250 mg PO BID #60 tablet 04/25/20 Unknown Rx Gabapentin 300 mg PO BID #60 capsule 04/25/20 Unknown Rx Multivitamin Tab [Multiple Vitamin 1 each PO DAILY #30 tablet 04/25/20 Unknown Rx TAB (Theragran)] Thiamine [Vitamin B-1] 100 mg PO QDAY #30 tab 04/25/20 Unknown Rx Active Meds: Active Medications Acetaminophen (Tylenol) 650 mg PO Q6H PRN PRN Reason: Pain, Mild (1-3) Last Admin: 04/23/20 10:22 Dose: 650 mg Documented by: Albuterol (Proventil) 2.5 mg IH Q4HRT [facility] Albuterol (Proventil) 2.5 mg IH Q4HRT PRN PRN Reason: Shortness Of Breath Chlordiazepoxide HCl (Librium) 50 mg PO Q1H PRN PRN Reason: CIWA-Ar 8-15 Chlordiazepoxide HCl (Librium) 100 mg PO Q1H PRN PRN Reason: CIWA-Ar 16-25 Cyanocobalamin (Vitamin B-12) 1,000 mcg PO DAILY [facility] Last Admin: 04/23/20 10:20 Dose: 1,000 mcg Documented by: Divalproex Sodium (Depakote Dr) 250 mg PO BID [facility] Last Admin: 04/23/20 10:20 Dose: 250 mg Documented by: Duloxetine HCl (Cymbalta) 30 mg PO DAILY [facility] Last Admin: 04/23/20 10:19 Dose: 30 mg Documented by: Gabapentin (Gabapentin) 300 mg PO BID [facility] Last Admin: 04/23/20 10:20 Dose: 300 mg Documented by: Hydroxyzine Pamoate (Vistaril) 50 mg PO Q6H PRN PRN Reason: Anxiety Lisinopril (Zestril) 10 mg PO QDAY [facility] Last Admin: 04/23/20 10:20 Dose: Not Given Documented by: Methocarbamol (Robaxin) 750 mg PO BID PRN PRN Reason: Muscle Spasm Last Admin: 04/22/20 10:21 Dose: 750 mg Documented by: Nicotine (Habitrol) 14 mg TD QDAY [facility] Last Admin: 04/23/20 10:20 Dose: 14 mg Documented by: Thiamine HCl (Vitamin B-1) 100 mg PO QDAY [facility] Last Admin: 04/23/20 10:19 Dose: 100 mg Documented by: Trazodone HCl (Desyrel) 50 mg PO QHS [facility] Last Admin: 04/22/20 21:01 Dose: 50 mg Documented by: Review of Systems Constitutional: no weight loss, no weight gain, no fever, no chills Ears, nose, mouth and throat: no ear pain, no ear discharge, no tinnitis, no nose pain, no nasal congestion Cardiovascular: no chest pain, no orthopnea, no palpitations, no edema Respiratory: no cough, no cough with sputum, no hemoptysis, no shortness of breath Gastrointestinal: no abdominal pain, no nausea, no vomiting, no diarrhea, no change in bowel habits Genitourinary Male: no dysuria, no flank pain, no discharge, no urinary f requency, no nocturia Rectal: no pain, no incontinence, no bleeding Musculoskeletal: no neck stiffness, no neck pain, no arm numbness/tingling Integumentary: no rash, no sores, no wounds, no boils Neurological: no head injury, no transient paralysis, no paralysis, no parathesias Psychiatric: no memory loss, no change in sleep habits, no insomnia, no hypersomnia Endocrine: no cold intolerance, no polyphagia, no polyuria, no nocturia Hematologic/Lymphatic: no easy bruising, no easy bleeding Allergic/Immunologic: no wheezing, no persistent infections, no anaphylaxis Exam - Constitutional Vitals: Temp Pulse Resp BP Pulse Ox 98.1 F 64 18 115/44 98 04/23/20 07:33 04/23/20 07:33 04/23/20 10:22 04/23/20 07:33 04/23/20 07:33 General appearance: Present: no acute distress, well-nourished - EENT Eyes: Present: PERRL ENT: hearing intact, clear oral mucosa - Neck Neck: Present: supple, normal ROM - Respiratory Respiratory effort: normal Respiratory: bilateral: CTA - Cardiovascular Heart Sounds: Present: S1 & S2. Absent: rub, click - Extremities Extremities: pulses symmetrical, No edema Peripheral Pulses: within normal limits - Abdominal General gastrointestinal: Present: soft, non-tender, non-distended, normal bowel sounds Male genitourinary: Present: normal - Integumentary Integumentary: Present: clear, warm, dry - Musculoskeletal Musculoskeletal: gait normal, strength equal bilaterally - Psychiatric Psychiatric: appropriate mood/affect, intact judgment & insight - Neurologic Neurologic: CNII-XII intact, moves all extremities Results - Labs CBC & Chem 7: 04/24/20 10:01 04/24/20 10:01 Assessment and Plan - Patient Problems (1) Hypertension Current Visit: Yes Status: Acute Qualifiers: Hypertension type: essential hypertension Qualified Code(s): I10 - Essential (primary) hypertension Plan to address problem: Monitor blood pressure every shift, continue medical management (2) Alcohol use disorder, severe, dependence Current Visit: No Status: Acute Plan to address problem: Thiamine, folic acid, multivitamin, CIWA protocol, supportive care. (3) Bipolar 1 disorder, depressed, severe Current Visit: No Status: Acute Plan to address problem: Continue medical management as per primary team. (4) Lumbar disc disease Current Visit: Yes Status: Acute Plan to address problem: Continue pain management with NSAID therapy continue Robaxin
[2020-04-23] MEDS: traZODone 50 MG TAB PO SCH (21:16)
--- NOTE | 2020-04-24 08:29 | Progress Note ---
Subjective Date of service: 04/24/20 Principal diagnosis: (1) Bipolar 1 disorder, depressed, severe Subjective Comment: Psych Nurse: Patient spent the day in his room and activity room, he interact with peers, pt is alert and orientedx3, calm and cooperative, c/o of back pain 6/10 pain. PRN Tylenol 650mg po given, denies si/hi, denies a/v/h, no distress noted, will continue to monitor. Psych Progress Patient seen this AM, reports he has been having chest pain this morning, has been having mood swings with intermittent suicidal thoughts every now and then. Patient endorses good sleep pattern and appetite. Reason for continuing inpatient psychiatric hospitalization: Suicidal thoughts, mood swings and irritability. ROS: Constitutional: Negative for weight loss ENT: Negative for stridor Respiratory: Negative for cough or hemoptysis All other systems reviewed and are negative MENTAL STATUS EXAMINATION General Appearance and Behavior: Age appropriate, good hygiene, wearing appropriate clothes,, good eye contact Cooperation: Participating/engaged, but Guarded Psychomotor Behavior: Psychomotor normal Mood: depressed Affect and affective range: irritable, labile Thought Process: illogical Thought Content: Auditory hallucinations, Speech: Normal rate, volume and rythm Intellectual Functioning: Average Suicidal Ideation: SI Homicidal Ideation: Denies HI Impulse Control: Impaired Insight and Judgment: Limited insight and judgment Memory: Normal Attention: Normal Orientation: Alert, - Psychiatric problem (1) Bipolar 1 disorder, depressed, severe Current Visit: Yes Status: Acute (2) Alcohol use disorder, severe, dependence Current Visit: Yes Status: Acute Treatment Plan Nurse informed to call hospitalist for chest pain complaints. Restart home medications, WA protocol activated Patient admitted for inpatient psychiatric evaluation, medication adjustment and close monitoring The patient's behavior, mood, sleep and appetite will be closely monitored. Patient enrolled in individual and group therapeutic sessions and encouraged to attend. Patient provided with a safe and structured environment. Patient's physical health needs will be addressed by the Hospitalist. Hospitalist Consulted Labs including CBC, CMP, Lipid profile and Hemoglobin A1C levels ordered for baseline reference Social Assessment will be completed and the Teller Supervisor will work with pa tient and family to ensure a suitable and safe disposition Medication adjustment will be made as clinically indicated Usual Wellness Hoahaoism/Preservation: - Start Trazodone 50 mg po QHS & 50 mg po QHS PRN between 10 PM & 2 AM for insomnia - Start Melatonin 5 mg po QHS to promote circadian rhythm - Start [place]-3 for brain health, reduce impulsivity, and as adjunctive treatment for mood disorder, continue upon discharge given overall benefits. - Start B1 prophylaxis with 200 mg po for 5 days The patient agreed on the treatment plan, understood the risk, benefit, alternative treatment, potential consequence of no treatment, and gave informed consent. Initial Certification Inpatient psych services: I certify that the inpatient psychiatric services are required for treatment that could reasonably be expected to improve the patient's condition. Estimated days:5 Post hospital care: primary care provider, psychiatric provider Legal Status: Voluntary Reaction to Hospitalization: Accepting Assessment and Plan - Patient Problems (1) Alcohol use disorder, severe, dependence Current Visit: No Status: Acute (2) Bipolar 1 disorder, depressed, severe Current Visit: No Status: Acute Medications and Allergies Allergies Allergy/AdvReac Type Severity Reaction Status Date / Time ketorolac tromethamine Allergy Rash Verified 02/01/17 12:29 [From Toradol] Home Medications Medication Instructions Recorded Confirmed Last Taken Type Gabapentin 300 mg PO BID 09/02/19 04/21/20 Unknown History Adult One Daily Multivit Tab 1 tab PO DAILY 04/19/20 04/21/20 Unknown History Albuterol Sulfate [Proair 2 puff INHALATION Q4HR PRN 04/19/20 04/21/20 Unknown History Respiclick] Cyanocobalamin [Vitamin B-12] 1,000 mcg PO DAILY 04/19/20 04/21/20 Unknown History DULoxetine [Cymbalta] 30 mg PO DAILY 04/19/20 04/21/20 Unknown History Hydroxyzine HCl [hydrOXYzine] 50 mg PO PRN 04/19/20 04/21/20 Unknown History Thiamine [Vitamin B-1] 100 mg PO QDAY 04/19/20 04/21/20 Unknown History lisinopriL [Zestril TAB] 10 mg PO QDAY 04/19/20 04/21/20 Unknown History methOCARBAMOL [Robaxin TAB] 750 mg PO BID PRN 04/19/20 04/21/20 Unknown History Active Meds: Active Medications Acetaminophen (Tylenol) 650 mg PO Q6H PRN PRN Reason: Pain, Mild (1-3) Last Admin: 04/23/20 21:16 Dose: 650 mg Documented by: Albuterol (Proventil) 2.5 mg IH Q4HRT PRN PRN Reason: Shortness Of Breath Chlordiazepoxide HCl (Librium) 50 mg PO Q1H PRN PRN Reason: CIWA-Ar 8-15 Chlordiazepoxide HCl (Librium) 100 mg PO Q1H PRN PRN Reason: CIWA-Ar 16-25 Cyanocobalamin (Vitamin B-12) 1,000 mcg PO DAILY [facility] Last Admin: 04/23/20 10:20 Dose: 1,000 mcg Documented by: Divalproex Sodium (Depakote Dr) 250 mg PO BID [facility] Last Admin: 04/23/20 21:15 Dose: 250 mg Documented by: Duloxetine HCl (Cymbalta) 30 mg PO DAILY [facility] Last Admin: 04/23/20 10:19 Dose: 30 mg Documented by: Gabapentin (Gabapentin) 300 mg PO BID [facility] Last Admin: 04/23/20 21:15 Dose: 300 mg Documented by: Hydroxyzine Pamoate (Vistaril) 50 mg PO Q6H PRN PRN Reason: Anxiety Lisinopril (Zestril) 10 mg PO QDAY [facility] Last Admin: 04/23/20 10:20 Dose: Not Given Documented by: Methocarbamol (Robaxin) 750 mg PO BID PRN PRN Reason: Muscle Spasm Last Admin: 04/22/20 10:21 Dose: 750 mg Documented by: Nicotine (Habitrol) 14 mg TD QDAY [facility] Last Admin: 04/23/20 10:20 Dose: 14 mg Documented by: Thiamine HCl (Vitamin B-1) 100 mg PO QDAY [facility] Last Admin: 04/23/20 10:19 Dose: 100 mg Documented by: Trazodone HCl (Desyrel) 50 mg PO QHS [facility] Last Admin: 04/23/20 21:16 Dose: 50 mg Documented by: Results - Results Labs/Vitals: Laboratory Last Values POC Glucose 159 mg/dL (70-105) H 04/22/20 00:03 Hemoglobin A1c 5.4 % (4-6) 04/22/20 05:59 Triglycerides 141 mg/dL (2-149) 04/22/20 05:59 Cholesterol 175 mg/dL (50-199) 04/22/20 05:59 LDL Cholesterol Direct 104 mg/dL (50-130) 04/22/20 05:59 HDL Cholesterol 56 mg/dL (40-59) 04/22/20 05:59 Cholesterol/HDL Ratio 3.12 % 04/22/20 05:59 TSH 0.817 mlU/mL (0.270-4.200) 04/22/20 05:59 Last Vital Signs Temp 98.1 F 04/24/20 07:25 Pulse 65 04/24/20 07:25 Resp 18 04/24/20 07:25 BP 115/83 04/24/20 07:25 Pulse Ox 95 04/24/20 07:25
[2020-04-24] MEDS: GABAPENTIN 300 MG CAP PO SCH ×2 (09:36→21:09)
[2020-04-24] MEDS: DULoxetine 30 MG CAP PO SCH (09:36)
[2020-04-24] MEDS: NICOTINE 14 MG/24 HR PATCH TD SCH (09:36)
[2020-04-24] MEDS: THIAMINE 100 MG TAB PO SCH (09:37)
[2020-04-24] MEDS: DIVALPROEX DR 125 MG TAB PO SCH (09:37)
[2020-04-24] MEDS: CYANOCOBALAMIN (VIT B-12) 1000 MCG TAB PO SCH (09:37)
[2020-04-24] MEDS: LISINOPRIL 10 MG TAB PO SCH (09:38)
--- NOTE | 2020-04-24 10:22 | Progress Note ---
Assessment and Plan Assessment and plan: Chest pain. Check cardiac isoenzymes, EKG and chest x-ray. Consider cardiology consultation based on the findings. Attempt to obtain old records from the [place]. EtOH abuse. Withdrawal protocols per psychiatry. Bipolar 1 disorder, depression. Continue per psychiatry. History Interval history: Patient complained of chest pain this morning that has now resolved. Patient with no chest pain with palpation. Patient is a poor historian but reports MT x2 with most recent MT approximately 6 months ago. Patient reports history of what sounds like cardiac catheterization/angioplasty x2. 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 Patient denies any shortness of breath or diaphoresis. No nausea or vomiting. No cough or cold-like symptoms. Hospitalist Physical - Constitutional Vitals: Temp Pulse Resp BP Pulse Ox 98.4 F 89 18 116/76 97 04/24/20 09:00 04/24/20 09:38 04/24/20 09:00 04/24/20 09:00 04/24/20 09:00 General appearance: Present: no acute distress, well-nourished - EENT Eyes: Present: PERRL, EOM intact ENT: hearing intact, clear oral mucosa, dentition normal - Neck Neck: Present: supple, normal ROM - Respiratory Respiratory effort: normal Respiratory: bilateral: CTA - Cardiovascular Rhythm: regular Heart Sounds: Present: S1 & S2. Absent: gallop, rub - Extremities Extremities: no ischemia, No edema, Full ROM - Abdominal General gastrointestinal: soft, non-tender, non-distended, normal bowel sounds - Integumentary Integumentary: Present: clear, warm, dry - Neurologic Neurologic: CNII-XII intact, moves all extremities Results - Labs Labs: Laboratory Last Values POC Glucose 159 mg/dL (70-105) H 04/22/20 00:03 Hemoglobin A1c 5.4 % (4-6) 04/22/20 05:59 Triglycerides 141 mg/dL (2-149) 04/22/20 05:59 Cholesterol 175 mg/dL (50-199) 04/22/20 05:59 LDL Cholesterol Direct 104 mg/dL (50-130) 04/22/20 05:59 HDL Cholesterol 56 mg/dL (40-59) 04/22/20 05:59 Cholesterol/HDL Ratio 3.12 % 04/22/20 05:59 TSH 0.817 mlU/mL (0.270-4.200) 04/22/20 05:59 [place]al/IV: Voiding Method Toilet Active Medications - Current Medications Current Medications: Generic Name Dose Route Start Last Admin Trade Name Freq PRN Reason Stop Dose Admin Acetaminophen 650 mg 04/21/20 22:14 04/23/20 21:16 Tylenol PO 650 mg Q6H PRN Administration Pain, Mild (1-3) Albuterol 2.5 mg 04/22/20 09:00 Proventil IH Q4HRT PRN Shortness Of Breath Chlordiazepoxide HCl 50 mg 04/23/20 09:10 Librium PO Q1H PRN CIWA-Ar 8-15 Chlordiazepoxide HCl 100 mg 04/23/20 09:10 Librium PO Q1H PRN CIWA-Ar 16-25 Cyanocobalamin 1,000 mcg 04/22/20 10:00 04/24/20 09:37 Vitamin B-12 PO 1,000 mcg DAILY [facility] Administration Divalproex Sodium 250 mg 04/22/20 10:00 04/24/20 09:[address] PO 250 mg BID [facility] Administration Duloxetine HCl 30 mg 04/22/20 10:00 04/24/20 09:36 Cymbalta PO 30 mg DAILY [facility] Administration Gabapentin 300 mg 04/21/20 22:15 04/24/20 09:36 Gabapentin PO 300 mg BID [facility] Administration Hydroxyzine Pamoate 50 mg 04/22/20 09:00 Vistaril PO Q6H PRN Anxiety Lisinopril 10 mg 04/22/20 10:00 04/24/20 09:38 Zestril PO 10 mg QDAY [facility] Administration Methocarbamol 750 mg 04/22/20 10:00 04/22/20 10:21 Robaxin PO 750 mg BID PRN Administration Muscle Spasm Nicotine 14 mg 04/23/20 10:00 04/24/20 09:36 Habitrol TD 14 mg QDAY [facility] Administration Thiamine HCl 100 mg 04/22/20 10:00 04/24/20 09:37 Vitamin B-1 PO 100 mg QDAY [facility] Administration Trazodone HCl 50 mg 04/21/20 22:00 04/23/20 21:16 Desyrel PO 50 mg QHS [facility]O Administration
[2020-04-24 11:13] LABS: Basophils % (Auto) 0.4 % (0.0-1.8); Eosinophils # (Auto) 0.1 K/mm3 (0.0-0.4); Eosinophils % (Auto) 3.7 % (0.0-4.3); Hemoglobin 12.1 gm/dl (11.8-15.2); Lymphocytes # (Auto) 0.7 K/mm3 (1.2-5.4); Lymphocytes % (Auto) 19.5 % (13.4-35.0); Mean Corpuscular HGB Conc 35 % (32-34); Mean Corpuscular Volume 97 fl (84-94); Monocytes # (Auto) 0.3 K/mm3 (0.0-0.8); Monocytes % (Auto) 7.5 % (0.0-7.3); Platelet Count 181 K/mm3 (140-440); Red Blood Count 3.59 M/mm3 (3.65-5.03)
--- NOTE | 2020-04-24 11:23 | XRay Report ---
CHEST 1 VIEW INDICATION / CLINICAL INFORMATION: cp. COMPARISON: 04/19/2020 FINDINGS: SUPPORT DEVICES: None. HEART / MEDIASTINUM: Stable. LUNGS / PLEURA: No significant pulmonary or pleural abnormality. No pneumothorax. ADDITIONAL FINDINGS: Partially visualized thoracolumbar spinal hardware is stable. IMPRESSION: 1. No acute findings. No significant interval change since prior exam. Signer Name: Javi Velez MD Signed: 04/24/2020 11:18 AM Workstation Name: [email or web address]
[2020-04-24 11:29] LABS: Blood Urea Nitrogen 24 mg/dL (9-20); Calcium 8.9 mg/dL (8.4-10.2); Hemolysis Index 5
[2020-04-24 11:30] LABS: BUN/Creatinine Ratio 34
[2020-04-24] MEDS: ACETAMINOPHEN 325 MG TAB PO PRN ×2 (14:21→21:08)
[2020-04-24] MEDS ORDERED: HYDROXYZINE HCL 50 MG PO SCH (17:30)
[2020-04-24] MEDS: DIVALPROEX DR 250 MG TAB PO SCH (21:09)
[2020-04-24] MEDS: FAMOTIDINE 20 MG TAB PO SCH (21:09)
--- NOTE | 2020-04-25 07:34 | Progress Note ---
Subjective Date of service: 04/25/20 Principal diagnosis: (1) Bipolar 1 disorder, depressed, severe Subjective Comment: Psych Nurse: On rounding @ 0030, female pt was found in pts room trying to take her clothes off. No incidence occurred per pt. Per pt she walked into his room uninvited. When staff entered the room Pt was fully clothed and the female peer was taking her pants off. She was assisted back to her room and was placed on close observation. Pt walked to the writer editor requesting him to do him "a favor. Please write note for the doctor that that I am still having suicide thought. You will do that for me?" Pt states the suicide thoughts keep "coming all the time." Will closely monitor for safety. Psych Progress Patient seen this morning, patient states that he knows he is going home today but he still feels like his brain is messed up and is disorientated. I asked patient why things like that patient says because he still suicidal, then patient reported that he would like to be in the hospital longer because his next paycheck does not come until the first and he is currently out of money. Patient then asked if something was found with his chest pain work-up that could keep him in the hospital for more days. Apparently, patient had approached another female patient requesting for her address so that he could go stay with her. Reason for continuing inpatient psychiatric hospitalization: Plan to discharge today if medically cleared. ROS: Constitutional: Negative for weight loss ENT: Negative for stridor Respiratory: Negative for cough or hemoptysis All other systems reviewed and are negative MENTAL STATUS EXAMINATION General Appearance and Behavior: Age appropriate, good hygiene, wearing appropriate clothes,, good eye contact Cooperation: Participating/engaged, but Guarded Psychomotor Behavior: Psychomotor normal Mood: depressed Affect and affective range: irritable, labile Thought Process: illogical Thought Content: goal oriented Speech: Normal rate, volume and rythm Intellectual Functioning: Average Suicidal Ideation: SI Homicidal Ideation: Denies HI Impulse Control: Impaired Insight and Judgment: Limited insight and judgment Memory: Normal Attention: Normal Orientation: Alert, oriented - Psychiatric problem (1) Bipolar 1 disorder, depressed, severe Current Visit: Yes Status: Acute (2) Alcohol use disorder, severe, dependence Current Visit: Yes Status: Acute Treatment Plan Patient appears to be malingering, wants to stay in hospital longer because he does not have money and has spend his last pay check and even asked another patient for their address so he could come and stay with them. Patient admitted for inpatient psychiatric evaluation, medication adjustment and close monitoring The patient's behavior, mood, sleep and appetite will be closely monitored. Patient enrolled in individual and group therapeutic sessions and encouraged to attend. Patient provided with a safe and structured environment. Patient's physical health needs will be addressed by the Hospitalist. Hospitalist Consulted Labs including CBC, CMP, Lipid profile and Hemoglobin A1C levels ordered for baseline reference Social Assessment will be completed and the Retail Sales Associate Bilingual will work with patient and family to ensure a suitable and safe disposition Medication adjustment will be made as clinically indicated Usual Wellness Caodaism/Preservation: - Start Trazodone 50 mg po QHS & 50 mg po QHS PRN between 10 PM & 2 AM for insomnia - Start Melatonin 5 mg po QHS to promote circadian rhythm - Start [place]-3 for brain health, reduce impulsivity, and as adjunctive treatment for mood disorder, continue upon discharge given overall benefits. - Start B1 prophylaxis with 200 mg po for 5 days The patient agreed on the treatment plan, understood the risk, benefit, alternative treatment, potential consequence of no treatment, and gave informed consent. Initial Certification Inpatient psych services: I certify that the inpatient psychiatric services are required for treatment that could reasonably be expected to improve the patient's condition. Estimated days:1 Post hospital care: primary care provider, psychiatric provider Legal Status: Voluntary Reaction to Hospitalization: Accepting Assessment and Plan - Patient Problems (1) Alcohol use disorder, severe, dependence Current Visit: No Status: Acute (2) Bipolar 1 disorder, depressed, severe Current Visit: No Status: Acute Medications and Allergies Allergies Allergy/AdvReac Type Severity Reaction Status Date / Time ketorolac tromethamine Allergy Rash Verified 02/01/17 12:29 [From Toradol] Home Medications Medication Instructions Recorded Confirmed Last Taken Type Gabapentin 300 mg PO BID 09/02/19 04/21/20 Unknown History Adult One Daily Multivit Tab 1 tab PO DAILY 04/19/20 04/21/20 Unknown History Albuterol Sulfate [Proair 2 puff INHALATION Q4HR PRN 04/19/20 04/21/20 Unknown History Respiclick] Cyanocobalamin [Vitamin B-12] 1,000 mcg PO DAILY 04/19/20 04/21/20 Unknown History DULoxetine [Cymbalta] 30 mg PO DAILY 04/19/20 04/21/20 Unknown History Hydroxyzine HCl [hydrOXYzine] 50 mg PO PRN 04/19/20 04/21/20 Unknown History Thiamine [Vitamin B-1] 100 mg PO QDAY 04/19/20 04/21/20 Unknown History lisinopriL [Zestril TAB] 10 mg PO QDAY 04/19/20 04/21/20 Unknown History methOCARBAMOL [Robaxin TAB] 750 mg PO BID PRN 04/19/20 04/21/20 Unknown History Active Meds: Active Medications Acetaminophen (Tylenol) 650 mg PO Q6H PRN PRN Reason: Pain, Mild (1-3) Last Admin: 04/24/20 21:08 Dose: 650 mg Documented by: Albuterol (Proventil) 2.5 mg IH Q4HRT PRN PRN Reason: Shortness Of Breath Chlordiazepoxide HCl (Librium) 50 mg PO Q1H PRN PRN Reason: CIWA-Ar 8-15 Chlordiazepoxide HCl (Librium) 100 mg PO Q1H PRN PRN Reason: CIWA-Ar 16-25 Cyanocobalamin (Vitamin B-12) 1,000 mcg PO DAILY [facility] Last Admin: 04/24/20 09:37 Dose: 1,000 mcg Documented by: Divalproex Sodium (Depakote Dr) 250 mg PO BID [facility] Last Admin: 04/24/20 21:09 Dose: 250 mg Documented by: Duloxetine HCl (Cymbalta) 30 mg PO DAILY [facility] Last Admin: 04/24/20 09:36 Dose: 30 mg Documented by: Famotidine (Pepcid) 20 mg PO BID [facility] Last Admin: 04/24/20 21:09 Dose: 20 mg Documented by: Gabapentin (Gabapentin) 300 mg PO BID [facility] Last Admin: 04/24/20 21:09 Dose: 300 mg Documented by: Hydroxyzine Pamoate (Vistaril) 50 mg PO Q6H PRN PRN Reason: Anxiety Lisinopril (Zestril) 10 mg PO QDAY [facility] Last Admin: 04/24/20 09:38 Dose: 10 mg Documented by: Methocarbamol (Robaxin) 750 mg PO BID PRN PRN Reason: Muscle Spasm Last Admin: 04/22/20 10:21 Dose: 750 mg Documented by: Multivitamins (Theragran Tab) 1 each PO DAILY [facility] Nicotine (Habitrol) 14 mg TD QDAY [facility] Last Admin: 04/24/20 09:36 Dose: 14 mg Documented by: Thiamine HCl (Vitamin B-1) 100 mg PO QDAY [facility] Last Admin: 04/24/20 09:37 Dose: 100 mg Documented by: Results - Results Labs/Vitals: Laboratory Last Values WBC 3.8 K/mm3 (4.5-11.0) L 04/24/20 10:01 RBC 3.59 M/mm3 (3.65-5.03) L 04/24/20 10:01 Hgb 12.1 gm/dl (11.8-15.2) 04/24/20 10:01 Hct 35.0 % (35.5-45.6) L 04/24/20 10:01 MCV 97 fl (84-94) H 04/24/20 10:01 MCH 34 pg (28-32) H 04/24/20 10:01 MCHC 35 % (32-34) H 04/24/20 10:01 RDW 14.0 % (13.2-15.2) 04/24/20 10:01 Plt Count 181 K/mm3 (140-440) 04/24/20 10:01 Lymph % (Auto) 19.5 % (13.4-35.0) 04/24/20 10:01 [place] % (Auto) 7.5 % (0.0-7.3) H 04/24/20 10:01 Eos % (Auto) 3.7 % (0.0-4.3) 04/24/20 10:01 Baso % (Auto) 0.4 % (0.0-1.8) 04/24/20 10:01 Lymph # (Auto) 0.7 K/mm3 (1.2-5.4) L 04/24/20 10:01 [place] # (Auto) 0.3 K/mm3 (0.0-0.8) 04/24/20 10:01 Eos # (Auto) 0.1 K/mm3 (0.0-0.4) 04/24/20 10:01 Baso # (Auto) 0.0 K/mm3 (0.0-0.1) 04/24/20 10:01 Seg Neutrophils % 68.9 % (40.0-70.0) 04/24/20 10:01 Seg Neutrophils # 2.6 K/mm3 (1.8-7.7) 04/24/20 10:01 D-Dimer 253.57 ng/mlDDU (0-234) H 04/24/20 14:09 Sodium 138 mmol/L (137-145) D 04/24/20 10:01 Potassium 4.6 mmol/L (3.6-5.0) 04/24/20 10:01 Chloride 102.5 mmol/L (98-107) 04/24/20 10:01 Carbon Dioxide 29 mmol/L (22-30) D 04/24/20 10:01 Anion Gap 11 mmol/L 04/24/20 10:01 BUN 24 mg/dL (9-20) H 04/24/20 10:01 Creatinine 0.7 mg/dL (0.8-1.3) L 04/24/20 10:01 Estimated GFR > 60 ml/min 04/24/20 10:01 BUN/Creatinine Ratio 34 % 04/24/20 10:01 Glucose 69 mg/dL (75-100) L 04/24/20 10:01 POC Glucose 159 mg/dL (70-105) H 04/22/20 00:03 Hemoglobin A1c 5.4 % (4-6) 04/22/20 05:59 Calcium 8.9 mg/dL (8.4-10.2) 04/24/20 10:01 Troponin T < 0.010 ng/mL (0.00-0.029) 04/24/20 18:54 Triglycerides 141 mg/dL (2-149) 04/22/20 05:59 Cholesterol 175 mg/dL (50-199) 04/22/20 05:59 LDL Cholesterol Direct 104 mg/dL (50-130) 04/22/20 05:59 HDL Cholesterol 56 mg/dL (40-59) 04/22/20 05:59 Cholesterol/HDL Ratio 3.12 % 04/22/20 05:59 TSH 0.817 mlU/mL (0.270-4.200) 04/22/20 05:59 Last Vital Signs Temp 98.4 F 04/24/20 18:19 Pulse 76 04/24/20 18:19 Resp 18 04/24/20 21:08 BP 99/66 04/24/20 18:19 Pulse Ox 97 04/24/20 18:19
[2020-04-25] MEDS ORDERED: MULTIVITAMIN PO SCH (10:00)
[2020-04-25] MEDS: THIAMINE 100 MG TAB PO SCH (10:28)
[2020-04-25] MEDS: DIVALPROEX DR 250 MG TAB PO SCH ×2 (10:28→21:14)
[2020-04-25] MEDS: MULTIVITAMINS ,THERAPEUTIC TAB PO SCH (10:28)
[2020-04-25] MEDS: NICOTINE 14 MG/24 HR PATCH TD SCH (10:34)
[2020-04-25] MEDS: GABAPENTIN 300 MG CAP PO SCH ×2 (10:34→21:14)
[2020-04-25] MEDS: DULoxetine 30 MG CAP PO SCH (10:34)
[2020-04-25] MEDS: FAMOTIDINE 20 MG TAB PO SCH ×2 (10:34→21:14)
[2020-04-25] MEDS: CYANOCOBALAMIN (VIT B-12) 1000 MCG TAB PO SCH (10:35)
[2020-04-25] MEDS: LISINOPRIL 10 MG TAB PO SCH (10:36)
--- NOTE | 2020-04-25 11:15 | Discharge Summary ---
Providers - Providers Date of Admission: 04/21/20 20:13 Date of discharge: 04/26/20 Attending physician: STEPHANIE LIZ MD 04/21/20 15:13 Consult to Physician [CONS] Routine Comment: Consulting Provider: YAYA CABA Physician Instructions: Reason For Exam: manage medical conditions Primary care physician: BURGLAR ALARM MECHANIC Hospitalization Reason for admission: Danger to self Condition: Good Hospital course: The patient was provided inpatient psychiatric treatment with safe and supportive environment, group/individual therapy, psychiatric medication, medication adjustment, adverse effect monitor, medical evaluation, medical treatment, social service assessment, social support meeting, placement ass essment and psycho-education. The patients mood, cognition, behavior, motivation, compliance to treatment and appreciation on family/social support are improved and stabilized. At the time of discharge, the patient had no suicidal ideas, no homicidal ideas, no aggressive thoughts, no endangering behavior and no debilitating adverse effects. The patient agareed on the treatment plan, understood the risk, benefit, alternative treatment, potential consequence of no treatment, and gave informed consent. Disposition: DC- TO HOME OR SELFCARE Allergies/Adverse Reactions: Allergies ketorolac tromethamine [From Toradol] Allergy (Verified 02/01/17 12:29) Rash Vital Signs: Last Vital Signs Temp 98.9 F 04/25/20 08:35 Pulse 79 04/25/20 10:36 Resp 18 04/25/20 08:35 BP 119/72 04/25/20 10:36 Pulse Ox 97 04/25/20 08:35 Last Lab: Laboratory Last Values WBC 3.8 K/mm3 (4.5-11.0) L 04/24/20 10:01 RBC 3.59 M/mm3 (3.65-5.03) L 04/24/20 10:01 Hgb 12.1 gm/dl (11.8-15.2) 04/24/20 10:01 Hct 35.0 % (35.5-45.6) L 04/24/20 10:01 MCV 97 fl (84-94) H 04/24/20 10:01 MCH 34 pg (28-32) H 04/24/20 10:01 MCHC 35 % (32-34) H 04/24/20 10:01 RDW 14.0 % (13.2-15.2) 04/24/20 10:01 Plt Count 181 K/mm3 (140-440) 04/24/20 10:01 Lymph % (Auto) 19.5 % (13.4-35.0) 04/24/20 10:01 [place] % (Auto) 7.5 % (0.0-7.3) H 04/24/20 10:01 Eos % (Auto) 3.7 % (0.0-4.3) 04/24/20 10:01 Baso % (Auto) 0.4 % (0.0-1.8) 04/24/20 10:01 Lymph # (Auto) 0.7 K/mm3 (1.2-5.4) L 04/24/20 10:01 [place] # (Auto) 0.3 K/mm3 (0.0-0.8) 04/24/20 10:01 Eos # (Auto) 0.1 K/mm3 (0.0-0.4) 04/24/20 10:01 Baso # (Auto) 0.0 K/mm3 (0.0-0.1) 04/24/20 10:01 Seg Neutrophils % 68.9 % (40.0-70.0) 04/24/20 10:01 Seg Neutrophils # 2.6 K/mm3 (1.8-7.7) 04/24/20 10:01 D-Dimer 253.57 ng/mlDDU (0-234) H 04/24/20 14:09 Sodium 138 mmol/L (137-145) D 04/24/20 10:01 Potassium 4.6 mmol/L (3.6-5.0) 04/24/20 10:01 Chloride 102.5 mmol/L (98-107) 04/24/20 10:01 Carbon Dioxide 29 mmol/L (22-30) D 04/24/20 10:01 Anion Gap 11 mmol/L 04/24/20 10:01 BUN 24 mg/dL (9-20) H 04/24/20 10:01 Creatinine 0.7 mg/dL (0.8-1.3) L 04/24/20 10:01 Estimated GFR > 60 ml/min 04/24/20 10:01 BUN/Creatinine Ratio 34 % 04/24/20 10:01 Glucose 69 mg/dL (75-100) L 04/24/20 10:01 POC Glucose 159 mg/dL (70-105) H 04/22/20 00:03 Hemoglobin A1c 5.4 % (4-6) 04/22/20 05:59 Calcium 8.9 mg/dL (8.4-10.2) 04/24/20 10:01 Troponin T < 0.010 ng/mL (0.00-0.029) 04/24/20 18:54 Triglycerides 141 mg/dL (2-149) 04/22/20 05:59 Cholesterol 175 mg/dL (50-199) 04/22/20 05:59 LDL Cholesterol Direct 104 mg/dL (50-130) 04/22/20 05:59 HDL Cholesterol 56 mg/dL (40-59) 04/22/20 05:59 Cholesterol/HDL Ratio 3.12 % 04/22/20 05:59 TSH 0.817 mlU/mL (0.270-4.200) 04/22/20 05:59 - Discharge Diagnoses (1) Alcohol use disorder, severe, dependence Status: Acute (2) Bipolar 1 disorder, depressed, severe Status: Acute Core Measure Documentation - Palliative Care Palliative Care/ Comfort Measures: Not Applicable - Core Measures Any of the following diagnoses?: none Exam - Constitutional Vitals: Temp Pulse Resp BP Pulse Ox 98.9 F 79 18 119/72 97 04/25/20 08:35 04/25/20 10:36 04/25/20 08:35 04/25/20 10:36 04/25/20 08:35 General appearance: Present: no acute distress - EENT Eyes: Present: PERRL, EOM intact ENT: hearing intact, clear oral mucosa - Neck Neck: Present: supple, normal ROM - Respiratory Respiratory effort: normal - Abdominal Male genitourinary: Present: deferred - Integumentary Integumentary: Present: clear, warm, dry Plan Activity: no restrictions Care Plan Goals: Goals: Maintain good and stable mental health. Plan of Treatment: The patient should be compliant with medications, not to use drugs and not to drink alcohol. The patient understands that if suicidal ideas, homicidal ideas, or any endangering thoughts arise, the patient should immediately seek for emergent assistance including but not limited to crisis hot line and emergency room. Follow up with outpatient Psychiatrist and PCP within 7 - 14 days of discharge. Follow up with: PRIMARY CARE,MD [Primary Care Provider] - 7 Days Prescriptions: DULoxetine [Cymbalta] 30 mg PO DAILY #30 cap Divalproex [Depakote ] 250 mg PO BID #60 tablet Gabapentin 300 mg PO BID #60 capsule Multivitamin Tab [Multiple Vitamin TAB (Theragran)] 1 each PO DAILY #30 tablet Thiamine [Vitamin B-1] 100 mg PO QDAY #30 tab Cyanocobalamin [Vitamin B-12] 1,000 mcg PO DAILY #30 tab
--- NOTE | 2020-04-25 14:37 | Progress Note ---
Assessment and Plan - Patient Problems (1) Hypertension Current Visit: Yes Status: Acute Qualifiers: Hypertension type: essential hypertension Qualified Code(s): I10 - Essential (primary) hypertension Plan to address problem: Monitor blood pressure every shift, continue medical management (2) Alcohol use disorder, severe, dependence Current Visit: No Status: Acute Plan to address problem: Thiamine, folic acid, multivitamin, CIWA protocol, supportive care. (3) Bipolar 1 disorder, depressed, severe Current Visit: No Status: Acute Plan to address problem: Continue medical management as per primary team. (4) Lumbar disc disease Current Visit: Yes Status: Acute Plan to address problem: Continue pain management with NSAID therapy continue Robaxin (5) Chronic stable angina Current Visit: Yes Status: Acute Plan to address problem: Serial cardiac enzymes normal, EKG conducted with no evidence of ischemia. Patient symptoms suspected secondary to gastroesophageal reflux disease. Outpatient cardiology follow-up for further evaluation and testing. (6) Gastroesophageal reflux disease Current Visit: Yes Status: Acute Plan to address problem: PPI therapy initiated, supportive care, outpatient GI follow-up. History Interval history: 64 YO Male with Atrial Fib S/P Ablation , HTN, ETOH Dependence, Lumbar Disk Disease, Bipolar Disorder, COLE, Chronic Stable Angina admitted to [facility] for psychiatric stabilization. Patient seen and evaluated in the [facility] n room. Patient resting comfortably and denies any complaints. Patient complained of chest pain. However upon further evaluation the patient localized the epigastric area as the source of his pain. Patient initiated on PPI therapy. EKG reviewed and was found to have no evidence of ischemia. Serial cardiac enzymes normal. Hospitalist Physical - Constitutional Vitals: Temp Pulse Resp BP Pulse Ox 98.9 F 79 18 119/72 97 04/25/20 08:35 04/25/20 10:36 04/25/20 08:35 04/25/20 10:36 04/25/20 08:35 General appearance: Present: no acute distress, well-nourished - EENT Eyes: Present: PERRL, EOM intact ENT: hearing intact - Neck Neck: Present: supple - Respiratory Respiratory effort: normal Respiratory: bilateral: CTA - Cardiovascular Rhythm: regular Heart Sounds: Present: S1 & S2 - Extremities Extremities: no ischemia Peripheral Pulses: within normal limits - Abdominal General gastrointestinal: soft, non-tender, non-distended - Integumentary Integumentary: Present: clear, dry - Psychiatric Psychiatric: appropriate mood/affect, cooperative - Neurologic Neurologic: CNII-XII intact HEART Score - HEART Score Troponin: Troponin T < 0.010 ng/mL (0.00-0.029) 04/24/20 18:54 Results - Labs CBC & Chem 7: 04/24/20 10:01 04/24/20 10:01 Labs: Laboratory Last Values WBC 3.8 K/mm3 (4.5-11.0) L 04/24/20 10:01 RBC 3.59 M/mm3 (3.65-5.03) L 04/24/20 10:01 Hgb 12.1 gm/dl (11.8-15.2) 04/24/20 10:01 Hct 35.0 % (35.5-45.6) L 04/24/20 10:01 MCV 97 fl (84-94) H 04/24/20 10:01 MCH 34 pg (28-32) H 04/24/20 10:01 MCHC 35 % (32-34) H 04/24/20 10:01 RDW 14.0 % (13.2-15.2) 04/24/20 10:01 Plt Count 181 K/mm3 (140-440) 04/24/20 10:01 Lymph % (Auto) 19.5 % (13.4-35.0) 04/24/20 10:01 [place] % (Auto) 7.5 % (0.0-7.3) H 04/24/20 10:01 Eos % (Auto) 3.7 % (0.0-4.3) 04/24/20 10:01 Baso % (Auto) 0.4 % (0.0-1.8) 04/24/20 10:01 Lymph # (Auto) 0.7 K/mm3 (1.2-5.4) L 04/24/20 10:01 [place] # (Auto) 0.3 K/mm3 (0.0-0.8) 04/24/20 10:01 Eos # (Auto) 0.1 K/mm3 (0.0-0.4) 04/24/20 10:01 Baso # (Auto) 0.0 K/mm3 (0.0-0.1) 04/24/20 10:01 Seg Neutrophils % 68.9 % (40.0-70.0) 04/24/20 10:01 Seg Neutrophils # 2.6 K/mm3 (1.8-7.7) 04/24/20 10:01 D-Dimer 253.57 ng/mlDDU (0-234) H 04/24/20 14:09 Sodium 138 mmol/L (137-145) D 04/24/20 10:01 Potassium 4.6 mmol/L (3.6-5.0) 04/24/20 10:01 Chloride 102.5 mmol/L (98-107) 04/24/20 10:01 Carbon Dioxide 29 mmol/L (22-30) D 04/24/20 10:01 Anion Gap 11 mmol/L 04/24/20 10:01 BUN 24 mg/dL (9-20) H 04/24/20 10:01 Creatinine 0.7 mg/dL (0.8-1.3) L 04/24/20 10:01 Estimated GFR > 60 ml/min 04/24/20 10:01 BUN/Creatinine Ratio 34 % 04/24/20 10:01 Glucose 69 mg/dL (75-100) L 04/24/20 10:01 POC Glucose 159 mg/dL (70-105) H 04/22/20 00:03 Hemoglobin A1c 5.4 % (4-6) 04/22/20 05:59 Calcium 8.9 mg/dL (8.4-10.2) 04/24/20 10:01 Troponin T < 0.010 ng/mL (0.00-0.029) 04/24/20 18:54 Triglycerides 141 mg/dL (2-149) 04/22/20 05:59 Cholesterol 175 mg/dL (50-199) 04/22/20 05:59 LDL Cholesterol Direct 104 mg/dL (50-130) 04/22/20 05:59 HDL Cholesterol 56 mg/dL (40-59) 04/22/20 05:59 Cholesterol/HDL Ratio 3.12 % 04/22/20 05:59 TSH 0.817 mlU/mL (0.270-4.200) 04/22/20 05:59 [place]al/IV: Voiding Method Toilet Active Medications - Current Medications Current Medications: Generic Name Dose Route Start Last Admin Trade Name Freq PRN Reason Stop Dose Admin Acetaminophen 650 mg 04/21/20 22:14 04/24/20 21:08 Tylenol PO 650 mg Q6H PRN Administration Pain, Mild (1-3) Albuterol 2.5 mg 04/22/20 09:00 Proventil IH Q4HRT PRN Shortness Of Breath Chlordiazepoxide HCl 50 mg 04/23/20 09:10 Librium PO Q1H PRN CIWA-Ar 8-15 Chlordiazepoxide HCl 100 mg 04/23/20 09:10 Librium PO Q1H PRN CIWA-Ar 16-25 Cyanocobalamin 1,000 mcg 04/22/20 10:00 04/25/20 10:35 Vitamin B-12 PO 1,000 mcg DAILY [facility]LO[facility] Administration Divalproex Sodium 250 mg 04/24/20 22:00 04/25/20 10:[address] PO 250 mg BID [facility]LO[facility] Administration Duloxetine HCl 30 mg 04/22/20 10:00 04/25/20 10:34 Cymbalta PO 30 mg DAILY [facility] Administration Famotidine 20 mg 04/24/20 22:00 04/25/20 10:34 Pepcid PO 20 mg BID CHLO[facility] Administration Gabapentin 300 mg 04/24/20 22:00 04/25/20 10:34 Gabapentin PO 300 mg BID [facility]LOÉ Administration Hydroxyzine Pamoate 50 mg 04/22/20 09:00 Vistaril PO Q6H PRN Anxiety Lisinopril 10 mg 04/22/20 10:00 04/25/20 10:36 Zestril PO 10 mg QDAY CHLOÉ Administration Methocarbamol 750 mg 04/22/20 10:00 04/22/20 10:21 Robaxin PO 750 mg BID PRN Administration Muscle Spasm Multivitamins 1 each 04/25/20 10:00 04/25/20 10:28 Theragran Tab PO 1 each DAILY [facility] Administration Nicotine 14 mg 04/23/20 10:00 04/25/20 10:34 Habitrol TD 14 mg QDAY CHLOÉ Administration Thiamine HCl 100 mg 04/22/20 10:00 04/25/20 10:28 Vitamin B-1 PO 100 mg QDAY CHLOÉ Administration
--- NOTE | 2020-04-25 15:52 | Cat Scan Report ---
CTA CHEST WITH CONTRAST INDICATION : Chest pain, elevated d-dimer. TECHNIQUE: Axial imaging performed through the chest, with contrast bolus timing set to maximize opa cification of the pulmonary arteries. Sagittal and coronal reformatted images. 3-plane MIP reformatte d images were obtained. All CT scans at this location are performed using CT dose reduction for ALAR A by means of automated exposure control. 100 mL of intravenous contrast administered. COMPARISON: 05/31/2019 FINDINGS: Bolus: Contrast bolus timing is adequate. PTE: No filling defect is present to suggest PTE. Mediastinum: Heart and great vessels appear normal. No pathologic mediastinal adenopathy. Lungs: Lungs are clear. Mild centrilobular emphysematous changes are again noted. No evidence for no dule, infiltrate, pleural effusion or pneumothorax. Bones: Nondisplaced healing left posterior 10th and 11th rib fractures are identified which appear t o be new since the previous exam. Lower thoracic and lumbar posterior fusion changes are partially im aged. Upper abdomen: Limited imaging of the upper abdomen shows nothing acute. IMPRESSION: No evidence for pulmonary embolus. Mild emphysematous changes. Subacute left posterior 10th and 11th rib fractures. Signer Name: Allen Mendoza Jr, MD Signed: 04/25/2020 3:48 PM Workstation Name: [id number]
[2020-04-25] MEDS: ACETAMINOPHEN 325 MG TAB PO PRN (18:20)
--- NOTE | 2020-04-25 18:40 | Event Note ---
Date: 04/25/20 Pt medically optimized and may be discharged home.
--- NOTE | 2020-04-25 21:15 | Progress Note ---
Assessment and Plan - Patient Problems (1) Hypertension Current Visit: Yes Status: Acute Qualifiers: Hypertension type: essential hypertension Qualified Code(s): I10 - Essential (primary) hypertension Plan to address problem: Monitor blood pressure every shift, continue medical management (2) Alcohol use disorder, severe, dependence Current Visit: No Status: Acute Plan to address problem: Thiamine, folic acid, multivitamin, CIWA protocol, supportive care. (3) Bipolar 1 disorder, depressed, severe Current Visit: No Status: Acute Plan to address problem: Continue medical management as per primary team. (4) Lumbar disc disease Current Visit: Yes Status: Acute Plan to address problem: Continue pain management with NSAID therapy continue Robaxin (5) Chronic stable angina Current Visit: Yes Status: Acute Plan to address problem: Serial cardiac enzymes normal, EKG conducted with no evidence of ischemia. Patient symptoms suspected secondary to gastroesophageal reflux disease. Outpatient cardiology follow-up for further evaluation and testing. (6) Gastroesophageal reflux disease Current Visit: Yes Status: Acute Plan to address problem: PPI therapy initiated, supportive care, outpatient GI follow-up. History Interval history: 64 YO Male with Atrial Fib S/P Ablation , HTN, ETOH Dependence, Lumbar Disk Disease, Bipolar Disorder, COLE, Chronic Stable Angina admitted to [facility] for psychiatric stabilization. Patient seen and evaluated in the critical access hospital n room. Patient resting comfortably and denies any complaints. Patient denies pain. Pt has symptoms consistent with GERD. Patient initiated on trial PPI therapy. CTA chest negative, Cardiac workup negative. medically optimized and may be discharged home. Hospitalist Physical - Constitutional Vitals: Temp Pulse Resp BP Pulse Ox 98.9 F 79 18 119/72 97 04/25/20 08:35 04/25/20 10:36 04/25/20 08:35 04/25/20 10:36 04/25/20 08:35 General appearance: Present: no acute distress, well-nourished - EENT Eyes: Present: PERRL, EOM intact ENT: hearing intact - Neck Neck: Present: supple - Respiratory Respiratory effort: normal Respiratory: bilateral: CTA - Cardiovascular Rhythm: regular Heart Sounds: Present: S1 & S2 - Extremities Extremities: no ischemia Peripheral Pulses: within normal limits - Abdominal General gastrointestinal: soft, non-tender, non-distended - Integumentary Integumentary: Present: clear, dry - Psychiatric Psychiatric: appropriate mood/affect, cooperative - Neurologic Neurologic: CNII-XII intact HEART Score - HEART Score Troponin: Troponin T < 0.010 ng/mL (0.00-0.029) 04/24/20 18:54 Results - Labs CBC & Chem 7: 04/24/20 10:01 04/24/20 10:01 Labs: Laboratory Last Values WBC 3.8 K/mm3 (4.5-11.0) L 04/24/20 10:01 RBC 3.59 M/mm3 (3.65-5.03) L 04/24/20 10:01 Hgb 12.1 gm/dl (11.8-15.2) 04/24/20 10:01 Hct 35.0 % (35.5-45.6) L 04/24/20 10:01 MCV 97 fl (84-94) H 04/24/20 10:01 MCH 34 pg (28-32) H 04/24/20 10:01 MCHC 35 % (32-34) H 04/24/20 10:01 RDW 14.0 % (13.2-15.2) 04/24/20 10:01 Plt Count 181 K/mm3 (140-440) 04/24/20 10:01 Lymph % (Auto) 19.5 % (13.4-35.0) 04/24/20 10:01 [place] % (Auto) 7.5 % (0.0-7.3) H 04/24/20 10:01 Eos % (Auto) 3.7 % (0.0-4.3) 04/24/20 10:01 Baso % (Auto) 0.4 % (0.0-1.8) 04/24/20 10:01 Lymph # (Auto) 0.7 K/mm3 (1.2-5.4) L 04/24/20 10:01 [place] # (Auto) 0.3 K/mm3 (0.0-0.8) 04/24/20 10:01 Eos # (Auto) 0.1 K/mm3 (0.0-0.4) 04/24/20 10:01 Baso # (Auto) 0.0 K/mm3 (0.0-0.1) 04/24/20 10:01 Seg Neutrophils % 68.9 % (40.0-70.0) 04/24/20 10:01 Seg Neutrophils # 2.6 K/mm3 (1.8-7.7) 04/24/20 10:01 D-Dimer 253.57 ng/mlDDU (0-234) H 04/24/20 14:09 Sodium 138 mmol/L (137-145) D 04/24/20 10:01 Potassium 4.6 mmol/L (3.6-5.0) 04/24/20 10:01 Chloride 102.5 mmol/L (98-107) 04/24/20 10:01 Carbon Dioxide 29 mmol/L (22-30) D 04/24/20 10:01 Anion Gap 11 mmol/L 04/24/20 10:01 BUN 24 mg/dL (9-20) H 04/24/20 10:01 Creatinine 0.7 mg/dL (0.8-1.3) L 04/24/20 10:01 Estimated GFR > 60 ml/min 04/24/20 10:01 BUN/Creatinine Ratio 34 % 04/24/20 10:01 Glucose 69 mg/dL (75-100) L 04/24/20 10:01 POC Glucose 159 mg/dL (70-105) H 04/22/20 00:03 Hemoglobin A1c 5.4 % (4-6) 04/22/20 05:59 Calcium 8.9 mg/dL (8.4-10.2) 04/24/20 10:01 Troponin T < 0.010 ng/mL (0.00-0.029) 04/24/20 18:54 Triglycerides 141 mg/dL (2-149) 04/22/20 05:59 Cholesterol 175 mg/dL (50-199) 04/22/20 05:59 LDL Cholesterol Direct 104 mg/dL (50-130) 04/22/20 05:59 HDL Cholesterol 56 mg/dL (40-59) 04/22/20 05:59 Cholesterol/HDL Ratio 3.12 % 04/22/20 05:59 TSH 0.817 mlU/mL (0.270-4.200) 04/22/20 05:59 Carvajal/IV: Voiding Method Toilet IV Catheter Type [Right INT / Saline Lock Antecubital] Active Medications - Current Medications Current Medications: Generic Name Dose Route Start Last Admin Trade Name Freq PRN Reason Stop Dose Admin Acetaminophen 650 mg 04/21/20 22:14 04/25/20 18:20 Tylenol PO 650 mg Q6H PRN Administration Pain, Mild (1-3) Albuterol 2.5 mg 04/22/20 09:00 Proventil IH Q4HRT PRN Shortness Of Breath Chlordiazepoxide HCl 50 mg 04/23/20 09:10 Librium PO Q1H PRN CIWA-Ar 8-15 Chlordiazepoxide HCl 100 mg 04/23/20 09:10 Librium PO Q1H PRN CIWA-Ar 16-25 Cyanocobalamin 1,000 mcg 04/22/20 10:00 04/25/20 10:35 Vitamin B-12 PO 1,000 mcg DAILY CHLOÉ Administration Divalproex Sodium 250 mg 04/24/20 22:00 04/25/20 10:[address] PO 250 mg BID CHLOÉ Administration Duloxetine HCl 30 mg 04/22/20 10:00 04/25/20 10:34 Cymbalta PO 30 mg DAILY CHLOÉ Administration Famotidine 20 mg 04/24/20 22:00 04/25/20 10:34 Pepcid PO 20 mg BID CHLOÉ Administration Gabapentin 300 mg 04/24/20 22:00 04/25/20 10:34 Gabapentin PO 300 mg BID CHLOÉ Administration Hydroxyzine Pamoate 50 mg 04/22/20 09:00 04/25/20 20:44 Vistaril PO 50 mg Q6H PRN Administration Anxiety Lisinopril 10 mg 04/22/20 10:00 04/25/20 10:36 Zestril PO 10 mg QDAY CHLOÉ Administration Methocarbamol 750 mg 04/22/20 10:00 04/22/20 10:21 Robaxin PO 750 mg BID PRN Administration Muscle Spasm Multivitamins 1 each 04/25/20 10:00 04/25/20 10:28 Theragran Tab PO 1 each DAILY CHLOÉ Administration Nicotine 14 mg 04/23/20 10:00 04/25/20 10:34 Habitrol TD 14 mg QDAY CHLOÉ Administration Thiamine HCl 100 mg 04/22/20 10:00 04/25/20 10:28 Vitamin B-1 PO 100 mg QDAY CHLOÉ Administration
[2020-04-26] MEDS: ACETAMINOPHEN 325 MG TAB PO PRN (07:07)
--- NOTE | 2020-04-26 07:34 | Progress Note ---
Subjective Date of service: 04/26/20 Principal diagnosis: (1) Bipolar 1 disorder, depressed, severe Subjective Comment: Psych Nurse: pt spent the evening in the activity room interacting and socializing with peers, bright affect, stable mood, pt is alert and orientedx4, calm and cooperative, able to make needs known, good appetite, medication compliant, denies si/hi, denies a/v/h, no distress noted, will continue to monitor for safety. Psych Progress Patient to be discharged today. Reason for continuing inpatient psychiatric hospitalization: Plan to discharge today, pt medically clear after chest pain complaints ROS: Constitutional: Negative for weight loss ENT: Negative for stridor Respiratory: Negative for cough or hemoptysis All other systems reviewed and are negative MENTAL STATUS EXAMINATION General Appearance and Behavior: Age appropriate, good hygiene, wearing appropriate clothes,, good eye contact Cooperation: Participating/engaged, but Guarded Psychomotor Behavior: Psychomotor normal Mood: depressed Affect and affective range: irritable, labile Thought Process: illogical Thought Content: goal oriented Speech: Normal rate, volume and rythm Intellectual Functioning: Average Suicidal Ideation: denies SI Homicidal Ideation: Denies HI Impulse Control: Impaired Insight and Judgment: Limited insight and judgment Memory: Normal Attention: Normal Orientation: Alert, oriented - Psychiatric problem (1) Bipolar 1 disorder, depressed, severe Current Visit: Yes Status: Acute (2) Alcohol use disorder, severe, dependence Current Visit: Yes Status: Acute Treatment Plan Patient appears to be malingering, wants to stay in hospital longer because he does not have money and has spend his last pay check and even asked another patient for their address so he could come and stay with them. Patient admitted for inpatient psychiatric evaluation, medication adjustment and close monitoring The patient's behavior, mood, sleep and appetite will be closely monitored. Patient enrolled in individual and group therapeutic sessions and encouraged to attend. Patient provided with a safe and structured environment. Patient's physical health needs will be addressed by the Hospitalist. Hospitalist Consulted Labs including CBC, CMP, Lipid profile and Hemoglobin A1C levels ordered for baseline reference Social Assessment will be completed and the Parts Runner will work with reynold ent and family to ensure a suitable and safe disposition Medication adjustment will be made as clinically indicated Usual Wellness Mandaeism/Preservation: - Start Trazodone 50 mg po QHS & 50 mg po QHS PRN between 10 PM & 2 AM for insomnia - Start Melatonin 5 mg po QHS to promote circadian rhythm - Start [place]-3 for brain health, reduce impulsivity, and as adjunctive treatment for mood disorder, continue upon discharge given overall benefits. - Start B1 prophylaxis with 200 mg po for 5 days The patient agreed on the treatment plan, understood the risk, benefit, alternative treatment, potential consequence of no treatment, and gave informed consent. Initial Certification Inpatient psych services: I certify that the inpatient psychiatric services are required for treatment that could reasonably be expected to improve the patient's condition. Estimated days:1 Post hospital care: primary care provider, psychiatric provider Legal Status: Voluntary Reaction to Hospitalization: Accepting Assessment and Plan - Patient Problems (1) Alcohol use disorder, severe, dependence Current Visit: No Status: Acute (2) Bipolar 1 disorder, depressed, severe Current Visit: No Status: Acute Medications and Allergies Allergies Allergy/AdvReac Type Severity Reaction Status Date / Time ketorolac tromethamine Allergy Rash Verified 02/01/17 12:29 [From Toradol] Home Medications Medication Instructions Recorded Confirmed Last Taken Type Albuterol Sulfate [Proair 2 puff INHALATION Q4HR PRN 04/19/20 04/21/20 Unknown History Respiclick] Hydroxyzine HCl [hydrOXYzine] 50 mg PO PRN 04/19/20 04/21/20 Unknown History lisinopriL [Zestril TAB] 10 mg PO QDAY 04/19/20 04/21/20 Unknown History methOCARBAMOL [Robaxin TAB] 750 mg PO BID PRN 04/19/20 04/21/20 Unknown History Cyanocobalamin [Vitamin B-12] 1,000 mcg PO DAILY #30 tab 04/25/20 Unknown Rx DULoxetine [Cymbalta] 30 mg PO DAILY #30 cap 04/25/20 Unknown Rx Divalproex [Philip Fry] 250 mg PO BID #60 tablet 04/25/20 Unknown Rx Gabapentin 300 mg PO BID #60 capsule 04/25/20 Unknown Rx Multivitamin Tab [Multiple Vitamin 1 each PO DAILY #30 tablet 04/25/20 Unknown Rx TAB (Theragran)] Thiamine [Vitamin B-1] 100 mg PO QDAY #30 tab 04/25/20 Unknown Rx Active Meds: Active Medications Acetaminophen (Tylenol) 650 mg PO Q6H PRN PRN Reason: Pain, Mild (1-3) Last Admin: 04/26/20 07:07 Dose: 650 mg Documented by: Albuterol (Proventil) 2.5 mg IH Q4HRT PRN PRN Reason: Shortness Of Breath Chlordiazepoxide HCl (Librium) 50 mg PO Q1H PRN PRN Reason: CIWA-Ar 8-15 Chlordiazepoxide HCl (Librium) 100 mg PO Q1H PRN PRN Reason: CIWA-Ar 16-25 Cyanocobalamin (Vitamin B-12) 1,000 mcg PO DAILY [facility] Last Admin: 04/25/20 10:35 Dose: 1,000 mcg Documented by: Divalproex Sodium (Depakote Dr) 250 mg PO BID [facility] Last Admin: 04/25/20 21:14 Dose: 250 mg Documented by: Duloxetine HCl (Cymbalta) 30 mg PO DAILY [facility] Last Admin: 04/25/20 10:34 Dose: 30 mg Documented by: Famotidine (Pepcid) 20 mg PO BID [facility] Last Admin: 04/25/20 21:14 Dose: 20 mg Documented by: Gabapentin (Gabapentin) 300 mg PO BID [facility] Last Admin: 04/25/20 21:14 Dose: 300 mg Documented by: Hydroxyzine Pamoate (Vistaril) 50 mg PO Q6H PRN PRN Reason: Anxiety Last Admin: 04/25/20 20:44 Dose: 50 mg Documented by: Lisinopril (Zestril) 10 mg PO QDAY [facility] Last Admin: 04/25/20 10:36 Dose: 10 mg Documented by: Methocarbamol (Robaxin) 750 mg PO BID PRN PRN Reason: Muscle Spasm Last Admin: 04/22/20 10:21 Dose: 750 mg Documented by: Multivitamins (Theragran Tab) 1 each PO DAILY [facility] Last Admin: 04/25/20 10:28 Dose: 1 each Documented by: Nicotine (Habitrol) 14 mg TD QDAY [facility] Last Admin: 04/25/20 10:34 Dose: 14 mg Documented by: Thiamine HCl (Vitamin B-1) 100 mg PO QDAY [facility] Last Admin: 04/25/20 10:28 Dose: 100 mg Documented by: Results - Results Labs/Vitals: Laboratory Last Values WBC 3.8 K/mm3 (4.5-11.0) L 04/24/20 10:01 RBC 3.59 M/mm3 (3.65-5.03) L 04/24/20 10:01 Hgb 12.1 gm/dl (11.8-15.2) 04/24/20 10:01 Hct 35.0 % (35.5-45.6) L 04/24/20 10:01 MCV 97 fl (84-94) H 04/24/20 10:01 MCH 34 pg (28-32) H 04/24/20 10:01 MCHC 35 % (32-34) H 04/24/20 10:01 RDW 14.0 % (13.2-15.2) 04/24/20 10:01 Plt Count 181 K/mm3 (140-440) 04/24/20 10:01 Lymph % (Auto) 19.5 % (13.4-35.0) 04/24/20 10:01 [place] % (Auto) 7.5 % (0.0-7.3) H 04/24/20 10:01 Eos % (Auto) 3.7 % (0.0-4.3) 04/24/20 10:01 Baso % (Auto) 0.4 % (0.0-1.8) 04/24/20 10:01 Lymph # (Auto) 0.7 K/mm3 (1.2-5.4) L 04/24/20 10:01 [place] # (Auto) 0.3 K/mm3 (0.0-0.8) 04/24/20 10:01 Eos # (Auto) 0.1 K/mm3 (0.0-0.4) 04/24/20 10:01 Baso # (Auto) 0.0 K/mm3 (0.0-0.1) 04/24/20 10:01 Seg Neutrophils % 68.9 % (40.0-70.0) 04/24/20 10:01 Seg Neutrophils # 2.6 K/mm3 (1.8-7.7) 04/24/20 10:01 D-Dimer 253.57 ng/mlDDU (0-234) H 04/24/20 14:09 Sodium 138 mmol/L (137-145) D 04/24/20 10:01 Potassium 4.6 mmol/L (3.6-5.0) 04/24/20 10:01 Chloride 102.5 mmol/L (98-107) 04/24/20 10:01 Carbon Dioxide 29 mmol/L (22-30) D 04/24/20 10:01 Anion Gap 11 mmol/L 04/24/20 10:01 BUN 24 mg/dL (9-20) H 04/24/20 10:01 Creatinine 0.7 mg/dL (0.8-1.3) L 04/24/20 10:01 Estimated GFR > 60 ml/min 04/24/20 10:01 BUN/Creatinine Ratio 34 % 04/24/20 10:01 Glucose 69 mg/dL (75-100) L 04/24/20 10:01 POC Glucose 159 mg/dL (70-105) H 04/22/20 00:03 Hemoglobin A1c 5.4 % (4-6) 04/22/20 05:59 Calcium 8.9 mg/dL (8.4-10.2) 04/24/20 10:01 Troponin T < 0.010 ng/mL (0.00-0.029) 04/24/20 18:54 Triglycerides 141 mg/dL (2-149) 04/22/20 05:59 Cholesterol 175 mg/dL (50-199) 04/22/20 05:59 LDL Cholesterol Direct 104 mg/dL (50-130) 04/22/20 05:59 HDL Cholesterol 56 mg/dL (40-59) 04/22/20 05:59 Cholesterol/HDL Ratio 3.12 % 04/22/20 05:59 TSH 0.817 mlU/mL (0.270-4.200) 04/22/20 05:59 Last Vital Signs Temp 97.9 F 04/25/20 22:00 Pulse 70 04/25/20 22:00 Resp 18 04/26/20 07:07 BP 121/66 04/25/20 22:00 Pulse Ox 95 04/25/20 22:00
[2020-04-26] MEDS: DULoxetine 30 MG CAP PO SCH (09:53)
[2020-04-26] MEDS: GABAPENTIN 300 MG CAP PO SCH (09:53)
[2020-04-26] MEDS: THIAMINE 100 MG TAB PO SCH (09:53)
[2020-04-26] MEDS: CYANOCOBALAMIN (VIT B-12) 1000 MCG TAB PO SCH (09:53)
[2020-04-26] MEDS: DIVALPROEX DR 250 MG TAB PO SCH (09:53)
[2020-04-26] MEDS: MULTIVITAMINS ,THERAPEUTIC TAB PO SCH (09:53)
[2020-04-26] MEDS: LISINOPRIL 10 MG TAB PO SCH (09:53)
[2020-04-26 09:57] VITALS: BP 128/58
== END 2020-04-26 14:50 | disposition home or self-care (01) | DRG 885 ==
LOC: UNDOADMIN 15:02 → 3A 15:02 → 5A 20:13
PROVIDERS: ADMIT Psychiatry & Neurology Psychiatry; ATTEND Psychiatry & Neurology Psychiatry
DX: F31.81 Bipolar II disorder (principal); F41.9 Anxiety disorder, unspecified; I25.10 Atherosclerotic heart disease of native coronary artery without angina pectoris; I48.91 Unspecified atrial fibrillation; I10 Essential (primary) hypertension; G89.29 Other chronic pain; M19.90 Unspecified osteoarthritis, unspecified site; F10.20 Alcohol dependence, uncomplicated; K21.9 Gastro-esophageal reflux disease without esophagitis; M54.9 Dorsalgia, unspecified; R45.851 Suicidal ideations; Z59.0 Homelessness; Z63.5 Disruption of family by separation and divorce; Z95.818 Presence of other cardiac implants and grafts; Z79.899 Other long term (current) drug therapy; Z79.891 Long term (current) use of opiate analgesic; Z79.01 Long term (current) use of anticoagulants
CPT/HCPCS: 36415; 71045; 71275; 80048; 80061; 82962; 83036; 84443; 84484; 85025; 85379; 93005; G0378; Q0177; Q9967

== ENCOUNTER 2020-09-01 17:29 | Inpatient (IN) | payer MEDICAID ==
[2020-09-01] MEDS ORDERED: ASPIRIN 325 MG TAB PO ONE (17:41)
--- NOTE | 2020-09-01 17:47 | Emergency Department Report ---
ED Chest Pain HPI - General Chief Complaint: Chest Pain Stated Complaint: CHEST PAIN PUI?: No Time Seen by Provider: 09/01/20 17:41 Source: patient Mode of arrival: Ambulatory Limitations: No Limitations - History of Present Illness Initial Comments: Patient is a 64-year-old male that presents emergency room with complaints of c hest pain. Patient's chest pain started 3 hours ago. Patient states that his chest pain is in the center of his chest and radiates to his left shoulder. Patient states the pain is a 10 out of 10. Patient dates is also having shortness of breath. Patient dates his shortness of breath and chest pain are better with rest and worse with exertion. Patient denies nausea vomiting. Patient denies fever and chills. Patient denies cough. Patient denies chest wall pain. Patient states he has had a history of ID, stroke, CAD and he still smokes cigarettes. Patient states that he is having suicidal ideations. Patient dates he has a plan to overdose. Patient states he is depressed and anxious. Patient denies hallucinations. Patient denies homicidal ideations. Patient denies recent travel. Patient denies recent international travel. Patient denies exposure to the novel coronavirus. Patient denies sick contacts. Patient denies fever and chills. Patient denies cough. Patient denies diarrhea. Patient denies coming in contact with anybody with symptoms of the novel coronavirus. MD Complaint: chest pain -: Sudden Onset: during rest Pain Location: left chest Pain Radiation: LUE Severity: severe Severity scale (0 -10): 10 Quality: sharp Consistency: constant Improves With: rest Worsens With: exertion re: dyspnea. denies: nausea, vomting, diaphoresis, sense of impending doom Other Symptoms: denies: cough, fever, syncope, rash, acid taste in mouth, leg swelling, palpitations, burping Treatments Prior to Arrival: aspirin Aspirin use within the Past 7 Days: (1) Yes - Related Data On Oral Contraceptives: No Home Medications Medication Instructions Recorded Confirmed Last Taken Albuterol Sulfate [Proair 2 puff INHALATION Q4HR PRN 04/19/20 04/21/20 Unknown Respiclick] Hydroxyzine HCl [hydrOXYzine] 50 mg PO PRN 04/19/20 04/21/20 Unknown lisinopriL [Zestril TAB] 10 mg PO QDAY 04/19/20 04/21/20 Unknown methOCARBAMOL [Robaxin TAB] 750 mg PO BID PRN 04/19/20 04/21/20 Unknown Previous Rx's Medication Instructions Recorded Last Taken Type Cyanocobalamin [Vitamin B-12] 1,000 mcg PO DAILY #30 tab 04/25/20 Unknown Rx DULoxetine [Cymbalta] 30 mg PO DAILY #30 cap 04/25/[address] [Depakote Dr] 250 mg PO BID #60 tablet 04/25/20 Unknown Rx Gabapentin 300 mg PO BID #60 capsule 04/25/20 Unknown Rx Multivitamin Tab [Multiple Vitamin 1 each PO DAILY #30 tablet 04/25/20 Unknown Rx TAB (Theragran)] Thiamine [Vitamin B-1] 100 mg PO QDAY #30 tab 04/25/20 Unknown Rx Allergies Allergy/AdvReac Type Severity Reaction Status Date / Time ketorolac tromethamine Allergy Rash Verified 02/01/17 12:29 [From Toradol] Heart Score - HEART Score History: Moderately suspicious EKG: Non-specific Age: 45-65 Risk factors: > 3 risk factors or hx of atherosclerotic disease Troponin: < normal limit HEART Score: 5 ED Review of Systems ROS: Stated complaint: CHEST PAIN Other details as noted in HPI Constitutional: denies: chills, fever Eyes: denies: eye pain, eye discharge, vision change ENT: denies: ear pain, throat pain Respiratory: shortness of breath. denies: cough, wheezing Cardiovascular: chest pain. denies: palpitations Endocrine: no symptoms reported Gastrointestinal: denies: abdominal pain, nausea, diarrhea Genitourinary: denies: urgency, dysuria Musculoskeletal: denies: back pain, joint swelling, arthralgia Skin: denies: rash, lesions Neurological: denies: headache, weakness, paresthesias Psychiatric: as per HPI, depression, suicidal thoughts. denies: anxiety, auditory hallucinations, visual hallucinations, homicidal thoughts Hematological/Lymphatic: denies: easy bleeding, easy bruising ED Past Medical Hx - Past Medical History Previous Medical History?: Yes Hx Hypertension: Yes Hx Heart Attack/AMI: Yes (ID x 2, palpitations) Hx Congestive Heart Failure: No Hx Diabetes: No Hx Renal Disease: No Hx Arthritis: No Hx Seizures: No Hx Psychiatric Treatment: Yes (Anxiety, Bipolar) Hx Asthma: No Hx COPD: No Hx Dementia: No Additional medical history: Degenerative disc disease. History of A. fib status post cardiac ablation as per patient - Surgical History Past Surgical History?: Yes Hx Cholecystectomy: No Additional Surgical History: Multiple back surgeries secondary to degenerative disc disease - Family History Family history: no significant - Social History Smoking Status: Current Every Day Smoker Substance Use Type: None - Medications Home Medications: Home Medications Medication Instructions Recorded Confirmed Last Taken Type Albuterol Sulfate [Proair 2 puff INHALATION Q4HR PRN 04/19/20 04/21/20 Unknown History Respiclick] Hydroxyzine HCl [hydrOXYzine] 50 mg PO PRN 04/19/20 04/21/20 Unknown History lisinopriL [Zestril TAB] 10 mg PO QDAY 04/19/20 04/21/20 Unknown History methOCARBAMOL [Robaxin TAB] 750 mg PO BID PRN 04/19/20 04/21/20 Unknown History Cyanocobalamin [Vitamin B-12] 1,000 mcg PO DAILY #30 tab 04/25/20 Unknown Rx DULoxetine [Cymbalta] 30 mg PO DAILY #30 cap 04/25/[address] [Depakote Dr] 250 mg PO BID #60 tablet 04/25/20 Unknown Rx Gabapentin 300 mg PO BID #60 capsule 04/25/20 Unknown Rx Multivitamin Tab [Multiple Vitamin 1 each PO DAILY #30 tablet 04/25/20 Unknown Rx TAB (Theragran)] Thiamine [Vitamin B-1] 100 mg PO QDAY #30 tab 04/25/20 Unknown Rx ED Physical Exam - General Limitations: No Limitations General appearance: alert, in no apparent distress - Head Head exam: Present: atraumatic, normocephalic - Eye Eye exam: Present: normal appearance - ENT ENT exam: Present: mucous membranes moist - Neck Neck exam: Present: normal inspection - Respiratory Respiratory exam: Present: normal lung sounds bilaterally. Absent: respiratory distress, wheezes, rales - Cardiovascular Cardiovascular Exam: Present: regular rate, normal rhythm. Absent: systolic murmur, diastolic murmur, rubs, gallop - GI/Abdominal GI/Abdominal exam: Present: soft, normal bowel sounds - Rectal Rectal exam: Present: deferred - Extremities Exam Extremities exam: Present: normal inspection - Back Exam Back exam: Present: normal inspection - Neurological Exam Neurological exam: Present: alert, oriented X3 - Psychiatric Psychiatric exam: Present: depressed, suicidal ideation - Skin Skin exam: Present: warm, dry, intact, normal color. Absent: rash ED Course Vital Signs 09/01/20 09/01/20 09/01/20 17:44 17:45 17:47 Temperature 98.7 F 98.7 F Pulse Rate 56 L 56 L Respiratory 24 24 24 Rate Blood Pressure 124/70 Blood Pressure 124/70 [Left] O2 Sat by Pulse 97 95 97 Oximetry 09/01/20 09/01/20 09/01/20 18:50 19:06 19:10 Temperature Pulse Rate 54 L 63 53 L Respiratory 20 15 11 L Rate Blood Pressure 128/76 Blood Pressure 116/77 [Left] O2 Sat by Pulse 98 96 98 Oximetry 09/01/20 09/01/20 09/01/20 19:21 19:34 19:41 Temperature Pulse Rate 56 L 58 L 57 L Respiratory 12 17 15 Rate Blood Pressure 128/76 128/76 128/76 Blood Pressure [Left] O2 Sat by Pulse 97 98 96 Oximetry 09/01/20 09/01/20 09/01/20 19:51 20:01 20:11 Temperature Pulse Rate 52 L 51 L 57 L Respiratory 16 13 11 L Rate Blood Pressure 128/76 128/76 137/74 Blood Pressure [Left] O2 Sat by Pulse 96 99 97 Oximetry 09/01/20 09/01/20 09/01/20 20:21 20:31 20:41 Temperature Pulse Rate 51 L 55 L 58 L Respiratory 15 11 L 12 Rate Blood Pressure 137/74 137/74 122/74 Blood Pressure [Left] O2 Sat by Pulse 96 96 97 Oximetry 09/01/20 09/01/20 09/01/20 20:51 21:01 21:11 Temperature Pulse Rate 62 60 59 L Respiratory 14 15 16 Rate Blood Pressure 122/74 122/74 127/79 Blood Pressure [Left] O2 Sat by Pulse 98 97 97 Oximetry 09/01/20 09/01/20 21:15 21:21 Temperature Pulse Rate 50 L Respiratory 16 Rate Blood Pressure 127/79 Blood Pressure 118/60 [Left] O2 Sat by Pulse 99 83 L Oximetry - Reevaluation(s) Reevaluation #1: Patient states his pain is better. Patient cannot be medically cleared for mental health since the patient is here complaining of chest pain and as such complicated cardiac history. I discussed all results with patient. I discussed plan of care with patient. Patient agrees with plan of care and admission. Patient to be admitted to the hospitalist service. 09/01/20 19:16 - Consultations Consultation #1: Hospitalist consulted for admission. Hospitalist to admit patient. 09/01/20 19:16 JAIMIE score - Jaimie Score Age > 65: (0) No Aspirin use within the Past 7 Days: (0) No 3 or more CAD Risk Factors: (1) Yes 2 or more Angina events in past 24 hrs: (1) Yes Known CAD with more than 50% Stenosis: (0) No Elevated Cardiac Markers: (0) No ST Deviation Greater than 0.5mm: (0) No JAIMIE Score: 2 ED Medical Decision Making - Lab Data Result diagrams: 09/01/20 17:46 09/01/20 17:46 - EKG Data -: EKG Interpreted by Me EKG shows normal: sinus rhythm, axis, intervals, QRS complexes, ST-T waves Rate: normal - Radiology Data Radiology results: report reviewed, image reviewed interpreted by me: Chest x-ray: No pneumonia, no pneumothorax, no foreign body, no osseous findings, no acute findings CHEST 1 VIEW INDICATION: Chest Pain. COMPARISON: 04/23/2020 FINDINGS: Support devices: None. Heart: Normal. Lungs/Pleura: No acute pulmonary or pleural findings. IMPRESSION: 1. No acute findings. - Medical Decision Making Patient is a 64-year-old male that presents emergency room with complaints of chest pain and shortness of breath. Patient has a past medical history of CAD, CVA and ID and continues to smoke. Patient also complained of suicidal ideations and depression. Patient had a plan for suicidal ideations. After initial evaluation, the patient was placed on a 1013. Patient had labs done which were essentially unremarkable. Patient's troponin was negative. Patient's chest x-ray was negative for acute findings. Patient's EKG was negative for acute findings and showed no ST-T segment changes. I personally reviewed the EKG and the chest x-ray. Patient had a medical clearing exam and labs for mental health but the patient is unable to be medically cleared since the patient needs to have a ACS rule out by the hospitalist service and a possible cardiology consult. Patient admitted to the hospitalist service for further evaluation treatment. Patient will remain on a 1013 throughout his stay. Prior to admission, the patient was given aspirin and morphine and is p ain improved. Critical care time documented due to the multiple reassessments, prolonged time at the bedside, interpretation of diagnostics and labs. - Differential Diagnosis Chest pain, ACS, CAD, pneumonia, suicidal ideation, depression Critical Care Time: Yes Critical care time in (mins) excluding proc time.: 35 Critical care attestation.: If time is entered above; I have spent that time in minutes in the direct care of this critically ill patient, excluding procedure time. Critical Care Time: 35 minutes ED Disposition Clinical Impression: Suicidal ideations, Tobacco use, Chest pain, rule out acute myocardial infa rction Chest pain Qualifiers: Chest pain type: unspecified Qualified Code(s): R07.9 - Chest pain, unspecified CAD (coronary artery disease) Qualifiers: Coronary Disease-Associated Artery/Lesion type: ruby artery [place] vs. transplanted heart: ruby heart Associated angina: angina presence unspecified Qualified Code(s): I25.10 - Atherosclerotic heart disease of ruby coronary artery without angina pectoris Disposition: OP ADMIT IP TO THIS HOSP Is pt being admited?: Yes Does the pt Need Aspirin: No Condition: Critical Time of Disposition: 19:20
[2020-09-01 18:09] LABS: Basophils % (Auto) 0.3 % (0.0-1.8); Eosinophils # (Auto) 0.3 K/mm3 (0.0-0.4); Eosinophils % (Auto) 4.8 % (0.0-4.3); Hematocrit 41.2 % (35.5-45.6); Hemoglobin 14.1 gm/dl (11.8-15.2); Lymphocytes # (Auto) 1.3 K/mm3 (1.2-5.4); Lymphocytes % (Auto) 23.6 % (13.4-35.0); Mean Corpuscular HGB Conc 34 % (32-34); Mean Corpuscular Volume 99 fl (84-94); Monocytes # (Auto) 0.4 K/mm3 (0.0-0.8); Monocytes % (Auto) 6.6 % (0.0-7.3); Platelet Count 138 K/mm3 (140-440); Red Blood Count 4.16 M/mm3 (3.65-5.03); Red Cell Distribution Width 12.8 % (13.2-15.2)
--- NOTE | 2020-09-01 18:12 | XRay Report ---
CHEST 1 VIEW INDICATION: Chest Pain. COMPARISON: 04/23/2020 FINDINGS: Support devices: None. Heart: Normal. Lungs/Pleura: No acute pulmonary or pleural findings. IMPRESSION: 1. No acute findings. Signer Name: Cosmo Ron MD Signed: 09/01/2020 6:08 PM Workstation Name: [id number]
[2020-09-01 18:19] LABS: Partial Thromboplastin Time 28.9 Sec. (24.2-36.6)
[2020-09-01 18:27] LABS: Alanine Aminotransferase 6 units/L (7-56); Albumin 4.2 g/dL (3.9-5); BUN/Creatinine Ratio 20; Blood Urea Nitrogen 18 mg/dL (9-20); Calcium 8.9 mg/dL (8.4-10.2); Hemolysis Index 29
[2020-09-01] MEDS ORDERED: ONDANSETRON 4 MG/2 ML INJ ONE (18:36)
[2020-09-01] MEDS ORDERED: MORPHINE 2 MG/1 ML INJ ONE (18:37)
[2020-09-01] MEDS ORDERED: MORPHINE 2 MG/1 ML INJ IV ONE (18:51)
[2020-09-01] MEDS ORDERED: ONDANSETRON 4 MG/2 ML INJ IV ONE (18:51)
[2020-09-01 20:02] LABS: Bilirubin,Urine NEG (Negative); Blood,Urine SM (Negative); Color,Urine Yellow (Yellow); Mucus,Urine FEW /HPF; Protein,Urine <15 mg/dL mg/dL (Negative); Urobilinogen,Urine < 2.0 mg/dL (<2.0)
[2020-09-01 20:10] LABS: Amphetamine Screen,Urine Negative; Benzodiazepines Screen,Urine Negative; Cocaine Screen,Urine Negative; Methadone Screen,Urine Negative; Opiate Screen,Urine Negative
[2020-09-01 20:22] LABS: Cannabinoid Screen,Urine Positive
[2020-09-01] MEDS ORDERED: oxyCODONE /ACETAMINOPHEN 5-325MG TAB PO PRN (23:57)
[2020-09-01] MEDS ORDERED: ACETAMINOPHEN 325 MG TAB PO PRN (23:57)
[2020-09-02] MEDS: MORPHINE 2 MG/1 ML INJ IV PRN ×3 (00:28→13:47)
[2020-09-02] MEDS ORDERED: NON-FORMULARY EACH (Albuterol Sulfate [Proair Respiclick] 90 MCG Aer.Pow.Ba) INHALATION PRN (01:37)
[2020-09-02] MEDS ORDERED: ACETAMINOPHEN 325 MG TAB PO PRN (01:40)
[2020-09-02] MEDS ORDERED: HYDROmorphone 1 MG/1 ML INJ IV PRN (01:40)
[2020-09-02] MEDS ORDERED: ONDANSETRON 4 MG/2 ML INJ IV PRN (01:40)
[2020-09-02] MEDS ORDERED: METOCLOPRAMIDE 10 MG/2 ML INJ IV PRN (01:40)
--- NOTE | 2020-09-02 01:44 | History and Physical Report ---
History of Present Illness Date of examination: 09/01/20 Date of admission: 09/01/20 19:20 Chief complaint: Chest pain since a.m. Suicidal thoughts for couple days History of present illness: 64-year-old male with history of asthma and hypertension comes in for chest pain since last 3 hours prior to admission to the emergency room. Patient also has active suicidal thoughts. Patient has a plan to run into traffic and . And is actively considering it. Chest pain is retrosternal and left precordial. No shortness of breath diaphoresis or palpitations. No radiation. Heart Score - HEART Score History: Moderately suspicious EKG: Non-specific Age: 45-65 Risk factors: > 3 risk factors or hx of atherosclerotic disease Troponin: < normal limit HEART Score: 5 - Past Medical History Previous Medical History?: Yes --Hypertension: Yes --Heart Attack/AMI: Yes (LA x 2, palpitations) --Psychiatric Treatment: Yes (Anxiety, Bipolar) Additional medical history: Degenerative disc disease. History of A. fib status post cardiac ablation as per patient - Surgical History Past Surgical History?: Yes --Cholecystectomy: No Additional Surgical History: Multiple back surgeries secondary to degenerative disc disease - Family History Family history: no significant - Social History Smoking Status: Current Every Day Smoker Substance Use Type: None - Medications Home Medications: Home Medications Medication Instructions Recorded Confirmed Last Taken Type Albuterol Sulfate [Proair 2 puff INHALATION Q4HR PRN 04/19/20 04/21/20 Unknown History Respiclick] Hydroxyzine HCl [hydrOXYzine] 50 mg PO PRN 04/19/20 04/21/20 Unknown History lisinopriL [Zestril TAB] 10 mg PO QDAY 04/19/20 04/21/20 Unknown History methOCARBAMOL [Robaxin TAB] 750 mg PO BID PRN 04/19/20 04/21/20 Unknown History Cyanocobalamin [Vitamin B-12] 1,000 mcg PO DAILY #30 tab 04/25/20 Unknown Rx DULoxetine [Cymbalta] 30 mg PO DAILY #30 cap 04/25/20 Unknown Rx Divalproex [Philip Fry] 250 mg PO BID #60 tablet 04/25/20 Unknown Rx Gabapentin 300 mg PO BID #60 capsule 04/25/20 Unknown Rx Multivitamin Tab [Multiple Vitamin 1 each PO DAILY #30 tablet 04/25/20 Unknown Rx TAB (Theragran)] Thiamine [Vitamin B-1] 100 mg PO QDAY #30 tab 04/25/20 Unknown Rx Review of Systems ROS: Stated complaint: CHEST PAIN Other details as noted in HPI Constitutional: denies: chills, fever Eyes: denies: eye pain, eye discharge, vision change ENT: denies: ear pain, throat pain Respiratory: shortness of breath. denies: cough, wheezing Cardiovascular: chest pain. denies: palpitations Endocrine: no symptoms reported Gastrointestinal: denies: abdominal pain, nausea, diarrhea Genitourinary: denies: urgency, dysuria Musculoskeletal: denies: back pain, joint swelling, arthralgia Skin: denies: rash, lesions Neurological: denies: headache, weakness, paresthesias Psychiatric: as per HPI, depression, suicidal thoughts. denies: anxiety, auditory hallucinations, visual hallucinations, homicidal thoughts Hematological/Lymphatic: denies: easy bleeding, easy bruising Medications and Allergies Allergies Allergy/AdvReac Type Severity Reaction Status Date / Time ketorolac tromethamine Allergy Rash Verified 02/01/17 12:29 [From Toradol] Home Medications Medication Instructions Recorded Confirmed Last Taken Type Albuterol Sulfate [Proair 2 puff INHALATION Q4HR PRN 04/19/20 04/21/20 Unknown History Respiclick] Hydroxyzine HCl [hydrOXYzine] 50 mg PO PRN 04/19/20 04/21/20 Unknown History lisinopriL [Zestril TAB] 10 mg PO QDAY 04/19/20 04/21/20 Unknown History methOCARBAMOL [Robaxin TAB] 750 mg PO BID PRN 04/19/20 04/21/20 Unknown History Cyanocobalamin [Vitamin B-12] 1,000 mcg PO DAILY #30 tab 04/25/20 Unknown Rx DULoxetine [Cymbalta] 30 mg PO DAILY #30 cap 04/25/20 Unknown Rx Divalproex [Philip Fry] 250 mg PO BID #60 tablet 04/25/20 Unknown Rx Gabapentin 300 mg PO BID #60 capsule 04/25/20 Unknown Rx Multivitamin Tab [Multiple Vitamin 1 each PO DAILY #30 tablet 04/25/20 Unknown Rx TAB (Theragran)] Thiamine [Vitamin B-1] 100 mg PO QDAY #30 tab 04/25/20 Unknown Rx Active Meds: Active Medications Acetaminophen (Acetaminophen 325 Mg Tab) 650 mg PO Q6H PRN PRN Reason: Pain, Mild (1-3) Morphine Sulfate (Morphine 2 Mg/1 Ml Inj) 2 mg IV Q6H PRN PRN Reason: Pain, Moderate (4-6) Last Admin: 09/02/20 00:28 Dose: 2 mg Documented by: Oxycodone/Acetaminophen (Oxycodone /Acetaminophen 5-325mg Tab) 2 tab PO Q6H PRN PRN Reason: Pain, Moderate (4-6) Exam - Constitutional Vitals: Temp Pulse Resp BP Pulse Ox 98.7 F 60 16 127/79 83 L 09/01/20 17:47 09/01/20 21:32 09/01/20 21:15 09/01/20 21:21 09/01/20 21:21 General appearance: Present: no acute distress, well-nourished - EENT Eyes: Present: PERRL ENT: hearing intact, clear oral mucosa - Neck Neck: Present: supple, normal ROM - Respiratory Respiratory effort: normal Respiratory: bilateral: CTA - Cardiovascular Heart rate: 78 Rhythm: regular Heart Sounds: Present: S1 & S2. Absent: rub, click - Extremities Extremities: no ischemia, pulses intact, pulses symmetrical, No edema Peripheral Pulses: within normal limits - Abdominal General gastrointestinal: Present: soft, non-tender, non-distended, normal bowel sounds Male genitourinary: Present: normal - Integumentary Integumentary: Present: clear, warm, dry - Musculoskeletal Musculoskeletal: gait normal, strength equal bilaterally - Psychiatric Psychiatric: appropriate mood/affect, intact judgment & insight - Neurologic Neurologic: CNII-XII intact, moves all extremities - Allied Health Allied health notes reviewed: nursing, case management HEART Score - HEART Score EKG: Non-specific Age: 45-65 Risk factors: > 3 risk factors or hx of atherosclerotic disease Troponin: Troponin T < 0.010 ng/mL (0.00-0.029) 09/01/20 20:54 Troponin: < normal limit Results - Labs CBC & Chem 7: 09/02/20 04:42 09/01/20 17:46 Labs: Laboratory Last Values WBC 5.3 K/mm3 (4.5-11.0) 09/01/20 17:46 RBC 4.16 M/mm3 (3.65-5.03) 09/01/20 17:46 Hgb 14.1 gm/dl (11.8-15.2) 09/01/20 17:46 Hct 41.2 % (35.5-45.6) 09/01/20 17:46 MCV 99 fl (84-94) H 09/01/20 17:46 MCH 34 pg (28-32) H 09/01/20 17:46 MCHC 34 % (32-34) 09/01/20 17:46 RDW 12.8 % (13.2-15.2) L 09/01/20 17:46 Plt Count 138 K/mm3 (140-440) L 09/01/20 17:46 Lymph % (Auto) 23.6 % (13.4-35.0) 09/01/20 17:46 [place] % (Auto) 6.6 % (0.0-7.3) 09/01/20 17:46 Eos % (Auto) 4.8 % (0.0-4.3) H 09/01/20 17:46 Baso % (Auto) 0.3 % (0.0-1.8) 09/01/20 17:46 Lymph # (Auto) 1.3 K/mm3 (1.2-5.4) 09/01/20 17:46 [place] # (Auto) 0.4 K/mm3 (0.0-0.8) 09/01/20 17:46 Eos # (Auto) 0.3 K/mm3 (0.0-0.4) 09/01/20 17:46 Baso # (Auto) 0.0 K/mm3 (0.0-0.1) 09/01/20 17:46 Seg Neutrophils % 64.7 % (40.0-70.0) 09/01/20 17:46 Seg Neutrophils # 3.4 K/mm3 (1.8-7.7) 09/01/20 17:46 PT 13.1 Sec. (12.2-14.9) 09/01/20 17:46 INR 1.00 (0.87-1.13) 09/01/20 17:46 APTT 28.9 Sec. (24.2-36.6) 09/01/20 17:46 Sodium 139 mmol/L (137-145) 09/01/20 17:46 Potassium 4.5 mmol/L (3.6-5.0) 09/01/20 17:46 Chloride 105.8 mmol/L (98-107) 09/01/20 17:46 Carbon Dioxide 22 mmol/L (22-30) 09/01/20 17:46 Anion Gap 16 mmol/L 09/01/20 17:46 BUN 18 mg/dL (9-20) 09/01/20 17:46 Creatinine 0.9 mg/dL (0.8-1.3) 09/01/20 17:46 Estimated GFR > 60 ml/min 09/01/20 17:46 BUN/Creatinine Ratio 20 % 09/01/20 17:46 Glucose 97 mg/dL (75-100) 09/01/20 17:46 Calcium 8.9 mg/dL (8.4-10.2) 09/01/20 17:46 Total Bilirubin 0.20 mg/dL (0.1-1.2) 09/01/20 17:46 AST 10 units/L (5-40) 09/01/20 17:46 ALT 6 units/L (7-56) L 09/01/20 17:46 Alkaline Phosphatase 78 units/L (35-129) 09/01/20 17:46 Troponin T < 0.010 ng/mL (0.00-0.029) 09/01/20 20:54 Total Protein 7.0 g/dL (6.3-8.2) 09/01/20 17:46 Albumin 4.2 g/dL (3.9-5) 09/01/20 17:46 Albumin/Globulin Ratio 1.5 % 09/01/20 17:46 Urine Color Yellow (Yellow) 09/01/20 19:29 Urine Turbidity Clear (Clear) 09/01/20 19: Urine pH 6.0 (5.0-7.0) 09/01/20 19: Ur Specific [place] 1.010 (1.003-1.030) 09/01/20 19: Urine Protein <15 mg/dl mg/dL (Negative) 09/01/20 19: Urine Glucose (UA) Neg mg/dL (Negative) 09/01/20 19: Urine Ketones Neg mg/dL (Negative) 09/01/20 19:29 Urine Blood Sm (Negative) 09/01/20 19: Urine Nitrite Neg (Negative) 09/01/20 19: Urine Bilirubin Neg (Negative) 09/01/20 19: Urine Urobilinogen < 2.0 mg/dL (<2.0) 09/01/20 19:29 Ur Leukocyte Esterase Neg (Negative) 09/01/20 19:29 Urine WBC (Auto) 1.0 /HPF (0.0-6.0) 09/01/20 19: Urine RBC (Auto) 4.0 /HPF (0.0-6.0) 09/01/20 19: U Epithel Cells (Auto) < 1.0 /HPF (0-13.0) 09/01/20 19: Urine Mucus Few /HPF 09/01/20 19:29 Salicylates 1.5 mg/dL (2.8-20.0) L 09/01/20 17:54 Urine Opiates Screen Negative 09/01/20 19:29 Urine Methadone Screen Negative 09/01/20 19:29 Acetaminophen 5.0 ug/mL (10.0-30.0) L 09/01/20 17:54 Ur Barbiturates Screen Negative 09/01/20 19:29 Ur Phencyclidine Scrn Negative 09/01/20 19:29 Ur Amphetamines Screen Negative 09/01/20 19:29 U Benzodiazepines Scrn Negative 09/01/20 19:29 Urine Cocaine Screen Negative 09/01/20 19:29 U Marijuana (THC) Screen Positive 09/01/20 19:29 Drugs of Abuse Note Disclamer 09/01/20 19:29 Plasma/Serum Alcohol < 0.01 % (0-0.07) 09/01/20 17:54 Short CBC 09/01/20 09/02/20 Range/Units 17:46 04:42 WBC 5.3 4.9 (4.5-11.0) K/mm3 Hgb 14.1 13.1 (11.8-15.2) gm/dl Hct 41.2 37.4 (35.5-45.6) % Plt Count 138 L 123 L (140-440) K/mm3 BMP 09/01/20 17:46 Sodium 139 Potassium 4.5 Chloride 105.8 Carbon Dioxide 22 BUN 18 Creatinine 0.9 Glucose 97 Calcium 8.9 Cardiac Enzymes 09/01/20 09/01/20 09/02/20 Range/Units 17:46 20:54 00:54 Troponin T < 0.010 < 0.010 < 0.010 (0.00-0.029) ng/mL Liver Function 09/01/20 Range/Units 17:46 Total Bilirubin 0.20 (0.1-1.2) mg/dL AST 10 (5-40) units/L ALT 6 L (7-56) units/L Alkaline Phosphatase 78 (35-129) units/L Albumin 4.2 (3.9-5) g/dL Urine 09/01/20 Range/Units 19:29 Urine Color Yellow (Yellow) Urine pH 6.0 (5.0-7.0) Ur Specific [place] 1.010 (1.003-1.030) Urine Protein <15 mg/dl (Negative) mg/dL Urine Glucose (UA) Neg (Negative) mg/dL - Imaging and Cardiology EKG: report reviewed (No acute ST-T wave changes, sinus rhythm) Chest x-ray: report reviewed (No acute findings) Carvajal/IV: Voiding Method Toilet Assessment and Plan Advance Directives: Yes (Full code) Plan of care discussed with patient/family: Yes - Patient Problems (1) Acute coronary syndrome Current Visit: Yes Status: Acute Plan to address problem: Serial troponins and Lexiscan in the morning (2) Suicidal thoughts Current Visit: Yes Status: Acute Plan to address problem: Patient on 1013 Mental health consult was requested (3) Hypertension Current Visit: Yes Status: Chronic Qualifiers: Hypertension type: essential hypertension Qualified Code(s): I10 - Essential (primary) hypertension Plan to address problem: Continue antihypertensives and adjust blood pressure medications (4) Asthma Current Visit: Yes Status: Inactive Plan to address problem: Albuterol MDI as needed 2 puffs 4 times daily (5) Tobacco use Current Visit: Yes Status: Chronic Plan to address problem: On NicoDerm patch Patient counseled (6) Schizophrenia Current Visit: Yes Status: Chronic Qualifiers: Schizophrenia type: unspecified Qualified Code(s): F20.9 - Schizophrenia, unspecified Plan to address problem: Patient on Depakote Defer to mental health consult (7) Tetrahydrocannabinol (THC) dependence Current Visit: Yes Status: Acute Plan to address problem: Patient counseled (8) DVT prophylaxis Current Visit: Yes Status: Acute Plan to address problem: Heparin and GI prophylaxis
[2020-09-02] MEDS ORDERED: NON-FORMULARY EACH (Hydroxyzine Hcl [Hydroxyzine] 50 MG Tablet) PO SCH (01:45)
[2020-09-02] MEDS ORDERED: hydrOXYzine HCL 25 MG TAB PO PRN (01:50)
[2020-09-02] MEDS ORDERED: ALBUTEROL 2.5 MG/3 ML NEBU IH PRN (01:51)
[2020-09-02] MEDS: DIVALPROEX DR 250 MG TAB PO SCH ×3 (02:14→21:16)
[2020-09-02] MEDS: GABAPENTIN 300 MG CAP PO SCH ×3 (02:14→21:16)
[2020-09-02] MEDS: FAMOTIDINE 20 MG/2 ML INJ IV SCH ×2 (02:15→09:37)
[2020-09-02 07:43] LABS: Basophils % (Auto) 0.3 % (0.0-1.8); Hematocrit 37.4 % (35.5-45.6); Hemoglobin 13.1 gm/dl (11.8-15.2); Lymphocytes # (Auto) 1.4 K/mm3 (1.2-5.4); Mean Corpuscular HGB Conc 35 % (32-34); Mean Corpuscular Volume 98 fl (84-94); Monocytes # (Auto) 0.4 K/mm3 (0.0-0.8); Monocytes % (Auto) 7.5 % (0.0-7.3); Platelet Count 123 K/mm3 (140-440); Red Blood Count 3.81 M/mm3 (3.65-5.03); Red Cell Distribution Width 12.9 % (13.2-15.2)
[2020-09-02 07:44] LABS: Eosinophils # (Auto) 0.3 K/mm3 (0.0-0.4)
[2020-09-02] MEDS ORDERED: REGADENOSON 0.4 MG/5 ML INJ IV ONE (08:31)
[2020-09-02] MEDS: DULoxetine 30 MG CAP PO SCH (09:37)
[2020-09-02] MEDS: CYANOCOBALAMIN (VIT B-12) 1000 MCG TAB PO SCH (09:37)
[2020-09-02] MEDS: LISINOPRIL 10 MG TAB PO SCH (09:38)
[2020-09-02] MEDS: THIAMINE 100 MG TAB PO SCH (09:38)
[2020-09-02 09:39] LABS: Alanine Aminotransferase 5 units/L (7-56); Albumin 3.9 g/dL (3.9-5); BUN/Creatinine Ratio 22; Blood Urea Nitrogen 20 mg/dL (9-20); Calcium 8.7 mg/dL (8.4-10.2); Hemolysis Index 4
[2020-09-02] MEDS: MULTIVITAMINS ,THERAPEUTIC TAB PO SCH (09:45)
[2020-09-02] MEDS: HEPARIN 5,000 UNIT/1 ML VIAL SUB-Q SCH ×2 (09:45→21:17)
--- NOTE | 2020-09-02 09:55 | Electrocardiograph Report ---
[facility] Test Date: 2020-09-01 Test Time: 17:45:00 Pat Name: RISHI RODRIGES Department: Room: A456 1 Gender: M [employer]: MILENA : 1955 Requested By: KIMBERLEY SUN III Order Number: [id number] Reading MD: Jonah Decker Measurements Intervals Murphy Rate: 51 P: 80 MI: 162 QRS: 20 QRSD: 106 T: 34 QT: 435 QTc: 399 Interpretive Statements Sinus bradycardia No previous ECG available for comparison Electronically Signed On 09-02-2020 6:55:03 PDT by Jonah Decker
--- NOTE | 2020-09-02 11:51 | Discharge Summary ---
Providers - Providers Date of Admission: 09/01/20 19:20 Date of discharge: 09/02/20 Attending physician: YANCY HOLT 09/02/20 09:43 Physical Therapy Evaluation and Treat [CONS] Routine Comment: Reason For Exam: debility 09/02/20 09:44 Occupational Therapy Evaluate and Treat [CONS] Routine Comment: Reason For Exam: debility 09/02/20 10:44 Consult to Physician [CONS] Routine Comment: Consulting Provider: BRANDY JURADO Physician Instructions: Reason For Exam: chest pain Primary care physician: [facility] [employer] [facility] Hospitalization Condition: Critical Hospital course: Patient is a 63-year-old man with a history of hypertension, hyperlipidemia, CAD, depression, bipolar comes to the emergency room with complaints of chest pain. His cardiac enzymes were normal, EKG did not show any acute changes. Cardiology was consulted, chest x-ray showed no infiltrates. Patient was admitted and underwent 2D echocardiogram which showed EF 35 to 40% which is consistent with his prior echocardiogram which was obtained about a year ago. Patient was then discharged home in stable condition with outpatient follow-up. Disposition: [id number] HOME UNDER HOME [facility] Final Discharge Diagnosis (Prints w/discharge instructions): Chest pain due to GERD. CHF, chronic with systolic dysfunction, compensated. Hypertension. Hyperlipidemia. History of depression and bipolar disorder Time spent for discharge: 34 minutes Exam - Constitutional Vitals: Temp Pulse Resp BP Pulse Ox 98.0 F 52 L 18 131/71 97 09/02/20 07:19 09/02/20 05:57 09/02/20 07:19 09/02/20 07:19 09/02/20 05:57 Plan Follow up with: DIANE HOOPER MD [Primary Care Provider] - 3-5 Days
--- NOTE | 2020-09-02 13:03 | Consultation ---
History of Present Illness Consult date: 09/02/20 Requesting physician: YANCY HOLT Consult reason: chest pain History of present illness: The pt is a is a 64 YO male with a past medical history of CMP, hypertension, chronic back pain s/p multiple surgeries, testicular cancer, depression, anxiety, suicidal ideation, tobacco use. He has been seen by our practice on prior admissions. He presented with c/o suicidal ideation and chest pain. He states that yesterday, he tried to kill himself by walking into oncoming traffic. Following arrival, he voiced c/o chest pain and thus cardiology has been consulted. Pt reports his chest pain began 48Hrs prior to arrival and is ongoing. He describes his chest pain as a midsternal and left-sided squeezing pain with no clear aggravating or alleviating factors. Pt denies any SOB, palpitations, n/v, diaphoresis, dizziness or syncope. Pt was scheduled for lexiscan MPI stress test this AM, however, he was given coffee this morning and thus stress testing was cancelled. Lexiscan MPI stress test done on 06/02/2019 which was negative, EF 51%. LHC in 2016 showed normal coronaries. Echo done 06/01/2019 showed EF 35-40%, mod LVH, impaired relaxation, trace AR, MR and TR, RVSP 37mmHg, mild dilatation of the ascending aorta. Past History Past Medical History: other (as per HPI) Medications and Allergies Allergies Allergy/AdvReac Type Severity Reaction Status Date / Time ketorolac tromethamine Allergy Rash Verified 02/01/17 12:29 [From Toradol] Home Medications Medication Instructions Recorded Confirmed Last Taken Type Albuterol Sulfate [Proair 2 puff INHALATION Q4HR PRN 04/19/20 04/21/20 Unknown History Respiclick] Hydroxyzine HCl [hydrOXYzine] 50 mg PO PRN 04/19/20 04/21/20 Unknown History lisinopriL [Zestril TAB] 10 mg PO QDAY 04/19/20 04/21/20 Unknown History methOCARBAMOL [Robaxin TAB] 750 mg PO BID PRN 04/19/20 04/21/20 Unknown History Cyanocobalamin [Vitamin B-12] 1,000 mcg PO DAILY #30 tab 04/25/20 Unknown Rx DULoxetine [Cymbalta] 30 mg PO DAILY #30 cap 04/25/[address] [Depakote Dr] 250 mg PO BID #60 tablet 04/25/20 Unknown Rx Gabapentin 300 mg PO BID #60 capsule 04/25/20 Unknown Rx Multivitamin Tab [Multiple Vitamin 1 each PO DAILY #30 tablet 04/25/20 Unknown Rx TAB (Theragran)] Thiamine [Vitamin B-1] 100 mg PO QDAY #30 tab 04/25/20 Unknown Rx Active Meds: Active Medications Acetaminophen (Acetaminophen 325 Mg Tab) 650 mg PO Q4H PRN PRN Reason: Pain MILD(1-3)/Fever >100.5/ROSAS Albuterol (Albuterol 2.5 Mg/3 Ml Nebu) 2.5 mg IH Q4HRT PRN PRN Reason: Shortness Of Breath Cyanocobalamin (Cyanocobalamin (Vit B-12) 1000 Mcg Tab) 1,000 mcg PO DAILY [facility] Last Admin: 09/02/20 09:37 Dose: 1,000 mcg Documented by: Divalproex Sodium (Divalproex Dr 250 Mg Tab) 250 mg PO BID [facility] Last Admin: 09/02/20 09:38 Dose: 250 mg Documented by: Duloxetine HCl (Duloxetine 30 Mg Cap) 30 mg PO DAILY [facility] Last Admin: 09/02/20 09:37 Dose: 30 mg Documented by: Famotidine (Famotidine 20 Mg Tab) 20 mg PO BID [facility] Gabapentin (Gabapentin 300 Mg Cap) 300 mg PO BID [facility] Last Admin: 09/02/20 09:38 Dose: 300 mg Documented by: Heparin Sodium (Porcine) (Heparin 5,000 Unit/1 Ml Vial) 5,000 unit SUB-Q Q12HR [facility] Last Admin: 09/02/20 09:45 Dose: 5,000 unit Documented by: Hydromorphone HCl (Hydromorphone 1 Mg/1 Ml Inj) 0.5 mg IV Q3H PRN PRN Reason: Pain , Severe (7-10) Hydroxyzine HCl (Hydroxyzine Hcl 25 Mg Tab) 50 mg PO DAILY PRN PRN Reason: Itching Lisinopril (Lisinopril 10 Mg Tab) 10 mg PO QDAY [facility] Last Admin: 09/02/20 09:38 Dose: 10 mg Documented by: Methocarbamol (Methocarbamol 750 Mg Tab) 750 mg PO BID PRN PRN Reason: Muscle Spasm Metoclopramide HCl (Metoclopramide 10 Mg/2 Ml Inj) 10 mg IV Q6H PRN PRN Reason: Nausea And Vomiting Morphine Sulfate (Morphine 2 Mg/1 Ml Inj) 2 mg IV Q6H PRN PRN Reason: Pain, Moderate (4-6) Last Admin: 09/02/20 06:37 Dose: 2 mg Documented by: Multivitamins (Multivitamins ,Therapeutic Tab) 1 each PO DAILY [facility] Last Admin: 09/02/20 09:45 Dose: 1 each Documented by: Ondansetron HCl (Ondansetron 4 Mg/2 Ml Inj) 4 mg IV Q8H PRN PRN Reason: Nausea And Vomiting Oxycodone/Acetaminophen (Oxycodone /Acetaminophen 5-325mg Tab) 1 tab PO Q6H PRN PRN Reason: Pain, Moderate (4-6) Sodium Chloride (Sodium Chloride 0.9% 10 Ml Flush Syringe) 10 ml IV BID [facility] Last Admin: 09/02/20 09:45 Dose: 10 ml Documented by: Sodium Chloride (Sodium Chloride 0.9% 10 Ml Flush Syringe) 10 ml IV PRN PRN PRN Reason: LINE FLUSH Thiamine HCl (Thiamine 100 Mg Tab) 100 mg PO QDAY [facility] Last Admin: 09/02/20 09:38 Dose: 100 mg Documented by: Review of Systems Constitutional: no weight loss, no weight gain, no fever, no chills, no sweats Ears, nose, mouth and throat: no ear pain, no nose pain, no sinus pressure, no sinus pain Cardiovascular: chest pain, no orthopnea, no palpitations, no rapid/irregular heart beat, no edema, no syncope, no lightheadedness, no shortness of breath, no dyspnea on exertion Respiratory: no cough, no shortness of breath, no dyspnea on exertion, no congestion, no wheezing, no pain on inspiration Gastrointestinal: no abdominal pain, no nausea, no vomiting, no diarrhea, no constipation, no change in bowel habits Genitourinary Male: no dysuria, no hematuria, no flank pain, no discharge, no urinary frequency, no urinary hesitancy Musculoskeletal: no neck stiffness, no neck pain, no shooting arm pain, no arm numbness/tingling, no low back pain, no shooting leg pain Integumentary: no rash, no pruritis, no redness, no sores, no wounds Neurological: no head injury, no paralysis, no weakness, no parathesias, no numbness, no tingling, no seizures, no syncope Psychiatric: suicidal ideation Endocrine: no cold intolerance, no heat intolerance Hematologic/Lymphatic: no easy bruising Allergic/Immunologic: no urticaria Physical Examination Vital Signs Temp Pulse Resp BP Pulse Ox 98.7 F 56 L 24 124/70 97 09/01/20 17:44 09/01/20 17:44 09/01/20 17:44 09/01/20 17:44 09/01/20 17:44 General appearance: no acute distress HEENT: Positive: PERRL, Normocephaly, Mucus Membranes Moist Neck: Positive: neck supple, trachea midline Cardiac: Positive: Reg Rate and Rhythm, S1/S2 Lungs: Positive: Decreased Breath Sounds Neuro: Positive: Grossly Intact Abdomen: Negative: Tender Skin: Negative: Rash Musculoskeletal: No Pain Extremities: Absent: edema Results 09/02/20 04:42 09/02/20 04:42 Cardiac Enzymes 09/01/20 09/02/20 09/02/20 Range/Units 17:46 04:42 04:42 AST 10 8 (5-40) units/L CK-MB (CK-2) 1.0 (0.0-4.0) ng/mL Coagulation 09/01/20 Range/Units 17:46 PT 13.1 (12.2-14.9) Sec. INR 1.00 (0.87-1.13) APTT 28.9 (24.2-36.6) Sec. CBC 09/01/20 09/02/20 Range/Units 17:46 04:42 WBC 5.3 4.9 (4.5-11.0) K/mm3 RBC 4.16 3.81 (3.65-5.03) M/mm3 Hgb 14.1 13.1 (11.8-15.2) gm/dl Hct 41.2 37.4 (35.5-45.6) % Plt Count 138 L 123 L (140-440) K/mm3 Lymph # (Auto) 1.3 1.4 (1.2-5.4) K/mm3 Greenlee # (Auto) 0.4 0.4 (0.0-0.8) K/mm3 Eos # (Auto) 0.3 0.3 (0.0-0.4) K/mm3 Baso # (Auto) 0.0 0.0 (0.0-0.1) K/mm3 Comprehensive Metabolic Panel 09/01/20 09/02/20 Range/Units 17:46 04:42 Sodium 139 138 (137-145) mmol/L Potassium 4.5 4.2 (3.6-5.0) mmol/L Chloride 105.8 103.5 (98-107) mmol/L Carbon Dioxide 22 26 (22-30) mmol/L BUN 18 20 (9-20) mg/dL Creatinine 0.9 0.9 (0.8-1.3) mg/dL Glucose 97 84 (75-100) mg/dL Calcium 8.9 8.7 (8.4-10.2) mg/dL AST 10 8 (5-40) units/L ALT 6 L 5 L (7-56) units/L Alkaline Phosphatase 78 70 (35-129) units/L Total Protein 7.0 6.2 L (6.3-8.2) g/dL Albumin 4.2 3.9 (3.9-5) g/dL - Imaging and Cardiology Echo: report reviewed (06/01/2019 showed EF 35-40%, mod LVH, impaired relaxation, trace AR, MR and TR, RVSP 37mmHg, mild dilatation of the ascending aorta. ) EKG: report reviewed, image reviewed EKG interpretations - Telemetry EKG Rhythm: Sinus Rhythm - EKG Sinus rhythms and dysrhythmias: sinus bradycardia Assessment and Plan Pt presents with suicidal ideation and chest pain. AMI ruled out. S/p lexiscan MPI stress test on 06/02/2019 which was negative, EF 51%. LHC in 2016 showed normal coronaries. Echo done 06/01/2019 showed EF 35-40%, mod LVH, impaired relaxation, trace AR, MR and TR, RVSP 37mmHg, mild dilatation of the ascending aorta. Given ongoing chest pain and h/o CMP, f/u tte and plan for ischemic evaluation (stress testing v. LHC) on [place] AM. Optimize anti-hypertensive regimen. No BB at this time in setting of intermittent sinus bradycardia. Further recs to follow per hospital course. The patient has been seen in conjunction with Dr. Decker who agrees with the assessment and plan of care. - Patient Problems (1) Chest pain Current Visit: Yes Status: Acute (2) Suicidal ideations Current Visit: Yes Status: Acute (3) HTN (hypertension) Current Visit: Yes Status: Chronic (4) Tobacco use Current Visit: Yes Status: Chronic (5) History of testicular cancer Current Visit: Yes Status: Chronic (6) Cardiomyopathy Current Visit: Yes Status: Chronic (7) Chronic back pain Current Visit: Yes Status: Chronic (8) Tobacco use Current Visit: Yes Status: Chronic
[2020-09-02 13:06] LABS: Creatine Kinase MB < 1.0 ng/mL (0.0-4.0)
--- NOTE | 2020-09-02 16:35 | Progress Note ---
Assessment and Plan The pt is a is a 64 YO male with a past medical history of CMP, hypertension, chronic back pain s/p multiple surgeries, testicular cancer, depression, anxiety, suicidal ideation, tobacco use presented with c/o suicidal ideation and chest pain. -- Acute Chest pain --Suicidal ideations -- HTN (hypertension) --Tobacco abuse -- History of testicular cancer -- Chronic systolic Cardiomyopathy, compensated -- Chronic back pain Plan: - monitor with serial CE and EKG - placed on Aspirin, statin - as needed SL NTG and iv morphin for pain - Monitor BP, add betablocker and ACEI if BP tolerates - ordered 2D echo and stress test/cardiac cath on Saturday - cardiac diet now, patient on 1012, consult mental health/psych -S/p lexiscan MPI stress test on 06/02/2019 which was negative, EF 51%. LHC in 2015 showed normal coronaries. Echo done 06/01/2019 showed EF 35-40%. Cardiology consulted, Given ongoing chest pain and h/o CMP, f/u tte and plan for ischemic evaluation (stress testing v. LHC) on Saturday AM. - provide DVT Px with lovenox Subjective Date of service: 09/02/20 Interval history: Patient seen and examined. Medical records and medication list reviewed. No acute event overnight noted by the RN. Patient continues to complains of intermittent chest pain. Patient is tolerating diet. Discussed plan of care at bedside with patient. Objective - Exam Narrative Exam: GENERAL: well-developed and well-nourished elderly white male lying on bed appeared to be in no discomfort. HEENT: Normocephalic. Atraumatic. No conjunctival congestion or icterus. Patient has moist mucous membranes. NECK: Supple. Trachea midline. CHEST/LUNGS: Clear to auscultated bilaterally, breathing nonlabored. No wheezes crackles or rhonchi. HEART/CARDIOVASCULAR: Regular in rate and rhythm. S1 and S2 positive. ABDOMEN: Abdomen is soft, nontender. Patient has normal bowel sounds. SKIN: There is no rash. Warm and dry. NEURO: No focal motor deficit. Follows command. MUSCULOSKELETAL: No joint effusion or tenderness. EXTRIMITY: No edema, no cyanosis or clubbing. PSYCH: Cooperative. - Constitutional Vitals: Vital Signs - 12hr 09/02/20 09/02/20 09/02/20 05:32 05:57 07:19 Temperature 97.7 F 98.0 F Pulse Rate 50 L 52 L Respiratory 16 18 Rate Blood Pressure 103/60 131/71 Blood Pressure [Left] O2 Sat by Pulse 97 Oximetry 09/02/20 09/02/20 10:00 11:47 Temperature 97.9 F Pulse Rate 96 H Respiratory 16 Rate Blood Pressure Blood Pressure 120/76 [Left] O2 Sat by Pulse 95 96 Oximetry - Labs CBC & Chem 7: 09/02/20 04:42 09/03/20 04:24 Labs: Abnormal lab results 09/01/20 09/01/20 09/01/20 Range/Units 17:46 17:46 17:54 MCV 99 H (84-94) fl MCH 34 H (28-32) pg MCHC (32-34) % RDW 12.8 L (13.2-15.2) % Plt Count 138 L (140-440) K/mm3 Swisher % (Auto) (0.0-7.3) % Eos % (Auto) 4.8 H (0.0-4.3) % ALT 6 L (7-56) units/L Total Protein (6.3-8.2) g/dL Salicylates 1.5 L (2.8-20.0) mg/dL Acetaminophen (10.0-30.0) ug/mL 09/01/20 09/02/20 09/02/20 Range/Units 17:54 04:42 04:42 MCV 98 H (84-94) fl MCH 34 H (28-32) pg MCHC 35 H (32-34) % RDW 12.9 L (13.2-15.2) % Plt Count 123 L (140-440) K/mm3 Swisher % (Auto) 7.5 H (0.0-7.3) % Eos % (Auto) 6.0 H (0.0-4.3) % ALT 5 L (7-56) units/L Total Protein 6.2 L (6.3-8.2) g/dL Salicylates (2.8-20.0) mg/dL Acetaminophen 5.0 L (10.0-30.0) ug/mL HEART Score - HEART Score EKG: Non-specific Age: 45-65 Risk factors: > 3 risk factors or hx of atherosclerotic disease Troponin: Troponin T < 0.010 ng/mL (0.00-0.029) 09/02/20 08:46 Troponin: < normal limit
[2020-09-02] MEDS: oxyCODONE /ACETAMINOPHEN 5-325MG TAB PO PRN (18:22)
[2020-09-02] MEDS: FAMOTIDINE 20 MG TAB PO SCH (21:16)
[2020-09-03] MEDS: oxyCODONE /ACETAMINOPHEN 5-325MG TAB PO PRN ×4 (00:23→21:36)
[2020-09-03 06:28] LABS: BUN/Creatinine Ratio 20; Blood Urea Nitrogen 20 mg/dL (9-20); Calcium 8.3 mg/dL (8.4-10.2); Hemolysis Index 5
[2020-09-03] MEDS: THIAMINE 100 MG TAB PO SCH (10:27)
[2020-09-03] MEDS: GABAPENTIN 300 MG CAP PO SCH ×2 (10:27→21:36)
[2020-09-03] MEDS: HEPARIN 5,000 UNIT/1 ML VIAL SUB-Q SCH ×2 (10:27→21:35)
[2020-09-03] MEDS: FAMOTIDINE 20 MG TAB PO SCH ×2 (10:27→21:36)
[2020-09-03] MEDS: LISINOPRIL 10 MG TAB PO SCH (10:27)
[2020-09-03] MEDS: ASPIRIN 325 MG TAB PO SCH (10:27)
[2020-09-03] MEDS: CYANOCOBALAMIN (VIT B-12) 1000 MCG TAB PO SCH (10:27)
[2020-09-03] MEDS: DIVALPROEX DR 250 MG TAB PO SCH ×2 (10:27→21:36)
[2020-09-03] MEDS: MULTIVITAMINS ,THERAPEUTIC TAB PO SCH (10:27)
[2020-09-03] MEDS: DULoxetine 30 MG CAP PO SCH (10:27)
--- NOTE | 2020-09-03 10:51 | Consultation ---
History of Present Illness - Reason for Consult Consult date: 09/03/20 Reason for consult: SI - History of Present Psychiatric Illness Per ED Note: Patient is a 64-year-old male that presents emergency room with complaints of chest pain. Patient's chest pain started 3 hours ago. Patient states that his chest pain is in the center of his chest and radiates to his left shoulder. Patient states the pain is a 10 out of 10. Patient dates is also having shortness of breath. Patient dates his shortness of breath and chest pain are better with rest and worse with exertion. Patient denies nausea vomiting. Patient denies fever and chills. Patient denies cough. Patient denies chest wall pain. Patient states he has had a history of RI, stroke, CAD and he still smokes cigarettes. Patient states that he is having suicidal ideations. Patient dates he has a plan to overdose. Patient states he is depressed and anxious. Patient denies hallucinations. Patient denies homicidal ideations. Yang Ibarra is a 64y/o patient who is known to me from previous visits. During my interview with the patient he is lying in bed awake. He is a/o x 3. He is calm, cooperative and polite. The patient says he came to the hospital because he was having chest pains. He says "and I was having suicidal thoughts too to run in traffic." He then says "or whatever I told them when I came in." The patient has stated running into traffic as his plan on several admissions. He says "not really" when asking was he currently suicidal. He says things has been going okay at his [facility], but says he want's to get to [place] where he has two brothers. The patient denies hallucinations of any kind. He also says he's been clean from drugs, but "have a beer every now and then." He says he's been taking his medications and they work "okay." PAST PSYCHIATRIC HISTORY: Diagnoses: Bipolar disorder Suicide attempts or Self-harm behavior: yes Prior psychiatric hospitalizations: yes Substance Abuse history: crack, Alcohol Previous psychiatric medications tried: Cymbalta Outpatient treatment: Yes, at [facility] None reported or documented SOCIAL HISTORY Marital Status: Living Arrangements: alf Employment Status: disabled Access to guns/weapons: patient denies Education: college History of Abuse: patient denies Legal History: patient denies ROS: Constitutional: Negative for weight loss ENT: Negative for stridor Respiratory: Negative for cough or hemoptysis All other systems reviewed and are negative MENTAL STATUS EXAMINATION General Appearance and Behavior: Age appropriate, good hygiene, wearing appropriate clothes,, good eye contact Cooperation: Participating/engaged, but Guarded Psychomotor Behavior: Psychomotor normal Mood: okay Affect and affective range: Restricted Thought Process: Goal directed Thought Content: Denies Speech: Normal rate, volume and rhythm Intellectual Functioning: Average Suicidal Ideation: "not really" Homicidal Ideation: Denies Hallucinations: Denies Delusions: None elicited Impulse Control: Limited Insight and Judgment: Limited insight and judgment Memory: Normal Attention: Normal Orientation: A/O x 3. Psychiatric problem (1) Hx of Bipolar Disorder Treatment D/c 1013 Continue home medications Sitter: Defer to primary Medical: Per primary Disposition: Do not recommend acute psychiatric inpatient at this time. The patient condition is chronic and can be managed on outpatient basis. Will sign off. Thank you for this consult. Case staffed with Dr. Gonzalez. Medications and Allergies Allergies Allergy/AdvReac Type Severity Reaction Status Date / Time ketorolac tromethamine Allergy Rash Verified 02/01/17 12:29 [From Toradol] Home Medications Medication Instructions Recorded Confirmed Last Taken Type Albuterol Sulfate [Proair 2 puff INHALATION Q4HR PRN 04/19/20 04/21/20 Unknown History Respiclick] Hydroxyzine HCl [hydrOXYzine] 50 mg PO PRN 04/19/20 04/21/20 Unknown History lisinopriL [Zestril TAB] 10 mg PO QDAY 04/19/20 04/21/20 Unknown History methOCARBAMOL [Robaxin TAB] 750 mg PO BID PRN 04/19/20 04/21/20 Unknown History Cyanocobalamin [Vitamin B-12] 1,000 mcg PO DAILY #30 tab 04/25/20 Unknown Rx DULoxetine [Cymbalta] 30 mg PO DAILY #30 cap 04/25/20 Unknown Rx Divalproex [Philip Fry] 250 mg PO BID #60 tablet 04/25/20 Unknown Rx Gabapentin 300 mg PO BID #60 capsule 04/25/20 Unknown Rx Multivitamin Tab [Multiple Vitamin 1 each PO DAILY #30 tablet 04/25/20 Unknown Rx TAB (Theragran)] Thiamine [Vitamin B-1] 100 mg PO QDAY #30 tab 04/25/20 Unknown Rx Active Meds: Active Medications Acetaminophen (Acetaminophen 325 Mg Tab) 650 mg PO Q4H PRN PRN Reason: Pain MILD(1-3)/Fever >100.5/ROSAS Albuterol (Albuterol 2.5 Mg/3 Ml Nebu) 2.5 mg IH Q4HRT PRN PRN Reason: Shortness Of Breath Aspirin (Aspirin 325 Mg Tab) 325 mg PO QDAY [facility] Last Admin: 09/03/20 10:27 Dose: 325 mg Documented by: Atorvastatin Calcium (Atorvastatin 20 Mg Tab) 20 mg PO QHS [facility] Last Admin: 09/02/20 21:16 Dose: 20 mg Documented by: Cyanocobalamin (Cyanocobalamin (Vit B-12) 1000 Mcg Tab) 1,000 mcg PO DAILY [facility] Last Admin: 09/03/20 10:27 Dose: 1,000 mcg Documented by: Divalproex Sodium (Divalproex Dr 250 Mg Tab) 250 mg PO BID [facility] Last Admin: 09/03/20 10:27 Dose: 250 mg Documented by: Duloxetine HCl (Duloxetine 30 Mg Cap) 30 mg PO DAILY [facility] Last Admin: 09/03/20 10:27 Dose: 30 mg Documented by: Famotidine (Famotidine 20 Mg Tab) 20 mg PO BID [facility] Last Admin: 09/03/20 10:27 Dose: 20 mg Documented by: Gabapentin (Gabapentin 300 Mg Cap) 300 mg PO BID [facility] Last Admin: 09/03/20 10:27 Dose: 300 mg Documented by: Heparin Sodium (Porcine) (Heparin 5,000 Unit/1 Ml Vial) 5,000 unit SUB-Q Q12HR [facility] Last Admin: 09/03/20 10:27 Dose: 5,000 unit Documented by: Hydroxyzine HCl (Hydroxyzine Hcl 25 Mg Tab) 50 mg PO DAILY PRN PRN Reason: Itching Lisinopril (Lisinopril 10 Mg Tab) 10 mg PO QDAY [facility] Last Admin: 09/03/20 10:27 Dose: 10 mg Documented by: Methocarbamol (Methocarbamol 750 Mg Tab) 750 mg PO BID PRN PRN Reason: Muscle Spasm Last Admin: 09/03/20 10:26 Dose: 750 mg Documented by: Metoclopramide HCl (Metoclopramide 10 Mg/2 Ml Inj) 10 mg IV Q6H PRN PRN Reason: Nausea And Vomiting Morphine Sulfate (Morphine 2 Mg/1 Ml Inj) 2 mg IV Q6H PRN PRN Reason: Pain, Moderate (4-6) Last Admin: 09/02/20 13:47 Dose: 2 mg Documented by: Multivitamins (Multivitamins ,Therapeutic Tab) 1 each PO DAILY [facility] Last Admin: 09/03/20 10:27 Dose: 1 each Documented by: Ondansetron HCl (Ondansetron 4 Mg/2 Ml Inj) 4 mg IV Q8H PRN PRN Reason: Nausea And Vomiting Oxycodone/Acetaminophen (Oxycodone /Acetaminophen 5-325mg Tab) 1 tab PO Q6H PRN PRN Reason: Pain, Moderate (4-6) Last Admin: 09/03/20 06:14 Dose: 1 tab Documented by: Sodium Chloride (Sodium Chloride 0.9% 10 Ml Flush Syringe) 10 ml IV BID [facility] Last Admin: 09/03/20 10:28 Dose: 10 ml Documented by: Sodium Chloride (Sodium Chloride 0.9% 10 Ml Flush Syringe) 10 ml IV PRN PRN PRN Reason: LINE FLUSH Thiamine HCl (Thiamine 100 Mg Tab) 100 mg PO QDAY [facility] Last Admin: 09/03/20 10:27 Dose: 100 mg Documented by: Mental Status Exam - Vital signs Last Vital Signs Temp 97.9 F 09/03/20 08:45 Pulse 68 09/03/20 08:45 Resp 18 09/03/20 04:05 BP 125/74 09/03/20 08:45 Pulse Ox 93 09/03/20 08:45 Results Result Diagrams: 09/02/20 04:42 09/03/20 04:24 Abnormal lab results 09/03/20 Range/Units 04:24 Sodium 136 L (137-145) mmol/L Calcium 8.3 L (8.4-10.2) mg/dL All other labs normal.
--- NOTE | 2020-09-03 12:12 | Progress Note ---
Subjective Date of service: 09/03/20 Interval history: The pt is a is a 64 YO male with a past medical history of CMP,( EF 35-40%) hypertension, chronic back pain s/p multiple surgeries, testicular cancer, depression, anxiety, suicidal ideation, tobacco use presented with c/o suicidal ideation and chest pain. 09/03 patient is alert and oriented and not in any distress. Complains of left- sided chest pain extending to left shoulder. Describes chest pain as recurrent, sharp, lasting for 3 to 4 seconds, nonexertional for the past " couple of days" Cardiology note and psychiatry nurse practitioner notes reviewed. Lab results reviewed --Atypical chest pain-cardiology consulted note reviewed [place] ruled out with serial troponin levels History of [place] x2 in the past per review of H&P --Suicidal ideations Psychiatry nurse practitioner note reviewed 1013 has been discontinued No further recommendations from psychiatry History of bipolar disorder/depressed Patient is being continued on home medications -- HTN (hypertension) Well-controlled --Tobacco abuse Smoking cessation counseling was done Other chronic but stable conditions -- History of testicular cancer -- Chronic systolic Cardiomyopathy, compensated -- Chronic back pain Narrative Exam: GENERAL: well-developed and well-nourished elderly white male lying on bed appeared to be in no discomfort. HEENT: Normocephalic. Atraumatic. No conjunctival congestion or icterus. Patient has moist mucous membranes. NECK: Supple. Trachea midline. CHEST/LUNGS: Clear to auscultated bilaterally, breathing nonlabored. No wheezes crackles or rhonchi. There is mild left upper chest wall tenderness HEART/CARDIOVASCULAR: Regular in rate and rhythm. S1 and S2 positive. ABDOMEN: Abdomen is soft, nontender. Patient has normal bowel sounds. SKIN: There is no rash. Warm and dry. NEURO: No focal motor deficit. Follows command. MUSCULOSKELETAL: No joint effusion or tenderness. EXTRIMITY: No edema, no cyanosis or clubbing. PSYCH: Cooperative. Objective - Constitutional Vitals: Vital Signs - 12hr 09/03/20 09/03/20 09/03/20 04:05 07:59 08:45 Temperature 97.8 F 97.9 F Pulse Rate 52 L 52 L 68 Respiratory 18 Rate Blood Pressure 98/46 125/74 O2 Sat by Pulse 94 93 Oximetry - Labs CBC & Chem 7: 09/02/20 04:42 09/03/20 04:24 Labs: Abnormal lab results 09/03/20 Range/Units 04:24 Sodium 136 L (137-145) mmol/L Calcium 8.3 L (8.4-10.2) mg/dL HEART Score - HEART Score EKG: Non-specific Age: 45-65 Risk factors: > 3 risk factors or hx of atherosclerotic disease Troponin: Troponin T < 0.010 ng/mL (0.00-0.029) 09/02/20 08:46 Troponin: < normal limit
--- NOTE | 2020-09-03 15:50 | Progress Note ---
[facility] - Patient Problems (1) Chest pain Current Visit: Yes Status: Acute Qualifiers: Chest pain type: other chest pain Qualified Code(s): R07.89 - Other chest pain; R07.8 - Other chest pain (2) Suicidal ideations Current Visit: Yes Status: Acute (3) Cardiomyopathy Current Visit: Yes Status: Chronic (4) Hypertension Current Visit: Yes Status: Chronic Qualifiers: Hypertension type: essential hypertension Qualified Code(s): I10 - Essential (primary) hypertension (5) Normal coronary arteries Current Visit: Yes Status: Chronic Subjective Date of service: 09/03/20 Principal diagnosis: CP, Suidal Ideation Interval history: He continues to experience recurrent pericardial chest pain. Objective Vital Signs Temp Pulse Resp BP Pulse Ox 09/03/20 12:47 96.9 F L 72 129/79 98 09/03/20 10:00 100 09/03/20 08:45 97.9 F 68 125/74 93 09/03/20 07:59 52 L 09/03/20 04:05 97.8 F 52 L 18 98/46 94 09/02/20 23:31 97.6 F 56 L 18 116/67 96 09/02/20 20:36 95 09/02/20 20:08 61 09/02/20 19:55 98.1 F 59 L 19 108/64 93 - Physical Examination General: No Apparent Distress HEENT: Positive: EOMI, Normocephaly, Mucus Membranes Moist Neck: Positive: neck supple, trachea midline Cardiac: Positive: Reg Rate and Rhythm, S1/S2 Lungs: Positive: clear to auscultation Neuro: Positive: Grossly Intact Abdomen: Positive: Soft, Active Bowel Sounds. Negative: Tender Skin: Positive: Clear. Negative: Rash Musculoskeletal: Normal Range of Motion Extremities: Absent: edema - Labs and Meds Comprehensive Metabolic Panel 09/03/20 Range/Units 04:24 Sodium 136 L (137-145) mmol/L Potassium 4.3 (3.6-5.0) mmol/L Chloride 101.4 (98-107) mmol/L Carbon Dioxide 25 (22-30) mmol/L BUN 20 (9-20) mg/dL Creatinine 1.0 (0.8-1.3) mg/dL Glucose 88 (75-100) mg/dL Calcium 8.3 L (8.4-10.2) mg/dL - Imaging and Cardiology EKG: image reviewed Echo: report reviewed (06/01/2019 showed EF 35-40%, mod LVH, impaired relaxation, trace AR, MR and TR, RVSP 37mmHg, mild dilatation of the ascending aorta. ) - EKG Sinus rhythms and dysrhythmias: sinus rhythm
[2020-09-03] MEDS: ZOLPIDEM 5 MG TAB PO PRN (22:38)
[2020-09-04] MEDS: HEPARIN 5,000 UNIT/1 ML VIAL SUB-Q SCH ×2 (10:24→21:56)
[2020-09-04] MEDS: ASPIRIN 325 MG TAB PO SCH (10:25)
[2020-09-04] MEDS: THIAMINE 100 MG TAB PO SCH (10:25)
[2020-09-04] MEDS: oxyCODONE /ACETAMINOPHEN 5-325MG TAB PO PRN ×3 (10:25→21:55)
[2020-09-04] MEDS: LISINOPRIL 10 MG TAB PO SCH (10:25)
[2020-09-04] MEDS: GABAPENTIN 300 MG CAP PO SCH ×2 (10:25→21:56)
[2020-09-04] MEDS: CYANOCOBALAMIN (VIT B-12) 1000 MCG TAB PO SCH (10:25)
[2020-09-04] MEDS: MULTIVITAMINS ,THERAPEUTIC TAB PO SCH (10:25)
[2020-09-04] MEDS: DIVALPROEX DR 250 MG TAB PO SCH ×2 (10:25→21:56)
[2020-09-04] MEDS: DULoxetine 30 MG CAP PO SCH (10:25)
[2020-09-04] MEDS: FAMOTIDINE 20 MG TAB PO SCH ×2 (10:25→21:57)
--- NOTE | 2020-09-04 11:54 | Progress Note ---
Subjective Date of service: 09/04/20 Principal diagnosis: CP, Suidal Ideation Interval history: The pt is a is a 64 YO male with a past medical history of CMP,( EF 35-40%) hypertension, chronic back pain s/p multiple surgeries, testicular cancer, depression, anxiety, suicidal ideation, tobacco use presented with c/o suicidal ideation and chest pain. 09/03 patient is alert and oriented and not in any distress. Complains of left- sided chest pain extending to left shoulder. Describes chest pain as recurrent, sharp, lasting for 3 to 4 seconds, nonexertional for the past " couple of days" Cardiology note and psychiatry nurse practitioner notes reviewed. Lab results reviewed 09/04 patient is resting in the bed awake and alert, not in any distress, offers no specific complaints except intermittent left-sided chest pain. Cardiology note reviewed --Atypical chest pain-cardiology consulted note reviewed [place] ruled out with serial troponin levels History of [place] x2 in the past per review of H&P Patient is scheduled for nuclear medicine Lexiscan stress test in a.m. --Suicidal ideations Psychiatry nurse practitioner note reviewed 1013 has been discontinued No further recommendations from psychiatry History of bipolar disorder/depressed Patient is being continued on home medications -- HTN (hypertension) Well-controlled --Tobacco abuse Smoking cessation counseling was done Other chronic but stable conditions -- History of testicular cancer -- Chronic systolic Cardiomyopathy, compensated -- Chronic back pain Narrative Exam: GENERAL: well-developed and well-nourisihed HEENT: Normocephalic. Atraumatic. . NECK: Supple. Trachea midline. CHEST/LUNGS: Clear to auscultated bilaterally, breathing nonlabored. There is mild left upper chest wall tenderness HEART/CARDIOVASCULAR: Regular in rate and rhythm. S1 and S2 positive. ABDOMEN: Abdomen is soft, nontender. Patient has normal bowel sounds. SKIN: There is no rash. Warm and dry. NEURO: No focal motor deficit. Follows command. MUSCULOSKELETAL: No joint effusion or tenderness. EXTRIMITY: No edema, no cyanosis or clubbing. PSYCH: Cooperative. Objective - Constitutional Vitals: Vital Signs - 12hr 09/04/20 09/04/20 09/04/20 00:00 05:23 07:14 Temperature 97.6 F 98.2 F Pulse Rate 58 L 65 64 Respiratory 20 20 Rate Blood Pressure 119/76 120/70 O2 Sat by Pulse 95 94 Oximetry 09/04/20 09/04/20 08:42 11:29 Temperature 98.1 F Pulse Rate 60 73 Respiratory 20 Rate Blood Pressure 114/69 O2 Sat by Pulse 96 Oximetry - Labs CBC & Chem 7: 09/02/20 04:42 09/03/20 04:24 HEART Score - HEART Score EKG: Non-specific Age: 45-65 Risk factors: > 3 risk factors or hx of atherosclerotic disease Troponin: Troponin T < 0.010 ng/mL (0.00-0.029) 09/02/20 08:46 Troponin: < normal limit
--- NOTE | 2020-09-04 18:43 | Progress Note ---
Assessment and Plan Lexiscan stress MPI in a.m. - Patient Problems (1) Chest pain Current Visit: Yes Status: Acute Qualifiers: Chest pain type: other chest pain Qualified Code(s): R07.89 - Other chest pain; R07.8 - Other chest pain (2) Suicidal ideations Current Visit: Yes Status: Acute (3) Cardiomyopathy Current Visit: Yes Status: Chronic (4) Hypertension Current Visit: Yes Status: Chronic Qualifiers: Hypertension type: essential hypertension Qualified Code(s): I10 - Essential (primary) hypertension (5) Normal coronary arteries Current Visit: Yes Status: Chronic Subjective Date of service: 09/04/20 Principal diagnosis: CP, Suidal Ideation Interval history: He continues to experience recurrent chest pain. Objective Vital Signs Temp Pulse Resp BP Pulse Ox 09/04/20 16:52 78 09/04/20 15:21 98.6 F 73 20 120/71 96 09/04/20 11:29 98.1 F 73 20 114/69 96 09/04/20 08:42 60 09/04/20 07:14 98.2 F 64 20 120/70 94 09/04/20 05:23 97.6 F 65 20 119/76 95 09/04/20 00:00 58 L 09/03/20 23:42 97.4 F L 56 L 20 122/60 93 09/03/20 22:36 18 09/03/20 21:36 20 09/03/20 19:14 98.2 F 56 L 20 114/71 94 - Physical Examination General: No Apparent Distress HEENT: Positive: EOMI, Normocephaly, Mucus Membranes Moist Neck: Positive: neck supple, trachea midline Cardiac: Positive: Reg Rate and Rhythm, S1/S2 Neuro: Positive: Grossly Intact Abdomen: Positive: Soft, Active Bowel Sounds. Negative: Tender Skin: Positive: Clear. Negative: Rash Musculoskeletal: Normal Range of Motion Extremities: Absent: edema - Imaging and Cardiology EKG: image reviewed Echo: report reviewed (06/01/2019 showed EF 35-40%, mod LVH, impaired relaxation, trace AR, MR and TR, RVSP 37mmHg, mild dilatation of the ascending aorta. ) - EKG Sinus rhythms and dysrhythmias: sinus rhythm
[2020-09-04] MEDS: ZOLPIDEM 5 MG TAB PO PRN (21:56)
[2020-09-05] MEDS: MORPHINE 2 MG/1 ML INJ IV PRN ×2 (06:08→13:08)
[2020-09-05] MEDS: oxyCODONE /ACETAMINOPHEN 5-325MG TAB PO PRN ×2 (08:58→17:28)
[2020-09-05] MEDS ORDERED: REGADENOSON 0.4 MG/5 ML INJ IV ONE (10:53)
--- NOTE | 2020-09-05 11:27 | Progress Note ---
Assessment and Plan Telemetry reviewed: Sinus Bradycardia rate 57. Overnight low SB 45. Echo 09/02/20) Reviewed: EF 55-60%. Mild concentric LVH. Mild diastolic dysfunction. RV mildly dilated. RA mildly dilated. No valvular abnormality. Lexiscan (09/05/20) MPI Stress Test- negative for ischemia. Currently stable cardiac status. Chest pain resolved. Pt may discharge from cardiology standpoint. Recommend f/u with our office with Dr Decker within 1-2 weeks of discharge. This patient was seen in conjunction with Dr Alicia Cash who agrees with this assessment and plan of care. - Patient Problems (1) Chest pain Current Visit: Yes Status: Resolved (2) Suicidal ideations Current Visit: Yes Status: Acute (3) HTN (hypertension) Current Visit: Yes Status: Chronic (4) Tobacco use Current Visit: Yes Status: Chronic (5) History of testicular cancer Current Visit: Yes Status: Chronic (6) Chronic back pain Current Visit: Yes Status: Chronic (7) Tobacco use Current Visit: Yes Status: Chronic Subjective Date of service: 09/05/20 Principal diagnosis: CP, Suidal Ideation Interval history: Pt seen in stress lab. Pt is alert and oriented. No new cardiac complaints. Telemetry reviewed: Sinus Bradycardia rate 57. Overnight low SB 45. Objective Last Vital Signs Temp 98.0 F 09/05/20 03:41 Pulse 59 L 09/05/20 03:41 Resp 20 09/05/20 06:08 BP 110/62 09/05/20 03:41 Pulse Ox 96 09/05/20 03:41 - Physical Examination General: No Apparent Distress HEENT: Positive: EOMI, Normocephaly, Mucus Membranes Moist Neck: Positive: neck supple, trachea midline Cardiac: Positive: Reg Rate and Rhythm, S1/S2 Lungs: Positive: Normal Breath Sounds Neuro: Positive: Grossly Intact Abdomen: Positive: Soft, Active Bowel Sounds. Negative: Tender Skin: Positive: Clear. Negative: Rash Musculoskeletal: Normal Range of Motion Extremities: Absent: edema - Imaging and Cardiology EKG: image reviewed Pharmacologic stress test: pending Echo: report reviewed (Echo 09/02/20) Reviewed: EF 55-60%. Mild concentric LVH. Mild diastolic dysfunction. RV mildly dilated. RA mildly dilated. No valvular abnormality. Echo (05/2019)reviewed: EF 35-40%, mod LVH, impaired relaxation, trace AR, MR and TR, RVSP 37mmHg, mild dilatation of the ascending aorta. ) - Telemetry EKG Rhythm: Sinus Bradycardia - EKG Sinus rhythms and dysrhythmias: sinus rhythm
[2020-09-05] MEDS: FAMOTIDINE 20 MG TAB PO SCH (13:10)
[2020-09-05] MEDS: THIAMINE 100 MG TAB PO SCH (13:10)
[2020-09-05] MEDS: CYANOCOBALAMIN (VIT B-12) 1000 MCG TAB PO SCH (13:10)
[2020-09-05] MEDS: MULTIVITAMINS ,THERAPEUTIC TAB PO SCH (13:10)
[2020-09-05] MEDS: DIVALPROEX DR 250 MG TAB PO SCH (13:10)
[2020-09-05] MEDS: LISINOPRIL 10 MG TAB PO SCH (13:11)
[2020-09-05] MEDS: DULoxetine 30 MG CAP PO SCH (13:11)
[2020-09-05] MEDS: ASPIRIN 325 MG TAB PO SCH (13:11)
[2020-09-05] MEDS: HEPARIN 5,000 UNIT/1 ML VIAL SUB-Q SCH (13:13)
[2020-09-05] MEDS: GABAPENTIN 300 MG CAP PO SCH (13:13)
--- NOTE | 2020-09-05 15:10 | Discharge Summary ---
Providers - Providers Date of Admission: 09/03/20 06:28 Date of discharge: 09/05/20 Attending physician: FRANCISCA CANO 09/02/20 09:43 Physical Therapy Evaluation and Treat [CONS] Routine Comment: Reason For Exam: debility 09/02/20 09:44 Occupational Therapy Evaluate and Treat [CONS] Routine Comment: Reason For Exam: debility 09/02/20 10:44 Consult to Physician [CONS] Routine Comment: Consulting Provider: BRANDY JURADO Physician Instructions: Reason For Exam: chest pain 09/03/20 06:43 Consult to Mental Health [CONS] Routine Reason For Exam: Suicidal Ideation Primary care physician: [employer] DIRECTOR Hospitalization Condition: Stable Pertinent studies: Nuclear medicine MPI stress test Hospital course: Interval history: The pt is a is a 64 YO male with a past medical history of CMP,( EF 35-40%) hypertension, chronic back pain s/p multiple surgeries, testicular cancer, depression, anxiety, suicidal ideation, tobacco use presented with c/o suicidal ideation and chest pain. 09/03 patient is alert and oriented and not in any distress. Complains of left-sided chest pain extending to left shoulder. Describes chest pain as recurrent, sharp, lasting for 3 to 4 seconds, nonexertional for the past " couple of days" Cardiology note and psychiatry nurse practitioner notes reviewed. Lab results reviewed 09/04 patient is resting in the bed awake and alert, not in any distress, offers no specific complaints except intermittent left-sided chest pain. Cardiology note reviewed 09/05 patient complains of intermittent left upper chest pain. Nonexertional and localized Cardiology note reviewed Nuclear medicine MPI stress test is normal per discussion with cardiology nurse practitioner Patient will be discharged home. He is medically stable for discharge --Atypical chest pain-cardiology consulted note reviewed [place] ruled out with serial troponin levels History of [place] x2 in the past per review of H&P nuclear medicine Lexiscan stress test is normal --Suicidal ideations Psychiatry nurse practitioner note reviewed 1013 has been discontinued No further recommendations from psychiatry History of bipolar disorder/depressed-per review of psychiatry [employer]OVALIST note Patient is being continued on home medications -- HTN (hypertension) Well-controlled --Tobacco abuse Smoking cessation counseling was done Other chronic but stable conditions -- History of testicular cancer -- Chronic systolic Cardiomyopathy, compensated -- Chronic back pain Narrative Exam: GENERAL: well-developed and well-nourisihed HEENT: Normocephalic. Atraumatic. . NECK: Supple. Trachea midline. CHEST/LUNGS: Clear to auscultated bilaterally, breathing nonlabored. There is mild left upper chest wall tenderness HEART/CARDIOVASCULAR: Regular in rate and rhythm. S1 and S2 positive. ABDOMEN: Abdomen is soft, nontender. Patient has normal bowel sounds. SKIN: There is no rash. Warm and dry. NEURO: No focal motor deficit. Follows command. MUSCULOSKELETAL: No joint effusion or tenderness. EXTRIMITY: No edema, no cyanosis or clubbing. PSYCH: Cooperative. Disposition: DC-01 TO HOME OR SELFCARE Final Discharge Diagnosis (Prints w/discharge instructions): Chest pain Time spent for discharge: 36 min Core Measure Documentation - Palliative Care Palliative Care/ Comfort Measures: Not Applicable - Core Measures Any of the following diagnoses?: none Exam - Constitutional Vitals: Temp Pulse Resp BP Pulse Ox 98.7 F 82 16 142/49 100 09/05/20 07:31 09/05/20 13:11 09/05/20 08:00 09/05/20 07:31 09/05/20 07:31 Plan Activity: advance as tolerated Weight Bearing Status: Full Weight Bearing Diet: regular, low fat, low cholesterol, low salt Plan of Treatment: [facility] Follow up with: PRIMARY CARE, [Primary Care Provider] - 3-5 Days Prescriptions: Aspirin 325 mg PO QDAY #30 tablet DULoxetine [Cymbalta] 30 mg PO DAILY #[address] [Depakote Dr] 250 mg PO BID #60 tablet Gabapentin 300 mg PO BID #60 capsule AtorvaSTATin [Lipitor] 20 mg PO QHS #30 tablet oxyCODONE /ACETAMINOPHEN [Percocet 5/325 mg] 1 tab PO Q6H PRN #10 tablet PRN Reason: Pain, Moderate (4-6) Albuterol Sulfate [Proair Respiclick] 2 puff INHALATION Q4HR PRN #1 PRN Reason: Shortness Of Breath Cyanocobalamin [Vitamin B-12] 1,000 mcg PO DAILY #30 tab lisinopriL [Zestril TAB] 10 mg PO QDAY #30
[2020-09-05 17:05] VITALS: BP 112/75
--- NOTE | 2020-09-07 18:07 | Treadmill Report ---
NUCLEAR PERFUSION SCAN REFERRING PHYSICIAN: Dr. Peter. PROTOCOL: The patient was assessed in postoperative state, given 10 mCi of technetium 99m at rest. The patient underwent rest imaging. The patient underwent Lexiscan stress test per standard protocol. At peak stress, the patient was given 26 mCi of technetium 99m. Shortly thereafter, the patient underwent stress imaging. Raw imaging reveals mild GI artifact, no significant motion artifact. SPECT imaging examined carefully in horizontal long axis, vertical long axis, and short axis views. There is normal homogenous uptake of radioisotope in all reported segments. No evidence of a significant fixed or reversible perfusion defects suggestive of prior infarction or ischemia. Gated wall motion reveals normal systolic thickening, calculated ejection fraction of 58%. No TID. CONCLUSIONS: 1. Normal myocardial perfusion scan without evidence of active ischemia or prior infarction. 2. Normal left ventricular systolic performance without evidence of transient ischemic dilatation or stress-induced segmental wall motion abnormalities. JOB# [id number]
== END 2020-09-05 17:49 | disposition home health service (06) | DRG 313 ==
LOC: ED 17:29 → 4A 19:20 → OBSVTOIN 09-03 06:28
PROVIDERS: ADMIT Internal Medicine; ATTEND Internal Medicine
DX: R07.89 Other chest pain (principal); I25.10 Atherosclerotic heart disease of native coronary artery without angina pectoris; F31.9 Bipolar disorder, unspecified; I42.9 Cardiomyopathy, unspecified; I10 Essential (primary) hypertension; G89.29 Other chronic pain; M54.9 Dorsalgia, unspecified; F41.9 Anxiety disorder, unspecified; R45.851 Suicidal ideations; J45.909 Unspecified asthma, uncomplicated; F20.9 Schizophrenia, unspecified; F17.210 Nicotine dependence, cigarettes, uncomplicated; F19.20 Other psychoactive substance dependence, uncomplicated; I25.2 Old myocardial infarction; Z79.899 Other long term (current) drug therapy; Z71.6 Tobacco abuse counseling; Z71.51 Drug abuse counseling and surveillance of drug abuser; Z85.47 Personal history of malignant neoplasm of testis; Z86.73 Personal history of transient ischemic attack (TIA), and cerebral infarction without residual deficits
CPT/HCPCS: 36415; 71045; 78452; 80048; 80053; 80307; 80320; 81001; 82553; 83036; 84484; 85025; 85610; 85730; 93005; 93017; 93306; 94640; 96361; 96365; 96366; 96367; 96368; 96375; 96376; 99406; G0378; A9502; G0480; J1644; J2270; J2405; J2785

== ENCOUNTER 2020-09-24 13:13 | Emergency (ER) | payer MEDICARE ==
[2020-09-24] MEDS ORDERED: ASPIRIN 81 MG TAB CHEW PO ONE (13:40)
--- NOTE | 2020-09-24 13:42 | Event Note ---
ED Screening Note Date of service: 09/24/20 Time: 13:41 ED Screening Note: Patient complains of chest pain starting today History of AL Currently on metoprolol baby aspirin, and lisinopril Mild shortness of breath per patient This initial assessment/diagnostic orders/clinical plan/treatment(s) is/are subject to change based on patients health status, clinical progression and re- assessment by fellow clinical providers in the ED. Further treatment and workup at subsequent clinical providers discretion. Patient/guardian urged not to elope from the ED as their condition may be serious if not clinically assessed and managed. Initial orders include: Labs EKG Chest x-ray
--- NOTE | 2020-09-24 14:10 | XRay Report ---
CHEST 2 VIEWS INDICATION / CLINICAL INFORMATION: chest pain. COMPARISON: 09/01/2020. FINDINGS: SUPPORT DEVICES: None. HEART / MEDIASTINUM: No significant abnormality. LUNGS / PLEURA: No significant pulmonary or pleural abnormality. No pneumothorax. ADDITIONAL FINDINGS: Thoracolumbar surgical hardware is seen. IMPRESSION: 1. No acute cardiopulmonary abnormality. Signer Name: Dangelo Cobos MD Signed: 09/24/2020 2:05 PM Workstation Name: [id number]
[2020-09-24 14:29] LABS: Basophils % (Auto) 0.3 % (0.0-1.8); Eosinophils # (Auto) 0.3 K/mm3 (0.0-0.4); Eosinophils % (Auto) 4.4 % (0.0-4.3); Hematocrit 40.5 % (35.5-45.6); Lymphocytes # (Auto) 0.9 K/mm3 (1.2-5.4); Lymphocytes % (Auto) 15.2 % (13.4-35.0); Mean Corpuscular HGB Conc 35 % (32-34); Mean Corpuscular Volume 100 fl (84-94); Monocytes # (Auto) 0.4 K/mm3 (0.0-0.8); Monocytes % (Auto) 6.1 % (0.0-7.3); Platelet Count 186 K/mm3 (140-440); Red Blood Count 4.07 M/mm3 (3.65-5.03); Red Cell Distribution Width 13.2 % (13.2-15.2)
[2020-09-24 14:52] LABS: Alanine Aminotransferase 6 units/L (7-56); Albumin 3.9 g/dL (3.9-5); BUN/Creatinine Ratio 22; Blood Urea Nitrogen 20 mg/dL (9-20); Calcium 9.2 mg/dL (8.4-10.2); Hemolysis Index 11
--- NOTE | 2020-09-24 15:40 | Emergency Department Report ---
ED Psych HPI - General Chief Complaint: Chest Pain Stated Complaint: CHEST PAIN/SUICIDAL THOUGHTS Time Seen by Provider: 09/24/20 13:40 Source: patient, EMS Mode of arrival: Ambulatory - History of Present Illness Initial Comments: Patient is 65 years old male with history of depression and previous suicidal attempt. Patient presented to the ER complaining of suicidal ideation that has been going on for 2 days. Patient has an active thoughts of killing himself by walking in traffic. Patient stated that he walked into traffic before. Patient denied any homicidal ideation. No auditory or visual hallucination. Patient also complaining of left sided chest pain. Patient describes his pain as aching with no radiation. Patient denies any shortness of breath, cough fever or chills. Patient stated that he had heart attack 4 months ago and he had a [facility] but he did not have any stent. Patient given aspirin. MD Complaint: suicidal ideation, other -: days(s) Associated Psychiatric Symptoms: depression, suicidal ideation Associated Symptoms: denies other symptoms If Self Harm: admits thoughts of, has plan - Related Data Home Medications Medication Instructions Recorded Confirmed Last Taken methOCARBAMOL [Robaxin TAB] 750 mg PO BID PRN 04/19/20 09/26/20 Unknown Previous Rx's Medication Instructions Recorded Last Taken Type Multivitamin Tab [Multiple Vitamin 1 each PO DAILY #30 tablet 04/25/20 Unknown Rx TAB (Theragran)] Thiamine [Vitamin B-1] 100 mg PO QDAY #30 tab 04/25/20 Unknown Rx Acetaminophen [Acetaminophen TAB] 650 mg PO Q4H PRN tablet 09/05/20 Unknown Rx Albuterol Sulfate [Proair 2 puff INHALATION Q4HR PRN #1 09/05/20 Unknown Rx Respiclick] Aspirin 325 mg PO QDAY #30 tablet 09/05/20 Unknown Rx AtorvaSTATin [Lipitor] 20 mg PO QHS #30 tablet 09/05/20 Unknown Rx Cyanocobalamin [Vitamin B-12] 1,000 mcg PO DAILY #30 tab 09/05/20 Unknown Rx DULoxetine [Cymbalta] 30 mg PO DAILY #30 cap 09/05/20 Unknown Rx Divalproex [Philip Fry] 250 mg PO BID #60 tablet 09/05/20 Unknown Rx Gabapentin 300 mg PO BID #60 capsule 09/05/20 Unknown Rx lisinopriL [Zestril TAB] 10 mg PO QDAY #30 09/05/20 Unknown Rx oxyCODONE /ACETAMINOPHEN [Percocet 1 tab PO Q6H PRN #10 tablet 09/05/20 Unknown Rx 5/325 mg] Allergies Allergy/AdvReac Type Severity Reaction Status Date / Time ketorolac tromethamine Allergy Rash Verified 09/24/20 13:42 [From Toradol] ED Review of Systems ROS: Stated complaint: CHEST PAIN/SUICIDAL THOUGHTS Other details as noted in HPI Comment: All other systems reviewed and negative Constitutional: denies: chills, fever Respiratory: denies: cough, shortness of breath, SOB with exertion Cardiovascular: chest pain. denies: palpitations, dyspnea on exertion Gastrointestinal: denies: abdominal pain, nausea, vomiting Musculoskeletal: denies: back pain Neurological: denies: headache, weakness, numbness, paresthesias, confusion ED Past Medical Hx - Past Medical History Hx Hypertension: Yes Hx Heart Attack/AMI: Yes ([place] x 2, palpitations) Hx Congestive Heart Failure: No Hx Diabetes: No Hx Renal Disease: No Hx Arthritis: No Hx Seizures: No Hx Psychiatric Treatment: Yes (Anxiety, Bipolar) Hx Asthma: No Hx COPD: No Hx Dementia: No Additional medical history: Degenerative disc disease. History of A. fib status post cardiac ablation as per patient - Surgical History Hx Cholecystectomy: No Additional Surgical History: Multiple back surgeries secondary to degenerative disc disease - Social History Smoking Status: Current Every Day Smoker Substance Use Type: None - Medications Home Medications: Home Medications Medication Instructions Recorded Confirmed Last Taken Type methOCARBAMOL [Robaxin TAB] 750 mg PO BID PRN 04/19/20 09/26/20 Unknown History Multivitamin Tab [Multiple Vitamin 1 each PO DAILY #30 tablet 04/25/20 09/26/20 Unknown Rx TAB (Theragran)] Thiamine [Vitamin B-1] 100 mg PO QDAY #30 tab 04/25/20 09/26/20 Unknown Rx Acetaminophen [Acetaminophen TAB] 650 mg PO Q4H PRN tablet 09/05/20 09/26/20 Unknown Rx Albuterol Sulfate [Proair 2 puff INHALATION Q4HR PRN #1 09/05/20 09/26/20 Unknown Rx Respiclick] Aspirin 325 mg PO QDAY #30 tablet 09/05/20 09/26/20 Unknown Rx AtorvaSTATin [Lipitor] 20 mg PO QHS #30 tablet 09/05/20 09/26/20 Unknown Rx Cyanocobalamin [Vitamin B-12] 1,000 mcg PO DAILY #30 tab 09/05/20 09/26/20 Unknown Rx DULoxetine [Cymbalta] 30 mg PO DAILY #30 cap 09/05/20 09/26/[address] [Depakote Dr] 250 mg PO BID #60 tablet 09/05/20 09/26/20 Unknown Rx Gabapentin 300 mg PO BID #60 capsule 09/05/20 09/26/20 Unknown Rx lisinopriL [Zestril TAB] 10 mg PO QDAY #30 09/05/20 09/26/20 Unknown Rx oxyCODONE /ACETAMINOPHEN [Percocet 1 tab PO Q6H PRN #10 tablet 09/05/20 09/26/20 Unknown Rx 5/325 mg] ED Physical Exam - General Limitations: No Limitations, Physical Limitation General appearance: alert, in no apparent distress - Head Head exam: Present: atraumatic, normocephalic, normal inspection - Eye Eye exam: Present: normal appearance, PERRL - ENT ENT exam: Present: normal exam, normal orophraynx - Neck Neck exam: Present: normal inspection, full ROM. Absent: tenderness, meningismus - Respiratory Respiratory exam: Present: normal lung sounds bilaterally - Cardiovascular Cardiovascular Exam: Present: regular rate, normal rhythm, normal heart sounds - GI/Abdominal GI/Abdominal exam: Present: soft, normal bowel sounds. Absent: distended, tenderness, guarding, rebound, rigid, organomegaly, mass, bruit, pulsatile mass, hernia - Extremities Exam Extremities exam: Present: normal inspection, full ROM, normal capillary refill. Absent: tenderness, pedal edema, joint swelling, calf tenderness - Back Exam Back exam: Present: normal inspection, full ROM. Absent: CVA tenderness (R), CVA tenderness (L) - Neurological Exam Neurological exam: Present: alert, oriented X3, CN II-XII intact - Psychiatric Psychiatric exam: Present: depressed, suicidal ideation. Absent: agitated, anxious, flat affect, manic, homicidal ideation - Skin Skin exam: Present: warm, intact, normal color ED Course Vital Signs 09/24/20 09/24/20 09/25/20 13:40 19:25 02:13 Temperature 98.6 F 98.6 F 97.9 F Pulse Rate 60 69 54 L Respiratory 13 18 16 Rate Blood Pressure 118/68 Blood Pressure 96/55 106/50 [Right] O2 Sat by Pulse 99 96 96 Oximetry 09/25/20 09/25/20 09/25/20 09:42 16:56 20:34 Temperature 98.4 F 98.4 F 98.6 F Pulse Rate 76 76 57 L Respiratory 20 20 16 Rate Blood Pressure 97/50 126/73 Blood Pressure 117/77 [Right] O2 Sat by Pulse 94 97 98 Oximetry 09/25/20 09/26/20 09/26/20 22:51 09:06 19:30 Temperature 98.4 F Pulse Rate 82 Respiratory 18 20 20 Rate Blood Pressure Blood Pressure 118/69 [Right] O2 Sat by Pulse 98 Oximetry 09/26/20 09/26/20 09/26/20 20:10 20:40 23:55 Temperature 98.9 F Pulse Rate 64 Respiratory 16 20 20 Rate Blood Pressure Blood Pressure 122/81 [Right] O2 Sat by Pulse 97 98 Oximetry ED Medical Decision Making - Lab Data Result diagrams: 09/24/20 14:15 09/24/20 14:15 - EKG Data -: EKG Interpreted by [place] EKG shows normal: sinus rhythm Rate: normal - EKG Data Interpretation: no acute changes - Radiology Data Radiology results: report reviewed - Medical Decision Making Patient is 65 years old male with history of depression and previous suicidal attempt. Patient presented to the ER complaining of suicidal ideation that has been going on for 2 days. Patient has an active thoughts of killing himself by walking in traffic. Patient stated that he walked into traffic before. Patient denied any homicidal ideation. No auditory or visual hallucination. Patient also complaining of left sided chest pain. Patient describes his pain as aching with no radiation. Patient denies any shortness of breath, cough fever or chills. Patient stated that he had heart attack 4 months ago and he had a cardiac [facility] but he did not have any stent. Patient given aspirin. Labs reviewed and is unremarkable including a negative troponin x2. Chest x-ray is unremarkable. Patient chest pain completely resolved. Patient is medically cleared to be evaluated by psychiatric team. Critical care attestation.: If time is entered above; I have spent that time in minutes in the direct care of this critically ill patient, excluding procedure time. ED Disposition Clinical Impression: Suicidal ideations, Chest pain Disposition: [id number]/TX-65 PSY HOSP/PSY UNIT Is pt being admited?: No Condition: Stable Instructions: Nonspecific Chest Pain, Adult Referrals: PRIMARY CARE,MD [Primary Care Provider] - 3-5 Days
[2020-09-24] MEDS ORDERED: ACETAMINOPHEN 325 MG TAB PO ONE (20:08)
[2020-09-25 09:25] LABS: Amphetamine Screen,Urine Negative; Benzodiazepines Screen,Urine Negative; Cannabinoid Screen,Urine Negative; Cocaine Screen,Urine Negative; Methadone Screen,Urine Negative; Opiate Screen,Urine Negative
[2020-09-25 09:37] LABS: Bacteria,Urine 1+ /HPF (Negative); Bilirubin,Urine NEG (Negative); Blood,Urine SM (Negative); Color,Urine Straw (Yellow); Mucus,Urine FEW /HPF; Protein,Urine <15 mg/dL mg/dL (Negative); Urobilinogen,Urine < 2.0 mg/dL (<2.0); WBC,Urine < 1.0 /HPF (0.0-6.0)
--- NOTE | 2020-09-25 10:05 | Consultation ---
History of Present Illness - Reason for Consult Consult date: 09/25/20 Reason for consult: MHE Requesting physician: MILLY VELASCO - History of Present Psychiatric Illness Per ED Provider: Patient is 65 years old male with history of depression and previous suicidal attempt. Patient presented to the ER complaining of suicidal ideation that has been going on for 2 days. Patient has an active thoughts of killing himself by walking in traffic. Patient stated that he walked into traffic before. Patient denied any homicidal ideation. No auditory or visual hallucination. Patient also complaining of left sided chest pain. Patient describes his pain as aching with no radiation. Patient denies any shortness of breath, cough fever or chills. Patient stated that he had heart attack 4 months ago and he had a cardiac catheterization at the [facility] but he did not have any stent. Patient given aspirin. PER HPI Patient is a 64-year-old unemployed currently on disability income male who resides in a custodial with past psychiatric history of bipolar, anxiety and depression and past medical history of hypertension, chronic back pain, cardiomyopathy presents to ED with complaints of SI. Patient is known to me from prior encounter, patients states he is just sad and depressed for no particular reason and feels hopeless. He reports he has been having thoughts of hurting self, denies acute drug use or recent drug use. PAST PSYCHIATRIC HISTORY: Diagnoses: Bipolar disorder Suicide attempts or Self-harm behavior: yes Prior psychiatric hospitalizations: yes Substance Abuse history: Alcohol Previous psychiatric medications tried: Cymbalta Outpatient treatment: Yes, at the [facility] Family Psychiatric History None reported or documented SOCIAL HISTORY Marital Status: Living Arrangements: intermediate Employment Status: disabled Access to guns/weapons: patient denies Education: college History of Abuse: patient denies Legal History: patient denies ROS: Constitutional: Negative for weight loss ENT: Negative for stridor Respiratory: Negative for cough or hemoptysis All other systems reviewed and are negative MENTAL STATUS EXAMINATION General Appearance and Behavior: Age appropriate, good hygiene, wearing appropriate clothes,, good eye contact Cooperation: Participating/engaged, but Guarded Psychomotor Behavior: Psychomotor normal Mood: depressed Affect and affective range: irritable, labile Thought Process: illogical Thought Content: denies, hopelessness, helplessness Speech: Normal rate, volume and rythm Intellectual Functioning: Average Suicidal Ideation: SI Homicidal Ideation: Denies HI Impulse Control: Impaired Insight and Judgment: Limited insight and judgment Memory: Normal Attention: Normal Orientation: Alert, oriented - Psychiatric problem (1) Bipolar 1 disorder, depressed, severe Current Visit: Yes Status: Acute (2) Alcohol use disorder, severe, dependence Current Visit: Yes Status: Acute Treatment Plan MEDICATIONS: Risks, benefits and alternatives of medications discussed with the patient, questions answered and consent obtained from patient. PSYCHOTHERAPY: Supportive psychotherapy provided MEDICAL: Per primary team DELIRIUM PRECAUTIONS: Please re-orient patient frequently, keep lights on during the day, and minimize benzodiazepines and opiates as these medications could worsen patient's confusion. 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 Case discussed with Dr. Gonzalez who agrees with current disposition LEGAL STATUS: 1013 FOLLOW-UP: Will follow Thank you for the consult. Please contact with any questions and/or concerns. Medications and Allergies Allergies Allergy/AdvReac Type Severity Reaction Status Date / Time ketorolac tromethamine Allergy Rash Verified 09/24/20 13:42 [From Toradol] Home Medications Medication Instructions Recorded Confirmed Last Taken Type methOCARBAMOL [Robaxin TAB] 750 mg PO BID PRN 04/19/20 09/03/20 Unknown History Multivitamin Tab [Multiple Vitamin 1 each PO DAILY #30 tablet 04/25/20 09/03/20 Unknown Rx TAB (Theragran)] Thiamine [Vitamin B-1] 100 mg PO QDAY #30 tab 04/25/20 09/03/20 Unknown Rx Acetaminophen [Acetaminophen TAB] 650 mg PO Q4H PRN tablet 09/05/20 Unknown Rx Albuterol Sulfate [Proair 2 puff INHALATION Q4HR PRN #1 09/05/20 Unknown Rx Respiclick] Aspirin 325 mg PO QDAY #30 tablet 09/05/20 Unknown Rx AtorvaSTATin [Lipitor] 20 mg PO QHS #30 tablet 09/05/20 Unknown Rx Cyanocobalamin [Vitamin B-12] 1,000 mcg PO DAILY #30 tab 09/05/20 Unknown Rx DULoxetine [Cymbalta] 30 mg PO DAILY #30 cap 09/05/[address] [Philip Fry] 250 mg PO BID #60 tablet 09/05/20 Unknown Rx Gabapentin 300 mg PO BID #60 capsule 09/05/20 Unknown Rx lisinopriL [Zestril TAB] 10 mg PO QDAY #30 09/05/20 Unknown Rx oxyCODONE /ACETAMINOPHEN [Percocet 1 tab PO Q6H PRN #10 tablet 09/05/20 Unknown Rx 5/325 mg] Mental Status Exam - Vital signs Last Vital Signs Temp 97.9 F 09/25/20 02:13 Pulse 54 L 09/25/20 02:13 Resp 16 09/25/20 02:13 BP 106/50 09/25/20 02:13 Pulse Ox 96 09/25/20 02:13 Results Result Diagrams: 09/24/20 14:15 09/24/20 14:15 Abnormal lab results 09/24/20 09/24/20 09/24/20 Range/Units 14:15 14:15 15:25 MCV 100 H (84-94) fl MCH 34 H (28-32) pg MCHC 35 H (32-34) % Eos % (Auto) 4.4 H (0.0-4.3) % Lymph # (Auto) 0.9 L (1.2-5.4) K/mm3 Seg Neutrophils % 74.0 H (40.0-70.0) % Sodium 135 L (137-145) mmol/L ALT 6 L (7-56) units/L Salicylates 0.4 L (2.8-20.0) mg/dL Acetaminophen (10.0-30.0) ug/mL 09/24/20 Range/Units 15:25 MCV (84-94) fl MCH (28-32) pg MCHC (32-34) % Eos % (Auto) (0.0-4.3) % Lymph # (Auto) (1.2-5.4) K/mm3 Seg Neutrophils % (40.0-70.0) % Sodium (137-145) mmol/L ALT (7-56) units/L Salicylates (2.8-20.0) mg/dL Acetaminophen 5.0 L (10.0-30.0) ug/mL All other labs normal.
[2020-09-25] MEDS: ACETAMINOPHEN 325 MG TAB PO PRN ×2 (12:30→22:51)
[2020-09-25] MEDS: DIVALPROEX DR 250 MG TAB PO SCH (22:51)
--- NOTE | 2020-09-26 09:24 | Progress Note ---
Subjective - Reason for Consult Consult date: 09/26/20 Reason for consult: MHE Requesting physician: RYAN SANTAMARIA - Chief Complaint Chief complaint: Psych Progress Patient endorses still feeling very depressed and suicidal, states he would like to go to a program. ROS: Constitutional: Negative for weight loss ENT: Negative for stridor Respiratory: Negative for cough or hemoptysis All other systems reviewed and are negative MENTAL STATUS EXAMINATION General Appearance and Behavior: Age appropriate, good hygiene, wearing appropriate clothes,, good eye contact Cooperation: Participating/engaged, but Guarded Psychomotor Behavior: Psychomotor normal Mood: depressed Affect and affective range: irritable, labile Thought Process: illogical Thought Content: denies, hopelessness, helplessness Speech: Normal rate, volume and rythm Intellectual Functioning: Average Suicidal Ideation: SI Homicidal Ideation: Denies HI Impulse Control: Impaired Insight and Judgment: Limited insight and judgment Memory: Normal Attention: Normal Orientation: Alert, oriented - Psychiatric problem (1) Bipolar 1 disorder, depressed, severe Current Visit: Yes Status: Acute (2) Alcohol use disorder, severe, dependence Current Visit: Yes Status: Acute Treatment Plan MEDICATIONS: Risks, benefits and alternatives of medications discussed with the patient, questions answered and consent obtained from patient. PSYCHOTHERAPY: Supportive psychotherapy provided MEDICAL: Per primary team DELIRIUM PRECAUTIONS: Please re-orient patient frequently, keep lights on during the day, and minimize benzodiazepines and opiates as these medications could worsen patient's confusion. 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 Case discussed with Dr. Gonzalez who agrees with current disposition LEGAL STATUS: 1013 FOLLOW-UP: Will follow Thank you for the consult. Please contact with any questions and/or concerns. Mental Status Exam - Vital signs Last Vital Signs Temp 98.4 F 09/26/20 09:06 Pulse 82 09/26/20 09:06 Resp 20 09/26/20 09:06 BP 118/69 09/26/20 09:06 Pulse Ox 98 09/26/20 09:06
[2020-09-26] MEDS: DULoxetine 30 MG CAP PO SCH (11:00)
[2020-09-26] MEDS: DIVALPROEX DR 250 MG TAB PO SCH ×2 (11:00→23:54)
--- NOTE | 2020-09-26 13:38 | Electrocardiograph Report ---
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
[2020-09-26] MEDS: ACETAMINOPHEN 325 MG TAB PO PRN ×2 (18:30→23:55)
[2020-09-27] MEDS: DIVALPROEX DR 250 MG TAB PO SCH (10:13)
[2020-09-27] MEDS: DULoxetine 30 MG CAP PO SCH (10:13)
--- NOTE | 2020-09-27 11:03 | Progress Note ---
Subjective - Reason for Consult Consult date: 09/27/20 Reason for consult: MHE Requesting physician: MILLY VELASCO - Chief Complaint Chief complaint: Psych Progress Patient endorses still feeling very depressed and suicidal, states he would like to go to a program. ROS: Constitutional: Negative for weight loss ENT: Negative for stridor Respiratory: Negative for cough or hemoptysis All other systems reviewed and are negative MENTAL STATUS EXAMINATION General Appearance and Behavior: Age appropriate, good hygiene, wearing appropriate clothes,, good eye contact Cooperation: Participating/engaged, but Guarded Psychomotor Behavior: Psychomotor normal Mood: depressed Affect and affective range: irritable, labile Thought Process: illogical Thought Content: denies, hopelessness, helplessness Speech: Normal rate, volume and rythm Intellectual Functioning: Average Suicidal Ideation: SI Homicidal Ideation: Denies HI Impulse Control: Impaired Insight and Judgment: Limited insight and judgment Memory: Normal Attention: Normal Orientation: Alert, oriented - Psychiatric problem (1) Bipolar 1 disorder, depressed, severe Current Visit: Yes Status: Acute (2) Alcohol use disorder, severe, dependence Current Visit: Yes Status: Acute Treatment Plan MEDICATIONS: Risks, benefits and alternatives of medications discussed with the patient, questions answered and consent obtained from patient. PSYCHOTHERAPY: Supportive psychotherapy provided MEDICAL: Per primary team DELIRIUM PRECAUTIONS: Please re-orient patient frequently, keep lights on during the day, and minimize benzodiazepines and opiates as these medications could worsen patient's confusion. 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 Case discussed with Dr. Gonzalez who agrees with current disposition LEGAL STATUS: 1013 FOLLOW-UP: Will follow Thank you for the consult. Please contact with any questions and/or concerns. Mental Status Exam - Vital signs Last Vital Signs Temp 98.3 F 09/27/20 02:10 Pulse 58 L 09/27/20 02:10 Resp 16 09/27/20 02:10 BP 121/73 09/27/20 02:10 Pulse Ox 98 09/27/20 02:10
[2020-09-27 11:34] VITALS: BP 110/72
== END 2020-09-27 10:58 ==
LOC: ED 13:13 → EEVIPCON 13:13 → ED 09-27 10:58
DX: R45.851 Suicidal ideations (principal); R07.9 Chest pain, unspecified; I10 Essential (primary) hypertension; I25.2 Old myocardial infarction; F41.9 Anxiety disorder, unspecified; F31.9 Bipolar disorder, unspecified; I48.91 Unspecified atrial fibrillation; F17.200 Nicotine dependence, unspecified, uncomplicated; Z79.899 Other long term (current) drug therapy; Z88.8 Allergy status to other drugs, medicaments and biological substances; Z98.890 Other specified postprocedural states; Z20.822 Contact with and (suspected) exposure to COVID-19
CPT/HCPCS: 36415; 71046; 80053; 80164; 80307; 81001; 83880; 84484; 85025; 93005; 99285; U0003; 80320; G0480

== ENCOUNTER 2020-10-13 16:57 | Emergency (ER) | payer MEDICARE ==
[2020-10-13] MEDS ORDERED: ASPIRIN 325 MG TAB PO ONE (17:20)
--- NOTE | 2020-10-13 17:29 | Emergency Department Report ---
Blank Doc - Documentation Documentation: 65-year-old male that presents with left-sided chest pain with radiation to left arm and shortness of breath. 1- This initial assessment/diagnostic orders/clinical plan/ treatment(s) is/are subject to change based on pt's health status, clinical progression and re- assessment by fellow clinical providers in the ED. Further treatment and workup at subsequent clinical provers discretion. Patient/guardians urged not to elope from ED as their condition may be serious if not clinically assessed and managed. 2-cardiac work-up
[2020-10-13 17:45] LABS: Basophils % (Auto) 0.3 % (0.0-1.8); Eosinophils # (Auto) 0.2 K/mm3 (0.0-0.4); Hematocrit 41.8 % (35.5-45.6); Hemoglobin 14.4 gm/dl (11.8-15.2); Lymphocytes # (Auto) 1.1 K/mm3 (1.2-5.4); Lymphocytes % (Auto) 15.9 % (13.4-35.0); Mean Corpuscular HGB Conc 34 % (32-34); Mean Corpuscular Volume 100 fl (84-94); Monocytes # (Auto) 0.6 K/mm3 (0.0-0.8); Monocytes % (Auto) 8.1 % (0.0-7.3); Platelet Count 196 K/mm3 (140-440); Red Blood Count 4.18 M/mm3 (3.65-5.03); Red Cell Distribution Width 13.3 % (13.2-15.2)
--- NOTE | 2020-10-13 17:57 | XRay Report ---
CHEST 2 VIEWS INDICATION / CLINICAL INFORMATION: Chest pain. COMPARISON: 09/24/2020 FINDINGS: SUPPORT DEVICES: None. HEART / MEDIASTINUM: No significant abnormality. LUNGS / PLEURA: Stable mild chronic linear scarring in left lower lung without acute abnormality. ADDITIONAL FINDINGS: No significant additional findings. IMPRESSION: 1. No acute findings. Signer Name: Eugene Owens MD Signed: 10/13/2020 5:52 PM Workstation Name: [email or web address]
[2020-10-13 17:59] LABS: INR 1.02 (0.87-1.13)
[2020-10-13 18:00] LABS: Partial Thromboplastin Time 31.7 Sec. (24.2-36.6)
[2020-10-13 18:02] LABS: Alanine Aminotransferase 13 units/L (7-56); Albumin 4.5 g/dL (3.9-5); BUN/Creatinine Ratio 27; Blood Urea Nitrogen 24 mg/dL (9-20); Calcium 9.2 mg/dL (8.4-10.2); Hemolysis Index 13
--- NOTE | 2020-10-13 19:49 | Emergency Department Report ---
ED General Adult HPI - General Chief complaint: Chest Pain Stated complaint: CHEST PAIN Time Seen by Provider: 10/13/20 17:28 Source: patient, EMS Mode of arrival: Wheelchair Limitations: No Limitations - History of Present Illness Initial comments: The patient presents to the emergency department the chief complaint of chest pain that awakened him out of his sleep at 9 AM this morning. Patient states the chest pain radiates into his left shoulder. Patient has a history of MIs. Patient denies any shortness of breath or abdominal pain. Patient also complains of being suicidal with a plan to walk into oncoming traffic. He states his suicidal thoughts became worse yesterday. He does have a prior attempt at suicide 6 months ago via alcohol and drugs. -: Sudden Location: chest Radiation: extremity Severity scale (0 -10): 8 Quality: sharp Consistency: constant Improves with: none Worsens with: none Associated Symptoms: denies other symptoms Treatments Prior to Arrival: none - Related Data Home Medications Medication Instructions Recorded Confirmed Last Taken methOCARBAMOL [Robaxin TAB] 750 mg PO BID PRN 04/19/20 09/26/20 Unknown Previous Rx's Medication Instructions Recorded Last Taken Type Multivitamin Tab [Multiple Vitamin 1 each PO DAILY #30 tablet 04/25/20 Unknown Rx TAB (Theragran)] Thiamine [Vitamin B-1] 100 mg PO QDAY #30 tab 04/25/20 Unknown Rx Acetaminophen [Acetaminophen TAB] 650 mg PO Q4H PRN tablet 09/05/20 Unknown Rx Albuterol Sulfate [Proair 2 puff INHALATION Q4HR PRN #1 09/05/20 Unknown Rx Respiclick] Aspirin 325 mg PO QDAY #30 tablet 09/05/20 Unknown Rx AtorvaSTATin [Lipitor] 20 mg PO QHS #30 tablet 09/05/20 Unknown Rx Cyanocobalamin [Vitamin B-12] 1,000 mcg PO DAILY #30 tab 09/05/20 Unknown Rx DULoxetine [Cymbalta] 30 mg PO DAILY #30 cap 09/05/20 Unknown Rx Divalproex [Philip Fry] 250 mg PO BID #60 tablet 09/05/20 Unknown Rx Gabapentin 300 mg PO BID #60 capsule 09/05/20 Unknown Rx lisinopriL [Zestril TAB] 10 mg PO QDAY #30 09/05/20 Unknown Rx oxyCODONE /ACETAMINOPHEN [Percocet 1 tab PO Q6H PRN #10 tablet 09/05/20 Unknown Rx 5/325 mg] Allergies Allergy/AdvReac Type Severity Reaction Status Date / Time ketorolac tromethamine Allergy Rash Verified 10/13/20 17:14 [From Toradol] ED Review of Systems ROS: Stated complaint: CHEST PAIN Other details as noted in HPI Constitutional: denies: chills, fever Eyes: denies: eye pain, eye discharge, vision change ENT: denies: ear pain, throat pain Respiratory: denies: cough, shortness of breath, wheezing Cardiovascular: chest pain. denies: palpitations Endocrine: no symptoms reported Gastrointestinal: denies: abdominal pain, nausea, diarrhea Genitourinary: denies: urgency, dysuria Musculoskeletal: denies: back pain, joint swelling, arthralgia Skin: denies: rash, lesions Neurological: denies: headache, weakness, paresthesias Psychiatric: suicidal thoughts. denies: anxiety, depression Hematological/Lymphatic: denies: easy bleeding, easy bruising ED Past Medical Hx - Past Medical History Hx Hypertension: Yes Hx Heart Attack/AMI: Yes (CT x 2, palpitations) Hx Congestive Heart Failure: No Hx Diabetes: No Hx Renal Disease: No Hx Arthritis: No Hx Seizures: No Hx Psychiatric Treatment: Yes (Anxiety, Bipolar) Hx Asthma: No Hx COPD: No Hx Dementia: No Additional medical history: Degenerative disc disease. History of A. fib status post cardiac ablation as per patient - Surgical History Hx Cholecystectomy: No Additional Surgical History: Multiple back surgeries secondary to degenerative disc disease - Social History Smoking Status: Current Every Day Smoker - Medications Home Medications: Home Medications Medication Instructions Recorded Confirmed Last Taken Type methOCARBAMOL [Robaxin TAB] 750 mg PO BID PRN 04/19/20 09/26/20 Unknown History Multivitamin Tab [Multiple Vitamin 1 each PO DAILY #30 tablet 04/25/20 09/26/20 Unknown Rx TAB (Theragran)] Thiamine [Vitamin B-1] 100 mg PO QDAY #30 tab 04/25/20 09/26/20 Unknown Rx Acetaminophen [Acetaminophen TAB] 650 mg PO Q4H PRN tablet 09/05/20 09/26/20 Unknown Rx Albuterol Sulfate [Proair 2 puff INHALATION Q4HR PRN #1 09/05/20 09/26/20 Unknown Rx Respiclick] Aspirin 325 mg PO QDAY #30 tablet 09/05/20 09/26/20 Unknown Rx AtorvaSTATin [Lipitor] 20 mg PO QHS #30 tablet 09/05/20 09/26/20 Unknown Rx Cyanocobalamin [Vitamin B-12] 1,000 mcg PO DAILY #30 tab 09/05/20 09/26/20 Unknown Rx DULoxetine [Cymbalta] 30 mg PO DAILY #30 cap 09/05/20 09/26/[address] [Depakote Dr] 250 mg PO BID #60 tablet 09/05/20 09/26/20 Unknown Rx Gabapentin 300 mg PO BID #60 capsule 09/05/20 09/26/20 Unknown Rx lisinopriL [Zestril TAB] 10 mg PO QDAY #30 09/05/20 09/26/20 Unknown Rx oxyCODONE /ACETAMINOPHEN [Percocet 1 tab PO Q6H PRN #10 tablet 09/05/20 09/26/20 Unknown Rx 5/325 mg] ED Physical Exam - General Limitations: No Limitations General appearance: alert, in no apparent distress - Head Head exam: Present: atraumatic, normocephalic - Eye Eye exam: Present: normal appearance, PERRL, EOMI - ENT ENT exam: Present: mucous membranes moist - Neck Neck exam: Present: normal inspection - Respiratory Respiratory exam: Present: normal lung sounds bilaterally. Absent: respiratory distress - Cardiovascular Cardiovascular Exam: Present: regular rate, normal rhythm. Absent: systolic murmur, diastolic murmur, rubs, gallop - GI/Abdominal GI/Abdominal exam: Present: soft, normal bowel sounds. Absent: distended, tenderness - Rectal Rectal exam: Present: deferred - Extremities Exam Extremities exam: Present: normal inspection - Back Exam Back exam: Present: normal inspection - Neurological Exam Neurological exam: Present: alert, oriented X3, CN II-XII intact. Absent: motor sensory deficit - Psychiatric Psychiatric exam: Present: normal affect, normal mood - Skin Skin exam: Present: warm, dry, intact, normal color. Absent: rash ED Course Vital Signs 10/13/20 10/13/20 10/13/20 17:18 17:22 19:11 Temperature 98.2 F Pulse Rate 90 81 Respiratory 18 17 Rate Blood Pressure 114/79 O2 Sat by Pulse 96 99 Oximetry 10/13/20 10/13/20 10/13/20 19:12 19:13 19:31 Temperature Pulse Rate 71 64 64 Respiratory 10 L 15 13 Rate Blood Pressure 125/82 125/82 121/77 O2 Sat by Pulse 99 99 99 Oximetry 10/13/20 10/13/20 10/13/20 20:01 20:30 21:00 Temperature Pulse Rate 65 68 72 Respiratory 17 19 14 Rate Blood Pressure 129/82 137/83 132/87 O2 Sat by Pulse 98 99 95 Oximetry 10/13/20 10/13/20 10/13/20 21:30 22:01 22:30 Temperature Pulse Rate 64 78 Respiratory 10 L 17 Rate Blood Pressure 131/70 136/76 143/74 O2 Sat by Pulse 97 97 96 Oximetry 10/13/20 10/13/20 10/13/20 23:00 23:14 23:30 Temperature Pulse Rate 61 71 63 Respiratory 16 15 14 Rate Blood Pressure 138/63 138/63 138/82 O2 Sat by Pulse 97 96 97 Oximetry 10/14/20 00:00 Temperature Pulse Rate 58 L Respiratory 14 Rate Blood Pressure 129/75 O2 Sat by Pulse 97 Oximetry ED Medical Decision Making - Lab Data Result diagrams: 10/13/20 17:30 10/13/20 17:30 Lab Results 10/13/20 10/13/20 10/13/20 Range/Units 17:30 17:30 17:30 WBC 7.0 (4.5-11.0) K/mm3 RBC 4.18 (3.65-5.03) M/mm3 Hgb 14.4 (11.8-15.2) gm/dl Hct 41.8 (35.5-45.6) % MCV 100 H (84-94) fl MCH 34 H (28-32) pg MCHC 34 (32-34) % RDW 13.3 (13.2-15.2) % Plt Count 196 (140-440) K/mm3 Lymph % (Auto) 15.9 (13.4-35.0) % [place] % (Auto) 8.1 H (0.0-7.3) % Eos % (Auto) 3.0 (0.0-4.3) % Baso % (Auto) 0.3 (0.0-1.8) % Lymph # (Auto) 1.1 L (1.2-5.4) K/mm3 [place] # (Auto) 0.6 (0.0-0.8) K/mm3 Eos # (Auto) 0.2 (0.0-0.4) K/mm3 Baso # (Auto) 0.0 (0.0-0.1) K/mm3 Seg Neutrophils % 72.7 H (40.0-70.0) % Seg Neutrophils # 5.1 (1.8-7.7) K/mm3 PT 13.2 (12.2-14.9) Sec. INR 1.02 (0.87-1.13) APTT 31.7 (24.2-36.6) Sec. Sodium 135 L (137-145) mmol/L Potassium 4.6 (3.6-5.0) mmol/L Chloride 101.8 (98-107) mmol/L Carbon Dioxide 22 (22-30) mmol/L Anion Gap 16 mmol/L BUN 24 H (9-20) mg/dL Creatinine 0.9 (0.8-1.3) mg/dL Estimated GFR > 60 ml/min BUN/Creatinine Ratio 27 % Glucose 101 H (75-100) mg/dL Calcium 9.2 (8.4-10.2) mg/dL Magnesium (1.7-2.3) mg/dL Total Bilirubin 0.30 (0.1-1.2) mg/dL AST 12 (5-40) units/L ALT 13 (7-56) units/L Alkaline Phosphatase 88 (35-129) units/L Troponin T < 0.010 (0.00-0.029) ng/mL Total Protein 7.7 (6.3-8.2) g/dL Albumin 4.5 (3.9-5) g/dL Albumin/Globulin Ratio 1.4 % 10/13/20 10/13/20 10/13/20 Range/Units 17:34 20:22 23:04 WBC (4.5-11.0) K/mm3 RBC (3.65-5.03) M/mm3 Hgb (11.8-15.2) gm/dl Hct (35.5-45.6) % MCV (84-94) fl MCH (28-32) pg MCHC (32-34) % RDW (13.2-15.2) % Plt Count (140-440) K/mm3 Lymph % (Auto) (13.4-35.0) % [place] % (Auto) (0.0-7.3) % Eos % (Auto) (0.0-4.3) % Baso % (Auto) (0.0-1.8) % Lymph # (Auto) (1.2-5.4) K/mm3 [place] # (Auto) (0.0-0.8) K/mm3 Eos # (Auto) (0.0-0.4) K/mm3 Baso # (Auto) (0.0-0.1) K/mm3 Seg Neutrophils % (40.0-70.0) % Seg Neutrophils # (1.8-7.7) K/mm3 PT (12.2-14.9) Sec. INR (0.87-1.13) APTT (24.2-36.6) Sec. Sodium (137-145) mmol/L Potassium (3.6-5.0) mmol/L Chloride (98-107) mmol/L Carbon Dioxide (22-30) mmol/L Anion Gap mmol/L BUN (9-20) mg/dL Creatinine (0.8-1.3) mg/dL Estimated GFR ml/min BUN/Creatinine Ratio % Glucose (75-100) mg/dL Calcium (8.4-10.2) mg/dL Magnesium 2.20 (1.7-2.3) mg/dL Total Bilirubin (0.1-1.2) mg/dL AST (5-40) units/L ALT (7-56) units/L Alkaline Phosphatase (35-129) units/L Troponin T < 0.010 < 0.010 (0.00-0.029) ng/mL Total Protein (6.3-8.2) g/dL Albumin (3.9-5) g/dL Albumin/Globulin Ratio % - EKG Data -: EKG Interpreted by Me EKG shows normal: sinus rhythm Rate: normal - Radiology Data Radiology results: report reviewed - Medical Decision Making 1013 applied ED hold plan Number had evaluation pending Patient medically cleared Critical care attestation.: If time is entered above; I have spent that time in minutes in the direct care of this critically ill patient, excluding procedure time. ED Disposition Clinical Impression: Suicidal ideation, Nonspecific chest pain Disposition: DC/TX-65 PSY HOSP/PSY UNIT Is pt being admited?: No Does the pt Need Aspirin: No Condition: Stable Instructions: Nonspecific Chest Pain, Adult Referrals: [facility] [Other] - 3-5 Days Heart Score - HEART Score History: Slightly suspicious EKG: Normal Age: 45-65 Risk factors: 1-2 risk factors Troponin: < normal limit HEART Score: 2 - EKG Read Time Time EKG Completed: 00:00 EKG Read Time: 00:00
[2020-10-13] MEDS ORDERED: HYDROcodone/ACETAMINOPHEN 10-325MG TAB PO ONE (19:54)
[2020-10-13] MEDS ORDERED: ONDANSETRON 4 MG ODT TAB PO ONE (19:54)
[2020-10-14 08:46] LABS: Bilirubin,Urine NEG (Negative); Blood,Urine MOD (Negative); Color,Urine Yellow (Yellow); Mucus,Urine FEW /HPF; Protein,Urine <15 mg/dL mg/dL (Negative); Urobilinogen,Urine < 2.0 mg/dL (<2.0)
--- NOTE | 2020-10-14 08:47 | Consultation ---
History of Present Illness - Reason for Consult Consult date: 10/14/20 Reason for consult: MHE Requesting physician: CARMELO RICKETTS - History of Present Psychiatric Illness Per ED Provider:The patient presents to the emergency department the chief complaint of chest pain that awakened him out of his sleep at 9 AM this morning. Patient states the chest pain radiates into his left shoulder. Patient has a history of MIs. Patient denies any shortness of breath or abdominal pain. Patient also complains of being suicidal with a plan to walk into oncoming traffic. He states his suicidal thoughts became worse yesterday. He does have a prior attempt at suicide 6 months ago via alcohol and drugs. PER HPI Patient is a 64-year-old unemployed currently on disability income male who resides in a nursing home with past psychiatric history of bipolar, anxiety and depression and past medical history of hypertension, chronic back pain, cardiomyopathy presents to ED with complaints of chest pain and SI, similar to previous presentations and well known to me. Patient presents as suicidal mostly for his life, says the way his life has been so far is why he is suicidal. PAST PSYCHIATRIC HISTORY: Diagnoses: Bipolar disorder Suicide attempts or Self-harm behavior: yes Prior psychiatric hospitalizations: yes Substance Abuse history: Alcohol Previous psychiatric medications tried: Cymbalta Outpatient treatment: Yes, at the [facility] History None reported or documented SOCIAL HISTORY Marital Status: Living Arrangements: [employer] Employment Status: disabled Access to guns/weapons: patient denies Education: college History of Abuse: patient denies Legal History: patient denies ROS: Constitutional: Negative for weight loss ENT: Negative for stridor Respiratory: Negative for cough or hemoptysis All other systems reviewed and are negative MENTAL STATUS EXAMINATION General Appearance and Behavior: Age appropriate, good hygiene, wearing appropriate clothes,, good eye contact Cooperation: Participating/engaged, but Guarded Psychomotor Behavior: Psychomotor normal Mood: depressed Affect and affective range: irritable, labile Thought Process: illogical Thought Content: hopelessness, helplessness Speech: Normal rate, volume and rythm Intellectual Functioning: Average Suicidal Ideation: SI Homicidal Ideation: Denies HI Impulse Control: Impaired Insight and Judgment: Limited insight and judgment Memory: Normal Attention: Normal Orientation: Alert, oriented - Psychiatric problem (1) Bipolar 1 disorder, depressed, severe Current Visit: Yes Status: Acute (2) Alcohol use disorder,, dependence Current Visit: Yes Status: Acute Patient recenlty was placed at a psych facility 09/27 barely less than 3 weeks ago, prior to that was in [facility] in month of August for similar symptoms. The patient is at chronically suicidal, attributed to his life, and contributing factors that are non modifiable at this time. Patient has presented to ED mult iple times this year, with intervention and psychiatric placement and most recently last month. These risk factors are not currently modifiable with acute inpatient psychiatric hospitalization. Patient barely follows up outpt for counselling services/Therapy. At this time, based on chronicity, outpt therapy recommended Protective factors include access to care, no history of suicide attempts, and disability income. Treatment Plan Outpt psychiatrist follow up and counselling. MEDICATIONS: Risks, benefits and alternatives of medications discussed with the patient, questions answered and consent obtained from patient. PSYCHOTHERAPY: Supportive psychotherapy provided MEDICAL: Per primary team DELIRIUM PRECAUTIONS: Please re-orient patient frequently, keep lights on during the day, and minimize benzodiazepines and opiates as these medications could w orsen patient's confusion. 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 Case discussed with Dr. Gonzalez who agrees with current disposition LEGAL STATUS: 1013 rescinded FOLLOW-UP: Will sign off Thank you for the consult. Please contact with any questions and/or concerns. Medications and Allergies Allergies Allergy/AdvReac Type Severity Reaction Status Date / Time ketorolac tromethamine Allergy Rash Verified 10/13/20 17:14 [From Toradol] Home Medications Medication Instructions Recorded Confirmed Last Taken Type methOCARBAMOL [Robaxin TAB] 750 mg PO BID PRN 04/19/20 09/26/20 Unknown History Multivitamin Tab [Multiple Vitamin 1 each PO DAILY #30 tablet 04/25/20 09/26/20 Unknown Rx TAB (Theragran)] Thiamine [Vitamin B-1] 100 mg PO QDAY #30 tab 04/25/20 09/26/20 Unknown Rx Acetaminophen [Acetaminophen TAB] 650 mg PO Q4H PRN tablet 09/05/20 09/26/20 Unknown Rx Albuterol Sulfate [Proair 2 puff INHALATION Q4HR PRN #1 09/05/20 09/26/20 Unknown Rx Respiclick] Aspirin 325 mg PO QDAY #30 tablet 09/05/20 09/26/20 Unknown Rx AtorvaSTATin [Lipitor] 20 mg PO QHS #30 tablet 09/05/20 09/26/20 Unknown Rx Cyanocobalamin [Vitamin B-12] 1,000 mcg PO DAILY #30 tab 09/05/20 09/26/20 Unknown Rx DULoxetine [Cymbalta] 30 mg PO DAILY #30 cap 09/05/20 09/26/[address] [Depakote Dr] 250 mg PO BID #60 tablet 09/05/20 09/26/20 Unknown Rx Gabapentin 300 mg PO BID #60 capsule 09/05/20 09/26/20 Unknown Rx lisinopriL [Zestril TAB] 10 mg PO QDAY #30 09/05/20 09/26/20 Unknown Rx oxyCODONE /ACETAMINOPHEN [Percocet 1 tab PO Q6H PRN #10 tablet 09/05/20 09/26/20 Unknown Rx 5/325 mg] Mental Status Exam - Vital signs Last Vital Signs Temp 98.2 F 10/13/20 17:22 Pulse 59 L 10/14/20 05:00 Resp 14 10/14/20 05:00 BP 137/83 10/14/20 05:00 Pulse Ox 96 10/14/20 05:00 Results Result Diagrams: 10/13/20 17:30 10/13/20 17:30 Abnormal lab results 10/13/20 10/13/20 Range/Units 17:30 17:30 MCV 100 H (84-94) fl MCH 34 H (28-32) pg [place] % (Auto) 8.1 H (0.0-7.3) % Lymph # (Auto) 1.1 L (1.2-5.4) K/mm3 Seg Neutrophils % 72.7 H (40.0-70.0) % Sodium 135 L (137-145) mmol/L BUN 24 H (9-20) mg/dL Glucose 101 H (75-100) mg/dL All other labs normal.
[2020-10-14 08:54] LABS: Amphetamine Screen,Urine Negative; Benzodiazepines Screen,Urine Negative; Cannabinoid Screen,Urine Negative; Cocaine Screen,Urine Negative; Methadone Screen,Urine Negative; Opiate Screen,Urine Negative
[2020-10-14] MEDS ORDERED: ACETAMINOPHEN 325 MG TAB PO ONE ×2 (10:23→21:28)
--- NOTE | 2020-10-14 12:23 | Emergency Department Report ---
Blank Doc - Documentation Documentation: This patient presented to the emergency department yesterday with the complaints of chest pain, as well as suicidal ideations with a plan. The patient was worked up in the emergency department and medically cleared from his chest pain by the emergency physician. The patient was made a 1013 and an ED hold secondary to the suicidal ideations. The only new blood work from today is a urinalysis and UDS that does not show any abnormalities. Vital signs have been reassuring throughout his ED course. The patient was initially seen by the psychiatric midlevel provider who made note that the 1013 should be rescinded and the patient is safe for discharge home. However, the patient still endorses suicidal ideations when he was evaluated by me. I spoke with the psychiatrist, Dr. Gonzalez, who states that the patient will remain a 1013 and ED hold overnight and the patient will be reevaluated tomorrow. Vital Signs - 24 hr 10/13/20 10/13/20 10/13/20 17:18 17:22 19:11 Temperature 98.2 F Pulse Rate 90 81 Respiratory 18 17 Rate Blood Pressure 114/79 Blood Pressure [Left] O2 Sat by Pulse 96 99 Oximetry 10/13/20 10/13/20 10/13/20 19:12 19:13 19:31 Temperature Pulse Rate 71 64 64 Respiratory 10 L 15 13 Rate Blood Pressure 125/82 125/82 121/77 Blood Pressure [Left] O2 Sat by Pulse 99 99 99 Oximetry 10/13/20 10/13/20 10/13/20 20:01 20:30 21:00 Temperature Pulse Rate 65 68 72 Respiratory 17 19 14 Rate Blood Pressure 129/82 137/83 132/87 Blood Pressure [Left] O2 Sat by Pulse 98 99 95 Oximetry 10/13/20 10/13/20 10/13/20 21:30 22:01 22:30 Temperature Pulse Rate 64 78 Respiratory 10 L 17 Rate Blood Pressure 131/70 136/76 143/74 Blood Pressure [Left] O2 Sat by Pulse 97 97 96 Oximetry 10/13/20 10/13/20 10/13/20 23:00 23:14 23:30 Temperature Pulse Rate 61 71 63 Respiratory 16 15 14 Rate Blood Pressure 138/63 138/63 138/82 Blood Pressure [Left] O2 Sat by Pulse 97 96 97 Oximetry 10/14/20 10/14/20 10/14/20 00:00 00:30 01:00 Temperature Pulse Rate 58 L 92 H 58 L Respiratory 14 19 17 Rate Blood Pressure 129/75 133/92 120/74 Blood Pressure [Left] O2 Sat by Pulse 97 97 97 Oximetry 10/14/20 10/14/20 10/14/20 01:30 02:00 02:30 Temperature Pulse Rate 56 L 82 71 Respiratory 15 18 17 Rate Blood Pressure 121/68 109/78 100/51 Blood Pressure [Left] O2 Sat by Pulse 96 95 Oximetry 10/14/20 10/14/20 10/14/20 03:00 03:30 04:00 Temperature Pulse Rate 67 58 L 77 Respiratory 14 16 22 Rate Blood Pressure 103/59 137/83 137/83 Blood Pressure [Left] O2 Sat by Pulse 96 95 Oximetry 10/14/20 10/14/20 10/14/20 04:30 05:00 09:31 Temperature 97.9 F Pulse Rate 78 59 L 78 Respiratory 16 14 18 Rate Blood Pressure 137/83 137/83 Blood Pressure 119/77 [Left] O2 Sat by Pulse 96 96 97 Oximetry
--- NOTE | 2020-10-14 18:43 | Electrocardiograph Report ---
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
[2020-10-15 08:35] VITALS: BP 146/86
--- NOTE | 2020-10-15 09:52 | Progress Note ---
Subjective - Reason for Consult Consult date: 10/15/20 Reason for consult: SI - Chief Complaint Chief complaint: The patient was seen today. I am familiar with the patient from multiple prior visits. He is a/o x 3. He is calm and cooperative. The patient states he came to the ER because he "was suicidal and tried to walk into traffic." He says "somebody called the police on me." This is what he says each visit when coming to the ER. When asking the patient what was going on in his life that made him to continue to want to walk in traffic, the patient states, "I don't know. I've been trying to get to [place] with my brothers but I don't have any money." He says "It's just me. I'm just going to feel like this and it's nothing I can do about it." When asking the patient was he in therapy and seeing his outpatient psychiatrist, he replies "sometimes." When asking him if he still wanted to walk in traffic, the patient replied "not at the moment, no." He denies hallucinations of any kind. ROS: Constitutional: Negative for weight loss ENT: Negative for stridor Respiratory: Negative for cough or hemoptysis All other systems reviewed and are negative MENTAL STATUS EXAMINATION General Appearance and Behavior: Age appropriate, good hygiene, wearing appropriate clothes, good eye contact, calm and cooperative Cooperation: Participating/engaged, but Guarded Psychomotor Behavior: Psychomotor normal Mood: depressed Affect and affective range: restricted Thought Process: goal directed Thought Content: None Speech: Normal rate, volume and rhythm Intellectual Functioning: Average Suicidal Ideation: Denies Homicidal Ideation: Denies HI Impulse Control: Impaired Insight and Judgment: Limited insight and judgment Memory: Normal Attention: Normal Orientation: Alert, oriented - Psychiatric problem (1) Bipolar 1 disorder, depressed, severe Current Visit: Yes Status: Acute (2) Alcohol use disorder,, dependence Current Visit: Yes Status: Acute Treatment Plan Outpt psychiatrist follow up and counselling. MEDICATIONS: No scripts given. The patient should follow up with outpatient regularly for med management and frequent CBT. Risks, benefits and alternatives of medications discussed with the patient, questions answered and consent obtained from patient. PSYCHOTHERAPY: Supportive psychotherapy provided MEDICAL: Per primary team DELIRIUM PRECAUTIONS: Please re-orient patient frequently, keep lights on during the day, and minimize benzodiazepines and opiates as these medications could worsen patient's confusion. 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 Case discussed with Dr. Gonzalez who agrees with current disposition LEGAL STATUS: 1013 rescinded FOLLOW-UP: Will sign off Thank you for the consult. Please contact with any questions and/or concerns. Mental Status Exam - Vital signs Last Vital Signs Temp 98.3 F 10/15/20 08:33 Pulse 80 10/15/20 08:33 Resp 20 10/15/20 08:33 BP 146/86 10/15/20 08:33 Pulse Ox 97 10/15/20 08:33
[2020-10-15] MEDS ORDERED: LISINOPRIL 10 MG TAB PO SCH (10:00)
[2020-10-15] MEDS ORDERED: ASPIRIN 325 MG TAB PO SCH (10:00)
[2020-10-15] MEDS ORDERED: METOPROLOL TARTRATE 25 MG TAB PO SCH (10:00)
--- NOTE | 2020-10-15 10:29 | Emergency Department Report ---
Blank Doc - Documentation Documentation: I evaluated this patient again today. Today he is more upbeat. He is calm and appropriate. He is denying suicidal ideations at this time. He was seen by the psychiatric team today and has been cleared for outpatient follow-up. The patient did not have any new labs. However the labs were reviewed and he does not appear to have any life or limb threatening emergencies that would require a medical admission. The patient's previous chest pain has since resolved. He was medically cleared by my colleague. 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 He has been instructed to return to the emergency department with any worsening of his symptoms, thoughts of harming himself or others, or with any acute distress. Vital signs have been reassuring throughout his ED course.
== END 2020-10-15 11:40 ==
LOC: ED 16:57
DX: R45.851 Suicidal ideations (principal); Z20.822 Contact with and (suspected) exposure to COVID-19; R07.89 Other chest pain; I10 Essential (primary) hypertension; I25.2 Old myocardial infarction; F31.9 Bipolar disorder, unspecified; F17.200 Nicotine dependence, unspecified, uncomplicated; Z98.890 Other specified postprocedural states; Z79.899 Other long term (current) drug therapy; Z88.8 Allergy status to other drugs, medicaments and biological substances
CPT/HCPCS: 36415; 71046; 80053; 83735; 84484; 85025; 85610; 85730; 93005; 99285; U0003; 80307; 81001; Q0162

== ENCOUNTER 2020-10-16 15:09 | Emergency (ER) | payer MEDICARE ==
[2020-10-16] MEDS ORDERED: SODIUM CHLORIDE 0.9% 1000 ML 1,000 ML ONE (16:33)
[2020-10-16] MEDS ORDERED: SODIUM CHLORIDE 0.9% 1000 ML 1,000 ML IV ONE ×2 (16:44→20:28)
[2020-10-16] MEDS ORDERED: ASPIRIN 81 MG TAB CHEW PO ONE (16:44)
--- NOTE | 2020-10-16 16:51 | Emergency Department Report ---
ED Chest Pain HPI - General Chief Complaint: Chest Pain Stated Complaint: CHEST PAIN Time Seen by Provider: 10/16/20 16:43 Source: EMS Mode of arrival: Ambulatory Limitations: No Limitations - History of Present Illness Initial Comments: Patient is 65 years old male with history of coronary artery disease and history of stents. Patient also history of high blood pressure and bipolar disorder. Patient presented to the ER complaining of chest pain, left-sided radiates to the left upper extremity. Patient describes pain as tightness. Patient denied any shortness of breath, fever or chills. Patient also stated that he has nausea, vomiting and watery diarrhea for the last 2 days. Patient found to have a blood pressure of 79/42. Patient also stated that he is suicidal with a plan. Patient stated that he is planning to run into traffic. Patient denied any auditory hallucination, visual hallucination also homicidal ideation. MD Complaint: chest pain -: This afternoon Onset: during rest Pain Location: left chest Pain Radiation: LUE Severity: moderate Severity scale (0 -10): 6 Quality: tightness Consistency: constant - Related Data Home Medications Medication Instructions Recorded Confirmed Last Taken methOCARBAMOL [Robaxin TAB] 750 mg PO BID PRN 04/19/20 10/17/20 Unknown Previous Rx's Medication Instructions Recorded Last Taken Type Multivitamin Tab [Multiple Vitamin 1 each PO DAILY #30 tablet 04/25/20 Unknown Rx TAB (Theragran)] Thiamine [Vitamin B-1] 100 mg PO QDAY #30 tab 04/25/20 Unknown Rx Acetaminophen [Acetaminophen TAB] 650 mg PO Q4H PRN tablet 09/05/20 Unknown Rx Albuterol Sulfate [Proair 2 puff INHALATION Q4HR PRN #1 09/05/20 Unknown Rx Respiclick] Aspirin 325 mg PO QDAY #30 tablet 09/05/20 Unknown Rx AtorvaSTATin [Lipitor] 20 mg PO QHS #30 tablet 09/05/20 Unknown Rx Cyanocobalamin [Vitamin B-12] 1,000 mcg PO DAILY #30 tab 09/05/20 Unknown Rx Gabapentin 300 mg PO BID #60 capsule 09/05/20 Unknown Rx lisinopriL [Zestril TAB] 10 mg PO QDAY #30 09/05/20 Unknown Rx oxyCODONE /ACETAMINOPHEN [Percocet 1 tab PO Q6H PRN #10 tablet 09/05/20 Unknown Rx 5/325 mg] DULoxetine [Cymbalta] 30 mg PO DAILY #30 cap 10/22/20 Unknown Rx Divalproex [Philip Fry] 500 mg PO BID #60 tablet 10/22/20 Unknown Rx Allergies Allergy/AdvReac Type Severity Reaction Status Date / Time ketorolac tromethamine Allergy Rash Verified 10/16/20 17:52 [From Toradol] Heart Score - HEART Score History: Moderately suspicious EKG: Non-specific Age: 45-65 Risk factors: 1-2 risk factors Troponin: < normal limit HEART Score: 4 - EKG Read Time Time EKG Completed: 16:42 EKG Read Time: 16:42 ED Review of Systems ROS: Stated complaint: CHEST PAIN Other details as noted in HPI Comment: All other systems reviewed and negative Constitutional: denies: chills, diaphoresis Respiratory: denies: cough, shortness of breath, SOB with exertion, SOB at rest, wheezing Cardiovascular: chest pain. denies: palpitations, dyspnea on exertion Gastrointestinal: nausea, vomiting, diarrhea. denies: abdominal pain, constipation, hematemesis, melena, hematochezia Musculoskeletal: denies: back pain Neurological: weakness. denies: headache, numbness, paresthesias, confusion, abnormal gait ED Past Medical Hx - Past Medical History Hx Hypertension: Yes Hx Heart Attack/AMI: Yes (NE x 2, palpitations) Hx Congestive Heart Failure: No Hx Diabetes: No Hx Renal Disease: No Hx Arthritis: No Hx Seizures: No Hx Psychiatric Treatment: Yes (Anxiety, Bipolar) Hx Asthma: No Hx COPD: No Hx Dementia: No Additional medical history: Degenerative disc disease. History of A. fib status post cardiac ablation as per patient - Surgical History Hx Cholecystectomy: No Additional Surgical History: Multiple back surgeries secondary to degenerative disc disease - Social History Smoking Status: Current Every Day Smoker - Medications Home Medications: Home Medications Medication Instructions Recorded Confirmed Last Taken Type methOCARBAMOL [Robaxin TAB] 750 mg PO BID PRN 04/19/20 10/17/20 Unknown History Multivitamin Tab [Multiple Vitamin 1 each PO DAILY #30 tablet 04/25/20 10/17/20 Unknown Rx TAB (Theragran)] Thiamine [Vitamin B-1] 100 mg PO QDAY #30 tab 04/25/20 10/17/20 Unknown Rx Acetaminophen [Acetaminophen TAB] 650 mg PO Q4H PRN tablet 09/05/20 10/17/20 Unknown Rx Albuterol Sulfate [Proair 2 puff INHALATION Q4HR PRN #1 09/05/20 10/17/20 Unknown Rx Respiclick] Aspirin 325 mg PO QDAY #30 tablet 09/05/20 10/17/20 Unknown Rx AtorvaSTATin [Lipitor] 20 mg PO QHS #30 tablet 09/05/20 10/17/20 Unknown Rx Cyanocobalamin [Vitamin B-12] 1,000 mcg PO DAILY #30 tab 09/05/20 10/17/20 Unknown Rx Gabapentin 300 mg PO BID #60 capsule 09/05/20 10/17/20 Unknown Rx lisinopriL [Zestril TAB] 10 mg PO QDAY #30 09/05/20 10/17/20 Unknown Rx oxyCODONE /ACETAMINOPHEN [Percocet 1 tab PO Q6H PRN #10 tablet 09/05/20 10/17/20 Unknown Rx 5/325 mg] DULoxetine [Cymbalta] 30 mg PO DAILY #30 cap 10/22/[address] [Depabram Dr] 500 mg PO BID #60 tablet 10/22/20 Unknown Rx ED Physical Exam - General Limitations: No Limitations General appearance: alert, in no apparent distress - Head Head exam: Present: atraumatic, normocephalic, normal inspection - Eye Eye exam: Present: normal appearance, PERRL - ENT ENT exam: Present: normal exam, normal orophraynx, mucous membranes moist - Neck Neck exam: Present: normal inspection, full ROM. Absent: tenderness, meningismus - Respiratory Respiratory exam: Present: normal lung sounds bilaterally - Cardiovascular Cardiovascular Exam: Present: regular rate, normal rhythm, normal heart sounds - GI/Abdominal GI/Abdominal exam: Present: soft, normal bowel sounds. Absent: distended, tenderness, guarding, rebound, rigid, organomegaly, mass, bruit, pulsatile mass, hernia - Extremities Exam Extremities exam: Present: normal inspection, full ROM, normal capillary refill. Absent: tenderness, pedal edema, joint swelling, calf tenderness - Back Exam Back exam: Present: normal inspection, full ROM. Absent: CVA tenderness (R), CVA tenderness (L) - Neurological Exam Neurological exam: Present: alert, oriented X3, CN II-XII intact, normal gait, reflexes normal. Absent: motor sensory deficit - Psychiatric Psychiatric exam: Present: normal mood - Skin Skin exam: Present: warm, intact, normal color ED Course Vital Signs 10/16/20 10/16/20 10/16/20 16:21 16:30 16:31 Temperature 98.1 F Pulse Rate 65 66 69 Respiratory 18 17 12 Rate Blood Pressure 79/50 79/50 Blood Pressure [Right] O2 Sat by Pulse 95 96 96 Oximetry 10/16/20 10/16/20 10/16/20 17:01 17:31 18:01 Temperature Pulse Rate 62 65 70 Respiratory 22 18 19 Rate Blood Pressure 87/48 90/57 89/53 Blood Pressure [Right] O2 Sat by Pulse 97 98 99 Oximetry 10/16/20 10/16/20 10/16/20 18:31 18:37 19:01 Temperature Pulse Rate 62 61 61 Respiratory 21 13 22 Rate Blood Pressure 104/60 104/60 94/58 Blood Pressure [Right] O2 Sat by Pulse 99 99 98 Oximetry 10/16/20 10/16/20 10/16/20 19:30 20:01 20:31 Temperature Pulse Rate 65 61 64 Respiratory 24 21 15 Rate Blood Pressure 101/60 92/56 94/55 Blood Pressure [Right] O2 Sat by Pulse 97 98 98 Oximetry 10/16/20 10/16/20 10/16/20 21:01 21:31 22:01 Temperature Pulse Rate 62 70 63 Respiratory 20 22 20 Rate Blood Pressure 95/65 106/58 108/68 Blood Pressure [Right] O2 Sat by Pulse 97 97 98 Oximetry 10/16/20 10/16/20 10/16/20 22:31 23:01 23:26 Temperature Pulse Rate 62 72 Respiratory 19 17 20 Rate Blood Pressure 107/70 121/60 Blood Pressure [Right] O2 Sat by Pulse 97 98 Oximetry 10/16/20 10/17/20 10/17/20 23:31 00:01 00:31 Temperature Pulse Rate 60 62 Respiratory 23 21 Rate Blood Pressure 123/71 107/66 103/56 Blood Pressure [Right] O2 Sat by Pulse 96 95 95 Oximetry 10/17/20 10/17/20 10/17/20 02:42 02:48 02:50 Temperature 98.7 F Pulse Rate 61 Respiratory 20 16 16 Rate Blood Pressure Blood Pressure 113/76 [Right] O2 Sat by Pulse 95 95 Oximetry 10/17/20 10/17/20 10/17/20 07:25 07:30 20:01 Temperature 97.9 F Pulse Rate 104 H 86 Respiratory 25 H 18 20 Rate Blood Pressure Blood Pressure 116/83 [Right] O2 Sat by Pulse 100 Oximetry 10/17/20 10/17/20 20:38 20:39 Temperature 99.0 F Pulse Rate 76 Respiratory 18 18 Rate Blood Pressure Blood Pressure 99/58 [Right] O2 Sat by Pulse 97 97 Oximetry JAIMIE score - Jaimie Score Age > 65: (0) No Aspirin use within the Past 7 Days: (0) No 3 or more CAD Risk Factors: (1) Yes 2 or more Angina events in past 24 hrs: (1) Yes Known CAD with more than 50% Stenosis: (0) No Elevated Cardiac Markers: (0) No ST Deviation Greater than 0.5mm: (0) No JAIMIE Score: 2 ED Medical Decision Making - Lab Data Result diagrams: 10/16/20 17:09 10/16/20 17:09 - EKG Data -: EKG Interpreted by Co EKG shows normal: sinus rhythm Rate: normal - EKG Data Interpretation: no acute changes - Radiology Data Radiology results: report reviewed - Medical Decision Making Patient is 65 years old male with history of coronary artery disease and history of stents. Patient also history of high blood pressure and bipolar disorder. Patient presented to the ER complaining of chest pain, left-sided radiates to the left upper extremity. Patient describes pain as tightness. Patient denied any shortness of breath, fever or chills. Patient also stated that he has nausea, vomiting and watery diarrhea for the last 2 days. Patient found to have a blood pressure of 79/42. Patient also stated that he is suicidal with a plan. Patient stated that he is planning to run into traffic. Patient denied any auditory hallucination, visual hallucination also homicidal ideation. EKG is unremarkable. Chest x-ray is negative for acute finding. Labs reviewed and is unremarkable including a negative troponin x3. Patient received 2 L of normal saline. Patient blood pressure remained stable. Patient is medically cleared to be evaluated by psychiatric team. Patient has been accepted by our geriatric psych unit. Critical care attestation.: If time is entered above; I have spent that time in minutes in the direct care of this critically ill patient, excluding procedure time. ED Disposition Clinical Impression: Suicidal ideations, Chest pain, Hypotension, Acute nausea with nonbilious vomiting Disposition: DC-01 TO HOME OR SELFCARE Is pt being admited?: No Condition: Stable Instructions: Nonspecific Chest Pain, Adult Referrals: PRIMARY CARE,MD [Primary Care Provider] - 3-5 Days
--- NOTE | 2020-10-16 17:24 | XRay Report ---
CHEST 1 VIEW 10/16/2020 4:44 PM INDICATION / CLINICAL INFORMATION: Chest Pain. COMPARISON: 10/13/2020 FINDINGS: SUPPORT DEVICES: None. HEART / MEDIASTINUM: No significant abnormality. LUNGS / PLEURA: Stable chronic linear scarring in the left lower lung without acute abnormality. No p neumothorax. ADDITIONAL FINDINGS: No significant additional findings. IMPRESSION: 1. No acute findings. Signer Name: Eugene Owens MD Signed: 10/16/2020 5:19 PM Workstation Name: [id number]
[2020-10-16 17:36] LABS: Basophils % (Auto) 0.4 % (0.0-1.8); Eosinophils # (Auto) 0.2 K/mm3 (0.0-0.4); Eosinophils % (Auto) 2.6 % (0.0-4.3); Hematocrit 36.4 % (35.5-45.6); Hemoglobin 12.9 gm/dl (11.8-15.2); Lymphocytes # (Auto) 1.1 K/mm3 (1.2-5.4); Lymphocytes % (Auto) 16.9 % (13.4-35.0); Mean Corpuscular HGB Conc 35 % (32-34); Mean Corpuscular Volume 99 fl (84-94); Monocytes # (Auto) 0.5 K/mm3 (0.0-0.8); Monocytes % (Auto) 7.5 % (0.0-7.3); Platelet Count 185 K/mm3 (140-440); Red Blood Count 3.69 M/mm3 (3.65-5.03); Red Cell Distribution Width 12.8 % (13.2-15.2)
[2020-10-16 17:49] LABS: INR 1.07 (0.87-1.13)
[2020-10-16 17:50] LABS: Partial Thromboplastin Time 31.1 Sec. (24.2-36.6)
[2020-10-16 18:03] LABS: BUN/Creatinine Ratio 18; Blood Urea Nitrogen 23 mg/dL (9-20); Calcium 8.5 mg/dL (8.4-10.2); Hemolysis Index 2
[2020-10-16 18:04] LABS: Alanine Aminotransferase 9 units/L (7-56)
[2020-10-16 18:07] LABS: Bilirubin,Direct < 0.2 mg/dL (0-0.2)
[2020-10-16] MEDS ORDERED: ACETAMINOPHEN 325 MG TAB PO ONE (21:35)
[2020-10-17] MEDS ORDERED: ACETAMINOPHEN 325 MG TAB PO ONE ×2 (02:27→19:43)
[2020-10-17 03:55] LABS: Bilirubin,Urine NEG (Negative); Blood,Urine NEG (Negative); Color,Urine Yellow (Yellow); Mucus,Urine FEW /HPF; Protein,Urine <15 mg/dL mg/dL (Negative); RBC,Urine < 1.0 /HPF (0.0-6.0); Urobilinogen,Urine < 2.0 mg/dL (<2.0)
[2020-10-17 04:02] LABS: Amphetamine Screen,Urine PRESUMPTIVE NEGATIVE; Benzodiazepines Screen,Urine PRESUMPTIVE NEGATIVE; Cannabinoid Screen,Urine PRESUMPTIVE NEGATIVE; Cocaine Screen,Urine PRESUMPTIVE NEGATIVE; Methadone Screen,Urine PRESUMPTIVE NEGATIVE; Opiate Screen,Urine PRESUMPTIVE NEGATIVE
--- NOTE | 2020-10-17 09:28 | Progress Note ---
Subjective - Reason for Consult Consult date: 10/17/20 Reason for consult: SI - Chief Complaint Chief complaint: The patient was seen today. He was just cleared by psych yesterday. The patient states his suicidal thoughts returned and doesn't know what he might do if he leaves the hospital again. ROS: Constitutional: Negative for weight loss ENT: Negative for stridor Respiratory: Negative for cough or hemoptysis All other systems reviewed and are negative MENTAL STATUS EXAMINATION General Appearance and Behavior: Age appropriate, good hygiene, wearing appropriate clothes, good eye contact, calm and cooperative Cooperation: Participating/engaged, but Guarded Psychomotor Behavior: Psychomotor normal Mood: depressed Affect and affective range: restricted Thought Process: goal directed Thought Content: None Speech: Normal rate, volume and rhythm Intellectual Functioning: Average Suicidal Ideation: Denies Homicidal Ideation: Denies HI Impulse Control: Impaired Insight and Judgment: Limited insight and judgment Memory: Normal Attention: Normal Orientation: Alert, oriented - Psychiatric problem (1) Bipolar 1 disorder, depressed, severe Current Visit: Yes Status: Acute (2) Alcohol use disorder,, dependence Current Visit: Yes Status: Acute Treatment Plan Start Effexor 25mg po daily Start Remeron 7.5mg po daily Risks, benefits and alternatives of medications discussed with the patient, questions answered and consent obtained from patient. PSYCHOTHERAPY: Supportive psychotherapy provided MEDICAL: Per primary team DELIRIUM PRECAUTIONS: Please re-orient patient frequently, keep lights on during the day, and minimize benzodiazepines and opiates as these medications could worsen patient's confusion. 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 The patient will be admitted to [facility]. Case discussed with Dr. Gonzalez who agrees with current disposition LEGAL STATUS: 1013 FOLLOW-UP: Will follow Thank you for the consult. Please contact with any questions and/or concerns. Mental Status Exam - Vital signs Last Vital Signs Temp 98.7 F 10/17/20 02:48 Pulse 104 H 10/17/20 07:25 Resp 25 H 10/17/20 07:25 BP 113/76 10/17/20 02:48 Pulse Ox 95 10/17/20 02:50
[2020-10-17] MEDS ORDERED: VENLAFAXINE 25 MG TAB PO SCH (10:00)
[2020-10-17] MEDS ORDERED: NON-FORMULARY EACH (Albuterol Sulfate [Proair Respiclick] 90 MCG Aer.Pow.Ba) INHALATION PRN (10:09)
--- NOTE | 2020-10-17 10:28 | Event Note ---
Date: 10/17/20 The patient was evaluated in the emergency department for symptoms described in the history of present illness. He/she was evaluated in the context of the global COVID-19 pandemic, which necessitated consideration that the patient might be at risk for infection with the virus that causes COVID-19. Institutional protocols and algorithms that pertain to the evaluation of patients at risk for COVID-19 are in a state of rapid change based on information released by regulatory bodies including the CDC and federal and state organizations. These policies and algorithms were followed during the patient's care in the emergency department. Please note that these policies, procedures and recommendations changed on a rapid basis. Patient walking around, and in no acute distress. He was medically cleared yesterday during his initial ER evaluation. Home medications have been reconciled and continued. Nursing documentation reviewed and appreciated. Psychiatric recommendations reviewed and appreciated. Current nursing team has not endorsed any emergent concerns with this patient. He has also not articulated any emergent medical concerns at this time. At this time, the patient does not appear to have an immediate medical contraindication to psychiatric admission, evaluation, consultation and placement. Vital Signs 10/16/20 10/16/20 10/16/20 16:21 16:30 16:31 Temperature 98.1 F Pulse Rate 65 66 69 Respiratory 18 17 12 Rate Blood Pressure 79/50 79/50 Blood Pressure [Right] O2 Sat by Pulse 95 96 96 Oximetry 10/16/20 10/16/20 10/16/20 17:01 17:31 18:01 Temperature Pulse Rate 62 65 70 Respiratory 22 18 19 Rate Blood Pressure 87/48 90/57 89/53 Blood Pressure [Right] O2 Sat by Pulse 97 98 99 Oximetry 10/16/20 10/16/20 10/16/20 18:31 18:37 19:01 Temperature Pulse Rate 62 61 61 Respiratory 21 13 22 Rate Blood Pressure 104/60 104/60 94/58 Blood Pressure [Right] O2 Sat by Pulse 99 99 98 Oximetry 10/16/20 10/16/20 10/16/20 19:30 20:01 20:31 Temperature Pulse Rate 65 61 64 Respiratory 24 21 15 Rate Blood Pressure 101/60 92/56 94/55 Blood Pressure [Right] O2 Sat by Pulse 97 98 98 Oximetry 10/16/20 10/16/20 10/16/20 21:01 21:31 22:01 Temperature Pulse Rate 62 70 63 Respiratory 20 22 20 Rate Blood Pressure 95/65 106/58 108/68 Blood Pressure [Right] O2 Sat by Pulse 97 97 98 Oximetry 10/16/20 10/16/20 10/16/20 22:31 23:01 23:26 Temperature Pulse Rate 62 72 Respiratory 19 17 20 Rate Blood Pressure 107/70 121/60 Blood Pressure [Right] O2 Sat by Pulse 97 98 Oximetry 10/16/20 10/17/20 10/17/20 23:31 00:01 00:31 Temperature Pulse Rate 60 62 Respiratory 23 21 Rate Blood Pressure 123/71 107/66 103/56 Blood Pressure [Right] O2 Sat by Pulse 96 95 95 Oximetry 10/17/20 10/17/20 10/17/20 02:42 02:48 02:50 Temperature 98.7 F Pulse Rate 61 Respiratory 20 16 16 Rate Blood Pressure Blood Pressure 113/76 [Right] O2 Sat by Pulse 95 95 Oximetry 10/17/20 07:25 Temperature Pulse Rate 104 H Respiratory 25 H Rate Blood Pressure Blood Pressure [Right] O2 Sat by Pulse Oximetry Lab Results 10/16/20 10/16/20 10/16/20 Range/Units 17:09 17:09 17:09 WBC 6.4 (4.5-11.0) K/mm3 RBC 3.69 (3.65-5.03) M/mm3 Hgb 12.9 (11.8-15.2) gm/dl Hct 36.4 (35.5-45.6) % MCV 99 H (84-94) fl MCH 35 H (28-32) pg MCHC 35 H (32-34) % RDW 12.8 L (13.2-15.2) % Plt Count 185 (140-440) K/mm3 Lymph % (Auto) 16.9 (13.4-35.0) % [place] % (Auto) 7.5 H (0.0-7.3) % Eos % (Auto) 2.6 (0.0-4.3) % Baso % (Auto) 0.4 (0.0-1.8) % Lymph # (Auto) 1.1 L (1.2-5.4) K/mm3 [place] # (Auto) 0.5 (0.0-0.8) K/mm3 Eos # (Auto) 0.2 (0.0-0.4) K/mm3 Baso # (Auto) 0.0 (0.0-0.1) K/mm3 Seg Neutrophils % 72.6 H (40.0-70.0) % Seg Neutrophils # 4.7 (1.8-7.7) K/mm3 PT 13.7 (12.2-14.9) Sec. INR 1.07 (0.87-1.13) APTT 31.1 (24.2-36.6) Sec. Sodium 134 L (137-145) mmol/L Potassium 4.8 (3.6-5.0) mmol/L Chloride 100.1 (98-107) mmol/L Carbon Dioxide 21 L (22-30) mmol/L Anion Gap 18 mmol/L BUN 23 H (9-20) mg/dL Creatinine 1.3 (0.8-1.3) mg/dL Estimated GFR 55 ml/min BUN/Creatinine Ratio 18 % Glucose 73 L (75-100) mg/dL Calcium 8.5 (8.4-10.2) mg/dL Total Bilirubin (0.1-1.2) mg/dL Direct Bilirubin (0-0.2) mg/dL Indirect Bilirubin mg/dL AST (5-40) units/L ALT (7-56) units/L Alkaline Phosphatase (35-129) units/L Troponin T < 0.010 (0.00-0.029) ng/mL NT-Pro-B Natriuret Pep (0-900) pg/mL Total Protein (6.3-8.2) g/dL Albumin (3.9-5) g/dL Albumin/Globulin Ratio % Urine Color (Yellow) Urine Turbidity (Clear) Urine pH (5.0-7.0) Ur Specific [place] (1.003-1.030) Urine Protein (Negative) mg/dL Urine Glucose (UA) (Negative) mg/dL Urine Ketones (Negative) mg/dL Urine Blood (Negative) Urine Nitrite (Negative) Urine Bilirubin (Negative) Urine Urobilinogen (<2.0) mg/dL Ur Leukocyte Esterase (Negative) Urine WBC (Auto) (0.0-6.0) /HPF Urine RBC (Auto) (0.0-6.0) /HPF Urine Mucus /HPF Salicylates (2.8-20.0) mg/dL Urine Opiates Screen Urine Methadone Screen Acetaminophen (10.0-30.0) ug/mL Ur Barbiturates Screen Ur Phencyclidine Scrn Ur Amphetamines Screen U Benzodiazepines Scrn Urine Cocaine Screen U Marijuana (THC) Screen Drugs of Abuse Note Plasma/Serum Alcohol (0-0.07) % 10/16/20 10/16/20 10/16/20 Range/Units 17:09 17:09 17:09 WBC (4.5-11.0) K/mm3 RBC (3.65-5.03) M/mm3 Hgb (11.8-15.2) gm/dl Hct (35.5-45.6) % MCV (84-94) fl MCH (28-32) pg MCHC (32-34) % RDW (13.2-15.2) % Plt Count (140-440) K/mm3 Lymph % (Auto) (13.4-35.0) % [place] % (Auto) (0.0-7.3) % Eos % (Auto) (0.0-4.3) % Baso % (Auto) (0.0-1.8) % Lymph # (Auto) (1.2-5.4) K/mm3 [place] # (Auto) (0.0-0.8) K/mm3 Eos # (Auto) (0.0-0.4) K/mm3 Baso # (Auto) (0.0-0.1) K/mm3 Seg Neutrophils % (40.0-70.0) % Seg Neutrophils # (1.8-7.7) K/mm3 PT (12.2-14.9) Sec. INR (0.87-1.13) APTT (24.2-36.6) Sec. Sodium (137-145) mmol/L Potassium (3.6-5.0) mmol/L Chloride (98-107) mmol/L Carbon Dioxide (22-30) mmol/L Anion Gap mmol/L BUN (9-20) mg/dL Creatinine (0.8-1.3) mg/dL Estimated GFR ml/min BUN/Creatinine Ratio % Glucose (75-100) mg/dL Calcium (8.4-10.2) mg/dL Total Bilirubin 0.40 (0.1-1.2) mg/dL Direct Bilirubin < 0.2 (0-0.2) mg/dL Indirect Bilirubin 0.2 mg/dL AST 11 (5-40) units/L ALT 9 (7-56) units/L Alkaline Phosphatase 76 (35-129) units/L Troponin T (0.00-0.029) ng/mL NT-Pro-B Natriuret Pep 146.9 (0-900) pg/mL Total Protein 6.8 (6.3-8.2) g/dL Albumin 4.0 (3.9-5) g/dL Albumin/Globulin Ratio 1.4 % Urine Color (Yellow) Urine Turbidity (Clear) Urine pH (5.0-7.0) Ur Specific [place] (1.003-1.030) Urine Protein (Negative) mg/dL Urine Glucose (UA) (Negative) mg/dL Urine Ketones (Negative) mg/dL Urine Blood (Negative) Urine Nitrite (Negative) Urine Bilirubin (Negative) Urine Urobilinogen (<2.0) mg/dL Ur Leukocyte Esterase (Negative) Urine WBC (Auto) (0.0-6.0) /HPF Urine RBC (Auto) (0.0-6.0) /HPF Urine Mucus /HPF Salicylates < 0.3 L (2.8-20.0) mg/dL Urine Opiates Screen Urine Methadone Screen Acetaminophen 5.0 L (10.0-30.0) ug/mL Ur Barbiturates Screen Ur Phencyclidine Scrn Ur Amphetamines Screen U Benzodiazepines Scrn Urine Cocaine Screen U Marijuana (THC) Screen Drugs of Abuse Note Plasma/Serum Alcohol (0-0.07) % 10/16/20 10/16/20 10/16/20 Range/Units 17:09 19:25 23:39 WBC (4.5-11.0) K/mm3 RBC (3.65-5.03) M/mm3 Hgb (11.8-15.2) gm/dl Hct (35.5-45.6) % MCV (84-94) fl MCH (28-32) pg MCHC (32-34) % RDW (13.2-15.2) % Plt Count (140-440) K/mm3 Lymph % (Auto) (13.4-35.0) % [place] % (Auto) (0.0-7.3) % Eos % (Auto) (0.0-4.3) % Baso % (Auto) (0.0-1.8) % Lymph # (Auto) (1.2-5.4) K/mm3 [place] # (Auto) (0.0-0.8) K/mm3 Eos # (Auto) (0.0-0.4) K/mm3 Baso # (Auto) (0.0-0.1) K/mm3 Seg Neutrophils % (40.0-70.0) % Seg Neutrophils # (1.8-7.7) K/mm3 PT (12.2-14.9) Sec. INR (0.87-1.13) APTT (24.2-36.6) Sec. Sodium (137-145) mmol/L Potassium (3.6-5.0) mmol/L Chloride (98-107) mmol/L Carbon Dioxide (22-30) mmol/L Anion Gap mmol/L BUN (9-20) mg/dL Creatinine (0.8-1.3) mg/dL Estimated GFR ml/min BUN/Creatinine Ratio % Glucose (75-100) mg/dL Calcium (8.4-10.2) mg/dL Total Bilirubin (0.1-1.2) mg/dL Direct Bilirubin (0-0.2) mg/dL Indirect Bilirubin mg/dL AST (5-40) units/L ALT (7-56) units/L Alkaline Phosphatase (35-129) units/L Troponin T < 0.010 < 0.010 (0.00-0.029) ng/mL NT-Pro-B Natriuret Pep (0-900) pg/mL Total Protein (6.3-8.2) g/dL Albumin (3.9-5) g/dL Albumin/Globulin Ratio % Urine Color (Yellow) Urine Turbidity (Clear) Urine pH (5.0-7.0) Ur Specific [place] (1.003-1.030) Urine Protein (Negative) mg/dL Urine Glucose (UA) (Negative) mg/dL Urine Ketones (Negative) mg/dL Urine Blood (Negative) Urine Nitrite (Negative) Urine Bilirubin (Negative) Urine Urobilinogen (<2.0) mg/dL Ur Leukocyte Esterase (Negative) Urine WBC (Auto) (0.0-6.0) /HPF Urine RBC (Auto) (0.0-6.0) /HPF Urine Mucus /HPF Salicylates (2.8-20.0) mg/dL Urine Opiates Screen Urine Methadone Screen Acetaminophen (10.0-30.0) ug/mL Ur Barbiturates Screen Ur Phencyclidine Scrn Ur Amphetamines Screen U Benzodiazepines Scrn Urine Cocaine Screen U Marijuana (THC) Screen Drugs of Abuse Note Plasma/Serum Alcohol 0.07 (0-0.07) % 10/17/20 10/17/20 Range/Units 02:26 02:26 WBC (4.5-11.0) K/mm3 RBC (3.65-5.03) M/mm3 Hgb (11.8-15.2) gm/dl Hct (35.5-45.6) % MCV (84-94) fl MCH (28-32) pg MCHC (32-34) % RDW (13.2-15.2) % Plt Count (140-440) K/mm3 Lymph % (Auto) (13.4-35.0) % [place] % (Auto) (0.0-7.3) % Eos % (Auto) (0.0-4.3) % Baso % (Auto) (0.0-1.8) % Lymph # (Auto) (1.2-5.4) K/mm3 [place] # (Auto) (0.0-0.8) K/mm3 Eos # (Auto) (0.0-0.4) K/mm3 Baso # (Auto) (0.0-0.1) K/mm3 Seg Neutrophils % (40.0-70.0) % Seg Neutrophils # (1.8-7.7) K/mm3 PT (12.2-14.9) Sec. INR (0.87-1.13) APTT (24.2-36.6) Sec. Sodium (137-145) mmol/L Potassium (3.6-5.0) mmol/L Chloride (98-107) mmol/L Carbon Dioxide (22-30) mmol/L Anion Gap mmol/L BUN (9-20) mg/dL Creatinine (0.8-1.3) mg/dL Estimated GFR ml/min BUN/Creatinine Ratio % Glucose (75-100) mg/dL Calcium (8.4-10.2) mg/dL Total Bilirubin (0.1-1.2) mg/dL Direct Bilirubin (0-0.2) mg/dL Indirect Bilirubin mg/dL AST (5-40) units/L ALT (7-56) units/L Alkaline Phosphatase (35-129) units/L Troponin T (0.00-0.029) ng/mL NT-Pro-B Natriuret Pep (0-900) pg/mL Total Protein (6.3-8.2) g/dL Albumin (3.9-5) g/dL Albumin/Globulin Ratio % Urine Color Yellow (Yellow) Urine Turbidity Clear (Clear) Urine pH 5.0 (5.0-7.0) Ur Specific [place] 1.011 (1.003-1.030) Urine Protein <15 mg/dl (Negative) mg/dL Urine Glucose (UA) Neg (Negative) mg/dL Urine Ketones Neg (Negative) mg/dL Urine Blood Neg (Negative) Urine Nitrite Neg (Negative) Urine Bilirubin Neg (Negative) Urine Urobilinogen < 2.0 (<2.0) mg/dL Ur Leukocyte Esterase Neg (Negative) Urine WBC (Auto) 1.0 (0.0-6.0) /HPF Urine RBC (Auto) < 1.0 (0.0-6.0) /HPF Urine Mucus Few /HPF Salicylates (2.8-20.0) mg/dL Urine Opiates Screen Presumptive negative Urine Methadone Screen Presumptive negative Acetaminophen (10.0-30.0) ug/mL Ur Barbiturates Screen Presumptive negative Ur Phencyclidine Scrn Presumptive negative Ur Amphetamines Screen Presumptive negative U Benzodiazepines Scrn Presumptive negative Urine Cocaine Screen Presumptive negative U Marijuana (THC) Screen Presumptive negative Drugs of Abuse Note Disclamer Plasma/Serum Alcohol (0-0.07) %
--- NOTE | 2020-10-17 11:14 | Electrocardiograph Report ---
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
[2020-10-17 20:40] VITALS: BP 99/58
[2020-10-17] MEDS ORDERED: MIRTAZAPINE 15 MG TAB PO SCH (22:00)
[2020-10-18] MEDS ORDERED: MULTIVITAMINS ,THERAPEUTIC TAB PO SCH (10:00)
[2020-10-18] MEDS ORDERED: LISINOPRIL 10 MG TAB PO SCH (10:00)
[2020-10-18] MEDS ORDERED: ASPIRIN 325 MG TAB PO SCH (10:00)
[2020-10-18] MEDS ORDERED: CYANOCOBALAMIN (VIT B-12) 1000 MCG TAB PO SCH (10:00)
[2020-10-18] MEDS ORDERED: THIAMINE 100 MG TAB PO SCH (10:00)
== END 2020-10-17 23:32 | disposition home or self-care (01) ==
LOC: ED 15:09
DX: R45.851 Suicidal ideations (principal); Z20.822 Contact with and (suspected) exposure to COVID-19; R07.89 Other chest pain; I95.9 Hypotension, unspecified; R11.2 Nausea with vomiting, unspecified; I25.2 Old myocardial infarction; F41.9 Anxiety disorder, unspecified; F31.9 Bipolar disorder, unspecified; F17.200 Nicotine dependence, unspecified, uncomplicated; Z98.890 Other specified postprocedural states; Z79.899 Other long term (current) drug therapy; Z88.8 Allergy status to other drugs, medicaments and biological substances
CPT/HCPCS: 36415; 71045; 80048; 80076; 80307; 81001; 83880; 84484; 85025; 85610; 85730; 93005; 96360; 96361; 99285; J3246; J7030; U0003; 80320; G0480

== ENCOUNTER 2020-10-17 16:45 | Inpatient (IN) | payer MEDICARE, MEDICAID ==
[2020-10-22 09:08] VITALS: BP 108/68
== END 2020-10-22 12:35 | disposition home or self-care (01) | DRG 885 ==
LOC: UNDOADMIN 16:45 → 3A 16:45 → 5A 10-18 00:14
PROVIDERS: ADMIT Psychiatry & Neurology Psychiatry; ATTEND Psychiatry & Neurology Psychiatry
DX: F32.2 Major depressive disorder, single episode, severe without psychotic features (principal); F17.213 Nicotine dependence, cigarettes, with withdrawal; I10 Essential (primary) hypertension; F41.1 Generalized anxiety disorder; G89.4 Chronic pain syndrome; F10.20 Alcohol dependence, uncomplicated; E78.2 Mixed hyperlipidemia; I25.2 Old myocardial infarction; Z82.49 Family history of ischemic heart disease and other diseases of the circulatory system; Z79.82 Long term (current) use of aspirin; Z79.899 Other long term (current) drug therapy
CPT/HCPCS: 36415; 80061; 81001; 82962; 83036; 84443; G0378; A9270-GY

== ENCOUNTER 2020-11-01 14:14 | Emergency (ER) | payer MEDICARE ==
[2020-11-01] MEDS ORDERED: ASPIRIN 325 MG TAB PO ONE (18:12)
--- NOTE | 2020-11-01 18:23 | Event Note ---
ED Screening Note Date of service: 11/01/20 Time: 18:14 ED Screening Note: This is a 65-year-old male who presents to the ED complaining of left-sided chest pain times today. Patient also complaining of suicidal ideation ideation with a plan to jump in front of traffic in his life. PMH: BIPOLAR, SLEEP DO This initial assessment/diagnostic orders/clinical plan/treatment(s) is/are subject to change based on patients health status, clinical progression and re- assessment by fellow clinical providers in the ED. Further treatment and workup at subsequent clinical providers discretion. Patient/guardian urged not to elope from the ED as their condition may be serious if not clinically assessed and managed. Initial orders include: Labs for medical clearance and then psych eval
[2020-11-01 18:48] LABS: Basophils % (Auto) 0.4 % (0.0-1.8); Eosinophils # (Auto) 0.3 K/mm3 (0.0-0.4); Eosinophils % (Auto) 4.6 % (0.0-4.3); Hematocrit 40.5 % (35.5-45.6); Lymphocytes # (Auto) 1.3 K/mm3 (1.2-5.4); Lymphocytes % (Auto) 23.6 % (13.4-35.0); Mean Corpuscular HGB Conc 35 % (32-34); Mean Corpuscular Volume 100 fl (84-94); Monocytes # (Auto) 0.4 K/mm3 (0.0-0.8); Monocytes % (Auto) 7.5 % (0.0-7.3); Platelet Count 155 K/mm3 (140-440); Red Blood Count 4.05 M/mm3 (3.65-5.03)
--- NOTE | 2020-11-01 19:00 | XRay Report ---
CHEST 2 VIEWS INDICATION / CLINICAL INFORMATION: PAIN. COMPARISON: None available. FINDINGS: SUPPORT DEVICES: None. HEART / MEDIASTINUM: No significant abnormality. LUNGS / PLEURA: No significant pulmonary or pleural abnormality. No pneumothorax. ADDITIONAL FINDINGS: No significant additional findings. IMPRESSION: 1. No acute findings. Signer Name: Yoni Vora MD Signed: 11/01/2020 6:55 PM Workstation Name: [id number]
[2020-11-01 19:07] LABS: Alanine Aminotransferase 8 units/L (7-56); Albumin 4.6 g/dL (3.9-5); BUN/Creatinine Ratio 27; Blood Urea Nitrogen 24 mg/dL (9-20); Calcium 9.1 mg/dL (8.4-10.2); Hemolysis Index 12
--- NOTE | 2020-11-01 23:28 | Emergency Department Report ---
ED Chest Pain HPI - General Chief Complaint: Chest Pain Stated Complaint: CHEST PAIN Time Seen by Provider: 11/01/20 23:17 Source: patient, EMS Mode of arrival: Ambulatory Limitations: No Limitations - History of Present Illness Initial Comments: C: "I have chest pain. I am really scared." HPI: THis is a 65 yo male with hx of MDD, HTN, tobacco dependence, bipolar disorder, GERD, schizophrenia who presents with chest pain for several days. Nondescript persistent chest pain pressure sensation. No change with exertion or eating. Patiently initially spoke of suicidal ideation to triage provider. He denies any suicidal ideation at this time. According to EMR, normal myocardial perfusion scan without evidence of active ischemia or prior infarction on 09/05/20, normal systolic performance MD Complaint: chest pain -: Gradual, days(s) (1 day) Onset: during rest Pain Location: substernal, left chest Severity: moderate Quality: tightness, heaviness, pressure Consistency: constant Improves With: nothing Worsens With: nothing Treatments Prior to Arrival: none - Related Data Home Medications Medication Instructions Recorded Confirmed Last Taken methOCARBAMOL [Robaxin TAB] 750 mg PO BID PRN 04/19/20 10/17/20 Unknown Previous Rx's Medication Instructions Recorded Last Taken Type Multivitamin Tab [Multiple Vitamin 1 each PO DAILY #30 tablet 04/25/20 Unknown Rx TAB (Theragran)] Thiamine [Vitamin B-1] 100 mg PO QDAY #30 tab 04/25/20 Unknown Rx Acetaminophen [Acetaminophen TAB] 650 mg PO Q4H PRN tablet 09/05/20 Unknown Rx Albuterol Sulfate [Proair 2 puff INHALATION Q4HR PRN #1 09/05/20 Unknown Rx Respiclick] Aspirin 325 mg PO QDAY #30 tablet 09/05/20 Unknown Rx AtorvaSTATin [Lipitor] 20 mg PO QHS #30 tablet 09/05/20 Unknown Rx Cyanocobalamin [Vitamin B-12] 1,000 mcg PO DAILY #30 tab 09/05/20 Unknown Rx Gabapentin 300 mg PO BID #60 capsule 09/05/20 Unknown Rx lisinopriL [Zestril TAB] 10 mg PO QDAY #30 09/05/20 Unknown Rx oxyCODONE /ACETAMINOPHEN [Percocet 1 tab PO Q6H PRN #10 tablet 09/05/20 Unknown Rx 5/325 mg] DULoxetine [Cymbalta] 30 mg PO DAILY #30 cap 10/22/[address] [Philip Fry] 500 mg PO BID #60 tablet 10/22/20 Unknown Rx Allergies Allergy/AdvReac Type Severity Reaction Status Date / Time ketorolac tromethamine Allergy Rash Verified 10/16/20 17:52 [From Toradol] Heart Score - HEART Score History: Slightly suspicious EKG: Normal Age: > 65 Risk factors: 1-2 risk factors Troponin: < normal limit HEART Score: 3 - EKG Read Time Time EKG Completed: 14:34 EKG Read Time: 14:34 ED Review of Systems ROS: Stated complaint: CHEST PAIN Other details as noted in HPI Comment: All other systems reviewed and negative Constitutional: denies: fever, malaise Respiratory: denies: cough, shortness of breath Cardiovascular: chest pain Gastrointestinal: denies: abdominal pain, nausea, vomiting ED Past Medical Hx - Past Medical History Previous Medical History?: Yes Hx Hypertension: Yes Hx Heart Attack/AMI: Yes (CO x 2, palpitations) Hx Congestive Heart Failure: No Hx Diabetes: No Hx Renal Disease: No Hx Arthritis: No Hx Seizures: No Hx Psychiatric Treatment: Yes (Anxiety, Bipolar) Hx Asthma: No Hx COPD: No Hx Dementia: No Additional medical history: Degenerative disc disease. History of A. fib status post cardiac ablation as per patient - Surgical History Past Surgical History?: Yes Hx Cholecystectomy: Yes Additional Surgical History: Multiple back surgeries secondary to degenerative disc disease - Social History Smoking Status: Current Every Day Smoker - Medications Home Medications: Home Medications Medication Instructions Recorded Confirmed Last Taken Type methOCARBAMOL [Robaxin TAB] 750 mg PO BID PRN 04/19/20 10/17/20 Unknown History Multivitamin Tab [Multiple Vitamin 1 each PO DAILY #30 tablet 04/25/20 10/17/20 Unknown Rx TAB (Theragran)] Thiamine [Vitamin B-1] 100 mg PO QDAY #30 tab 04/25/20 10/17/20 Unknown Rx Acetaminophen [Acetaminophen TAB] 650 mg PO Q4H PRN tablet 09/05/20 10/17/20 Unknown Rx Albuterol Sulfate [Proair 2 puff INHALATION Q4HR PRN #1 09/05/20 10/17/20 Unknown Rx Respiclick] Aspirin 325 mg PO QDAY #30 tablet 09/05/20 10/17/20 Unknown Rx AtorvaSTATin [Lipitor] 20 mg PO QHS #30 tablet 09/05/20 10/17/20 Unknown Rx Cyanocobalamin [Vitamin B-12] 1,000 mcg PO DAILY #30 tab 09/05/20 10/17/20 Unknown Rx Gabapentin 300 mg PO BID #60 capsule 09/05/20 10/17/20 Unknown Rx lisinopriL [Zestril TAB] 10 mg PO QDAY #30 09/05/20 10/17/20 Unknown Rx oxyCODONE /ACETAMINOPHEN [Percocet 1 tab PO Q6H PRN #10 tablet 09/05/20 10/17/20 Unknown Rx 5/325 mg] DULoxetine [Cymbalta] 30 mg PO DAILY #30 cap 10/22/[address] [Depakote Dr] 500 mg PO BID #60 tablet 10/22/20 Unknown Rx ED Physical Exam - General Limitations: No Limitations General appearance: alert, in no apparent distress - Head Head exam: Present: atraumatic, normocephalic - Eye Eye exam: Present: normal appearance - ENT ENT exam: Present: mucous membranes moist - Neck Neck exam: Present: normal inspection, full ROM - Respiratory Respiratory exam: Present: normal lung sounds bilaterally. Absent: respiratory distress, wheezes, rales, rhonchi - Cardiovascular Cardiovascular Exam: Present: regular rate, normal rhythm, normal heart sounds. Absent: systolic murmur, diastolic murmur, rubs, gallop - GI/Abdominal GI/Abdominal exam: Present: soft, normal bowel sounds. Absent: distended, tenderness, guarding, rebound - Rectal Rectal exam: Present: deferred - Extremities Exam Extremities exam: Present: normal inspection - Back Exam Back exam: Present: normal inspection - Neurological Exam Neurological exam: Present: alert, oriented X3 - Psychiatric Psychiatric exam: Present: normal mood, flat affect - Skin Skin exam: Present: warm, dry, intact, normal color. Absent: rash ED Course Vital Signs 11/01/20 14:27 Temperature 98 F Pulse Rate 86 Respiratory 18 Rate Blood Pressure 110/80 [Right] O2 Sat by Pulse 98 Oximetry JAIMIE score - Jaimie Score Age > 65: (0) No Aspirin use within the Past 7 Days: (0) No 3 or more CAD Risk Factors: (1) Yes 2 or more Angina events in past 24 hrs: (1) Yes Known CAD with more than 50% Stenosis: (0) No Elevated Cardiac Markers: (0) No ST Deviation Greater than 0.5mm: (0) No JAIMIE Score: 2 ED Medical Decision Making - Lab Data Result diagrams: 11/01/20 18:18 11/01/20 18:18 - EKG Data -: EKG Interpreted by Me EKG shows normal: sinus rhythm, axis, intervals, QRS complexes, ST-T waves Rate: normal - EKG Data Interpretation: normal EKG 11/01/20 23:26 EKG obtained 1434 EKG interpreted by me Normal sinus rhythm normal rate normal axis normal intervals no ST elevation no ST-T signs of ischemia normal EKG rate 70 bpm normal EKG - Radiology Data Radiology results: report reviewed Chest radiograph 2 views: No acute findings - Medical Decision Making 1. Chest pain: Recurrent, recent cardiology evaluation patient revealed no indication of ischemia or significant coronary disease. I suspect chest pain is caused by GERD and anxiety. Patient received treatment for pain relief emergency department. CO ruled out with negative serial troponin assays 2. Reported suicidal ideation, patient denies suicidal ideation at this time. I do not feel that patient is at risk for self-harm. He is quite concerned about chest pain. He stated that he did not want to . He wanted to make sure that he did not have heart disease considering his extensive family history. No need for urgent or emergent psychiatric intervention or evaluation at this time Critical care attestation.: If time is entered above; I have spent that time in minutes in the direct care of this critically ill patient, excluding procedure time. ED Disposition Clinical Impression: Bipolar 1 disorder, depressed, severe, Chest pain, rule out acute myocardial infarction Disposition: - TO HOME OR SELFCARE Is pt being admited?: No Does the pt Need Aspirin: No Condition: Stable Instructions: Nonspecific Chest Pain, Adult
[2020-11-01] MEDS ORDERED: HYDROcodone/ACETAMINOPHEN 5-325 MG TAB PO ONE (23:29)
[2020-11-02 00:44] VITALS: BP 123/78
--- NOTE | 2020-11-02 14:44 | Electrocardiograph Report ---
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
== END 2020-11-02 00:47 | disposition home or self-care (01) ==
LOC: ED 14:14
DX: R07.89 Other chest pain (principal); F31.9 Bipolar disorder, unspecified; I10 Essential (primary) hypertension; I25.2 Old myocardial infarction; F41.9 Anxiety disorder, unspecified; F17.200 Nicotine dependence, unspecified, uncomplicated; Z98.890 Other specified postprocedural states; Z79.899 Other long term (current) drug therapy; Z88.8 Allergy status to other drugs, medicaments and biological substances
CPT/HCPCS: 36415; 71046; 80053; 80320; 84484; 85025; 93005; G0480

== ENCOUNTER 2020-11-10 18:35 | Emergency (ER) | payer MEDICARE ==
[2020-11-10 19:16] VITALS: BP 104/71
--- NOTE | 2020-11-10 21:30 | Event Note ---
ED Screening Note Date of service: 11/10/20 Time: 21:28 ED Screening Note: 65-year-old male patient presents emergency department with complaints of suicidal ideation starting yesterday after his sister . His roommate called EMS earlier today after hearing him talk about wanting to hurt himself. Patient also complains of chest pain and states he has a history of cardiac disease. General: Awake, appropriately interactive, no acute distress. Neck: Supple. Full range of motion intact. Cardiovascular: Normal peripheral perfusion. Pulmonary: No respiratory distress. Patient is speaking normally without use of accessory muscles. Skin: No apparent rashes or lesions. Neurological: No facial asymmetry. Speech is clear. Follows commands. Patient is alert and oriented. Musculoskeletal: Moves all four extremities spontaneously with normal range of motion. Psych: Cooperative. Appropriate mood and affect. I have greeted and performed a focused rapid initial assessment of this patient. A comprehensive ED assessment and evaluation of the patient, analysis of all test results, and completion of the medical decision-making process will be conducted by additional ED providers. This initial assessment/diagnostic orders/clinical plan/treatment(s) is/are subject to change based on patients health status, clinical progression and re-assessment. Further treatment and workup at subsequent clinical provider's discretion. Patient/guardian urged not to elope from the ED as their condition may be serious if not clinically assessed and managed.
[2020-11-10 21:54] LABS: Basophils % (Auto) 0.3 % (0.0-1.8); Eosinophils # (Auto) 0.2 K/mm3 (0.0-0.4); Eosinophils % (Auto) 4.1 % (0.0-4.3); Hematocrit 39.8 % (35.5-45.6); Hemoglobin 13.8 gm/dl (11.8-15.2); Lymphocytes # (Auto) 1.2 K/mm3 (1.2-5.4); Lymphocytes % (Auto) 24.9 % (13.4-35.0); Mean Corpuscular HGB Conc 35 % (32-34); Mean Corpuscular Volume 101 fl (84-94); Monocytes # (Auto) 0.3 K/mm3 (0.0-0.8); Monocytes % (Auto) 7.1 % (0.0-7.3); Platelet Count 149 K/mm3 (140-440); Red Blood Count 3.95 M/mm3 (3.65-5.03); Red Cell Distribution Width 13.2 % (13.2-15.2)
[2020-11-10 22:15] LABS: Alanine Aminotransferase 7 units/L (7-56); Albumin 4.3 g/dL (3.9-5); BUN/Creatinine Ratio 22; Blood Urea Nitrogen 22 mg/dL (9-20); Calcium 8.7 mg/dL (8.4-10.2); Hemolysis Index 15
--- NOTE | 2020-11-10 22:22 | XRay Report ---
CHEST 1 VIEW INDICATION / CLINICAL INFORMATION: chest pain. FINDINGS: SUPPORT DEVICES: None. HEART / MEDIASTINUM: No significant abnormality. LUNGS / PLEURA: No significant pulmonary or pleural abnormality. No pneumothorax. ADDITIONAL FINDINGS: No significant additional findings. IMPRESSION: 1. No acute findings. Signer Name: Cole Jordan MD Signed: 11/10/2020 10:17 PM Workstation Name: [id number]
[2020-11-10 22:46] LABS: Bacteria,Urine 1+ /HPF (Negative); Bilirubin,Urine NEG (Negative); Blood,Urine SM (Negative); Color,Urine Yellow (Yellow); Mucus,Urine FEW /HPF; Protein,Urine <15 mg/dL mg/dL (Negative); Urobilinogen,Urine < 2.0 mg/dL (<2.0); WBC,Urine < 1.0 /HPF (0.0-6.0)
[2020-11-10 22:49] LABS: Amphetamine Screen,Urine PRESUMPTIVE NEGATIVE; Benzodiazepines Screen,Urine PRESUMPTIVE NEGATIVE; Cannabinoid Screen,Urine PRESUMPTIVE NEGATIVE; Cocaine Screen,Urine PRESUMPTIVE NEGATIVE; Methadone Screen,Urine PRESUMPTIVE NEGATIVE; Opiate Screen,Urine PRESUMPTIVE NEGATIVE
--- NOTE | 2020-11-10 23:51 | Emergency Department Report ---
ED General Adult HPI - General Chief complaint: Psych Stated complaint: CHEST PAIN/SI Time Seen by Provider: 11/10/20 21:37 Source: patient Mode of arrival: Wheelchair Limitations: No Limitations - History of Present Illness Initial comments: The patient presents to the emergency department with a chief complaint of chest pain that is been present for the last 3 days. Patient denies any radiation of his chest pain and describes it as pressure-like in nature. Patient also complains of being severely depressed and suicidal. Patient states his plan would be to walk into oncoming traffic. Patient denies auditory visual hallucinations. Patient denies marvin pain, shortness breath, headache. -: Sudden, days(s) (3) Location: chest Radiation: non-radiation Severity scale (0 -10): 5 Quality: other (Pressure-like) Consistency: constant Improves with: none Worsens with: none Associated Symptoms: denies other symptoms Treatments Prior to Arrival: none - Related Data Home Medications Medication Instructions Recorded Confirmed Last Taken methOCARBAMOL [Robaxin TAB] 750 mg PO BID PRN 04/19/20 10/17/20 Unknown Previous Rx's Medication Instructions Recorded Last Taken Type Multivitamin Tab [Multiple Vitamin 1 each PO DAILY #30 tablet 04/25/20 Unknown Rx TAB (Theragran)] Thiamine [Vitamin B-1] 100 mg PO QDAY #30 tab 04/25/20 Unknown Rx Acetaminophen [Acetaminophen TAB] 650 mg PO Q4H PRN tablet 09/05/20 Unknown Rx Albuterol Sulfate [Proair 2 puff INHALATION Q4HR PRN #1 09/05/20 Unknown Rx Respiclick] Aspirin 325 mg PO QDAY #30 tablet 09/05/20 Unknown Rx AtorvaSTATin [Lipitor] 20 mg PO QHS #30 tablet 09/05/20 Unknown Rx Cyanocobalamin [Vitamin B-12] 1,000 mcg PO DAILY #30 tab 09/05/20 Unknown Rx Gabapentin 300 mg PO BID #60 capsule 09/05/20 Unknown Rx lisinopriL [Zestril TAB] 10 mg PO QDAY #30 09/05/20 Unknown Rx oxyCODONE /ACETAMINOPHEN [Percocet 1 tab PO Q6H PRN #10 tablet 09/05/20 Unknown Rx 5/325 mg] DULoxetine [Cymbalta] 30 mg PO DAILY #30 cap 10/22/[address] [Depakote Dr] 500 mg PO BID #60 tablet 10/22/20 Unknown Rx Allergies Allergy/AdvReac Type Severity Reaction Status Date / Time ketorolac tromethamine Allergy Rash Verified 10/16/20 17:52 [From Toradol] ED Review of Systems ROS: Stated complaint: CHEST PAIN/SI Other details as noted in HPI Comment: All other systems reviewed and negative Constitutional: denies: chills, fever Eyes: denies: eye pain, eye discharge, vision change ENT: denies: ear pain, throat pain Respiratory: denies: cough, shortness of breath, wheezing Cardiovascular: chest pain. denies: palpitations Endocrine: no symptoms reported Gastrointestinal: denies: abdominal pain, nausea, diarrhea Genitourinary: denies: urgency, dysuria Musculoskeletal: denies: back pain, joint swelling, arthralgia Skin: denies: rash, lesions Neurological: denies: headache, weakness, paresthesias Psychiatric: suicidal thoughts. denies: anxiety, depression, auditory hallucinations, visual hallucinations, homicidal thoughts Hematological/Lymphatic: denies: easy bleeding, easy bruising ED Past Medical Hx - Past Medical History Previous Medical History?: Yes Hx Hypertension: Yes Hx Heart Attack/AMI: Yes (LA x 2, palpitations) Hx Congestive Heart Failure: No Hx Diabetes: No Hx Renal Disease: No Hx Arthritis: No Hx Seizures: No Hx Psychiatric Treatment: Yes (Anxiety, Bipolar) Hx Asthma: No Hx COPD: No Hx Dementia: No Additional medical history: Degenerative disc disease. History of A. fib status post cardiac ablation as per patient - Surgical History Hx Cholecystectomy: Yes Additional Surgical History: Multiple back surgeries secondary to degenerative disc disease - Social History Smoking Status: Current Every Day Smoker - Medications Home Medications: Home Medications Medication Instructions Recorded Confirmed Last Taken Type methOCARBAMOL [Robaxin TAB] 750 mg PO BID PRN 04/19/20 10/17/20 Unknown History Multivitamin Tab [Multiple Vitamin 1 each PO DAILY #30 tablet 04/25/20 10/17/20 Unknown Rx TAB (Theragran)] Thiamine [Vitamin B-1] 100 mg PO QDAY #30 tab 04/25/20 10/17/20 Unknown Rx Acetaminophen [Acetaminophen TAB] 650 mg PO Q4H PRN tablet 09/05/20 10/17/20 Unknown Rx Albuterol Sulfate [Proair 2 puff INHALATION Q4HR PRN #1 09/05/20 10/17/20 Unknown Rx Respiclick] Aspirin 325 mg PO QDAY #30 tablet 09/05/20 10/17/20 Unknown Rx AtorvaSTATin [Lipitor] 20 mg PO QHS #30 tablet 09/05/20 10/17/20 Unknown Rx Cyanocobalamin [Vitamin B-12] 1,000 mcg PO DAILY #30 tab 09/05/20 10/17/20 Unknown Rx Gabapentin 300 mg PO BID #60 capsule 09/05/20 10/17/20 Unknown Rx lisinopriL [Zestril TAB] 10 mg PO QDAY #30 09/05/20 10/17/20 Unknown Rx oxyCODONE /ACETAMINOPHEN [Percocet 1 tab PO Q6H PRN #10 tablet 09/05/20 10/17/20 Unknown Rx 5/325 mg] DULoxetine [Cymbalta] 30 mg PO DAILY #30 cap 10/22/[address] [Depakote Dr] 500 mg PO BID #60 tablet 10/22/20 Unknown Rx ED Physical Exam - General Limitations: No Limitations General appearance: alert, in no apparent distress - Head Head exam: Present: atraumatic, normocephalic - Eye Eye exam: Present: normal appearance - ENT ENT exam: Present: mucous membranes moist - Neck Neck exam: Present: normal inspection - Respiratory Respiratory exam: Present: normal lung sounds bilaterally. Absent: respiratory distress - Cardiovascular Cardiovascular Exam: Present: regular rate, normal rhythm. Absent: systolic murmur, diastolic murmur, rubs, gallop - GI/Abdominal GI/Abdominal exam: Present: soft, normal bowel sounds. Absent: distended, tenderness - Rectal Rectal exam: Present: deferred - Extremities Exam Extremities exam: Present: normal inspection - Back Exam Back exam: Present: normal inspection - Neurological Exam Neurological exam: Present: alert, oriented X3, CN II-XII intact. Absent: motor sensory deficit - Psychiatric Psychiatric exam: Present: normal affect, normal mood - Skin Skin exam: Present: warm, dry, intact, normal color. Absent: rash ED Course Vital Signs 11/10/20 19:11 Temperature 98.2 F Pulse Rate 82 Respiratory 20 Rate Blood Pressure 104/71 [Right] O2 Sat by Pulse 96 Oximetry ED Medical Decision Making - Lab Data Result diagrams: 11/10/20 21:36 11/10/20 21:36 Lab Results 11/10/20 11/10/20 11/10/20 Range/Units 21:36 21:36 21:36 WBC 4.9 (4.5-11.0) K/mm3 RBC 3.95 (3.65-5.03) M/mm3 Hgb 13.8 (11.8-15.2) gm/dl Hct 39.8 (35.5-45.6) % MCV 101 H (84-94) fl MCH 35 H (28-32) pg MCHC 35 H (32-34) % RDW 13.2 (13.2-15.2) % Plt Count 149 (140-440) K/mm3 Lymph % (Auto) 24.9 (13.4-35.0) % [place] % (Auto) 7.1 (0.0-7.3) % Eos % (Auto) 4.1 (0.0-4.3) % Baso % (Auto) 0.3 (0.0-1.8) % Lymph # (Auto) 1.2 (1.2-5.4) K/mm3 [place] # (Auto) 0.3 (0.0-0.8) K/mm3 Eos # (Auto) 0.2 (0.0-0.4) K/mm3 Baso # (Auto) 0.0 (0.0-0.1) K/mm3 Seg Neutrophils % 63.6 (40.0-70.0) % Seg Neutrophils # 3.1 (1.8-7.7) K/mm3 Sodium 137 (137-145) mmol/L Potassium 4.3 (3.6-5.0) mmol/L Chloride 100.6 (98-107) mmol/L Carbon Dioxide 20 L (22-30) mmol/L Anion Gap 21 mmol/L BUN 22 H (9-20) mg/dL Creatinine 1.0 (0.8-1.3) mg/dL Estimated GFR > 60 ml/min BUN/Creatinine Ratio 22 % Glucose 90 (75-100) mg/dL Calcium 8.7 (8.4-10.2) mg/dL Magnesium 2.10 (1.7-2.3) mg/dL Total Bilirubin 0.20 (0.1-1.2) mg/dL AST 12 (5-40) units/L ALT 7 (7-56) units/L Alkaline Phosphatase 75 (35-129) units/L Troponin T < 0.010 (0.00-0.029) ng/mL Total Protein 7.4 (6.3-8.2) g/dL Albumin 4.3 (3.9-5) g/dL Albumin/Globulin Ratio 1.4 % TSH 1.030 (0.270-4.200) mlU/mL Urine Color (Yellow) Urine Turbidity (Clear) Urine pH (5.0-7.0) Ur Specific [place] (1.003-1.030) Urine Protein (Negative) mg/dL Urine Glucose (UA) (Negative) mg/dL Urine Ketones (Negative) mg/dL Urine Blood (Negative) Urine Nitrite (Negative) Urine Bilirubin (Negative) Urine Urobilinogen (<2.0) mg/dL Ur Leukocyte Esterase (Negative) Urine WBC (Auto) (0.0-6.0) /HPF Urine RBC (Auto) (0.0-6.0) /HPF Urine Bacteria (Auto) (Negative) /HPF Urine Mucus /HPF Salicylates (2.8-20.0) mg/dL Urine Opiates Screen Urine Methadone Screen Acetaminophen (10.0-30.0) ug/mL Ur Barbiturates Screen Ur Phencyclidine Scrn Ur Amphetamines Screen U Benzodiazepines Scrn Urine Cocaine Screen U Marijuana (THC) Screen Drugs of Abuse Note Plasma/Serum Alcohol (0-0.07) % 11/10/20 11/10/20 11/10/20 Range/Units 21:36 21:36 21:36 WBC (4.5-11.0) K/mm3 RBC (3.65-5.03) M/mm3 Hgb (11.8-15.2) gm/dl Hct (35.5-45.6) % MCV (84-94) fl MCH (28-32) pg MCHC (32-34) % RDW (13.2-15.2) % Plt Count (140-440) K/mm3 Lymph % (Auto) (13.4-35.0) % [place] % (Auto) (0.0-7.3) % Eos % (Auto) (0.0-4.3) % Baso % (Auto) (0.0-1.8) % Lymph # (Auto) (1.2-5.4) K/mm3 [place] # (Auto) (0.0-0.8) K/mm3 Eos # (Auto) (0.0-0.4) K/mm3 Baso # (Auto) (0.0-0.1) K/mm3 Seg Neutrophils % (40.0-70.0) % Seg Neutrophils # (1.8-7.7) K/mm3 Sodium (137-145) mmol/L Potassium (3.6-5.0) mmol/L Chloride (98-107) mmol/L Carbon Dioxide (22-30) mmol/L Anion Gap mmol/L BUN (9-20) mg/dL Creatinine (0.8-1.3) mg/dL Estimated GFR ml/min BUN/Creatinine Ratio % Glucose (75-100) mg/dL Calcium (8.4-10.2) mg/dL Magnesium (1.7-2.3) mg/dL Total Bilirubin (0.1-1.2) mg/dL AST (5-40) units/L ALT (7-56) units/L Alkaline Phosphatase (35-129) units/L Troponin T (0.00-0.029) ng/mL Total Protein (6.3-8.2) g/dL Albumin (3.9-5) g/dL Albumin/Globulin Ratio % TSH (0.270-4.200) mlU/mL Urine Color (Yellow) Urine Turbidity (Clear) Urine pH (5.0-7.0) Ur Specific [place] (1.003-1.030) Urine Protein (Negative) mg/dL Urine Glucose (UA) (Negative) mg/dL Urine Ketones (Negative) mg/dL Urine Blood (Negative) Urine Nitrite (Negative) Urine Bilirubin (Negative) Urine Urobilinogen (<2.0) mg/dL Ur Leukocyte Esterase (Negative) Urine WBC (Auto) (0.0-6.0) /HPF Urine RBC (Auto) (0.0-6.0) /HPF Urine Bacteria (Auto) (Negative) /HPF Urine Mucus /HPF Salicylates < 0.3 L (2.8-20.0) mg/dL Urine Opiates Screen Urine Methadone Screen Acetaminophen 5.0 L (10.0-30.0) ug/mL Ur Barbiturates Screen Ur Phencyclidine Scrn Ur Amphetamines Screen U Benzodiazepines Scrn Urine Cocaine Screen U Marijuana (THC) Screen Drugs of Abuse Note Plasma/Serum Alcohol 0.04 (0-0.07) % 11/10/20 11/10/20 11/10/20 Range/Units 22:20 22:20 23:49 WBC (4.5-11.0) K/mm3 RBC (3.65-5.03) M/mm3 Hgb (11.8-15.2) gm/dl Hct (35.5-45.6) % MCV (84-94) fl MCH (28-32) pg MCHC (32-34) % RDW (13.2-15.2) % Plt Count (140-440) K/mm3 Lymph % (Auto) (13.4-35.0) % [place] % (Auto) (0.0-7.3) % Eos % (Auto) (0.0-4.3) % Baso % (Auto) (0.0-1.8) % Lymph # (Auto) (1.2-5.4) K/mm3 [place] # (Auto) (0.0-0.8) K/mm3 Eos # (Auto) (0.0-0.4) K/mm3 Baso # (Auto) (0.0-0.1) K/mm3 Seg Neutrophils % (40.0-70.0) % Seg Neutrophils # (1.8-7.7) K/mm3 Sodium (137-145) mmol/L Potassium (3.6-5.0) mmol/L Chloride (98-107) mmol/L Carbon Dioxide (22-30) mmol/L Anion Gap mmol/L BUN (9-20) mg/dL Creatinine (0.8-1.3) mg/dL Estimated GFR ml/min BUN/Creatinine Ratio % Glucose (75-100) mg/dL Calcium (8.4-10.2) mg/dL Magnesium (1.7-2.3) mg/dL Total Bilirubin (0.1-1.2) mg/dL AST (5-40) units/L ALT (7-56) units/L Alkaline Phosphatase (35-129) units/L Troponin T < 0.010 (0.00-0.029) ng/mL Total Protein (6.3-8.2) g/dL Albumin (3.9-5) g/dL Albumin/Globulin Ratio % TSH (0.270-4.200) mlU/mL Urine Color Yellow (Yellow) Urine Turbidity Clear (Clear) Urine pH 5.0 (5.0-7.0) Ur Specific [place] 1.010 (1.003-1.030) Urine Protein <15 mg/dl (Negative) mg/dL Urine Glucose (UA) Neg (Negative) mg/dL Urine Ketones Neg (Negative) mg/dL Urine Blood Sm (Negative) Urine Nitrite Neg (Negative) Urine Bilirubin Neg (Negative) Urine Urobilinogen < 2.0 (<2.0) mg/dL Ur Leukocyte Esterase Neg (Negative) Urine WBC (Auto) < 1.0 (0.0-6.0) /HPF Urine RBC (Auto) 1.0 (0.0-6.0) /HPF Urine Bacteria (Auto) 1+ (Negative) /HPF Urine Mucus Few /HPF Salicylates (2.8-20.0) mg/dL Urine Opiates Screen Presumptive negative Urine Methadone Screen Presumptive negative Acetaminophen (10.0-30.0) ug/mL Ur Barbiturates Screen Presumptive negative Ur Phencyclidine Scrn Presumptive negative Ur Amphetamines Screen Presumptive negative U Benzodiazepines Scrn Presumptive negative Urine Cocaine Screen Presumptive negative U Marijuana (THC) Screen Presumptive negative Drugs of Abuse Note Disclamer Plasma/Serum Alcohol (0-0.07) % - EKG Data -: EKG Interpreted by Me EKG shows normal: sinus rhythm Rate: normal - Radiology Data Radiology results: report reviewed - Medical Decision Making ED hold applied Patient medically cleared Awaiting mental health evaluation Critical care attestation.: If time is entered above; I have spent that time in minutes in the direct care of this critically ill patient, excluding procedure time. ED Disposition Clinical Impression: Nonspecific chest pain, Suicidal ideations Disposition: [id number]/TX-65 PSY HOSP/PSY UNIT Is pt being admited?: No Does the pt Need Aspirin: No Condition: Stable Instructions: Suicidal Feelings: How to Help Yourself, Nonspecific Chest Pain, Adult Heart Score - HEART Score History: Slightly suspicious EKG: Normal Age: 45-65 Risk factors: 1-2 risk factors Troponin: < normal limit HEART Score: 2 - EKG Read Time Time EKG Completed: 00:00 EKG Read Time: 00:00
[2020-11-10] MEDS ORDERED: ACETAMINOPHEN 325 MG TAB PO ONE (23:57)
--- NOTE | 2020-11-11 10:22 | Electrocardiograph Report ---
[facility] Test Date: 2020-11-10 Test Time: 19:35:13 Pat Name: RISHI RODRIGES Department: Room: Gender: M [employer]: : 1955 Requested By: AMBERLY WILKS Order Number: [id number] Reading MD: Jonah Decker Measurements Intervals [place] Rate: 73 P: 56 SD: 155 QRS: 22 QRSD: 96 T: 48 QT: 378 QTc: 416 Interpretive Statements Sinus rhythm Compared to ECG 11/01/2020 14:34:58 Atrial premature complex(es) no longer present Electronically Signed On 11-11-2020 10:21:42 EDT by Jonah Decker
--- NOTE | 2020-11-11 10:33 | Event Note ---
S: Sleeping O: Comfortable, appears well, stable vital signs A: Noncardiac chest pain, ID ruled out, emergent conditions ruled out by my colleague, patient medically clear, suicidality P: Awaiting anticipated mental health clearance, patient had extensive inpatient psychiatric care recently including 1 week admission to our geriatric psych floor
--- NOTE | 2020-11-11 11:21 | Consultation ---
History of Present Illness - Reason for Consult Consult date: 11/11/20 Reason for consult: SI - History of Present Psychiatric Illness Per ER Note: The patient presents to the emergency department with a chief complaint of chest pain that is been present for the last 3 days. Patient denies any radiation of his chest pain and describes it as pressure-like in nature. Patient also complains of being severely depressed and suicidal. Patient states his plan would be to walk into oncoming traffic. Patient denies auditory visual hallucinations. Patient denies marvin pain, shortness breath, headache. Yang Ivy is a 65y/o patient who states he's having SI. He is known to me from several other visits. The patient says he initially came in for chest pain then started having suicidal thoughts. The patient says he's been having suicidal thoughts "pretty much all my life." When asking him were they worse today, he replied "no, pretty much the same they've always been." He denies having a plan. When asking the patient was there a particular reason he felt suicidal, he replied "I don't know." He was admitted recently to this facility for the same thing. The patient denies hallucinations of any kind. PAST PSYCHIATRIC HISTORY: Diagnoses: Bipolar disorder Suicide attempts or Self-harm behavior: yes Prior psychiatric hospitalizations: yes Substance Abuse history: Alcohol Previous psychiatric medications tried: Cymbalta Outpatient treatment: Yes, at the [facility] None reported or documented SOCIAL HISTORY Marital Status: Living Arrangements: [facility] Employment Status: disabled Access to guns/weapons: patient denies Education: college History of Abuse: patient denies Legal History: patient denies ROS: Constitutional: Negative for weight loss ENT: Negative for stridor Respiratory: Negative for cough or hemoptysis All other systems reviewed and are negative MENTAL STATUS EXAMINATION General Appearance and Behavior: Age appropriate, good hygiene, wearing appr opriate clothes, good eye contact Cooperation: Participating/engaged, but Guarded Psychomotor Behavior: Psychomotor normal Mood: down Affect and affective range: restricted Thought Process: goal directed Thought Content: hopelessness, helplessness Speech: Normal rate, volume and rythm Intellectual Functioning: Average Suicidal Ideation: Yes Homicidal Ideation: Denies HI Impulse Control: Impaired Insight and Judgment: Limited insight and judgment Memory: Normal Attention: Normal Orientation: Alert, oriented - Psychiatric problem (1) History of Bipolar 1 disorder (2) Noncompliance with other medical regimen and treatments Treatment Plan Continue previously prescribed meds Sitter: Defer to primary Medical: Per primary Disposition: Do not recommend acute psychiatric inpatient treatment. The patient symptoms can be managed on outpatient basis The teacher advisor to further discuss safety plan and give the patient outpatient resources. Will sign off. Thanks Case staffed with Dr. Gonzalez Medications and Allergies Allergies Allergy/AdvReac Type Severity Reaction Status Date / Time ketorolac tromethamine Allergy Rash Verified 10/16/20 17:52 [From Toradol] Home Medications Medication Instructions Recorded Confirmed Last Taken Type methOCARBAMOL [Robaxin TAB] 750 mg PO BID PRN 04/19/20 10/17/20 Unknown History Multivitamin Tab [Multiple Vitamin 1 each PO DAILY #30 tablet 04/25/20 10/17/20 Unknown Rx TAB (Theragran)] Thiamine [Vitamin B-1] 100 mg PO QDAY #30 tab 04/25/20 10/17/20 Unknown Rx Acetaminophen [Acetaminophen TAB] 650 mg PO Q4H PRN tablet 09/05/20 10/17/20 Unknown Rx Albuterol Sulfate [Proair 2 puff INHALATION Q4HR PRN #1 09/05/20 10/17/20 Unknown Rx Respiclick] Aspirin 325 mg PO QDAY #30 tablet 09/05/20 10/17/20 Unknown Rx AtorvaSTATin [Lipitor] 20 mg PO QHS #30 tablet 09/05/20 10/17/20 Unknown Rx Cyanocobalamin [Vitamin B-12] 1,000 mcg PO DAILY #30 tab 09/05/20 10/17/20 Unknown Rx Gabapentin 300 mg PO BID #60 capsule 09/05/20 10/17/20 Unknown Rx lisinopriL [Zestril TAB] 10 mg PO QDAY #30 09/05/20 10/17/20 Unknown Rx oxyCODONE /ACETAMINOPHEN [Percocet 1 tab PO Q6H PRN #10 tablet 09/05/20 10/17/20 Unknown Rx 5/325 mg] DULoxetine [Cymbalta] 30 mg PO DAILY #30 cap 10/22/[address] [Depakote Dr] 500 mg PO BID #60 tablet 10/22/20 Unknown Rx Mental Status Exam - Vital signs Last Vital Signs Temp 98.2 F 11/10/20 19:11 Pulse 82 11/10/20 19:11 Resp 18 11/11/20 02:42 BP 104/71 11/10/20 19:11 Pulse Ox 96 11/10/20 19:11 Results Result Diagrams: 11/10/20 21:36 11/10/20 21:36 Abnormal lab results 11/10/20 11/10/20 11/10/20 Range/Units 21:36 21:36 21:36 MCV 101 H (84-94) fl MCH 35 H (28-32) pg MCHC 35 H (32-34) % Carbon Dioxide 20 L (22-30) mmol/L BUN 22 H (9-20) mg/dL Salicylates < 0.3 L (2.8-20.0) mg/dL Acetaminophen (10.0-30.0) ug/mL 11/10/20 Range/Units 21:36 MCV (84-94) fl MCH (28-32) pg MCHC (32-34) % Carbon Dioxide (22-30) mmol/L BUN (9-20) mg/dL Salicylates (2.8-20.0) mg/dL Acetaminophen 5.0 L (10.0-30.0) ug/mL All other labs normal.
== END 2020-11-11 13:55 | disposition home or self-care (01) ==
LOC: ED 18:35
DX: R07.89 Other chest pain (principal); R45.851 Suicidal ideations; I10 Essential (primary) hypertension; I25.2 Old myocardial infarction; F31.9 Bipolar disorder, unspecified; F41.9 Anxiety disorder, unspecified; I48.91 Unspecified atrial fibrillation; F17.200 Nicotine dependence, unspecified, uncomplicated; Z90.49 Acquired absence of other specified parts of digestive tract; Z79.899 Other long term (current) drug therapy; Z88.8 Allergy status to other drugs, medicaments and biological substances; Z98.890 Other specified postprocedural states
CPT/HCPCS: 36415; 71045; 80053; 80307; 80320; 81001; 83735; 84443; 84484; 85025; 93005; G0480

== ENCOUNTER 2020-11-17 16:24 | Observation (INO) | payer MEDICARE ==
--- NOTE | 2020-11-17 17:43 | XRay Report ---
CHEST PA AND LATERAL VIEWS INDICATION: CP. COMPARISON: 11/10/2020 FINDINGS: Support devices: None Heart: Normal and unchanged Lungs/Pleura: No acute pulmonary or pleural findings. IMPRESSION: 1. No acute disease and no interval change. Signer Name: Shane Kapoor MD Signed: 11/17/2020 5:39 PM Workstation Name: [id number]
[2020-11-17 18:06] LABS: Eosinophils # (Auto) 0.3 K/mm3 (0.0-0.4); Eosinophils % (Auto) 4.3 % (0.0-4.3); Hematocrit 41.6 % (35.5-45.6); Hemoglobin 14.5 gm/dl (11.8-15.2); Lymphocytes # (Auto) 1.3 K/mm3 (1.2-5.4); Lymphocytes % (Auto) 21.7 % (13.4-35.0); Mean Corpuscular HGB Conc 35 % (32-34); Mean Corpuscular Volume 100 fl (84-94); Monocytes # (Auto) 0.5 K/mm3 (0.0-0.8); Monocytes % (Auto) 7.5 % (0.0-7.3); Platelet Count 163 K/mm3 (140-440); Red Blood Count 4.16 M/mm3 (3.65-5.03); Red Cell Distribution Width 12.8 % (13.2-15.2)
[2020-11-17 18:18] LABS: Alanine Aminotransferase 8 units/L (7-56); Albumin 4.4 g/dL (3.9-5); BUN/Creatinine Ratio 15; Blood Urea Nitrogen 15 mg/dL (9-20); Calcium 9.4 mg/dL (8.4-10.2); Hemolysis Index 12
[2020-11-17] MEDS ORDERED: fentaNYL 100 MCG/2 ML INJ IV ONE (21:35)
[2020-11-17] MEDS ORDERED: NITROGLYCERIN 2% OINT 1 GM TP ONE (21:35)
[2020-11-17] MEDS ORDERED: ONDANSETRON 4 MG/2 ML INJ IV ONE (21:35)
[2020-11-17] MEDS ORDERED: ASPIRIN 325 MG TAB PO ONE (21:35)
--- NOTE | 2020-11-17 21:37 | Emergency Department Report ---
HPI - General Chief Complaint: Chest Pain Time Seen by Provider: 11/17/20 21:03 - HPI HPI: Room 3 The patient is a 65-year-old male present with a chief complaint of chest pain and suicidal ideation. Patient states he has felt suicidal for the past 2 to 3 days. Patient states his plan was to walk into traffic. Patient denies any active attempts at harming self. The patient states today at noon he developed left-sided chest pain described as sharp and intermittent in nature. Patient admits to slight shortness of breath and diaphoresis with this chest pain but denies nausea/vomiting. Patient currently gets his chest pain a score of 7/10. Patient states he has had an occasional cough for the past 2 to 3 days productive of green sputum. Patient denies history of fever. Patient states he has had 2 heart attacks in the past and received a cardiac catheterization 3 months ago at the [facility] where they saw "small blockages" ED Past Medical Hx - Past Medical History Hx Hypertension: Yes Hx Heart Attack/AMI: Yes ([place] x 2, palpitations) Hx Psychiatric Treatment: Yes (Anxiety, Bipolar) Additional medical history: Degenerative disc disease. History of A. fib status post cardiac ablation as per patient - Surgical History Hx Cholecystectomy: Yes Additional Surgical History: Multiple back surgeries secondary to degenerative disc disease - Family History Family history: no significant - Social History Smoking Status: Current Every Day Smoker (1/2 pack/day) Substance Use Type: None (Denies illicit drug use), Alcohol (Every other day) - Medications Home Medications: Home Medications Medication Instructions Recorded Confirmed Last Taken Type methOCARBAMOL [Robaxin TAB] 750 mg PO BID PRN 04/19/20 10/17/20 Unknown History Multivitamin Tab [Multiple Vitamin 1 each PO DAILY #30 tablet 04/25/20 10/17/20 Unknown Rx TAB (Theragran)] Thiamine [Vitamin B-1] 100 mg PO QDAY #30 tab 04/25/20 10/17/20 Unknown Rx Acetaminophen [Acetaminophen TAB] 650 mg PO Q4H PRN tablet 09/05/20 10/17/20 Unknown Rx Albuterol Sulfate [Proair 2 puff INHALATION Q4HR PRN #1 09/05/20 10/17/20 Unknown Rx Respiclick] Aspirin 325 mg PO QDAY #30 tablet 09/05/20 10/17/20 Unknown Rx AtorvaSTATin [Lipitor] 20 mg PO QHS #30 tablet 09/05/20 10/17/20 Unknown Rx Cyanocobalamin [Vitamin B-12] 1,000 mcg PO DAILY #30 tab 09/05/20 10/17/20 Unknown Rx Gabapentin 300 mg PO BID #60 capsule 09/05/20 10/17/20 Unknown Rx lisinopriL [Zestril TAB] 10 mg PO QDAY #30 09/05/20 10/17/20 Unknown Rx oxyCODONE /ACETAMINOPHEN [Percocet 1 tab PO Q6H PRN #10 tablet 09/05/20 10/17/20 Unknown Rx 5/325 mg] DULoxetine [Cymbalta] 30 mg PO DAILY #30 cap 10/22/[address] [Depakote Dr] 500 mg PO BID #60 tablet 10/22/20 Unknown Rx ED Review of Systems ROS: Stated complaint: CHEST PAIN Other details as noted in HPI Constitutional: diaphoresis. denies: fever Eyes: denies: eye pain ENT: denies: throat pain Respiratory: cough, shortness of breath Cardiovascular: chest pain Endocrine: no symptoms reported Gastrointestinal: denies: nausea, vomiting Genitourinary: denies: dysuria Musculoskeletal: denies: back pain Neurological: denies: headache Physical Exam - Physical Exam Vital Signs: Vital Signs 11/17/20 11/17/20 17:14 21:13 Temperature 98.0 F Pulse Rate 92 H 78 Respiratory 20 17 Rate Blood Pressure 101/73 Blood Pressure 110/69 [Left] O2 Sat by Pulse 96 98 Oximetry Physical Exam: GENERAL: The patient is well-developed well-nourished male lying on stretcher not appearing to be in acute distress. [] HEENT: Normocephalic. Atraumatic. Extraocular motions are intact. Patient has moist mucous membranes. NECK: Supple. Trachea midline CHEST/LUNGS: Clear to auscultation. There is no respiratory distress noted. HEART/CARDIOVASCULAR: Regular. There is no tachycardia. There is no gallop rub or murmur. ABDOMEN: Abdomen is soft, nontender. Patient has normal bowel sounds. There is no abdominal distention. SKIN: There is no rash. There is no edema. There is no diaphoresis. NEURO: The patient is awake, alert, and oriented. The patient is cooperative. The patient has no focal neurologic deficits. The patient has normal speech MUSCULOSKELETAL: There is no evidence of acute injury. ED Course Vital Signs 11/17/20 11/17/20 17:14 21:13 Temperature 98.0 F Pulse Rate 92 H 78 Respiratory 20 17 Rate Blood Pressure 101/73 Blood Pressure 110/69 [Left] O2 Sat by Pulse 96 98 Oximetry ED Medical Decision Making - Lab Data Result diagrams: 11/17/20 17:44 11/17/20 17:44 Laboratory Tests 11/17/20 11/17/20 11/17/20 17:44 17:44 19:44 WBC 6.0 RBC 4.16 Hgb 14.5 Hct 41.6 MCV 100 H MCH 35 H MCHC 35 H RDW 12.8 L Plt Count 163 Lymph % (Auto) 21.7 [place] % (Auto) 7.5 H Eos % (Auto) 4.3 Baso % (Auto) Event Specialist Lymph # (Auto) 1.3 [place] # (Auto) 0.5 Eos # (Auto) 0.3 Baso # (Auto) 0.0 Seg Neutrophils % 66.1 Seg Neutrophils # 4.0 Sodium 134 L Potassium 4.2 Chloride 98.2 Carbon Dioxide 21 L Anion Gap 19 BUN 15 Creatinine 1.0 Estimated GFR > 60 BUN/Creatinine Ratio 15 Glucose 81 Calcium 9.4 Total Bilirubin 0.20 AST 13 ALT 8 Alkaline Phosphatase 75 Troponin T < 0.010 < 0.010 Total Protein 7.5 Albumin 4.4 Albumin/Globulin Ratio 1.4 Salicylates Acetaminophen Plasma/Serum Alcohol 11/17/20 11/17/20 11/17/20 21:36 21:36 21:36 WBC RBC Hgb Hct MCV MCH MCHC RDW Plt Count Lymph % (Auto) [place] % (Auto) Eos % (Auto) Baso % (Auto) Lymph # (Auto) [place] # (Auto) Eos # (Auto) Baso # (Auto) Seg Neutrophils % Seg Neutrophils # Sodium Potassium Chloride Carbon Dioxide Anion Gap BUN Creatinine Estimated GFR BUN/Creatinine Ratio Glucose Calcium Total Bilirubin AST ALT Alkaline Phosphatase Troponin T Total Protein Albumin Albumin/Globulin Ratio Salicylates < 0.3 L Acetaminophen 5.0 L Plasma/Serum Alcohol 0.06 - EKG Data -: EKG Interpreted by [place] EKG shows normal: sinus rhythm Rate: normal - EKG Data When compared to previous EKG there are: previous EKG unavailable Interpretation: normal EKG - Radiology Data Radiology results: report reviewed (Chest x-ray), image reviewed (Chest x-ray) interpreted by me: Chest x-ray-no focal infiltrates, no pneumothorax. Back hardware in place [facility] [address] [place] [address] XRay Report Signed Patient: RISHI RODRIGES MR#: [id number] : 1955 Acct:[id number] Age/Sex: 65 / M ADM Date: 11/17/20 Loc: ED Attending Dr: Ordering Physician: ED MD ERENDIRA Date of Service: 11/17/20 Procedure(s): XR chest routine 2V Accession Number(s): [id number] cc: ED MD ERENDIRA Fluoro Time In Minutes: CHEST PA AND LATERAL VIEWS INDICATION: CP. COMPARISON: 11/10/2020 FINDINGS: Support devices: None Heart: Normal and unchanged Lungs/Pleura: No acute pu lmonary or pleural findings. IMPRESSION: 1. No acute disease and no interval change. Signer Name: Shane Kapoor MD Signed: 11/17/2020 5:39 PM Workstation Name: [id number] Transcribed By: TM Dictated By: Shane Kapoor MD Electronically Authenticated By: Shane Kapoor MD Signed Date/Time: 11/17/201738 DD/ 37 TD/TT: Print Cancel - Differential Diagnosis ACS, pericarditis, GERD, suicidal ideation Critical care attestation.: If time is entered above; I have spent that time in minutes in the direct care of this critically ill patient, excluding procedure time. ED Disposition Clinical Impression: Chest pain, Suicidal ideation Disposition: OP ADMIT IP TO THIS HOSP Is pt being admited?: Yes Does the pt Need Aspirin: Yes Condition: Fair Instructions: Nonspecific Chest Pain, Adult Time of Disposition: 22:43 (Hospitalist notified (Angie)) Heart Score - HEART Score History: Moderately suspicious EKG: Normal Age: 45-65 Risk factors: > 3 risk factors or hx of atherosclerotic disease Troponin: < normal limit HEART Score: 4 - EKG Read Time Time EKG Completed: 17:24 EKG Read Time: 17:26
[2020-11-17] MEDS ORDERED: MORPHINE 4 MG/1 ML INJ IV PRN (23:14)
[2020-11-17] MEDS ORDERED: ACETAMINOPHEN 325 MG TAB PO PRN (23:14)
[2020-11-17] MEDS ORDERED: NITROGLYCERIN 0.4 MG TAB SUBL SL PRN (23:14)
[2020-11-17] MEDS ORDERED: traMADol 50 MG TAB PO PRN (23:14)
[2020-11-17] MEDS ORDERED: ONDANSETRON 4 MG/2 ML INJ IV PRN (23:14)
[2020-11-18] MEDS ORDERED: NON-FORMULARY EACH (Albuterol Sulfate [Proair Respiclick] 90 MCG Aer.Pow.Ba) INHALATION PRN (00:11)
--- NOTE | 2020-11-18 00:20 | History and Physical Report ---
History of Present Illness Date of examination: 11/17/20 Date of admission: 11/17/2020 Chief complaint: SI, CP History of present illness: 65-year-old with complaints of suicidal ideation and chest pain. Patient complains of sharp 7/10 left-sided chest pain with radiation to left shoulder. The pain is constant, aggravated with exertion, and relieved with pain meds. Endorses mild dyspnea and diaphoresis with chest pain, but denies nausea and vomiting. Additionally patient complains of suicidal ideation for the past 2 to 3 days. Patient states that he is going to walk out into oncoming traffic so he can get hit by a car, and if that does not work he will get access to a gun and end his life. He stated that he will not attempt any self harm behavior while inpatient at our facility as long as he gets to see the mental health counselor in the morning. Endorses occasional chronic cough with clear to green sputum production. Review of medical record shows patient was admitted to [facility] at [facility] ED in October for suicidal ideation. At the time of discharge she was advised to follow- up with PCP and psychiatrist within a week. Is unsure whether the patient was able to follow-up as instructed. Denies nausea, vomiting, diaphoresis, palpitations, headache, abdominal pain, fever, chills, dysuria, HI, or recent sick contacts Past History Past Medical History: acute PR (x2), hypertension, other (Chronic back pain, testicular cancer, depression, anxiety, SI, cardiomyopathy) Past Surgical History: Other (Multiple back surgeries secondary to degenerative disc disease) Social history: , smoking, alcohol abuse, full code, other (Disabled vet, lives in a jail,). denies: prescription drug abuse, IV drug use Family history: no significant family history Medications and Allergies Allergies Allergy/AdvReac Type Severity Reaction Status Date / Time ketorolac tromethamine Allergy Rash Verified 11/17/20 17:14 [From Toradol] Home Medications Medication Instructions Recorded Confirmed Last Taken Type methOCARBAMOL [Robaxin TAB] 750 mg PO BID PRN 04/19/20 10/17/20 Unknown History Multivitamin Tab [Multiple Vitamin 1 each PO DAILY #30 tablet 04/25/20 10/17/20 Unknown Rx TAB (Theragran)] Thiamine [Vitamin B-1] 100 mg PO QDAY #30 tab 04/25/20 10/17/20 Unknown Rx Acetaminophen [Acetaminophen TAB] 650 mg PO Q4H PRN tablet 09/05/20 10/17/20 Unknown Rx Albuterol Sulfate [Proair 2 puff INHALATION Q4HR PRN #1 09/05/20 10/17/20 Unknown Rx Respiclick] Aspirin 325 mg PO QDAY #30 tablet 09/05/20 10/17/20 Unknown Rx AtorvaSTATin [Lipitor] 20 mg PO QHS #30 tablet 09/05/20 10/17/20 Unknown Rx Cyanocobalamin [Vitamin B-12] 1,000 mcg PO DAILY #30 tab 09/05/20 10/17/20 Unknown Rx Gabapentin 300 mg PO BID #60 capsule 09/05/20 10/17/20 Unknown Rx lisinopriL [Zestril TAB] 10 mg PO QDAY #30 09/05/20 10/17/20 Unknown Rx oxyCODONE /ACETAMINOPHEN [Percocet 1 tab PO Q6H PRN #10 tablet 09/05/20 10/17/20 Unknown Rx 5/325 mg] DULoxetine [Cymbalta] 30 mg PO DAILY #30 cap 10/22/[address] [Philip Fry] 500 mg PO BID #60 tablet 10/22/20 Unknown Rx Active Meds: Active Medications Acetaminophen (Acetaminophen 325 Mg Tab) 650 mg PO Q6H PRN PRN Reason: Pain, Mild (1-3) Aspirin (Aspirin 325 Mg Tab) 325 mg PO QDAY [facility] Atorvastatin Calcium (Atorvastatin 20 Mg Tab) 20 mg PO QHS [facility] Bisacodyl (Bisacodyl 10 Mg Rect Supp) 10 mg NM QDAY PRN PRN Reason: Constipation unrelieved by MOM Cyanocobalamin (Cyanocobalamin (Vit B-12) 1000 Mcg Tab) 1,000 mcg PO DAILY CHLOÉ Duloxetine HCl (Duloxetine 30 Mg Cap) 30 mg PO DAILY CHLOÉ Gabapentin (Gabapentin 300 Mg Cap) 300 mg PO BID CHLOÉ Lisinopril (Lisinopril 10 Mg Tab) 10 mg PO QDAY [facility] Miscellaneous Medication (Albuterol Sulfate [Proair Respiclick]) 2 puff INHALATION Q4HR PRN PRN Reason: Shortness Of Breath Morphine Sulfate (Morphine 4 Mg/1 Ml Inj) 2 mg IV Q5MIN PRN PRN Reason: Chest Pain Multivitamins (Multivitamins ,Therapeutic Tab) 1 each PO DAILY CHLOÉ Nicotine (Nicotine 14 Mg/24 Hr Patch) 14 mg TD QDAY CHLOÉ Nitroglycerin (Nitroglycerin 0.4 Mg Tab Subl) 0.4 mg SL Q5M PRN PRN Reason: Chest Pain Ondansetron HCl (Ondansetron 4 Mg/2 Ml Inj) 4 mg IV Q6H PRN PRN Reason: Nausea And Vomiting Sodium Chloride (Sodium Chloride 0.9% 10 Ml Flush Syringe) 10 ml IV PRN PRN PRN Reason: LINE FLUSH Sodium Chloride (Sodium Chloride 0.9% 10 Ml Flush Syringe) 10 ml IV BID CHLOÉ Sodium Chloride (Sodium Chloride 0.9% 10 Ml Flush Syringe) 10 ml IV PRN PRN PRN Reason: LINE FLUSH Tramadol HCl (Tramadol 50 Mg Tab) 50 mg PO Q6H PRN PRN Reason: Pain, Moderate (4-6) Review of Systems All systems: negative (As noted in HPI) Exam - Physical Exam Narrative exam: Physical exam General appearance: Present: No acute distress, alert and oriented 3, older adult male - EENT Eyes: Present: PERRL, EOM intact ENT: hearing intact, poor dentition - Neck Neck: Present: supple, normal ROM - Respiratory Respiratory effort: Non-labored Respiratory: Clear throughout - Cardiovascular Heart rate:55 (bpm) Rhythm: Sinus bradycardia Heart Sounds: Present: S1 & S2. Absent: rub, click - Extremities Extremities: no ischemia, pulses intact, - Peripheral Assessment Peripheral Pulses: within normal limits - Abdominal General gastrointestinal: soft, non-tender, normal bowel sounds - Integumentary Integumentary: Present: warm, dry - Musculoskeletal Musculoskeletal: Able to move all extremities -Neurological Neurological: CN II-XII intact - Psychiatric Psychiatric:cooperative - Constitutional Vitals: Temp Pulse Resp BP Pulse Ox 98.0 F 62 18 118/68 98 11/17/20 17:14 11/17/20 23:02 11/17/20 22:00 11/17/20 23:02 11/17/20 23:00 HEART Score - HEART Score EKG: Normal Age: 45-65 Risk factors: > 3 risk factors or hx of atherosclerotic disease Troponin: Troponin T < 0.010 ng/mL (0.00-0.029) 11/17/20 23:09 Troponin: < normal limit Results - Labs CBC & Chem 7: 11/17/20 17:44 11/17/20 17:44 Labs: Laboratory Last Values WBC 6.0 K/mm3 (4.5-11.0) 11/17/20 17:44 RBC 4.16 M/mm3 (3.65-5.03) 11/17/20 17:44 Hgb 14.5 gm/dl (11.8-15.2) 11/17/20 17:44 Hct 41.6 % (35.5-45.6) 11/17/20 17:44 MCV 100 fl (84-94) H 11/17/20 17:44 MCH 35 pg (28-32) H 11/17/20 17:44 MCHC 35 % (32-34) H 11/17/20 17:44 RDW 12.8 % (13.2-15.2) L 11/17/20 17:44 Plt Count 163 K/mm3 (140-440) 11/17/20 17:44 Lymph % (Auto) 21.7 % (13.4-35.0) 11/17/20 17:44 [place] % (Auto) 7.5 % (0.0-7.3) H 11/17/20 17:44 Eos % (Auto) 4.3 % (0.0-4.3) 11/17/20 17:44 Baso % (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) [employer]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8-1.3) 11/17/20 17:44 Estimated GFR > 60 ml/min 11/17/20 17:44 BUN/Creatinine Ratio 15 % 11/17/20 17:44 Glucose 81 mg/dL (75-100) 11/17/20 17:44 Calcium 9.4 mg/dL (8.4-10.2) 11/17/20 17:44 Total Bilirubin 0.20 mg/dL (0.1-1.2) 11/17/20 17:44 AST 13 units/L (5-40) 11/17/20 17:44 ALT 8 units/L (7-56) 11/17/20 17:44 Alkaline Phosphatase 75 units/L (35-129) 11/17/20 17:44 Troponin T < 0.010 ng/mL (0.00-0.029) 11/17/20 23:09 Total Protein 7.5 g/dL (6.3-8.2) 11/17/20 17:44 Albumin 4.4 g/dL (3.9-5) 11/17/20 17:44 Albumin/Globulin Ratio 1.4 % 11/17/20 17:44 Salicylates < 0.3 mg/dL (2.8-20.0) L 11/17/20 21:36 Acetaminophen 5.0 ug/mL (10.0-30.0) L 11/17/20 21:36 Plasma/Serum Alcohol 0.06 % (0-0.07) 11/17/20 21:36 - Imaging and Cardiology Chest x-ray: report reviewed, image reviewed - Diagnostic Impressions Diagnostic Impressions: CXR: FINDINGS: Support devices: None Heart: Normal and unchanged Lungs/Pleura: No acute pulmonary or pleural findings. IMPRESSION: 1. No acute disease and no interval change. Assessment and Plan Assessment and plan: Atypical chest pain Acute Chest Pain -Initiate chest pain protocol -Continuous telemetry monitoring -Continue supportive care -Pain mgmt -Troponin negative x x2, will continue to trend -EKG unrevealing for acute ischemic abnormalities -CXR negative -Previously evaluated by [facility] -EF EF 55-60% seen on Echo (09/02/20). Mild concentric LVH. Mild diastolic dysfunction. RV mildly dilated. RA mildly dilated. No valvular abnormality -MPI Stress Test- negative for ischemia -We will defer additional cardiac work-up per cardiology recommendations -Cardiology ([facility])consulted Suicidal ideation -Reports that he plans to walk into traffic and get hit by a car or get access to gun so he can end his life -Currently 1013 -Mental health eval pending -Resume home meds History of anxiety/depression -Monitor -Resume home meds -Mental health eval pending Tobacco abuse -Reports smoking 1 pack/day -Counseled for cessation 7 minutes -Nicotine patch when necessary HTN -Monitor BP -Resume home hypertensive meds Bradycardia -History of bradycardia, noted during previous admission (10/2020) -Avoid AV viral blocking agents -Continue lisinopril -On continuous remote telemetry monitoring -Cardiology consulted Advance Directives: No VTE prophylaxis?: Chemical, Mechanical Plan of care discussed with patient/family: Yes
[2020-11-18] MEDS ORDERED: ALBUTEROL 2.5 MG/3 ML NEBU IH PRN (00:23)
[2020-11-18] MEDS ORDERED: LORazepam 2 MG/ML VIAL IV PRN (00:44)
[2020-11-18 01:37] LABS: Amphetamine Screen,Urine Negative; Benzodiazepines Screen,Urine Negative; Cannabinoid Screen,Urine Negative; Cocaine Screen,Urine Negative; Methadone Screen,Urine Negative; Opiate Screen,Urine Negative
[2020-11-18] MEDS: MORPHINE 2 MG/1 ML INJ IV PRN ×2 (05:01→10:15)
--- NOTE | 2020-11-18 09:41 | Consultation ---
History of Present Illness Consult date: 11/18/20 Requesting physician: MARCELINO RAYMOND Consult reason: chest pain History of present illness: Pt is a 65-year-old male with a hx of bipolar disorder who presented with complaints of suicidal ideation x 1-2 days prior to arrival. He reports non- compliance with his home psych med regimen. Pt also has complaints of interm ittent "stabbing" left-sided chest pain radiating to his left shoulder and sometimes down his left arm. Pt states chest pain started yesterday, and episodes last 5-10 min. Associated with SOB, lightheadedness, and nausea. No additional cardiac complaints. Pain is worsened by palpation and relieved by changing positions (specifically rolling onto his right side). Trop neg x 3. ECG reveals SR, no acute ischemic changes. CXR reveals no acute findings. Of note, pt was seen by our group during a previous hospitalization in August 2020, at which time he had an unremarkable cardiac work-up, including ischemic evaluation. He has not followed up as an outpatient. Past History Past Medical History: cancer (testicular), COPD, hypertension, hyperlipidemia, other (cardiomyopathy, bipolar disorder) Past Surgical History: denies: valve replacement, CABG, PTCA Social history: , smoking, other (disabled , lives in a longterm). denies: alcohol abuse, prescription drug abuse, IV drug use Family history: no significant family history Medications and Allergies Allergies Allergy/AdvReac Type Severity Reaction Status Date / Time ketorolac tromethamine Allergy Rash Verified 11/17/20 17:14 [From Toradol] Home Medications Medication Instructions Recorded Confirmed Last Taken Type methOCARBAMOL [Robaxin TAB] 750 mg PO BID PRN 04/19/20 11/18/20 Unknown History Multivitamin Tab [Multiple Vitamin 1 each PO DAILY #30 tablet 04/25/20 11/18/20 Unknown Rx TAB (Theragran)] Thiamine [Vitamin B-1] 100 mg PO QDAY #30 tab 04/25/20 11/18/20 Unknown Rx Acetaminophen [Acetaminophen TAB] 650 mg PO Q4H PRN tablet 09/05/20 11/18/20 Unknown Rx Albuterol Sulfate [Proair 2 puff INHALATION Q4HR PRN #1 09/05/20 11/18/20 Unknown Rx Respiclick] Aspirin 325 mg PO QDAY #30 tablet 09/05/20 11/18/20 Unknown Rx AtorvaSTATin [Lipitor] 20 mg PO QHS #30 tablet 09/05/20 11/18/20 Unknown Rx Cyanocobalamin [Vitamin B-12] 1,000 mcg PO DAILY #30 tab 09/05/20 11/18/20 Unknown Rx Gabapentin 300 mg PO BID #60 capsule 09/05/20 11/18/20 Unknown Rx lisinopriL [Zestril TAB] 10 mg PO QDAY #30 09/05/20 11/18/20 Unknown Rx DULoxetine [Cymbalta] 30 mg PO DAILY #30 cap 10/22/20 11/18/20 Unknown Rx Amlodipine Besylate [Norvasc] 2.5 mg PO DAILY #30 tablet 11/18/[address] [Philip Fry] 250 mg PO BID 11/18/20 11/18/20 Unknown History Folic Acid [Folvite] 1 mg PO QDAY #30 tablet 11/18/20 Unknown Rx Nicotine [Habitrol] 14 mg TD QDAY #30 patch 11/18/20 Unknown Rx OLANzapine [Zyprexa] 10 mg PO QHS 11/18/20 11/18/20 Unknown History Pantoprazole Sodium 1 tab PO DAILY 11/18/20 11/18/20 Unknown History Trazodone HCl 50 mg PO QHS PRN 11/18/20 11/18/20 Unknown History clonazePAM [KlonoPIN] 0.5 mg PO BID 11/18/20 11/18/20 Unknown History traMADoL [Ultram] 50 mg PO Q6HR PRN #10 tablet 11/18/20 Unknown Rx Active Meds: Active Medications Acetaminophen (Acetaminophen 325 Mg Tab) 650 mg PO Q6H PRN PRN Reason: Pain, Mild (1-3) Albuterol (Albuterol 2.5 Mg/3 Ml Nebu) 2.5 mg IH Q4HRT PRN PRN Reason: Shortness Of Breath Aspirin (Aspirin 325 Mg Tab) 325 mg PO QDAY [facility] Last Admin: 11/18/20 09:31 Dose: 325 mg Documented by: Atorvastatin Calcium (Atorvastatin 20 Mg Tab) 20 mg PO QHS CHLOÉ Bisacodyl (Bisacodyl 10 Mg Rect Supp) 10 mg SC QDAY PRN PRN Reason: Constipation unrelieved by MOM Cyanocobalamin (Cyanocobalamin (Vit B-12) 1000 Mcg Tab) 1,000 mcg PO DAILY [facility] Last Admin: 11/18/20 09:31 Dose: 1,000 mcg Documented by: Duloxetine HCl (Duloxetine 30 Mg Cap) 30 mg PO DAILY [facility] Last Admin: 11/18/20 09:31 Dose: 30 mg Documented by: Folic Acid (Folic Acid 1 Mg Tab) 1 mg PO QDAY [facility] Last Admin: 11/18/20 09:31 Dose: 1 mg Documented by: Gabapentin (Gabapentin 300 Mg Cap) 300 mg PO BID [facility] Last Admin: 11/18/20 09:31 Dose: 300 mg Documented by: Lisinopril (Lisinopril 10 Mg Tab) 10 mg PO QDAY [facility] Last Admin: 11/18/20 09:31 Dose: 10 mg Documented by: Lorazepam (Lorazepam 2 Mg/Ml Vial) 2 mg IV Q1H PRN PRN Reason: CIWA-Ar 8-15 Morphine Sulfate (Morphine 2 Mg/1 Ml Inj) 2 mg IV Q5MIN PRN PRN Reason: Chest Pain Last Admin: 11/18/20 05:01 Dose: 2 mg Documented by: Multivitamins (Multivitamins ,Therapeutic Tab) 1 each PO DAILY [facility] Last Admin: 11/18/20 09:31 Dose: 1 each Documented by: Nicotine (Nicotine 14 Mg/24 Hr Patch) 14 mg TD QDAY [facility] Last Admin: 11/18/20 09:30 Dose: 14 mg Documented by: Nitroglycerin (Nitroglycerin 0.4 Mg Tab Subl) 0.4 mg SL Q5M PRN PRN Reason: Chest Pain Ondansetron HCl (Ondansetron 4 Mg/2 Ml Inj) 4 mg IV Q6H PRN PRN Reason: Nausea And Vomiting Sodium Chloride (Sodium Chloride 0.9% 10 Ml Flush Syringe) 10 ml IV PRN PRN PRN Reason: LINE FLUSH Last Admin: 11/18/20 05:02 Dose: 10 ml Documented by: Sodium Chloride (Sodium Chloride 0.9% 10 Ml Flush Syringe) 10 ml IV BID [facility] Last Admin: 11/18/20 09:31 Dose: 10 ml Documented by: Sodium Chloride (Sodium Chloride 0.9% 10 Ml Flush Syringe) 10 ml IV PRN PRN PRN Reason: LINE FLUSH Thiamine HCl (Thiamine 100 Mg Tab) 100 mg PO QDAY [facility] Last Admin: 11/18/20 09:31 Dose: 100 mg Documented by: Tramadol HCl (Tramadol 50 Mg Tab) 50 mg PO Q6H PRN PRN Reason: Pain, Moderate (4-6) Review of Systems Constitutional: no fever, no chills, no sweats Ears, nose, mouth and throat: no nasal congestion, no sore throat Cardiovascular: chest pain, lightheadedness, shortness of breath, no orthopnea, no palpitations, no edema, no syncope, no dyspnea on exertion, no paroxysmal nocturnal dyspnea, no claudication Respiratory: shortness of breath, no cough, no dyspnea on exertion Gastrointestinal: nausea, no abdominal pain, no vomiting, no diarrhea, no constipation Genitourinary Male: no dysuria, no flank pain Musculoskeletal: no neck stiffness, no neck pain Integumentary: no rash, no wounds Neurological: no head injury, no paralysis, no weakness, no parathesias, no numbness, no tingling, no seizures, no syncope, no vertigo, no headaches Psychiatric: suicidal ideation Endocrine: no cold intolerance, no heat intolerance, no polydipsia, no polyuria Hematologic/Lymphatic: no easy bruising, no easy bleeding Allergic/Immunologic: no anaphylaxis Physical Examination Last Vital Signs Temp 97.3 F L 11/18/20 11:36 Pulse 52 L 11/18/20 11:36 Resp 20 11/18/20 11:36 BP 121/74 11/18/20 11:36 Pulse Ox 96 11/18/20 11:36 General appearance: no acute distress HEENT: Positive: EOMI, Normocephaly, Mucus Membranes Moist Neck: Positive: neck supple, trachea midline. Negative: JVD/HJR Cardiac: Positive: Reg Rate and Rhythm, S1/S2. Negative: Audible Murmur Lungs: Positive: clear to auscultation Neuro: Positive: Grossly Intact Abdomen: Positive: Soft. Negative: Tender Skin: Negative: Rash Musculoskeletal: No Pain Extremities: Present: lower extr. pulses. Absent: edema Results 11/17/20 17:44 11/17/20 17:44 Cardiac Enzymes 11/17/20 Range/Units 17:44 AST 13 (5-40) units/L CBC 11/17/20 Range/Units 17:44 WBC 6.0 (4.5-11.0) K/mm3 RBC 4.16 (3.65-5.03) M/mm3 Hgb 14.5 (11.8-15.2) gm/dl Hct 41.6 (35.5-45.6) % Plt Count 163 (140-440) K/mm3 Lymph # (Auto) 1.3 (1.2-5.4) K/mm3 [place] # (Auto) 0.5 (0.0-0.8) K/mm3 Eos # (Auto) 0.3 (0.0-0.4) K/mm3 Baso # (Auto) 0.0 (0.0-0.1) K/mm3 Comprehensive Metabolic Panel 11/17/20 Range/Units 17:44 Sodium 134 L (137-145) mmol/L Potassium 4.2 (3.6-5.0) mmol/L Chloride 98.2 (98-107) mmol/L Carbon Dioxide 21 L (22-30) mmol/L BUN 15 (9-20) mg/dL Creatinine 1.0 (0.8-1.3) mg/dL Glucose 81 (75-100) mg/dL Calcium 9.4 (8.4-10.2) mg/dL AST 13 (5-40) units/L ALT 8 (7-56) units/L Alkaline Phosphatase 75 (35-129) units/L Total Protein 7.5 (6.3-8.2) g/dL Albumin 4.4 (3.9-5) g/dL - Imaging and Cardiology Echo: report reviewed (09/02/2020 - EF 55-60%, mild LVH, mild diastolic dysfxn, RV mildly dilated, RA mildly dilated, no significant valvular abnormalities) Cardiac cath: report reviewed (2015 - normal coronaries) EKG: report reviewed, image reviewed - EKG Interpretation EKG: no acute changes EKG interpretations - EKG Sinus rhythms and dysrhythmias: sinus rhythm Assessment and Plan Lexiscan stress MPI 09/05/2020 - negative for ischemia. C 2016 - no evidence of significant coronary disease. Echo 09/02/2020 - EF 55-60%, mild LVH, mild diastolic dysfxn, RV mildly dilated, RA mildly dilated, no significant valvular abnormalities. Echo 05/2019 - EF 35-40%, mod LHV, impaired relaxation, trace AR, trace MR, tr melva TR, RVSP 37mmHg, mild dilatation of ascending aorta. AMI r/o. No plans for repeat ischemic workup at this time. Antihypertensives held in the setting of borderline low BP. Ultimately would like to start CCB. No BB due to h/o bradycardia. Otherwise stable cardiac status. Follow-up with Dr. Decker in our [place] office on 12/21/2020 @ 2:30pm ([phone]). Pt seen in conjunction with Dr. Alicia Cash, who agrees with the assessment and plan of care. - Patient Problems (1) Chest pain Current Visit: Yes Status: Acute (2) Suicidal ideations Current Visit: Yes Status: Acute (3) Bipolar disorder Current Visit: Yes Status: Chronic Qualifiers: Active/Remission status: currently active (4) Hypertension Current Visit: No Status: Chronic Qualifiers: Hypertension type: essential hypertension Qualified Code(s): I10 - Essential (primary) hypertension (5) Hyperlipidemia Current Visit: Yes Status: Chronic Qualifiers: Hyperlipidemia type: mixed hyperlipidemia Qualified Code(s): E78.2 - Mixed hyperlipidemia (6) H/O cardiomyopathy Current Visit: No Status: Chronic (7) COPD (chronic obstructive pulmonary disease) Current Visit: Yes Status: Chronic Qualifiers: COPD type: emphysema (8) Tobacco use Current Visit: Yes Status: Chronic (9) Chronic back pain Current Visit: Yes Status: Chronic (10) History of testicular cancer Current Visit: Yes Status: Chronic (11) Medical non-compliance Current Visit: Yes Status: Chronic
[2020-11-18] MEDS ORDERED: DULoxetine 30 MG CAP PO SCH (10:00)
[2020-11-18] MEDS ORDERED: GABAPENTIN 300 MG CAP PO SCH (10:00)
[2020-11-18] MEDS ORDERED: THIAMINE 100 MG TAB PO SCH (10:00)
[2020-11-18] MEDS ORDERED: MULTIVITAMINS ,THERAPEUTIC TAB PO SCH (10:00)
[2020-11-18] MEDS ORDERED: FOLIC ACID 1 MG TAB PO SCH (10:00)
[2020-11-18] MEDS ORDERED: CYANOCOBALAMIN (VIT B-12) 1000 MCG TAB PO SCH (10:00)
[2020-11-18] MEDS ORDERED: ASPIRIN 325 MG TAB PO SCH (10:00)
[2020-11-18] MEDS ORDERED: LISINOPRIL 10 MG TAB PO SCH (10:00)
[2020-11-18] MEDS ORDERED: NICOTINE 14 MG/24 HR PATCH TD SCH (10:00)
--- NOTE | 2020-11-18 10:28 | Consultation ---
History of Present Illness - Reason for Consult Consult date: 11/18/20 Reason for consult: MHE Requesting physician: BIANCA MICHAEL - Chief Complaint Chief complaint: SI, CP - History of Present Psychiatric Illness Per ED Provider:The patient is a 65-year-old male present with a chief complaint of chest pain and suicidal ideation. Patient states he has felt suicidal for the past 2 to 3 days. Patient states his plan was to walk into traffic. Patient denies any active attempts at harming self. The patient states today at noon he developed left-sided chest pain described as sharp and intermittent in nature. Patient admits to slight shortness of breath and diaphoresis with this chest pain but denies nausea/vomiting. Patient currently gets his chest pain a score of 7/10. Patient states he has had an occasional cough for the past 2 to 3 days productive of green sputum. Patient denies history of fever. Patient states he has had 2 heart attacks in the past and received a cardiac catheterization 3 months ago at the [facility] where they saw "small blockages" PER HPI Patient is a 64-year-old unemployed currently on disability income male who resides in a [facility] with past psychiatric history of bipolar, anxiety and depression and past medical history of hypertension, chronic back pain, cardiomyopathy presents to ED with complaints of chest pain and SI, similar to previous presentations and well known to me. Patient presents as suicidal ideation, says he was on traffic the other and feeling suicidal and claims he does not know why neither does he have a reason for this but he is suicidal. PAST PSYCHIATRIC HISTORY: Diagnoses: Bipolar disorder Suicide attempts or Self-harm behavior: yes Prior psychiatric hospitalizations: yes Substance Abuse history: Alcohol Previous psychiatric medications tried: Cymbalta Outpatient treatment: Yes, at the [facility] Family Psychiatric History None reported or documented SOCIAL HISTORY Marital Status: Living Arrangements: [facility] Employment Status: disabled Access to guns/weapons: patient denies Education: college History of Abuse: patient denies Legal History: patient denies ROS: Constitutional: Negative for weight loss ENT: Negative for stridor Respiratory: Negative for cough or hemoptysis All other systems reviewed and are negative MENTAL STATUS EXAMINATION General Appearance and Behavior: Age appropriate, good hygiene, wearing appropriate clothes,, good eye contact Cooperation: Participating/engaged, but Guarded Psychomotor Behavior: Psychomotor normal Mood: dont know Affect and affective range: euthymic Thought Process: illogical Thought Content: illogical Speech: Normal rate, volume and rythm Intellectual Functioning: Average Suicidal Ideation: SI Homicidal Ideation: Denies HI Impulse Control: unimpaired Insight and Judgment: normal insight and judgment Memory: Normal Attention: Normal Orientation: Alert, oriented - Psychiatric problem (1) Bipolar 1 disorder, depressed, severe Current Visit: Yes Status: Acute (2) Alcohol use disorder,, dependence Current Visit: Yes Status: Acute Patient recenlty admitted adn discharged from [facility] 10/22. Patient has presented to ED multiple times this year, with intervention and psychiatric placement and most recently last month for similar concenr. Patient is malingering and [facility] These risk factors are not currently modifiable with acute inpatient psychiatric hospitalization. Patient barely follows up outpt for counselling services/Therapy. At this time, based on chronicity, outpt therapy recommended Protective factors include access to care, no history of suicide attempts, and disability income. Treatment Plan Outpt psychiatrist follow up and counselling. MEDICATIONS: Risks, benefits and alternatives of medications discussed with the patient, questions answered and consent obtained from patient. PSYCHOTHERAPY: Supportive psychotherapy provided MEDICAL: Per primary team DELIRIUM PRECAUTIONS: Please re-orient patient frequently, keep lights on during the day, and minimize benzodiazepines and opiates as these medications could worsen patient's confusion. REPLENISHMENT ANALYST: DISPOSITION: Do not Recommend acute inpatient psychiatric hospitalization at this time. Case discussed with Dr. Gonzalez who agrees with current disposition LEGAL STATUS: 1013 rescinded FOLLOW-UP: Will sign off Thank you for the consult. Please contact with any questions and/or concerns. Medications and Allergies Allergies Allergy/AdvReac Type Severity Reaction Status Date / Time ketorolac tromethamine Allergy Rash Verified 11/17/20 17:14 [From Toradol] Home Medications Medication Instructions Recorded Confirmed Last Taken Type methOCARBAMOL [Robaxin TAB] 750 mg PO BID PRN 04/19/20 11/18/20 Unknown History Multivitamin Tab [Multiple Vitamin 1 each PO DAILY #30 tablet 04/25/20 11/18/20 Unknown Rx TAB (Theragran)] Thiamine [Vitamin B-1] 100 mg PO QDAY #30 tab 04/25/20 11/18/20 Unknown Rx Acetaminophen [Acetaminophen TAB] 650 mg PO Q4H PRN tablet 09/05/20 11/18/20 Unknown Rx Albuterol Sulfate [Proair 2 puff INHALATION Q4HR PRN #1 09/05/20 11/18/20 Unknown Rx Respiclick] Aspirin 325 mg PO QDAY #30 tablet 09/05/20 11/18/20 Unknown Rx AtorvaSTATin [Lipitor] 20 mg PO QHS #30 tablet 09/05/20 11/18/20 Unknown Rx Cyanocobalamin [Vitamin B-12] 1,000 mcg PO DAILY #30 tab 09/05/20 11/18/20 Unknown Rx Gabapentin 300 mg PO BID #60 capsule 09/05/20 11/18/20 Unknown Rx lisinopriL [Zestril TAB] 10 mg PO QDAY #30 09/05/20 11/18/20 Unknown Rx oxyCODONE /ACETAMINOPHEN [Percocet 1 tab PO Q6H PRN #10 tablet 09/05/20 11/18/20 Unknown Rx 5/325 mg] DULoxetine [Cymbalta] 30 mg PO DAILY #30 cap 10/22/20 11/18/20 Unknown Rx Divalproex [Philip Fry] 250 mg PO BID 11/18/20 11/18/20 Unknown History OLANzapine [ZyPREXA] 10 mg PO QHS 11/18/20 11/18/20 Unknown History Pantoprazole Sodium 1 tab PO DAILY 11/18/20 11/18/20 Unknown History Trazodone HCl 50 mg PO QHS PRN 11/18/20 11/18/20 Unknown History clonazePAM [ Klonopin] 0.5 mg PO BID 11/18/20 11/18/20 Unknown History Active Meds: Active Medications Acetaminophen (Acetaminophen 325 Mg Tab) 650 mg PO Q6H PRN PRN Reason: Pain, Mild (1-3) Albuterol (Albuterol 2.5 Mg/3 Ml Nebu) 2.5 mg IH Q4HRT PRN PRN Reason: Shortness Of Breath Aspirin (Aspirin 325 Mg Tab) 325 mg PO QDAY [facility] Last Admin: 11/18/20 09:31 Dose: 325 mg Documented by: Atorvastatin Calcium (Atorvastatin 20 Mg Tab) 20 mg PO QHS CHLOÉ Bisacodyl (Bisacodyl 10 Mg Rect Supp) 10 mg MT QDAY PRN PRN Reason: Constipation unrelieved by MOM Cyanocobalamin (Cyanocobalamin (Vit B-12) 1000 Mcg Tab) 1,000 mcg PO DAILY [facility] Last Admin: 11/18/20 09:31 Dose: 1,000 mcg Documented by: Duloxetine HCl (Duloxetine 30 Mg Cap) 30 mg PO DAILY [facility] Last Admin: 11/18/20 09:31 Dose: 30 mg Documented by: Folic Acid (Folic Acid 1 Mg Tab) 1 mg PO QDAY [facility] Last Admin: 11/18/20 09:31 Dose: 1 mg Documented by: Gabapentin (Gabapentin 300 Mg Cap) 300 mg PO BID [facility] Last Admin: 11/18/20 09:31 Dose: 300 mg Documented by: Lorazepam (Lorazepam 2 Mg/Ml Vial) 2 mg IV Q1H PRN PRN Reason: CIWA-Ar 8-15 Morphine Sulfate (Morphine 2 Mg/1 Ml Inj) 2 mg IV Q5MIN PRN PRN Reason: Chest Pain Last Admin: 11/18/20 10:15 Dose: 2 mg Documented by: Multivitamins (Multivitamins ,Therapeutic Tab) 1 each PO DAILY [facility] Last Admin: 11/18/20 09:31 Dose: 1 each Documented by: Nicotine (Nicotine 14 Mg/24 Hr Patch) 14 mg TD QDAY [facility] Last Admin: 11/18/20 09:30 Dose: 14 mg Documented by: Nitroglycerin (Nitroglycerin 0.4 Mg Tab Subl) 0.4 mg SL Q5M PRN PRN Reason: Chest Pain Ondansetron HCl (Ondansetron 4 Mg/2 Ml Inj) 4 mg IV Q6H PRN PRN Reason: Nausea And Vomiting Sodium Chloride (Sodium Chloride 0.9% 10 Ml Flush Syringe) 10 ml IV PRN PRN PRN Reason: LINE FLUSH Last Admin: 11/18/20 05:02 Dose: 10 ml Documented by: Sodium Chloride (Sodium Chloride 0.9% 10 Ml Flush Syringe) 10 ml IV BID [facility] Last Admin: 11/18/20 09:31 Dose: 10 ml Documented by: Sodium Chloride (Sodium Chloride 0.9% 10 Ml Flush Syringe) 10 ml IV PRN PRN PRN Reason: LINE FLUSH Thiamine HCl (Thiamine 100 Mg Tab) 100 mg PO QDAY [facility] Last Admin: 11/18/20 09:31 Dose: 100 mg Documented by: Tramadol HCl (Tramadol 50 Mg Tab) 50 mg PO Q6H PRN PRN Reason: Pain, Moderate (4-6) Mental Status Exam - Vital signs Last Vital Signs Temp 97.9 F 11/18/20 04:27 Pulse 74 11/18/20 09:31 Resp 17 11/18/20 10:15 BP 110/65 11/18/20 09:31 Pulse Ox 88 11/18/20 08:30 Results Result Diagrams: 11/17/20 17:44 11/17/20 17:44 Abnormal lab results 11/17/20 11/17/20 11/17/20 Range/Units 17:44 17:44 21:36 MCV 100 H (84-94) fl MCH 35 H (28-32) pg MCHC 35 H (32-34) % RDW 12.8 L (13.2-15.2) % [place] % (Auto) 7.5 H (0.0-7.3) % Sodium 134 L (137-145) mmol/L Carbon Dioxide 21 L (22-30) mmol/L Salicylates < 0.3 L (2.8-20.0) mg/dL Acetaminophen (10.0-30.0) ug/mL 11/17/20 Range/Units 21:36 MCV (84-94) fl MCH (28-32) pg MCHC (32-34) % RDW (13.2-15.2) % [place] % (Auto) (0.0-7.3) % Sodium (137-145) mmol/L Carbon Dioxide (22-30) mmol/L Salicylates (2.8-20.0) mg/dL Acetaminophen 5.0 L (10.0-30.0) ug/mL All other labs normal.
--- NOTE | 2020-11-18 12:14 | Discharge Summary ---
Providers - Providers Date of Admission: 11/17/20 22:39 Attending physician: BIANCA MICHAEL MD 11/17/20 23:14 Consult to Physician [CONS] Routine Comment: Consulting Provider: SHAMIR SMITH Physician Instructions: Reason For Exam: est pt, c/o atypical cp 11/17/20 23:16 Consult to Mental Health [CONS] Routine Reason For Exam: 1013 SI, hx depression & anxiety 11/18/20 09:24 Consult to Physician [CONS] Routine Comment: Consulting Provider: STEPHANIE LIZ Physician Instructions: Reason For Exam: suicidal ideation Primary care physician: DICE SPOTTER Hospitalization Reason for admission: Chest pain Condition: Stable Hospital course: 65-year-old with complaints of suicidal ideation and chest pain. Patient compl ains of sharp 7/10 left-sided chest pain with radiation to left shoulder. The pain is constant, aggravated with exertion, and relieved with pain meds. Endorses mild dyspnea and diaphoresis with chest pain, but denies nausea and vomiting. Additionally patient complains of suicidal ideation for the past 2 to 3 days. Patient states that he is going to walk out into oncoming traffic so he can get hit by a car, and if that does not work he will get access to a gun and end his life. He stated that he will not attempt any self harm behavior while inpatient at our facility as long as he gets to see the mental health counselor in the morning. Endorses occasional chronic cough with clear to green sputum production. Review of medical record shows patient was admitted to [facility] ED in October for suicidal ideation. At the time of discharge she was advised to follow- up with PCP and psychiatrist within a week. Is unsure whether the patient was able to follow-up as instructed. Denies nausea, vomiting, diaphoresis, palpitations, headache, abdominal pain, fever, chills, dysuria, HI, or recent sick contacts Patient this morning is in no acute distress. Resting comfortably. Following discussion with the patient he verbalized to me that he just wants some pain medication. See can see below psych evaluation is as noted - Psychiatric problem (1) Bipolar 1 disorder, depressed, severe Current Visit: Yes Status: Acute (2) Alcohol use disorder,, dependence Current Visit: Yes Status: Acute Patient recenlty admitted adn discharged from [facility] 10/22. Patient has presented to ED multiple times this year, with intervention and psychiatric placement and most recently last month for similar concenr. Patient is malingering and [facility]. These risk factors are not currently modifiable with acute inpatient psychiatric hospitalization. Patient barely follows up outpt for counselling services/Therapy. At this time, based on chronicity, outpt therapy recommended [employer] also evaluated the patient Protective factors include access to care, no history of suicide attempts, and disability income. Lexiscan stress MPI 09/05/2020 - negative for ischemia. LHC 2016 - no evidence of significant coronary disease. Echo 09/02/2020 - EF 55-60%, mild LVH, mild diastolic dysfxn, RV mildly dilated, RA mildly dilated, no significant valvular abnormalities. Echo 05/2019 - EF 35-40%, mod LHV, impaired relaxation, trace AR, trace MR, trace TR, RVSP 37mmHg, mild dilatation of ascending aorta. AMI r/o. No plans for repeat ischemic workup at this time. Antihypertensives held in the setting of borderline low BP. Ultimately would like to start CCB. No BB due to h/o bradycardia. I discussed extensively with the patient the importance of following up he verbalized understanding also discussed with him to check his blood pressure and keep a record of it. Discharge diagnosis (1) atypical chest pain secondary to costochondritis Current Visit: Yes Status: Acute (2) Suicidal ideations Current Visit: Yes Status: Acute (3) Bipolar disorder Current Visit: Yes Status: Chronic Qualifiers: Active/Remission status: currently active (4) Hypertension Current Visit: No Status: Chronic Qualifiers: Hypertension type: essential hypertension Qualified Code(s): I10 - Essential (primary) hypertension (5) Hyperlipidemia Current Visit: Yes Status: Chronic Qualifiers: Hyperlipidemia type: mixed hyperlipidemia Qualified Code(s): E78.2 - Mixed hyperlipidemia (6) H/O cardiomyopathy Current Visit: No Status: Chronic (7) COPD (chronic obstructive pulmonary disease) Current Visit: Yes Status: Chronic Qualifiers: COPD type: emphysema (8) Tobacco use Current Visit: Yes Status: Chronic (9) Chronic back pain Current Visit: Yes Status: Chronic (10) History of testicular cancer Current Visit: Yes Status: Chronic Disposition: - TO HOME OR SELFCARE Final Discharge Diagnosis (Prints w/discharge instructions): Atypical chest pain secondary to costochondritis with depression Time spent for discharge: 35 minutes Core Measure Documentation - Palliative Care Palliative Care/ Comfort Measures: Not Applicable - Core Measures Any of the following diagnoses?: none Exam - Physical Exam Narrative exam: VITAL SIGNS: Reviewed. GENERAL: The patient appears normally developed, Vital signs as documented. HEAD: No signs of head trauma. EYES: Pupils are equal. Extraocular motions intact. EARS: Hearing grossly intact. MOUTH: Oropharynx is normal. NECK: No adenopathy, no JVD. CHEST: Chest with clear breath sounds bilaterally. No wheezes, rales, or rhonchi. CARDIAC: Regular rate and rhythm. S1 and S2, without murmurs, gallops, or rubs. VASCULAR: No Edema. Peripheral pulses normal and equal in all extremities. ABDOMEN: Soft, non tender and non distended. No rebound or guarding, and no masses palpated. Bowel Sounds normal. MUSCULOSKELETAL: Good range of motion of all major joints. Extremities without clubbing, cyanosis or edema. NEUROLOGIC EXAM: Alert and oriented x 3 No focal sensory or strength deficits. Speech normal. Follows commands. PSYCHIATRIC: Mood normal. SKIN: detail exam as documented in skin assessment - Constitutional Vitals: Temp Pulse Resp BP Pulse Ox 97.9 F 74 14 110/65 88 11/18/20 04:27 11/18/20 09:31 11/18/20 10:45 11/18/20 09:31 11/18/20 08:30 Plan Activity: advance as tolerated, fall precautions Diet: low fat Special Instructions: record daily weights, record daily BP diary Plan of Treatment: Hospital alcohol and tobacco use counseling provided for 15 minutes. Must follow-up with recommended outpatient follow-ups. Follow up with: DIANE HOOPER MD [Primary Care Provider] - 7 Days VANNESSA PÉREZ MD [Staff Physician] - 7 Days STEPHANIE LIZ MD [Staff Physician] - 7 Days Prescriptions: Folic Acid [Folvite] 1 mg PO QDAY #30 tablet Nicotine [Habitrol] 14 mg TD QDAY #30 patch Amlodipine Besylate [Norvasc] 2.5 mg PO DAILY #30 tablet traMADoL [Ultram] 50 mg PO Q6HR PRN #10 tablet PRN Reason: Pain
[2020-11-18 12:22] VITALS: BP 121/74
--- NOTE | 2020-11-24 11:09 | Electrocardiograph Report ---
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
--- NOTE | 2020-11-24 11:15 | Electrocardiograph Report ---
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
--- NOTE | 2020-11-24 11:17 | Electrocardiograph Report ---
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
== END 2020-11-18 17:14 | disposition home or self-care (01) ==
LOC: ED 16:24 → 4A 22:39
PROVIDERS: ADMIT Internal Medicine Geriatric Medicine; ATTEND Internal Medicine
DX: R07.89 Other chest pain (principal); R45.851 Suicidal ideations; F31.9 Bipolar disorder, unspecified; F41.9 Anxiety disorder, unspecified; I10 Essential (primary) hypertension; R00.1 Bradycardia, unspecified; F17.210 Nicotine dependence, cigarettes, uncomplicated; I25.2 Old myocardial infarction; G89.29 Other chronic pain; M54.2 Cervicalgia; I48.91 Unspecified atrial fibrillation; I42.9 Cardiomyopathy, unspecified; J44.9 Chronic obstructive pulmonary disease, unspecified; E78.5 Hyperlipidemia, unspecified; Z85.47 Personal history of malignant neoplasm of testis; Z79.899 Other long term (current) drug therapy; Z98.890 Other specified postprocedural states; Z79.82 Long term (current) use of aspirin; Z90.49 Acquired absence of other specified parts of digestive tract; Z95.1 Presence of aortocoronary bypass graft; Z91.14 Patient's other noncompliance with medication regimen
CPT/HCPCS: 36415; 71046; 80053; 80307; 84484; 85025; 93005; 96374; 96375; 96376; 99285; G0378; J2270; J2405; J3010; 80048; 80320; G0480

== ENCOUNTER 2020-11-20 15:21 | Emergency (ER) | payer MEDICARE ==
[2020-11-20 18:13] LABS: Basophils % (Auto) 0.4 % (0.0-1.8); Eosinophils # (Auto) 0.2 K/mm3 (0.0-0.4); Eosinophils % (Auto) 5.2 % (0.0-4.3); Hematocrit 40.1 % (35.5-45.6); Hemoglobin 14.1 gm/dl (11.8-15.2); Lymphocytes # (Auto) 1.2 K/mm3 (1.2-5.4); Lymphocytes % (Auto) 25.5 % (13.4-35.0); Mean Corpuscular HGB Conc 35 % (32-34); Mean Corpuscular Volume 100 fl (84-94); Monocytes # (Auto) 0.4 K/mm3 (0.0-0.8); Monocytes % (Auto) 7.6 % (0.0-7.3); Platelet Count 146 K/mm3 (140-440); Red Blood Count 4.01 M/mm3 (3.65-5.03); Red Cell Distribution Width 12.8 % (13.2-15.2)
[2020-11-20 18:25] LABS: Alanine Aminotransferase 8 units/L (7-56); Albumin 4.6 g/dL (3.9-5); BUN/Creatinine Ratio 24; Blood Urea Nitrogen 22 mg/dL (9-20); Calcium 9.4 mg/dL (8.4-10.2); Hemolysis Index 10
--- NOTE | 2020-11-20 18:56 | XRay Report ---
CHEST 2 VIEWS INDICATION / CLINICAL INFORMATION: chest pain. COMPARISON: Chest radiograph 11/17/2020 FINDINGS: SUPPORT DEVICES: None. HEART / MEDIASTINUM: No significant abnormality. LUNGS / PLEURA: No significant pulmonary or pleural abnormality. No pneumothorax. ADDITIONAL FINDINGS: Fixation hardware in the lower thoracic spine. IMPRESSION: 1. No acute findings. Signer Name: Kemi Guzman MD Signed: 11/20/2020 6:52 PM Workstation Name: [id number]
--- NOTE | 2020-11-21 14:55 | Emergency Department Report ---
ED General Adult HPI - General Chief complaint: Psych Stated complaint: Can you refill my Tylenol 3? PUI?: No Time Seen by Provider: 11/21/20 14:34 Source: patient, EMS ( EMS documentation not available at time of chart d ictation ), RN notes reviewed, old records reviewed Mode of arrival: Ambulatory Limitations: No Limitations - History of Present Illness Initial comments: The patient was evaluated in the emergency department for symptoms described in the history of present illness. He/she was evaluated in the context of the global COVID-19 pandemic, which necessitated consideration that the patient might be at risk for infection with the virus that causes COVID-19. Institutional protocols and algorithms that pertain to the evaluation of patients at risk for COVID-19 are in a state of rapid change based on informatio n released by regulatory bodies including the CDC and federal and state organizations. These policies and algorithms were followed during the patient's care in the emergency department. Please note that these policies, procedures and recommendations changed on a rapid basis. This is a 65-year-old gentleman. The patient is a frequent utilizer of this emergency department. He was recently admitted to this hospital for chest pain. The psychiatry team saw this patient, and diagnosed him with malingering. The cardiology team also saw this patient, and as per their documentation and recommendations: Nuclear stress test August 2020: Negative for ischemia Left heart catheterization, 2016: No evidence of coronary artery disease. Echo, September 02, 2020: Ejection fraction 55 to 60%. CTA chest, May 2019: Negative for acute findings. Nuclear medicine study for pulmonary embolism, 2019: Low probability for pulmonary embolism. The patient was just discharged from this hospital on November 18. He presented to the ER with complaints of poorly characterized chest pain, and resolved suicidality. The patient denies headache, neck pain, abdominal pain, loss of taste and smell. He is asking for his Tylenol 3 to be refilled. He states he is not having hallucinations. -: Gradual, week(s), month(s) Location: chest Consistency: constant Improves with: none Worsens with: none - Related Data Home Medications Medication Instructions Recorded Confirmed Last Taken methOCARBAMOL [Robaxin TAB] 750 mg PO BID PRN 04/19/20 11/18/[address] [Depakote Dr] 250 mg PO BID 11/18/20 11/18/20 Unknown OLANzapine [Zyprexa] 10 mg PO QHS 11/18/20 11/18/20 Unknown Pantoprazole Sodium 1 tab PO DAILY 11/18/20 11/18/20 Unknown Trazodone HCl 50 mg PO QHS PRN 11/18/20 11/18/20 Unknown clonazePAM [KlonoPIN] 0.5 mg PO BID 11/18/20 11/18/20 Unknown Previous Rx's Medication Instructions Recorded Last Taken Type Multivitamin Tab [Multiple Vitamin 1 each PO DAILY #30 tablet 04/25/20 Unknown Rx TAB (Theragran)] Thiamine [Vitamin B-1] 100 mg PO QDAY #30 tab 04/25/20 Unknown Rx Acetaminophen [Acetaminophen TAB] 650 mg PO Q4H PRN tablet 09/05/20 Unknown Rx Albuterol Sulfate [Proair 2 puff INHALATION Q4HR PRN #1 09/05/20 Unknown Rx Respiclick] Aspirin 325 mg PO QDAY #30 tablet 09/05/20 Unknown Rx AtorvaSTATin [Lipitor] 20 mg PO QHS #30 tablet 09/05/20 Unknown Rx Cyanocobalamin [Vitamin B-12] 1,000 mcg PO DAILY #30 tab 09/05/20 Unknown Rx Gabapentin 300 mg PO BID #60 capsule 09/05/20 Unknown Rx lisinopriL [Zestril TAB] 10 mg PO QDAY #30 09/05/20 Unknown Rx DULoxetine [Cymbalta] 30 mg PO DAILY #30 cap 10/22/20 Unknown Rx Amlodipine Besylate [Norvasc] 2.5 mg PO DAILY #30 tablet 11/18/20 Unknown Rx Folic Acid [Folvite] 1 mg PO QDAY #30 tablet 11/18/20 Unknown Rx Nicotine [Habitrol] 14 mg TD QDAY #30 patch 11/18/20 Unknown Rx traMADoL [Ultram] 50 mg PO Q6HR PRN #10 tablet 11/18/20 Unknown Rx Allergies Allergy/AdvReac Type Severity Reaction Status Date / Time ketorolac tromethamine Allergy Rash Verified 11/17/20 17:14 [From Toradol] ED Review of Systems ROS: Stated complaint: CHEST PAIN Other details as noted in HPI Constitutional: denies: fever Respiratory: denies: wheezing Cardiovascular: chest pain Gastrointestinal: denies: vomiting Neurological: denies: weakness Psychiatric: denies: auditory hallucinations, visual hallucinations ED Past Medical Hx - Past Medical History Hx Hypertension: Yes Hx Heart Attack/AMI: Yes ([place] x 2, palpitations) Hx Congestive Heart Failure: No Hx Diabetes: No Hx Renal Disease: No Hx Arthritis: No Hx Seizures: No Hx Psychiatric Treatment: Yes (Anxiety, Bipolar) Hx Asthma: No Hx COPD: No Hx Dementia: No Additional medical history: Degenerative disc disease. History of A. fib status post cardiac ablation as per patient - Surgical History Hx Cholecystectomy: Yes Additional Surgical History: Multiple back surgeries secondary to degenerative disc disease - Social History Smoking Status: Current Every Day Smoker Substance Use Type: Alcohol - Medications Home Medications: Home Medications Medication Instructions Recorded Confirmed Last Taken Type methOCARBAMOL [Robaxin TAB] 750 mg PO BID PRN 04/19/20 11/18/20 Unknown History Multivitamin Tab [Multiple Vitamin 1 each PO DAILY #30 tablet 04/25/20 11/18/20 Unknown Rx TAB (Theragran)] Thiamine [Vitamin B-1] 100 mg PO QDAY #30 tab 04/25/20 11/18/20 Unknown Rx Acetaminophen [Acetaminophen TAB] 650 mg PO Q4H PRN tablet 09/05/20 11/18/20 Unknown Rx Albuterol Sulfate [Proair 2 puff INHALATION Q4HR PRN #1 09/05/20 11/18/20 Unknown Rx Respiclick] Aspirin 325 mg PO QDAY #30 tablet 09/05/20 11/18/20 Unknown Rx AtorvaSTATin [Lipitor] 20 mg PO QHS #30 tablet 09/05/20 11/18/20 Unknown Rx Cyanocobalamin [Vitamin B-12] 1,000 mcg PO DAILY #30 tab 09/05/20 11/18/20 Unkn own Rx Gabapentin 300 mg PO BID #60 capsule 09/05/20 11/18/20 Unknown Rx lisinopriL [Zestril TAB] 10 mg PO QDAY #30 09/05/20 11/18/20 Unknown Rx DULoxetine [Cymbalta] 30 mg PO DAILY #30 cap 10/22/20 11/18/20 Unknown Rx Amlodipine Besylate [Norvasc] 2.5 mg PO DAILY #30 tablet 11/18/20 Unknown Rx Divalproex [Philip Fry] 250 mg PO BID 11/18/20 11/18/20 Unknown History Folic Acid [Folvite] 1 mg PO QDAY #30 tablet 11/18/20 Unknown Rx Nicotine [Habitrol] 14 mg TD QDAY #30 patch 11/18/20 Unknown Rx OLANzapine [Zyprexa] 10 mg PO QHS 11/18/20 11/18/20 Unknown History Pantoprazole Sodium 1 tab PO DAILY 11/18/20 11/18/20 Unknown History Trazodone HCl 50 mg PO QHS PRN 11/18/20 11/18/20 Unknown History clonazePAM [KlonoPIN] 0.5 mg PO BID 11/18/20 11/18/20 Unknown History traMADoL [Ultram] 50 mg PO Q6HR PRN #10 tablet 11/18/20 Unknown Rx ED Physical Exam - General Limitations: No Limitations General appearance: alert, in no apparent distress - Head Head exam: Present: atraumatic, normocephalic - Eye Eye exam: Present: normal appearance, EOMI. Absent: nystagmus - ENT ENT exam: Present: normal exam, normal orophraynx, mucous membranes moist, normal external ear exam - Neck Neck exam: Present: normal inspection, full ROM. Absent: tenderness, meningismus - Respiratory Respiratory exam: Present: normal lung sounds bilaterally. Absent: respiratory distress, wheezes, rales, rhonchi, stridor, decreased breath sounds - Cardiovascular Cardiovascular Exam: Present: regular rate, normal rhythm, normal heart sounds. Absent: bradycardia, tachycardia, irregular rhythm, systolic murmur, diastolic murmur, rubs, gallop - GI/Abdominal GI/Abdominal exam: Present: soft. Absent: distended, tenderness, guarding, rebound, rigid, pulsatile mass - Rectal Rectal exam: Present: deferred - Extremities Exam Extremities exam: Present: normal inspection, full ROM, other (2+ pulses noted in the bilateral upper and lower extremities. There is no palpable cord. negative Homans sign. Muscular compartments are soft. The pelvis is stable.). Absent: pedal edema, calf tenderness - Back Exam Back exam: Present: normal inspection, full ROM. Absent: tenderness, CVA tenderness (R), CVA tenderness (L), paraspinal tenderness, vertebral tenderness - Neurological Exam Neurological exam: Present: alert, oriented X3, normal gait, other (No facial droop. Tongue midline. Extraocular movements intact bilaterally. Facial sensation intact to light touch in V1, V2, V3 distribution bilaterally. 5 and a 5 strength in 4 extremities. Sensation intact to light touch in 4 extremities.). Absent: motor sensory deficit - Psychiatric Psychiatric exam: Absent: homicidal ideation - Skin Skin exam: Present: warm, dry, intact, normal color. Absent: rash ED Course Vital Signs 11/20/20 11/21/20 17:22 15:03 Temperature 97.9 F 98.6 F Pulse Rate 82 75 Respiratory 18 18 Rate Blood Pressure 123/76 Blood Pressure 129/85 [Left] O2 Sat by Pulse 100 99 Oximetry ED Medical Decision Making - Lab Data Result diagrams: 11/20/20 17:39 11/20/20 17:39 Vital Signs 11/20/20 11/21/20 17:22 15:03 Temperature 97.9 F 98.6 F Pulse Rate 82 75 Respiratory 18 18 Rate Blood Pressure 123/76 Blood Pressure 129/85 [Left] O2 Sat by Pulse 100 99 Oximetry Lab Results 11/20/20 11/20/20 11/20/20 Range/Units 17:39 17:39 17:39 WBC (4.5-11.0) K/mm3 RBC (3.65-5.03) M/mm3 Hgb (11.8-15.2) gm/dl Hct (35.5-45.6) % MCV (84-94) fl MCH (28-32) pg MCHC (32-34) % RDW (13.2-15.2) % Plt Count (140-440) K/mm3 Lymph % (Auto) (13.4-35.0) % [place] % (Auto) (0.0-7.3) % Eos % (Auto) (0.0-4.3) % Baso % (Auto) (0.0-1.8) % Lymph # (Auto) (1.2-5.4) K/mm3 [place] # (Auto) (0.0-0.8) K/mm3 Eos # (Auto) (0.0-0.4) K/mm3 Baso # (Auto) (0.0-0.1) K/mm3 Seg Neutrophils % (40.0-70.0) % Seg Neutrophils # (1.8-7.7) K/mm3 Sodium 137 (137-145) mmol/L Potassium 4.4 (3.6-5.0) mmol/L Chloride 100.0 (98-107) mmol/L Carbon Dioxide 22 (22-30) mmol/L Anion Gap 19 mmol/L BUN 22 H (9-20) mg/dL Creatinine 0.9 (0.8-1.3) mg/dL Estimated GFR > 60 ml/min BUN/Creatinine Ratio 24 % Glucose 79 (75-100) mg/dL Calcium 9.4 (8.4-10.2) mg/dL Total Bilirubin 0.20 (0.1-1.2) mg/dL AST 13 (5-40) units/L ALT 8 (7-56) units/L Alkaline Phosphatase 77 (35-129) units/L Troponin T < 0.010 (0.00-0.029) ng/mL Total Protein 7.5 (6.3-8.2) g/dL Albumin 4.6 (3.9-5) g/dL Albumin/Globulin Ratio 1.6 % Salicylates < 0.3 L (2.8-20.0) mg/dL Acetaminophen 5.0 L (10.0-30.0) ug/mL Plasma/Serum Alcohol (0-0.07) % 11/20/20 11/20/20 11/20/20 Range/Units 17:39 17:39 20:06 WBC 4.7 (4.5-11.0) K/mm3 RBC 4.01 (3.65-5.03) M/mm3 Hgb 14.1 (11.8-15.2) gm/dl Hct 40.1 (35.5-45.6) % MCV 100 H (84-94) fl MCH 35 H (28-32) pg MCHC 35 H (32-34) % RDW 12.8 L (13.2-15.2) % Plt Count 146 (140-440) K/mm3 Lymph % (Auto) 25.5 (13.4-35.0) % [place] % (Auto) 7.6 H (0.0-7.3) % Eos % (Auto) 5.2 H (0.0-4.3) % Baso % (Auto) 0.4 (0.0-1.8) % Lymph # (Auto) 1.2 (1.2-5.4) K/mm3 [place] # (Auto) 0.4 (0.0-0.8) K/mm3 Eos # (Auto) 0.2 (0.0-0.4) K/mm3 Baso # (Auto) 0.0 (0.0-0.1) K/mm3 Seg Neutrophils % 61.3 (40.0-70.0) % Seg Neutrophils # 2.9 (1.8-7.7) K/mm3 Sodium (137-145) mmol/L Potassium (3.6-5.0) mmol/L Chloride (98-107) mmol/L Carbon Dioxide (22-30) mmol/L Anion Gap mmol/L BUN (9-20) mg/dL Creatinine (0.8-1.3) mg/dL Estimated GFR ml/min BUN/Creatinine Ratio % Glucose (75-100) mg/dL Calcium (8.4-10.2) mg/dL Total Bilirubin (0.1-1.2) mg/dL AST (5-40) units/L ALT (7-56) units/L Alkaline Phosphatase (35-129) units/L Troponin T < 0.010 (0.00-0.029) ng/mL Total Protein (6.3-8.2) g/dL Albumin (3.9-5) g/dL Albumin/Globulin Ratio % Salicylates (2.8-20.0) mg/dL Acetaminophen (10.0-30.0) ug/mL Plasma/Serum Alcohol 0.10 H (0-0.07) % 11/21/20 Range/Units 00:35 WBC (4.5-11.0) K/mm3 RBC (3.65-5.03) M/mm3 Hgb (11.8-15.2) gm/dl Hct (35.5-45.6) % MCV (84-94) fl MCH (28-32) pg MCHC (32-34) % RDW (13.2-15.2) % Plt Count (140-440) K/mm3 Lymph % (Auto) (13.4-35.0) % [place] % (Auto) (0.0-7.3) % Eos % (Auto) (0.0-4.3) % Baso % (Auto) (0.0-1.8) % Lymph # (Auto) (1.2-5.4) K/mm3 [place] # (Auto) (0.0-0.8) K/mm3 Eos # (Auto) (0.0-0.4) K/mm3 Baso # (Auto) (0.0-0.1) K/mm3 Seg Neutrophils % (40.0-70.0) % Seg Neutrophils # (1.8-7.7) K/mm3 Sodium (137-145) mmol/L Potassium (3.6-5.0) mmol/L Chloride (98-107) mmol/L Carbon Dioxide (22-30) mmol/L Anion Gap mmol/L BUN (9-20) mg/dL Creatinine (0.8-1.3) mg/dL Estimated GFR ml/min BUN/Creatinine Ratio % Glucose (75-100) mg/dL Calcium (8.4-10.2) mg/dL Total Bilirubin (0.1-1.2) mg/dL AST (5-40) units/L ALT (7-56) units/L Alkaline Phosphatase (35-129) units/L Troponin T < 0.010 (0.00-0.029) ng/mL Total Protein (6.3-8.2) g/dL Albumin (3.9-5) g/dL Albumin/Globulin Ratio % Salicylates (2.8-20.0) mg/dL Acetaminophen (10.0-30.0) ug/mL Plasma/Serum Alcohol (0-0.07) % - EKG Data -: EKG Interpreted by Tx EKG shows normal: sinus rhythm Rate: normal - EKG Data 11/21/20 16:14 EKG performed at 22: 33 Sinus rhythm, 64 bpm. Normal axis, normal intervals, borderline left ventricular hypertrophy, low voltage in the inferior leads. This is an abnormal EKG. This EKG is not a STEMI, the EKG appears to be unchanged when compared to prior EKG from November 18, 2020 - Radiology Data Radiology results: report reviewed, image reviewed [facility] [address] [place] [address] XRay Report Signed Patient: RISHI RODRIGES MR#: [id number] : 1955 Acct:[id number] Age/Sex: 65 / M ADM Date: 11/20/20 Loc: ED Attending Dr: Ordering Physician: GIL KRISHNA MD Date of Service: 11/20/20 Procedure(s): XR chest routine 2V Accession Number(s): [id number] cc: ED MD ERENDIRA Fluoro Time In Minutes: CHEST 2 VIEWS INDICATION / CLINICAL INFORMATION: chest pain. COMPARISON: Chest radiograph 11/17/2020 FINDINGS: SUPPORT DEVICES: None. HEART / MEDIASTINUM: No significant abnormality. LUNGS / PLEURA: No significant pulmonary or pleural abnormality. No pneumothorax. ADDITIONAL FINDINGS: Fixation hardware in the lower thoracic spine. IMPRESSION: 1. No acute findings. Signer Name: Kemi Guzman MD Signed: 11/20/2020 6:52 PM Workstation Name: [id number] Transcribed By: [facility] Dictated By: Kemi Guzman MD Electronically Authenticated By: Kemi Guzman MD Signed Date/Time: 11/20/201851 DD/ 50 - Medical Decision Making Differential diagnosis, including but not limited to: Chronic chest pain, malingering, encounter for behavioral health screening examination, alcohol dependence, encounter for medical screening examination Assessment and plan: 65-year-old gentleman presenting with his typical complaint of chest pain and suicidality. In terms of the patient's chest pain, he was seen by cardiology a few days ago, who recommended no additional ischemic work-up. He is not currently tachy cardic, tachypneic or hypoxic, he has no leg pain or leg swelling, and he has been ruled out for pulmonary embolism in the past. His EKG is unchanged from prior. Patient's past medical history, and cardiovascular risk factors are reviewed and appreciated, however, given chronicity of symptoms, objective diagnostic testing, and expert recommendations from a few days ago, do not see indication for repeat cardiac risk ratification. In terms of the patient's report of suicidality, he is documented as being a malingerer, and the psychiatry team has advised that this patient enjoys being hospitalized. They specifically recommended no psychiatric hospitalization a few days ago. In addition, this patient is calm, cooperative, not belligerent, not physically violent, and waited in our waiting room for about 23 hours before coming back. Given recent psychiatric and cardiology recommendations, would not place patient on 1013 or involuntary hold, nor would we readmit for cardiac risk ratific ation. Cardiology has documented in their recent notes, that the patient is supposed to follow-up with them as an outpatient, on 12/21/2020, at 2:30 PM. Critical care attestation.: If time is entered above; I have spent that time in minutes in the direct care of this critically ill patient, excluding procedure time. ED Disposition Clinical Impression: Encounter for behavioral health screening, Chronic chest pain, Malingering Disposition: DC-01 TO HOME OR SELFCARE Is pt being admited?: No Does the pt Need Aspirin: No Condition: Good Instructions: Nonspecific Chest Pain, Adult Additional Instructions: Please continue current outpatient medications. Please follow-up with your outpatient primary care doctor, psychiatrist, mental health professional as recommended. The patient was not found to have an emergent medical condition present in the past 24 hours which would preclude outpatient psychiatric counseling, evaluation. The patient should return to the emergency room right away if he has any new, worsened or different symptoms. The patient may present himself on his own volition to both [place], or [facility], if he so desires, counseling, and outpatient psychiatric evaluation. Referrals: [facility] [Provider Group] - 3-5 Days [facility] [Outside] - 3-5 Days DULCE REY MD [Staff Physician] - 12/21/20 2:30 pm ([place] office, 2:30 PM; [phone])
--- NOTE | 2020-11-21 15:01 | Electrocardiograph Report ---
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
[2020-11-21 15:04] VITALS: BP 129/85
== END 2020-11-21 17:14 | disposition home or self-care (01) ==
LOC: ED 15:21
DX: R07.9 Chest pain, unspecified (principal); G89.29 Other chronic pain; I10 Essential (primary) hypertension; I25.2 Old myocardial infarction; F41.9 Anxiety disorder, unspecified; F31.9 Bipolar disorder, unspecified; I48.91 Unspecified atrial fibrillation; F17.200 Nicotine dependence, unspecified, uncomplicated; Z79.899 Other long term (current) drug therapy; Z88.8 Allergy status to other drugs, medicaments and biological substances; Z98.890 Other specified postprocedural states; Z76.5 Malingerer [conscious simulation]; Z13.30 Encounter for screening examination for mental health and behavioral disorders, unspecified
CPT/HCPCS: 36415; 71046; 80048; 80053; 80320; 84484; 85025; 93005; G0480

== ENCOUNTER 2020-11-24 16:01 | Emergency (ER) | payer MEDICARE ==
[2020-11-24] MEDS ORDERED: ASPIRIN 325 MG TAB PO ONE (16:14)
--- NOTE | 2020-11-24 16:45 | XRay Report ---
XR chest routine 2V INDICATION / CLINICAL INFORMATION: CP. COMPARISON: 11/20/2020 FINDINGS: SUPPORT DEVICES: None. HEART /PULMONARY VASCULATURE: No significant abnormality. LUNGS / PLEURA: No significant pulmonary or pleural abnormality. No pneumothorax. ADDITIONAL FINDINGS: No significant additional findings. IMPRESSION: 1. No acute findings. Signer Name: Maurice Siddiqui MD Signed: 11/24/2020 4:39 PM Workstation Name: [id number]
[2020-11-24 16:48] LABS: Basophils % (Auto) 0.3 % (0.0-1.8); Eosinophils # (Auto) 0.3 K/mm3 (0.0-0.4); Eosinophils % (Auto) 6.1 % (0.0-4.3); Hematocrit 38.8 % (35.5-45.6); Hemoglobin 13.5 gm/dl (11.8-15.2); Lymphocytes # (Auto) 1.2 K/mm3 (1.2-5.4); Lymphocytes % (Auto) 22.9 % (13.4-35.0); Mean Corpuscular HGB Conc 35 % (32-34); Mean Corpuscular Volume 101 fl (84-94); Monocytes # (Auto) 0.4 K/mm3 (0.0-0.8); Platelet Count 152 K/mm3 (140-440); Red Blood Count 3.83 M/mm3 (3.65-5.03); Red Cell Distribution Width 13.1 % (13.2-15.2)
[2020-11-24 17:07] LABS: INR 0.97 (0.87-1.13)
[2020-11-24 17:08] LABS: Partial Thromboplastin Time 28.2 Sec. (24.2-36.6)
[2020-11-24 17:12] LABS: Alanine Aminotransferase 7 units/L (7-56); Albumin 4.1 g/dL (3.9-5); BUN/Creatinine Ratio 19; Blood Urea Nitrogen 17 mg/dL (9-20); Calcium 8.7 mg/dL (8.4-10.2); Hemolysis Index 5
--- NOTE | 2020-11-24 17:28 | Emergency Department Report ---
ED Chest Pain HPI - General Chief Complaint: Chest Pain Stated Complaint: HEART/CHEST PAIN PUI?: No Time Seen by Provider: 11/24/20 17:05 Source: patient, EMS Mode of arrival: Wheelchair Limitations: No Limitations - History of Present Illness Initial Comments: Patient's is a 65-year-old male who presents emergency room with complaints of chest pain. Patient had chest pains in the left chest. Patient states the chest pain is rating to his left shoulder. Patient states the pain has been going on for many years. Patient states that it increased approximately 3 hours prior to arrival. Patient states his chest pain going on for about 6 hours now. Patient states the chest pain is better with rest. Patient states that the chest pain is worse with movement, exertion and palpation. Patient denies shortness of breath. Patient states that he might in the past. He states he has a history of hypertension. Patient states he is noncompliant with his medication. Patient does not take aspirin. Patient states that the real reason why he came here was because he is suicidal. Patient states has been running in traffic today trying to get hit but nobody will hit him. Patient states that his suicidal thoughts are becoming more frequent. Patient denies homicidal thoughts. Patient complains of depression anxiety. Patient denies hallucinations. Patient denies recent travel. Patient denies recent international travel. Patient denies exposure to the novel coronavirus. Patient denies sick contacts. Patient denies fever and chills. Patient denies cough. Patient denies diarrhea. Patient denies coming in contact with anybody with symptoms of the novel coronavirus. MD Complaint: chest pain -: Sudden - Related Data Home Medications Medication Instructions Recorded Confirmed Last Taken methOCARBAMOL [Robaxin TAB] 750 mg PO BID PRN 04/19/20 11/18/20 Unknown Divalproex [Philip Fry] 250 mg PO BID 11/18/20 11/18/20 Unknown OLANzapine [Zyprexa] 10 mg PO QHS 11/18/20 11/18/20 Unknown Pantoprazole Sodium 1 tab PO DAILY 11/18/20 11/18/20 Unknown Trazodone HCl 50 mg PO QHS PRN 11/18/20 11/18/20 Unknown clonazePAM [KlonoPIN] 0.5 mg PO BID 11/18/20 11/18/20 Unknown Previous Rx's Medication Instructions Recorded Last Taken Type Multivitamin Tab [Multiple Vitamin 1 each PO DAILY #30 tablet 04/25/20 Unknown Rx TAB (Theragran)] Thiamine [Vitamin B-1] 100 mg PO QDAY #30 tab 04/25/20 Unknown Rx Acetaminophen [Acetaminophen TAB] 650 mg PO Q4H PRN tablet 09/05/20 Unknown Rx Albuterol Sulfate [Proair 2 puff INHALATION Q4HR PRN #1 09/05/20 Unknown Rx Respiclick] Aspirin 325 mg PO QDAY #30 tablet 09/05/20 Unknown Rx AtorvaSTATin [Lipitor] 20 mg PO QHS #30 tablet 09/05/20 Unknown Rx Cyanocobalamin [Vitamin B-12] 1,000 mcg PO DAILY #30 tab 09/05/20 Unknown Rx Gabapentin 300 mg PO BID #60 capsule 09/05/20 Unknown Rx lisinopriL [Zestril TAB] 10 mg PO QDAY #30 09/05/20 Unknown Rx DULoxetine [Cymbalta] 30 mg PO DAILY #30 cap 10/22/20 Unknown Rx Amlodipine Besylate [Norvasc] 2.5 mg PO DAILY #30 tablet 11/18/20 Unknown Rx Folic Acid [Folvite] 1 mg PO QDAY #30 tablet 11/18/20 Unknown Rx Nicotine [Habitrol] 14 mg TD QDAY #30 patch 11/18/20 Unknown Rx traMADoL [Ultram] 50 mg PO Q6HR PRN #10 tablet 11/18/20 Unknown Rx Allergies Allergy/AdvReac Type Severity Reaction Status Date / Time ketorolac tromethamine Allergy Rash Verified 11/24/20 16:11 [From Toradol] Heart Score - HEART Score History: Slightly suspicious EKG: Normal Age: 45-65 Risk factors: > 3 risk factors or hx of atherosclerotic disease Troponin: < normal limit HEART Score: 3 - EKG Read Time Time EKG Completed: 16:08 EKG Read Time: 16:10 ED Review of Systems ROS: Stated complaint: HEART/CHEST PAIN Other details as noted in HPI Constitutional: denies: chills, fever Eyes: denies: eye pain, eye discharge, vision change ENT: denies: ear pain, throat pain Respiratory: denies: cough, shortness of breath, wheezing Cardiovascular: as per HPI, chest pain. denies: palpitations Endocrine: no symptoms reported Gastrointestinal: denies: abdominal pain, nausea, diarrhea Genitourinary: denies: urgency, dysuria Musculoskeletal: denies: back pain, joint swelling, arthralgia Skin: denies: rash, lesions Neurological: denies: headache, weakness, paresthesias Psychiatric: anxiety, depression, suicidal thoughts Hematological/Lymphatic: denies: easy bleeding, easy bruising ED Past Medical Hx - Past Medical History Previous Medical History?: Yes Hx Hypertension: Yes Hx Heart Attack/AMI: Yes (ME x 2, palpitations) Hx Congestive Heart Failure: No Hx Diabetes: No Hx Renal Disease: No Hx Arthritis: No Hx Seizures: No Hx Psychiatric Treatment: Yes (Anxiety, Bipolar) Hx Asthma: No Hx COPD: No Hx Dementia: No Additional medical history: Degenerative disc disease. History of A. fib status post cardiac ablation as per patient - Surgical History Past Surgical History?: Yes Hx Cholecystectomy: Yes Additional Surgical History: Multiple back surgeries secondary to degenerative disc disease - Family History Family history: no significant - Social History Smoking Status: Current Every Day Smoker Substance Use Type: Alcohol - Medications Home Medications: Home Medications Medication Instructions Recorded Confirmed Last Taken Type methOCARBAMOL [Robaxin TAB] 750 mg PO BID PRN 04/19/20 11/18/20 Unknown History Multivitamin Tab [Multiple Vitamin 1 each PO DAILY #30 tablet 04/25/20 11/18/20 Unknown Rx TAB (Theragran)] Thiamine [Vitamin B-1] 100 mg PO QDAY #30 tab 04/25/20 11/18/20 Unknown Rx Acetaminophen [Acetaminophen TAB] 650 mg PO Q4H PRN tablet 09/05/20 11/18/20 Unknown Rx Albuterol Sulfate [Proair 2 puff INHALATION Q4HR PRN #1 09/05/20 11/18/20 Unknown Rx Respiclick] Aspirin 325 mg PO QDAY #30 tablet 09/05/20 11/18/20 Unknown Rx AtorvaSTATin [Lipitor] 20 mg PO QHS #30 tablet 09/05/20 11/18/20 Unknown Rx Cyanocobalamin [Vitamin B-12] 1,000 mcg PO DAILY #30 tab 09/05/20 11/18/20 Unknown Rx Gabapentin 300 mg PO BID #60 capsule 09/05/20 11/18/20 Unknown Rx lisinopriL [Zestril TAB] 10 mg PO QDAY #30 09/05/20 11/18/20 Unknown Rx DULoxetine [Cymbalta] 30 mg PO DAILY #30 cap 10/22/20 11/18/20 Unknown Rx Amlodipine Besylate [Norvasc] 2.5 mg PO DAILY #30 tablet 11/18/[address] [Depakote Dr] 250 mg PO BID 11/18/20 11/18/20 Unknown History Folic Acid [Folvite] 1 mg PO QDAY #30 tablet 11/18/20 Unknown Rx Nicotine [Habitrol] 14 mg TD QDAY #30 patch 11/18/20 Unknown Rx OLANzapine [Zyprexa] 10 mg PO QHS 11/18/20 11/18/20 Unknown History Pantoprazole Sodium 1 tab PO DAILY 11/18/20 11/18/20 Unknown History Trazodone HCl 50 mg PO QHS PRN 11/18/20 11/18/20 Unknown History clonazePAM [KlonoPIN] 0.5 mg PO BID 11/18/20 11/18/20 Unknown History traMADoL [Ultram] 50 mg PO Q6HR PRN #10 tablet 11/18/20 Unknown Rx ED Physical Exam - General Limitations: No Limitations General appearance: alert, in no apparent distress - Head Head exam: Present: atraumatic, normocephalic - Eye Eye exam: Present: normal appearance - ENT ENT exam: Present: mucous membranes moist - Neck Neck exam: Present: normal inspection - Respiratory Respiratory exam: Present: normal lung sounds bilaterally, chest wall tenderness. Absent: respiratory distress, rales - Cardiovascular Cardiovascular Exam: Present: regular rate, normal rhythm. Absent: systolic murmur, diastolic murmur, rubs, gallop - GI/Abdominal GI/Abdominal exam: Present: soft, normal bowel sounds - Rectal Rectal exam: Present: deferred - Extremities Exam Extremities exam: Present: normal inspection - Back Exam Back exam: Present: normal inspection - Neurological Exam Neurological exam: Present: alert, oriented X3 - Psychiatric Psychiatric exam: Present: depressed, suicidal ideation - Skin Skin exam: Present: warm, dry, intact, normal color. Absent: rash ED Course Vital Signs 11/24/20 11/24/20 11/25/20 16:14 19:56 02:16 Temperature 98.2 F 98.4 F 98.2 F Pulse Rate 86 74 65 Respiratory 20 18 16 Rate Blood Pressure 102/67 Blood Pressure 101/64 119/71 [Right] O2 Sat by Pulse 96 95 97 Oximetry 11/25/20 11/25/20 11/25/20 03:57 09:36 10:55 Temperature 97.7 F Pulse Rate 71 Respiratory 16 18 18 Rate Blood Pressure Blood Pressure 105/70 [Right] O2 Sat by Pulse 99 97 97 Oximetry - Reevaluation(s) Reevaluation #1: Patient was placed on a cardiac nurse specialist. Patient is also complaining of suicidal ideations with a plan. Patient placed on a 1013. Patient placed on a ER hold. 11/24/20 17:30 Reevaluation #2: Patient has 2 neg troponins. Patient is medically cleared. Patient will remain in the ER as an ER hold and on a 1013 until the patient's final disposition comes from our psychiatry team. Patient's final clearance will come from the psych team. 11/24/20 18:45 JOEL score - Joel Score Age > 65: (0) No Aspirin use within the Past 7 Days: (0) No 3 or more CAD Risk Factors: (1) Yes 2 or more Angina events in past 24 hrs: (0) No Known CAD with more than 50% Stenosis: (0) No Elevated Cardiac Markers: (0) No ST Deviation Greater than 0.5mm: (0) No JOEL Score: 1 ED Medical Decision Making - Lab Data Result diagrams: 11/24/20 16:31 11/24/20 16:31 - EKG Data -: EKG Interpreted by Me EKG shows normal: sinus rhythm, axis, intervals, QRS complexes, ST-T waves Rate: normal - Radiology Data Radiology results: report reviewed, image reviewed interpreted by me: Chest x-ray: No pneumonia, no pneumothorax, no foreign body, no osseous findings, no acute findings - Medical Decision Making Patient is a 65-year-old male that comes emergency room with complaints of chest pain and suicidal ideation. Patient initially complained of chest pain. Patient and revealed that he is actually here because he is having thoughts of killing himself. Patient states running in traffic all day with a suicide attempt try to get somebody hit him because he wants to . Patient states he is severely depressed. Patient states that the chest pain is in his left chest. Patient's chest pain going on for many weeks. Patient states became severe today. Patient had 2 - troponins. Patient's medically cleared from the chest pain standpoint. Patient had labs done which were essentially unremarkable patient has only positive ascites alcohol level. Patient is acutely intoxicated. Patient placed on a 1013 and ER hold after initial evaluation. Patient transferred to our psychiatry area. Patient is medically cleared. Patient's final disposition will come from our psychiatry team. - Differential Diagnosis Chest pain, chest wall pain, anxiety, depression, suicidal ideation Critical care attestation.: If time is entered above; I have spent that time in minutes in the direct care of this critically ill patient, excluding procedure time. ED Disposition Clinical Impression: Suicidal ideations Chest pain Qualifiers: Chest pain type: unspecified Qualified Code(s): R07.9 - Chest pain, unspecified Disposition: DC- TO HOME OR SELFCARE Is pt being admited?: No Does the pt Need Aspirin: No Condition: Stable Instructions: Nonspecific Chest Pain, Adult Additional Instructions: Patient to follow-up with primary care in 2 to 3 days. Patient to follow-up [facility] ehs specialist in 2 to 3 days. Patient to rest. Patient to increase water. Patient to avoid strenuous exercise or heavy lifting until cleared by ehs specialist.. Patient to take Tylenol or ibuprofen as needed for pain. Patient to return to the ER if condition worsens, changes or new symptoms arise. You have been given a referral for a local ehs specialist, Dr. Pérez. Please follow-up with one of the outpatient mental health resources given below. Please avoid any illicit drug use, excessive alcohol use, excessive caffeine use. Please try and get 8 hours of uninterrupted sleep per night. Return to the emergency department with any worsening of your symptoms, thoughts of harming your self or others, or with any acute distress. OUTPATIENT MENTAL HEALTH RESOURCES [facility], [facility] Rene Eliceo ADORNO: [address] [place] [address] [place], [place] [id number] [facility]: [employer] [address] [place] [place] [address] [place] [address] [phone] [facility]: [facility] Healthcare: [address] [place] [address] [address] [place] [id number] [facility] [id number] [facility]: Jefe Dinero MD: [address] [facility] [address] [facility] [id number] [facility]: [address] [place] [address] [phone] ME CRISIS AND ACCESS LINE: Referrals: [facility] [Provider Group] - 2-3 Days PRIMARY CARE, [Primary Care Provider] - 2-3 Days VANNESSA PÉREZ MD [Staff Physician] - 2-3 Days Time of Disposition: 18:48
[2020-11-24 18:25] LABS: Bilirubin,Urine NEG (Negative); Blood,Urine SM (Negative); Color,Urine Yellow (Yellow); Mucus,Urine FEW /HPF; Protein,Urine <15 mg/dL mg/dL (Negative); Urobilinogen,Urine < 2.0 mg/dL (<2.0)
[2020-11-24 18:28] LABS: WBC,Urine < 1.0 /HPF (0.0-6.0)
[2020-11-24 18:32] LABS: Amphetamine Screen,Urine Negative; Benzodiazepines Screen,Urine Negative; Cannabinoid Screen,Urine Negative; Cocaine Screen,Urine Negative; Methadone Screen,Urine Negative; Opiate Screen,Urine Negative
[2020-11-25] MEDS ORDERED: ACETAMINOPHEN 325 MG TAB ONE ×2 (01:25→13:04)
[2020-11-25 09:37] VITALS: BP 105/70
--- NOTE | 2020-11-25 12:57 | Consultation ---
History of Present Illness - Reason for Consult Consult date: 11/25/20 Reason for consult: SI - History of Present Psychiatric Illness Per ER Note: Patient's is a 65-year-old male who presents emergency room with complaints of chest pain. Patient had chest pains in the left chest. Patient states the chest pain is rating to his left shoulder. Patient states the pain has been going on for many years. Patient states that it increased approximately 3 hours prior to arrival. Patient states his chest pain going on for about 6 hours now. Patient states the chest pain is better with rest. Patient states that the chest pain is worse with movement, exertion and palpation. Patient denies shortness of breath. Patient states that he might in the past. He states he has a history of hypertension. Patient states he is noncompliant with his medication. Patient does not take aspirin. Patient states that the real reason why he came here was because he is suicidal. Patient states has been running in traffic today trying to get hit but nobody will hit him. Patient states that his suicidal thoughts are becoming more frequent. Patient denies homicidal thoughts. Patient complains of depression anxiety. Patient denies hallucinations. Yang Ivy is a 65y/o male patient who presented to the ER for chest pain, then told them he really came for suicidal thoughts according to ER note. During my evaluation of the patient he is sleeping, but easily arouses. He is calm, and cooperative. He is disheveled. He is lucid. The patient says he's been feeling uptight. When asked about hallucinations, he initially says "no." He then says "well yea voices telling me I'm no good." The patient says he's back on "cocaine." He says "it's a continuous cycle." He also says he drinks a "6 pack of beer a day." The patient verbalizes suicidal thoughts, but states "I've been having them all my life." He denies any homicidal thoughts. When asking the reynold ent if he was taking his medications, he replied yes. He could not tell me what they were. It's unclear if the patient is being upfront about his medications. Asked the patient was he still in his [facility] and if things were okay there. He replied "it's alright." When asking him if he needed to go to another one, he says "you can do that? But it's alright." PAST PSYCHIATRIC HISTORY: Diagnoses: Bipolar disorder Suicide attempts or Self-harm behavior: yes Prior psychiatric hospitalizations: yes Substance Abuse history: Alcohol, cocaine Previous psychiatric medications tried: Cymbalta Outpatient treatment: Yes, at the [facility] History None reported or documented SOCIAL HISTORY Marital Status: Living Arrangements: nursing home Employment Status: disabled Access to guns/weapons: patient denies Education: college History of Abuse: patient denies Legal History: patient denies ROS: Constitutional: Negative for weight loss ENT: Negative for stridor Respiratory: Negative for cough or hemoptysis All other systems reviewed and are negative MENTAL STATUS EXAMINATION General Appearance and Behavior: Age appropriate, good hygiene, wearing appropriate clothes, good eye contact Cooperation: Participating/engaged, but Guarded Psychomotor Behavior: Psychomotor normal Mood: "uptight" Affect and affective range: restricted Thought Process: goal directed Thought Content: Speech: Normal rate, volume and rhythm Intellectual Functioning: Average Suicidal Ideation: Yes, states "all his life" Homicidal Ideation: Denies HI Impulse Control: Impaired Insight and Judgment: Limited insight and judgment Memory: Normal Attention: Normal Orientation: Alert, oriented - Psychiatric problem (1) Cocaine Dependence, Complicated, Substance (2) Alcohol Dependence (3) Noncompliance with other medical regimen and treatments Treatment Plan Continue previously prescribed meds Sitter: Defer to primary Medical: Per primary Disposition: Do not recommend acute psychiatric inpatient treatment. The patient symptoms can be managed on outpatient basis The director of sustainable design to further discuss safety plan and give the patient outpatient resources. The patient to abstain from all illicit drug use, and alcohol The director of sustainable design to give outpatient resource for psych, [facility] and med assistance, CBT, and drug rehab Will sign off. Thanks for this consult Case staffed with Dr. Gonzalez Medications and Allergies Allergies Allergy/AdvReac Type Severity Reaction Status Date / Time ketorolac tromethamine Allergy Rash Verified 11/24/20 16:11 [From Toradol] Home Medications Medication Instructions Recorded Confirmed Last Taken Type methOCARBAMOL [Robaxin TAB] 750 mg PO BID PRN 04/19/20 11/18/20 Unknown History Multivitamin Tab [Multiple Vitamin 1 each PO DAILY #30 tablet 04/25/20 11/18/20 Unknown Rx TAB (Theragran)] Thiamine [Vitamin B-1] 100 mg PO QDAY #30 tab 04/25/20 11/18/20 Unknown Rx Acetaminophen [Acetaminophen TAB] 650 mg PO Q4H PRN tablet 09/05/20 11/18/20 Unknown Rx Albuterol Sulfate [Proair 2 puff INHALATION Q4HR PRN #1 09/05/20 11/18/20 Unknown Rx Respiclick] Aspirin 325 mg PO QDAY #30 tablet 09/05/20 11/18/20 Unknown Rx AtorvaSTATin [Lipitor] 20 mg PO QHS #30 tablet 09/05/20 11/18/20 Unknown Rx Cyanocobalamin [Vitamin B-12] 1,000 mcg PO DAILY #30 tab 09/05/20 11/18/20 Unknown Rx Gabapentin 300 mg PO BID #60 capsule 09/05/20 11/18/20 Unknown Rx lisinopriL [Zestril TAB] 10 mg PO QDAY #30 09/05/20 11/18/20 Unknown Rx DULoxetine [Cymbalta] 30 mg PO DAILY #30 cap 10/22/20 11/18/20 Unknown Rx Amlodipine Besylate [Norvasc] 2.5 mg PO DAILY #30 tablet 11/18/20 Unknown Rx Divalproex [Philip Fry] 250 mg PO BID 11/18/20 11/18/20 Unknown History Folic Acid [Folvite] 1 mg PO QDAY #30 tablet 11/18/20 Unknown Rx Nicotine [Habitrol] 14 mg TD QDAY #30 patch 11/18/20 Unknown Rx OLANzapine [Zyprexa] 10 mg PO QHS 11/18/20 11/18/20 Unknown History Pantoprazole Sodium 1 tab PO DAILY 11/18/20 11/18/20 Unknown History Trazodone HCl 50 mg PO QHS PRN 11/18/20 11/18/20 Unknown History clonazePAM [KlonoPIN] 0.5 mg PO BID 11/18/20 11/18/20 Unknown History traMADoL [Ultram] 50 mg PO Q6HR PRN #10 tablet 11/18/20 Unknown Rx Mental Status Exam - Vital signs Last Vital Signs Temp 97.7 F 11/25/20 09:36 Pulse 71 11/25/20 09:36 Resp 18 06/18/21 10:55 BP 105/70 11/25/20 09:36 Pulse Ox 97 11/25/20 10:55 Results Result Diagrams: 11/24/20 16:31 11/24/20 16:31 Abnormal lab results 11/24/20 11/24/20 11/24/20 Range/Units 16:31 16:31 17:34 MCV 101 H (84-94) fl MCH 35 H (28-32) pg MCHC 35 H (32-34) % RDW 13.1 L (13.2-15.2) % Mcdonough % (Auto) 8.0 H (0.0-7.3) % Eos % (Auto) 6.1 H (0.0-4.3) % Sodium 136 L (137-145) mmol/L Carbon Dioxide 19 L (22-30) mmol/L Glucose 110 H (75-100) mg/dL Salicylates < 0.3 L (2.8-20.0) mg/dL Acetaminophen (10.0-30.0) ug/mL Plasma/Serum Alcohol (0-0.07) % 11/24/20 11/24/20 Range/Units 17:34 17:34 MCV (84-94) fl MCH (28-32) pg MCHC (32-34) % RDW (13.2-15.2) % Mcdonough % (Auto) (0.0-7.3) % Eos % (Auto) (0.0-4.3) % Sodium (137-145) mmol/L Carbon Dioxide (22-30) mmol/L Glucose (75-100) mg/dL Salicylates (2.8-20.0) mg/dL Acetaminophen 5.0 L (10.0-30.0) ug/mL Plasma/Serum Alcohol 0.12 H (0-0.07) % All other labs normal.
[2020-11-25] MEDS ORDERED: ACETAMINOPHEN 325 MG TAB PO ONE (13:04)
--- NOTE | 2020-11-25 13:20 | Emergency Department Report ---
Blank Doc - Documentation Documentation: The patient was seen by the psychiatric PA, Akila Ortiz, working under the psychiatrist, Dr. Gonzalez. The patient currently denies suicidal ideations. They have rescinded the 1013 and recommended discharge home with outpatient mental health follow-up. The patient was seen by me as well and he does not currently endorse suicidal ideations. He was medically cleared for his chest pain by my colleague, Dr Can. I can see that the patient had an EKG that did not have morphology consistent with ST elevation myocardial infarction. He has had negative troponins x3. The patient had a negative stress test 3 months ago. He will be given outpatient referral for [facility] cardiology. The psychiatric team is provided multiple outpatient mental health resources. We discussed avoiding any excessive alcohol abuse, excessive caffeine use, any illicit drug use. He will take all medications as prescribed. He will return to the closest emergency department with any worsening of his symptoms, thoughts of harming himself or others, or with any acute distress.
--- NOTE | 2020-11-25 19:41 | Electrocardiograph Report ---
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
== END 2020-11-25 13:53 | disposition home or self-care (01) ==
LOC: ED 16:01
DX: R45.851 Suicidal ideations (principal); R07.89 Other chest pain; I10 Essential (primary) hypertension; I25.2 Old myocardial infarction; F41.9 Anxiety disorder, unspecified; F31.9 Bipolar disorder, unspecified; F17.200 Nicotine dependence, unspecified, uncomplicated; Z90.49 Acquired absence of other specified parts of digestive tract; Z98.890 Other specified postprocedural states; Z79.899 Other long term (current) drug therapy; Z88.8 Allergy status to other drugs, medicaments and biological substances
CPT/HCPCS: 36415; 71046; 80053; 80307; 80320; 81001; 84484; 85025; 85610; 85730; 93005; G0480

== ENCOUNTER 2020-11-28 15:41 | Emergency (ER) | payer MEDICARE ==
[2020-11-28 16:43] VITALS: BP 129/82
--- NOTE | 2020-11-28 17:30 | Event Note ---
ED Screening Note Date of service: 11/28/20 Time: 17:29 ED Screening Note: Patient presents to the ER via EMS with complaints of left-sided chest pain and suicidal ideation. Patient states that his left-sided chest pains are about 3 to 4 hours ago. Has been intermittent in nature with associated nausea and shortness of breath. He states that he had an [place] 2 months ago. He denies any stent placement. He states that he is on blood thinners and he has been compliant with taking them. Patient also complains of having suicidal thoughts since this morning. His plan he states is to get hit by a car. He states that he has been compliant with his psych medications. He has a history of anxiety and bipolar disorder. This initial assessment/diagnostic orders/clinical plan/treatment(s) is/are subject to change based on patients health status, clinical progression and re- assessment by fellow clinical providers in the ED. Further treatment and workup at subsequent clinical providers discretion. Patient/guardian urged not to elope from the ED as their condition may be serious if not clinically assessed and managed. Initial orders include: Psych and chest pain order set
[2020-11-28 17:48] LABS: Basophils % (Auto) 0.5 % (0.0-1.8); Eosinophils # (Auto) 0.3 K/mm3 (0.0-0.4); Eosinophils % (Auto) 5.9 % (0.0-4.3); Hematocrit 40.7 % (35.5-45.6); Hemoglobin 13.8 gm/dl (11.8-15.2); Lymphocytes # (Auto) 1.1 K/mm3 (1.2-5.4); Lymphocytes % (Auto) 24.9 % (13.4-35.0); Mean Corpuscular HGB Conc 34 % (32-34); Mean Corpuscular Volume 102 fl (84-94); Monocytes # (Auto) 0.3 K/mm3 (0.0-0.8); Monocytes % (Auto) 6.6 % (0.0-7.3); Platelet Count 168 K/mm3 (140-440); Red Blood Count 4.01 M/mm3 (3.65-5.03); Red Cell Distribution Width 13.1 % (13.2-15.2)
--- NOTE | 2020-11-28 18:01 | XRay Report ---
CHEST 2 VIEWS INDICATION: Chest pain. COMPARISON: 11/24/2020 FINDINGS: Support devices: None. Heart: Within normal limits. Lungs/Pleura: No acute air space or interstitial disease. No significant pleural effusion. IMPRESSION: No acute findings. Signer Name: Galdino Lovett MD Signed: 11/28/2020 5:57 PM Workstation Name: [id number]
[2020-11-28 18:09] LABS: BUN/Creatinine Ratio 19; Blood Urea Nitrogen 15 mg/dL (9-20); Calcium 9.1 mg/dL (8.4-10.2); Hemolysis Index 22
[2020-11-28 18:23] LABS: Partial Thromboplastin Time 32.8 Sec. (24.2-36.6)
--- NOTE | 2020-11-30 19:14 | Electrocardiograph Report ---
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
== END 2020-11-28 21:00 | disposition left against medical advice (07) ==
LOC: ED 15:41
DX: R07.89 Other chest pain (principal); R06.02 Shortness of breath; R11.0 Nausea; Z53.21 Procedure and treatment not carried out due to patient leaving prior to being seen by health care provider
CPT/HCPCS: 36415; 71046; 80048; 80320; 83690; 84484; 85025; 85610; 85730; 93005; G0480